=== PATIENT | female | born 1995 | race Caucasian/White ===

== ENCOUNTER 2016-05-17 20:20 | Emergency (ER) | payer OTHER ==
[2016-05-17 20:56] LABS: Collection Type CLEAN CATCH
[2016-05-17 20:57] LABS: COMPLETE URINE MICROSCOPIC? NO
[2016-05-17 21:09] LABS: BASOPHIL % 0.2 % (0.0-0.4); Eosinophil % 0.8 % (0.00-5.0); Granulocytes % 67.1 % (36.0-66.0); Lymphocytes % 24.5 % (24.0-44.0); Mean Corpuscular Hemoglobin 30.4 pg (26-32); Mean Platelet Volume 10.3 fl (6-9.5); Monocytes % 7.4 % (0.0-12.0); Platelet Count 237 K/mm3 (150-450); Red Blood Count 4.67 M/mm3 (4.1-5.4); Red Cell Distribution Width 12.7 % (11.5-14.0); White Blood Count 12.4 K/mm3 (4.0-10.5)
--- NOTE | 2016-05-17 21:17 | ERPHSYRPT ---
- History of Present Illness Time Seen by Provider: 05/17/16 20:47 Source: patient Exam Limitations: no limitations Patient Subjective Stated Complaint: pt states she is 10 weeks and has been having cramping today. Triage Nursing Assessment: pt alert and oriented, answers questions approp. respirations nonlabored with lungs cta. skin pink warm and dry. pt ambulatory with steady gait noted. urine yellow and clear. abd soft and nontender. bowel sounds wnl. Physician History: FOR THE PAST HOUR PT HAS HAD LOWER MID ABDOMINAL CRAMPING. PT STATES SHE IS 10- 12 WEEKS , DENIES VAGINAL BLEEDING, DENIES FEVER. PT HAS HAD ONE MISCARRIAGE 3 YEARS AGO AT ABOUT 4 WEEKS GESTATION. PT ALSO DENIES CHEST PAIN, SHORTNESS OF AIR, VOMITING. Allergies/Adverse Reactions: Penicillins Allergy (Verified 05/17/16 20:39) Home Medications: Vits W-Ca,Fe,FA(<1Mg) [] 1 each PO DAILY 05/17/16 [History] Hx Tetanus, Diphtheria Vaccination/Date Given: Yes Hx Influenza Vaccination/Date Given: Yes Hx Pneumococcal Vaccination/Date Given: No Immunizations Up to Date: Yes - Review of Systems Constitutional: No Fever Respiratory: No Dyspnea Cardiac: No Chest Pain Abdominal/Gastrointestinal: Abdominal Pain Genitourinary Symptoms: No Vaginal Bleeding Neurological: No Headache Endocrine: No Excessive Sweating All Other Systems: Reviewed and Negative - Past Medical History Pertinent Past Medical History: Yes Neurological History: Seizures Cardiac History: No Pertinent History Respiratory History: No Pertinent History Endocrine Medical History: No Pertinent History Musculoskeletal History: No Pertinent History Psycho-Social History: Attention Deficit Disorder Other Medical History: stopped taking meds - Past Surgical History Past Surgical History: Yes Female Surgical History: Dilation & Curettage Other Surgical History: tonsillectomy eardrum sugery. d&c after miscarriage "a few yrs ago" - Social History Smoking Status: Never smoker Exposure to second hand smoke: Yes Drug Use: none Patient Lives Alone: No - Female History Hx Last Menstrual Period: 02/2016 Hx Now: No Expected Date of Delivery: 12/01/16 Gestational Age: 10 weeks - Nursing Vital Signs Nursing Vital Signs: Initial Vital Signs Temperature 97.2 F Temperature Source Oral Pulse Rate 101 Respiratory Rate 16 Blood Pressure [Right Arm] 119/61 Pain Intensity 0 - Physical Exam General Appearance: alert Eye Exam: PERRL/EOMI, eyes nml inspection Ears, Nose, Throat Exam: TMs normal, pharynx normal, moist mucous membranes Neck Exam: normal inspection Respiratory Exam: lungs clear Cardiovascular Exam: normal heart sounds Gastrointestinal/Abdomen Exam: soft, normal bowel sounds, No tenderness Back Exam: normal range of motion Extremity Exam: normal inspection, No pedal edema Neurologic Exam: alert, cooperative Skin Exam: warm, dry SpO2 Interpretation: normal SpO2: 98 Oxygen Delivery: Room Air - Course Nursing assessment & vital signs reviewed: Yes - Radiology Ultrasound Exam OB Ultrasound: Other (TECH REPORT: 10 WK 2 DAYS NORMAL; [id number].) Ordered Tests: Active Orders 24 hr Category Date Time Status OB <14 WKS 1ST GESTATION [US] Stat Exams 05/17/16 22:11 Taken AMYLASE Stat Lab 05/17/16 21:06 Completed CBC W DIFF Stat Lab 05/17/16 21:06 Completed CMP Stat Lab 05/17/16 21:06 Completed HCG, Quantitative (Inhouse) Stat Lab 05/17/16 21:06 Completed LIPASE Stat Lab 05/17/16 21:06 Completed UA Stat Lab 05/17/16 20:35 Completed Lab/Rad Data: Laboratory Result Diagrams 05/17/16 21:06 05/17/16 21:06 Laboratory Results 05/17/16 05/17/16 05/17/16 Range/Units 21:06 21:06 20:35 WBC 12.4 H (4.0-10.5) K/mm3 RBC 4.67 (4.1-5.4) M/mm3 Hgb 14.2 (12.0-16.0) gm/dl Hct 42.5 (35-47) % MCV 91.0 (78-100) fl MCH 30.4 (26-32) pg MCHC 33.4 (32-36) g/dl RDW 12.7 (11.5-14.0) % Plt Count 237 (150-450) K/mm3 MPV 10.3 H (6-9.5) fl Gran % 67.1 H (36.0-66.0) % Lymphocytes % 24.5 (24.0-44.0) % Monocytes % 7.4 (0.0-12.0) % Eosinophils % 0.8 (0.00-5.0) % Basophils % 0.2 (0.0-0.4) % Basophils # 0.03 (0-0.4) Sodium 141 (136-145) mEq/L Potassium 3.6 (3.5-5.1) mEq/L Chloride 103 (98-107) mEq/L Carbon Dioxide 24.7 (21-32) mEq/L Anion Gap 16.4 H (5-15) MEQ/L BUN 6 L (9-20) mg/dL Creatinine 0.65 (0.55-1.30) mg/dl Estimated GFR > 60 ML/MIN Glucose 80 (70-110) MG/DL Calcium 9.3 (8.5-10.1) mg/dL Total Bilirubin 0.2 (0.2-1.0) mg/dL AST 21 (15-37) U/L ALT 27 (12-78) U/L Alkaline Phosphatase 93 (46-116) U/L Serum Total Protein 6.7 (6.4-8.2) gm/dL Albumin 3.4 (3.4-5.0) g/dL Amylase 52 (25-115) U/L Lipase 130 (73-393) U/L Beta HCG, Quant 47175 H (0-6) IU/L Ur Collection Type CLEAN CATCH Urine Color YELLOW (YELLOW) Urine Appearance SLIGHTLY CLOUDY (CLEAR) Urine pH 7.0 (5-6) Ur Specific [place] 1.015 (1.005-1.025) Urine Protein NEGATIVE (Negative) Urine Glucose (UA) NEGATIVE (NEGATIVE) mg/dL Urine Ketones NEGATIVE (NEGATIVE) Urine Nitrite NEGATIVE (NEGATIVE) Urine Bilirubin NEGATIVE (NEGATIVE) Urine Urobilinogen 0.2 (0-1) mg/dL Urine WBC (Auto) NEGATIVE (NEGATIVE) Urine RBC (Auto) NEGATIVE (0-5) Jacob/ul Specimen Received 05/17/162039 - Departure Time of Disposition: 00:05 Departure Disposition: Home Clinical Impression: THREATENED Condition: Fair Critical Care Time: No Instructions: Threatened Additional Instructions: FOLLOW UP WITH PRIVATE OB DOCTOR TOMORROW. STRICT BED REST.
[2016-05-17 21:55] LABS: ALBUMIN 3.4 g/dL (3.4-5.0); ALKALINE PHOSPHATASE 93 U/L (46-116); ANION GAP 16.4 MEQ/L (5-15); BILIRUBIN,TOTAL 0.2 mg/dL (0.2-1.0); BLOOD UREA NITROGEN 6 mg/dL (9-20); CHLORIDE 103 mEq/L (98-107); Carbon Dioxide 24.7 mEq/L (21-32); Glucose 80 MG/DL (70-110); HCG, Quantitative (Inhouse) 75387 IU/L (0-6); LIPASE 130 U/L (73-393); Potassium 3.6 mEq/L (3.5-5.1); SGOT/AST 21 U/L (15-37); SGPT/ALT 27 U/L (12-78); SODIUM 141 mEq/L (136-145); Total Protein 6.7 gm/dL (6.4-8.2)
[2016-05-18 00:05] VITALS: O2SAT 98
[2016-05-18 00:16] VITALS: BP 124/63; PULSE 112
--- NOTE | 2016-05-18 09:04 | XRAY ---
Indication: Cramping. Two-dimensional transabdominal early OB ultrasound performed. Comparison: None There is a single viable intrauterine with a single pole measuring 3.40 cm corresponding to 10 weeks 2 days. heart rate 169 bpm. No abnormal subchorionic fluid collection. Left and right ovaries are unremarkable. No suspicious adnexal mass or free fluid. Impression: Single viable intrauterine measuring 10 weeks 2 days. Expected date confinement is December 11, 2016. Comment: Preliminary report was given.
== END 2016-05-18 00:15 | disposition home or self-care (01) ==
LOC: ED 20:20
DX: O20.0 Threatened abortion (principal); Z3A.10 10 weeks gestation of pregnancy
CPT/HCPCS: 36415; 76801; 80053; 81002; 82150; 83690; 84702; 85025; 99283

== ENCOUNTER 2016-07-09 20:26 | Emergency (ER) | payer OTHER ==
[2016-07-09] MEDS ORDERED: Sodium Chloride 0.9% 1000 ML 1,000 ML IV STA (21:02)
--- NOTE | 2016-07-09 21:02 | ERPHSYRPT ---
- History of Present Illness Source: patient, family Exam Limitations: no limitations Patient Subjective Stated Complaint: pt arr co pink discharge on toilet paper after wiping after voiding at 2030 tonight -pt is 19weeks -she has intermittent left side abd pain mild in nature -she give history of intercourse yesterday without problems -lmp 02-25-2016 with an edc of [id number] ultrasound has been done with this due to bleeding Triage Nursing Assessment: pt is awake and alert and able to answer questions in no acute distress Physician History: The patient is a 21-year-old female with her mother complaining of very light pink vaginal spotting today. She has a little bit of left-sided abdominal pain as well. There is no cramping. She is approximately 19 weeks per patient report. She had intercourse yesterday afternoon. Timing/Duration: hour(s) (2) Activites at Onset: none Quality: aching (Left side) Onset Location: LLQ Pain Radiation: none Severity of Pain-Max: mild Severity of Pain-Current: mild Prior abdominal problems: STD (chlamydia) Sexual intercourse history: non-contributory Modifying Factors: Improves With: nothing Associated Symptoms: denies symptoms Allergies/Adverse Reactions: Penicillins Allergy (Verified 05/17/16 20:39) Home Medications: Vits W-Ca,Fe,FA(<1Mg) [] 1 each PO DAILY 05/17/16 [History] Hx Tetanus, Diphtheria Vaccination/Date Given: Yes Hx Influenza Vaccination/Date Given: Yes Hx Pneumococcal Vaccination/Date Given: No - Review of Systems Constitutional: No Fever, No Chills Eyes: No Symptoms Ears, Nose, & Throat: No Symptoms Respiratory: No Cough, No Dyspnea Cardiac: No Chest Pain, No Edema, No Syncope Abdominal/Gastrointestinal: Abdominal Pain Genitourinary Symptoms: Vaginal Bleeding, No Dysuria Musculoskeletal: No Back Pain, No Neck Pain Skin: No Rash Neurological: No Dizziness, No Focal Weakness, No Sensory Changes Psychological: No Symptoms Endocrine: No Symptoms Hematologic/Lymphatic: No Symptoms Immunological/Allergic: No Symptoms All Other Systems: Reviewed and Negative - Past Medical History Pertinent Past Medical History: Yes Neurological History: Seizures Cardiac History: No Pertinent History Respiratory History: No Pertinent History Endocrine Medical History: No Pertinent History Musculoskeletal History: No Pertinent History Psycho-Social History: Attention Deficit Disorder Other Medical History: stopped taking meds - Past Surgical History Past Surgical History: Yes Female Surgical History: Dilation & Curettage Other Surgical History: tonsillectomy eardrum sugery. d&c after miscarriage "a few yrs ago" - Social History Smoking Status: Never smoker Exposure to second hand smoke: Yes Drug Use: none Patient Lives Alone: No - Female History Hx Last Menstrual Period: 02/25/2016 Hx Now: No - Nursing Vital Signs Nursing Vital Signs: Initial Vital Signs Temperature 99.3 F Temperature Source Oral Pulse Rate 96 Respiratory Rate 16 Blood Pressure [Left Arm] 113/84 Pain Intensity 7 - Physical Exam General Appearance: no apparent distress, alert Eye Exam: PERRL/EOMI, eyes nml inspection Ears, Nose, Throat Exam: normal ENT inspection, TMs normal, pharynx normal, moist mucous membranes Neck Exam: normal inspection, non-tender, supple, full range of motion Respiratory Exam: normal breath sounds, lungs clear, No respiratory distress Cardiovascular Exam: regular rate/rhythm, normal heart sounds, normal peripheral pulses Gastrointestinal/Abdomen Exam: soft (FHT 160 bpm), No tenderness, No mass Pelvic Exam: not done Rectal Exam: not done Back Exam: normal inspection, normal range of motion, No CVA tenderness, No vertebral tenderness Extremity Exam: normal inspection, normal range of motion, pelvis stable Neurologic Exam: alert, oriented x 3, cooperative, apron cleaner II-XII nml as tested, normal mood/affect, sensation nml, No motor deficits Skin Exam: normal color, warm, dry Lymphatic Exam: No adenopathy SpO2 Interpretation: normal SpO2: 98 Oxygen Delivery: Room Air Ordered Tests: Active Orders 24 hr Category Date Time Status Clean Catch Urine Specimen STAT Care 07/09/16 21:07 Active Heart Tones-ED STAT Care 07/09/16 20:54 Active IV Insertion STAT Care 07/09/16 20:43 Active BMP Stat Lab 07/09/16 21:00 Completed CBC W DIFF Stat Lab 07/09/16 21:00 Completed UA Stat Lab 07/09/16 21:00 Completed Medication Summary Generic Name Dose Route Start Last Admin Trade Name Freq PRN Reason Stop Dose Admin Sodium Chloride 1,000 mls @ 999 mls/hr 07/09/16 21:02 07/09/16 21:06 Sodium Chloride 0.9% 1000 Ml IV 07/09/16 22:02 999 mls/hr .Q1H1M STA Administration Discontinued Medications Generic Name Dose Route Start Last Admin Trade Name Garrett PRN Reason Stop Dose Admin Sodium Chloride Confirm 07/09/16 21:04 Sodium Chloride 0.9% 1000 Ml Administered 07/09/16 21:05 Dose 1,000 mls @ ud .ROUTE .K-MED ONE Lab/Rad Data: Laboratory Result Diagrams 07/09/16 21:00 07/09/16 21:00 Laboratory Results 07/09/16 07/09/16 07/09/16 Range/Units 21:00 21:00 21:00 WBC 13.2 H (4.0-10.5) K/mm3 RBC 4.45 (4.1-5.4) M/mm3 Hgb 13.8 (12.0-16.0) gm/dl Hct 40.1 (35-47) % MCV 90.1 (78-100) fl MCH 31.0 (26-32) pg MCHC 34.4 (32-36) g/dl RDW 12.8 (11.5-14.0) % Plt Count 227 (150-450) K/mm3 MPV 10.4 H (6-9.5) fl Gran % 74.3 H (36.0-66.0) % Lymphocytes % 19.3 L (24.0-44.0) % Monocytes % 5.7 (0.0-12.0) % Eosinophils % 0.5 (0.00-5.0) % Basophils % 0.2 (0.0-0.4) % Basophils # 0.02 (0-0.4) Sodium 143 (136-145) mEq/L Potassium 3.6 (3.5-5.1) mEq/L Chloride 108 H (98-107) mEq/L Carbon Dioxide 21.5 (21-32) mEq/L Anion Gap 17.4 H (5-15) MEQ/L BUN 10 (9-20) mg/dL Creatinine 0.64 (0.55-1.30) mg/dl Estimated GFR > 60 ML/MIN Glucose 88 (70-110) MG/DL Calcium 8.5 (8.5-10.1) mg/dL Ur Collection Type CCMS Urine Color YELLOW (YELLOW) Urine Appearance CLEAR (CLEAR) Urine pH 6.5 (5-6) Ur Specific [place] 1.020 (1.005-1.025) Urine Protein NEGATIVE (Negative) Urine Glucose (UA) NEGATIVE (NEGATIVE) mg/dL Urine Ketones NEGATIVE (NEGATIVE) Urine Nitrite NEGATIVE (NEGATIVE) Urine Bilirubin NEGATIVE (NEGATIVE) Urine Urobilinogen 0.2 (0-1) mg/dL Urine WBC (Auto) NEGATIVE (NEGATIVE) Urine RBC (Auto) NEGATIVE (0-5) Jacob/ul Specimen Received 07-09-16 2116 - Progress Progress: improved Air Movement: good Blood Culture(s) Obtained: No Antibiotics given: No Counseled pt/family regarding: lab results, diagnosis, need for follow-up - Departure Time of Disposition: 21:51 Departure Disposition: Home Clinical Impression: Vaginal bleeding in Condition: Stable Critical Care Time: No Additional Instructions: You had one mild episode of vaginal bleeding following intercourse that at this time is not worrisome. Your white count is slightly elevated which is not unusual for . The urinalysis was normal. You were given 1 L of fluids by IV in the ER. Follow up tomorrow as scheduled for the ultrasound to determine the sex of the fetus.
[2016-07-09] MEDS ORDERED: Sodium Chloride 0.9% 1000 ML 1,000 ML ONE (21:04)
[2016-07-09 21:09] LABS: BASOPHIL % 0.2 % (0.0-0.4); Eosinophil % 0.5 % (0.00-5.0); Granulocytes % 74.3 % (36.0-66.0); Lymphocytes % 19.3 % (24.0-44.0); Mean Cell Volume 90.1 fl (78-100); Mean Platelet Volume 10.4 fl (6-9.5); Monocytes % 5.7 % (0.0-12.0); Platelet Count 227 K/mm3 (150-450); Red Blood Count 4.45 M/mm3 (4.1-5.4); Red Cell Distribution Width 12.8 % (11.5-14.0); White Blood Count 13.2 K/mm3 (4.0-10.5)
[2016-07-09 21:10] VITALS: BP 113/84; PULSE 96
[2016-07-09 21:14] LABS: COMPLETE URINE MICROSCOPIC? NO; Collection Type CCMS; Ph 6.5 (5-6)
[2016-07-09 21:25] LABS: ANION GAP 17.4 MEQ/L (5-15); BLOOD UREA NITROGEN 10 mg/dL (9-20); CHLORIDE 108 mEq/L (98-107); Carbon Dioxide 21.5 mEq/L (21-32); Glucose 88 MG/DL (70-110); Potassium 3.6 mEq/L (3.5-5.1); SODIUM 143 mEq/L (136-145)
[2016-07-09 21:55] VITALS: O2SAT 98
== END 2016-07-09 22:25 | disposition home or self-care (01) ==
LOC: ED 20:26
DX: O20.9 Hemorrhage in early pregnancy, unspecified (principal)
CPT/HCPCS: 36000; 36415; 80048; 81002; 85025; 96360; 99284

== ENCOUNTER 2016-07-15 22:38 | Observation (INO) | payer OTHER ==
[2016-07-15 23:03] VITALS: BP 128/71; PULSE 103
[2016-07-15 23:25] LABS: Bacteria MODERATE /HPF (NEGATIVE); COMPLETE URINE MICROSCOPIC? YES; Collection Type CLEAN CATCH; Epithelial Cells MODERATE /HPF (FEW); Mucus SLIGHT /HPF (NEGATIVE)
[2016-07-15] MEDS ORDERED: TYLENOL 325 MG ONE (23:39)
[2016-07-15] MEDS ORDERED: TYLENOL 325 MG PO PRN (23:42)
== END 2016-07-15 23:50 | disposition home or self-care (01) ==
LOC: OB 22:38
PROVIDERS: ADMIT Family Medicine; ATTEND Family Medicine
DX: Z34.80 Encounter for supervision of other normal pregnancy, unspecified trimester (principal)
CPT/HCPCS: 80307; 81000; G0378; A9270-GY

== ENCOUNTER 2016-10-31 21:52 | Observation (INO) | payer MEDICAID, OTHER ==
[2016-10-31 23:24] LABS: Bilirubin NEGATIVE (NEGATIVE); Blood NEGATIVE Ery/ul (0-5); COMPLETE URINE MICROSCOPIC? NO; Collection Type CLEAN CATCH; Glucose NEGATIVE (NEGATIVE); Leukocyte Esterase NEGATIVE (NEGATIVE)
[2016-10-31] MEDS ORDERED: Lactated Ringers 1,000 ML IV ONE (23:34)
[2016-10-31] MEDS ORDERED: BRETHINE 1 MG/ML ONE (23:34)
[2016-10-31] MEDS ORDERED: BRETHINE 1 MG/ML SQ ONE (23:36)
[2016-10-31] MEDS ORDERED: Lactated Ringers 1,000 ML IV SCH (23:45)
[2016-11-01] MEDS ORDERED: BRETHINE 1 MG/ML SQ ONE (02:21)
--- NOTE | 2016-11-01 10:52 | PCM.SSS ---
History of Present Illness - Chief Complaint Chief Complaint: OB CHECK History of Present Illness: is a 21 year old female at 34 2/7 wks EGA who came in last night c/o contractions. She reports possible intermittent leakage of fluid, had an incident of a wet spot on pad last night but nitrazine negative x 1 and equivocal x 1. She had IV fluids and terbutaline x 2 doses, feeling better this am. Denies pain currently. - Review of Systems Constitutional: No Fever, No Chills Respiratory: No Cough, No Short Of Breath Cardiac: No Chest Pain, No Edema, No Syncope Abdominal/Gastrointestinal: Other (contractions as per HPI, normal movement) Skin: No Rash All Other Systems: Reviewed and Negative Medications & Allergies Home Medications: Home Medication List Vits W-Ca,Fe,FA(<1Mg) [] 1 each PO DAILY 05/17/16 [History Confirmed 10/31/16] Allergies/Adverse Reactions: Allergies Allergy/AdvReac Type Severity Reaction Status Date / Time Penicillins Allergy Rash Verified 10/31/16 22:22 Sulfa (Sulfonamide Allergy Rash Verified 10/31/16 22:22 Antibiotics) - Past Medical History Past Medical History: Yes Neurological History: Seizures Cardiac History: No Pertinent History Respiratory History: No Pertinent History Endocrine Medical History: No Pertinent History Musculoskelatal History: No Pertinent History Pyscho-Social History: Attention Deficit Disorder Comment: stopped taking meds - Female History Expected Date of Delivery: 12/11/16 - Past Surgical History Past Surgical History: Yes Female Surgical History: Dilation & Curettage Other Surgical History: tonsillectomy eardrum sugery. d&c after miscarriage "a few yrs ago" - Social History Smoking Status: Never smoker Exposure to second hand smoke: Yes Alcohol: None Drug Use: none - Physical Exam Vital Signs: Vital Signs - 24 hr Temp Pulse BP BP 11/01/16 06:33 111 H 96/50 11/01/16 02:30 111 H 134/82 10/31/16 22:23 98.8 F 102 H 125/76 General Appearance: no apparent distress, alert Respiratory Exam: normal breath sounds, lungs clear, No respiratory distress Cardiovascular Exam: regular rate/rhythm, normal heart sounds, normal peripheral pulses Gastrointestinal/Abdomen Exam: soft, normal bowel sounds, No tenderness, No mass Pelvic Exam: other (cervix high, posterior and closed. no fluid leakage, pad dry and no fluid in vaginal vault) Skin Exam: normal color, warm, dry, No rash Results - Labs Lab/Micro Results: Lab Results-Last 24 Hours 10/31/16 10/31/16 Range/Units 22:50 22:50 Ur Collection Type CLEAN CATCH Urine Color YELLOW (YELLOW) Urine Appearance CLEAR (CLEAR) Urine pH 6.0 (5-6) Ur Specific [place] 1.010 (1.005-1.025) Urine Protein NEGATIVE (Negative) Urine Ketones NEGATIVE (NEGATIVE) Urine Blood NEGATIVE (0-5) Jacob/ul Urine Nitrite NEGATIVE (NEGATIVE) Urine Bilirubin NEGATIVE (NEGATIVE) Urine Urobilinogen NORMAL (0-1) mg/dL Ur Leukocyte Esterase NEGATIVE (NEGATIVE) Urine Glucose NEGATIVE (NEGATIVE) mg/dL Urine Opiates Level NEG. (NEGATIVE) Ur Methadone NEG. (NEGATIVE) Urine Barbiturates NEG. (NEGATIVE) Ur Phencyclidine (PCP) NEG. (NEGATIVE) Urine Amphetamine NEG. (NEGATIVE) U Benzodiazepine Level NEG. (NEGATIVE) Urine Cocaine NEG. (NEGATIVE) Urine Marijuana (THC) NEG. (NEGATIVE) Specimen Received 10/31/16 2300 Assessment/Plan (1) contractions Current Visit: Yes Status: Acute Assessment & Plan: resolved at this time and no cervical change, labor ruled out. will give celestone 12mg IM and repeat in 24 hours. would start procardia if contractions begin again Code(s): O47.9 - FALSE LABOR, UNSPECIFIED (2) No leakage of amniotic fluid into vagina Current Visit: Yes Status: Acute Code(s): Z03.71 - ENCNTR FOR SUSP PROB W AMNIO CAVITY AND MEMBRANE RULED OUT (3) Abnormal vaginal fluids Current Visit: Yes Status: Acute Assessment & Plan: check u/s with SCOTT, likely home if fluid level ok and no further problems. Code(s): R87.9 - UNSP ABNORMAL FINDING IN SPECMN FROM FEMALE GENITAL ORGANS [facility] Summary - Vitals & Intake/Output Vital Signs: Vital Signs Temperature 98.8 F 10/31/16 22:23 Pulse Rate 111 H 11/01/16 06:33 Respiratory Rate Blood Pressure 96/50 11/01/16 06:33 O2 Sat by Pulse Oximetry Intake & Output: Intake & Output 07/12/10/30/16 10/31/16 11/01/16 11:59 11:59 11:59 11:59 Weight 83.915 kg - Lab Lab Results-Last 24 Hrs: Lab Results-Last 24 Hours 10/31/16 10/31/16 Range/Units 22:50 22:50 Ur Collection Type CLEAN CATCH Urine Color YELLOW (YELLOW) Urine Appearance CLEAR (CLEAR) Urine pH 6.0 (5-6) Ur Specific [place] 1.010 (1.005-1.025) Urine Protein NEGATIVE (Negative) Urine Ketones NEGATIVE (NEGATIVE) Urine Blood NEGATIVE (0-5) Jacob/ul Urine Nitrite NEGATIVE (NEGATIVE) Urine Bilirubin NEGATIVE (NEGATIVE) Urine Urobilinogen NORMAL (0-1) mg/dL Ur Leukocyte Esterase NEGATIVE (NEGATIVE) Urine Glucose NEGATIVE (NEGATIVE) mg/dL Urine Opiates Level NEG. (NEGATIVE) Ur Methadone NEG. (NEGATIVE) Urine Barbiturates NEG. (NEGATIVE) Ur Phencyclidine (PCP) NEG. (NEGATIVE) Urine Amphetamine NEG. (NEGATIVE) U Benzodiazepine Level NEG. (NEGATIVE) Urine Cocaine NEG. (NEGATIVE) Urine Marijuana (THC) NEG. (NEGATIVE) Specimen Received 10/31/16 2300 - Discharge Disposition: Home, Self-Care Condition: Stable Prescriptions: No Action Vits W-Ca,Fe,FA(<1Mg) [] 1 each PO DAILY
[2016-11-01] MEDS ORDERED: Celestone Soluspan 6MG/ML IM ONE (11:00)
[2016-11-01 13:51] VITALS: BP 124/70; PULSE 116
--- NOTE | 2016-11-01 16:08 | XRAY ---
Indication: labor. Limited OB ultrasound performed and compared to July 10, 2016. Again there is a term in cephalic presentation. heart rate 147 bpm. Placenta is again posterior without abruption/previa. Four-quadrant SCOTT 14.7 cm. Impression: Again single viable uterine with normal heart rate and SCOTT. Nothing acute. Comment: Preliminary report was given.
== END 2016-11-01 13:45 | disposition home or self-care (01) ==
LOC: OB 21:52 → UNDOADMOB 21:52 → UNDODISOB 11-01 13:45
PROVIDERS: ADMIT Family Medicine; ATTEND Family Medicine
DX: Z34.83 Encounter for supervision of other normal pregnancy, third trimester (principal)
CPT/HCPCS: 76815; 80307; 81002; 90384; 96372; G0378; J0702

== ENCOUNTER 2016-11-14 18:36 | Observation (INO) | payer OTHER ==
[2016-11-14 20:44] VITALS: BP 115/70; PULSE 98; O2SAT 98
== END 2016-11-14 20:36 | disposition home or self-care (01) ==
LOC: UNDOADMOB 18:36 → OB 18:36 → UNDODISOB 20:36
PROVIDERS: ADMIT Family Medicine; ATTEND Family Medicine
DX: Z34.83 Encounter for supervision of other normal pregnancy, third trimester (principal)
CPT/HCPCS: G0378

== ENCOUNTER 2016-11-15 01:04 | Observation (INO) | payer OTHER ==
[2016-11-15 05:51] VITALS: BP 98/56; PULSE 88; O2SAT 98
[2016-11-15 12:18] LABS: Bilirubin NEGATIVE (NEGATIVE); Blood NEGATIVE Ery/ul (0-5); COMPLETE URINE MICROSCOPIC? NO; Collection Type CCMS; Glucose NEGATIVE (NEGATIVE); Leukocyte Esterase NEGATIVE (NEGATIVE)
== END 2016-11-15 12:45 | disposition home or self-care (01) ==
LOC: OB 01:04 → UNDOADMOB 01:04 → UNDODISOB 12:45
PROVIDERS: ADMIT Family Medicine; ATTEND Family Medicine
DX: Z34.83 Encounter for supervision of other normal pregnancy, third trimester (principal)
CPT/HCPCS: 80307; 81002; G0378

== ENCOUNTER 2016-11-25 22:26 | Observation (INO) | payer OTHER ==
[2016-11-25 23:33] VITALS: PULSE 95
[2016-11-26 02:14] VITALS: BP 127/83
== END 2016-11-26 00:55 | disposition home or self-care (01) ==
LOC: OB 22:26
PROVIDERS: ADMIT Family Medicine; ATTEND Family Medicine
DX: Z34.83 Encounter for supervision of other normal pregnancy, third trimester (principal)
CPT/HCPCS: G0378

== ENCOUNTER 2016-12-09 21:18 | Observation (INO) | payer OTHER ==
[2016-12-09 23:03] VITALS: BP 136/87; PULSE 103
== END 2016-12-09 23:25 | disposition home or self-care (01) ==
LOC: MED SURG 21:18 → UNDOADMOB 21:18 → UNDODISOB 23:25
PROVIDERS: ADMIT Family Medicine; ATTEND Family Medicine
DX: Z34.83 Encounter for supervision of other normal pregnancy, third trimester (principal)
CPT/HCPCS: 80307; G0378

== ENCOUNTER 2016-12-10 19:41 | Observation (INO) | payer OTHER ==
[2016-12-10 20:06] VITALS: BP 111/76; PULSE 89
== END 2016-12-10 21:55 | disposition home or self-care (01) ==
LOC: OB 19:41 → UNDOADMOB 19:41 → UNDODISOB 21:55
PROVIDERS: ADMIT Family Medicine; ATTEND Family Medicine
DX: Z34.03 Encounter for supervision of normal first pregnancy, third trimester (principal)
CPT/HCPCS: 80307; G0378

== ENCOUNTER 2016-12-15 19:28 | Observation (INO) | payer OTHER ==
[2016-12-15 19:54] VITALS: BP 119/83; PULSE 86
== END 2016-12-15 21:40 | disposition home or self-care (01) ==
LOC: OB 19:28 → UNDOADMOB 19:28 → UNDODISOB 21:40
PROVIDERS: ADMIT Family Medicine; ATTEND Family Medicine
DX: Z34.83 Encounter for supervision of other normal pregnancy, third trimester (principal)
CPT/HCPCS: 80307; G0378

== ENCOUNTER 2016-12-16 02:13 | Observation (INO) | payer OTHER ==
[2016-12-16 09:00] VITALS: BP 118/79; PULSE 75
== END 2016-12-16 08:55 | disposition home or self-care (01) ==
LOC: OB 02:13
PROVIDERS: ADMIT Family Medicine; ATTEND Family Medicine
DX: Z34.83 Encounter for supervision of other normal pregnancy, third trimester (principal)
CPT/HCPCS: G0378

== ENCOUNTER 2016-12-18 16:06 | Inpatient (IN) | payer OTHER ==
[~2016-12-18 16:06] MED LIST: DIPRIVAN 200 MG/20 ML IV ONE; Decadron 4 MG INJ IV ONE; Marcaine Mpf 0.5% Vial 30 Ml IJ ONE; Pitocin 10 UNITS/ML IV ONE; Quelicin Fliptop 200 MG/10 ML IJ ONE; SUBLIMAZE 250 MCG/5 ML IV ONE; TORAdol 30 mg Injection IJ ONE; Zofran 4 MG/2 ML VIAL IV ONE
[2016-12-18] MEDS ORDERED: XYLOCAINE 1% HCL 20 ML MDV IJ PRN (17:10)
[2016-12-18 17:27] LABS: BASOPHIL % 0.1 % (0.0-0.4); Eosinophil % 0.1 % (0.00-5.0); Granulocytes % 84.8 % (36.0-66.0); Lymphocytes % 11.4 % (24.0-44.0); Mean Cell Volume 91.8 fl (78-100); Mean Corpuscular Hemoglobin 31.6 pg (26-32); Mean Platelet Volume 10.9 fl (6-9.5); Monocytes % 3.6 % (0.0-12.0); Platelet Count 209 K/mm3 (150-450); Red Blood Count 4.87 M/mm3 (4.1-5.4); Red Cell Distribution Width 12.7 % (11.5-14.0); White Blood Count 14.9 K/mm3 (4.0-10.5)
[2016-12-18] MEDS ORDERED: PITOCIN 30 UNITS/ LR 500 ML 500 ML IV SCH (17:30)
[2016-12-18] MEDS ORDERED: Phenergan 25 MG INJ IV PRN (18:12)
[2016-12-18] MEDS ORDERED: TYLENOL EXTRA STRENGTH 500 MG PO PRN (18:12)
[2016-12-18] MEDS ORDERED: Nubain 10 MG/ML IV PRN (18:12)
[2016-12-18] MEDS ORDERED: STADOL 2 MG IV PRN ×2 (18:12→21:13)
[2016-12-18] MEDS ORDERED: Zofran 4 MG/2 ML VIAL IV PRN (18:12)
[2016-12-18] MEDS: Lactated Ringers 1,000 ML IV SCH ×3 (18:17→22:12)
[2016-12-18] MEDS ORDERED: STADOL 2 MG ONE (18:28)
[2016-12-18] MEDS ORDERED: Pepcid 20 MG VIAL IV SCH (21:45)
[2016-12-18] MEDS ORDERED: BICITRA 30 ML CUP PO SCH (21:45)
[2016-12-18] MEDS ORDERED: Reglan 10 MG/2 ML IV SCH (21:45)
[2016-12-18 21:52] LABS: INR 0.96 (0.8-3.0); PROTIME 10.8 SECONDS (9.95-12.35)
[2016-12-18 21:54] LABS: PTT 31.7 SECONDS (25.3-37.0)
[2016-12-18] MEDS ORDERED: Lactated Ringers 1,000 ML IV ONE (22:14)
[2016-12-18] MEDS ORDERED: Cleocin Phosphate IV 600 MG/4 ML ONE (22:14)
[2016-12-19] MEDS ORDERED: Phenergan 25 MG INJ IM PRN (00:52)
[2016-12-19] MEDS: DEMEROL 75 MG IM PRN ×4 (01:07→18:34)
[2016-12-19 04:12] VITALS: O2SAT 98
[2016-12-19 06:02] LABS: Mean Cell Volume 93.1 fl (78-100); Mean Corpuscular Hemoglobin 31.9 pg (26-32); Mean Platelet Volume 11.1 fl (6-9.5); Platelet Count 197 K/mm3 (150-450); Red Blood Count 4.07 M/mm3 (4.1-5.4); Red Cell Distribution Width 12.4 % (11.5-14.0)
[2016-12-19] MEDS: Dextrose 5%-Lr IV Solution 1000 ML 1,000 ML IV SCH ×2 (06:31→14:33)
--- NOTE | 2016-12-19 09:32 | OP ---
SURGERY DATE/TIME: 12/18/2016 2228 PREOPERATIVE DIAGNOSES: 1) Term intrauterine . 2) Nonreassuring heart rate tracing. POSTOPERATIVE DIAGNOSES: 1) Term intrauterine . 2) Nonreassuring heart rate tracing. 3) Delivered. PROCEDURE: Primary lower uterine segment transverse incision section. SURGEON: Dr. Alan. ANESTHESIA: General. HISTORY: The patient is a 21 year old white female presenting now at 41 weeks in labor. She had decelerations at least twice with first time down in the 90's and second time down in the 60's. The heart rate tracing showed diminished variability. Consideration with the patient at 2 cm and not tolerating labor either with the Stadol, the patient was felt to need to have delivery at this time. She was appraised of the risks of the procedure including the risk of wound infection, possible bleeding requiring transfusion, possible injury to any intra-abdominal organs. The patient verbalized her understanding and desired to have the procedure performed. DESCRIPTION OF PROCEDURE: The patient was prepped and draped in the supine position. After general anesthesia was introduced, a Pfannenstiel incision was made and carried down sharply through the fascia which was divided in a horizontal fashion. The rectus muscles were then bluntly and sharply dissected away from the overlying fascia and then bluntly retracted laterally. The peritoneal cavity was then entered. A bladder flap was developed and the bladder was retracted inferiorly. The uterus was scored in a horizontal fashion and entered in the midline. The wound was extended using bandage scissors. A white male infant was delivered through the abdominal wound. The cord was doubly clamped and divided between the clamps and the baby was handed off for further care. The placenta was then manually removed from the uterus. The uterus was then exteriorized and wrapped in moist gauze. The wound edges were then approximated using 1-0 chromic suture in a running, interlocking fashion. The bladder flap was repaired using 3-0 chromic suture in a running fashion. The cul-de-sac area was swabbed clear of blood and amniotic fluid and replaced in the abdominal cavity. Paracolic gutters were then also swabbed clear of blood and amniotic fluid. The peritoneum was then repaired using 3-0 chromic suture in a running fashion. The fascia was repaired using 0 Vicryl suture in a running fashion. The skin edges were reapproximated using 4-0 Vicryl suture in a subcuticular fashion and reinforced with Steri-Strips. The sponge, needle and instrument count was reported as correct at the end of the procedure. She did receive 900 mg of Cleocin intraoperatively after the cord was clamped. The patient was taken back to the recovery room in good condition.
[2016-12-19] MEDS ORDERED: Pepcid 20 MG VIAL IV ONE (10:13)
[2016-12-19] MEDS ORDERED: Reglan 10 MG/2 ML IV ONE (10:13)
[2016-12-19] MEDS ORDERED: BICITRA 30 ML CUP PO ONE (10:13)
[2016-12-19] MEDS ORDERED: TYLENOL EXTRA STRENGTH 500 MG PO PRN (10:26)
[2016-12-19] MEDS ORDERED: Adacel Vial IM ONE (10:47)
[2016-12-19] MEDS ORDERED: M-M-R II Vaccine With Diluent SQ ONE (11:00)
[2016-12-19] MEDS ORDERED: Dulcolax 10 MG SUPP PR PRN (21:16)
[2016-12-19] MEDS ORDERED: Mylicon 80MG PO PRN (21:16)
[2016-12-19] MEDS: MOTRIN 400 MG PO PRN (21:33)
[2016-12-19] MEDS: Colace 100 MG PO SCH (21:34)
[2016-12-19] MEDS ORDERED: Rhogam Plus 300 MCG IM ONE (22:00)
[2016-12-19] MEDS: NORCO 5/325 MG PO PRN (23:40)
[2016-12-20] MEDS: NORCO 5/325 MG PO PRN ×4 (06:12→22:36)
[2016-12-20 06:31] LABS: BASOPHIL % 0.1 % (0.0-0.4); Eosinophil % 0.3 % (0.00-5.0); Granulocytes % 69.4 % (36.0-66.0); Lymphocytes % 22.7 % (24.0-44.0); Mean Cell Volume 96.1 fl (78-100); Mean Platelet Volume 10.4 fl (6-9.5); Monocytes % 7.5 % (0.0-12.0); Platelet Count 172 K/mm3 (150-450); Red Blood Count 3.58 M/mm3 (4.1-5.4); Red Cell Distribution Width 12.9 % (11.5-14.0); White Blood Count 14.6 K/mm3 (4.0-10.5)
[2016-12-20 06:32] LABS: Mean Corpuscular Hemoglobin 31.5 pg (26-32)
[2016-12-20 06:53] LABS: ALBUMIN 2.1 g/dL (3.4-5.0); ALKALINE PHOSPHATASE 142 U/L (46-116); ANION GAP 13.2 MEQ/L (5-15); BLOOD UREA NITROGEN 5 mg/dL (9-20); CHLORIDE 107 mEq/L (98-107); Carbon Dioxide 24.9 mEq/L (21-32); Glucose 121 MG/DL (70-110); Potassium 3.4 mEq/L (3.5-5.1); SGOT/AST 33 U/L (15-37); SGPT/ALT 43 U/L (12-78); SODIUM 142 mEq/L (136-145); Total Protein 5.3 gm/dL (6.4-8.2)
[2016-12-20] MEDS: FERREX 150 PO SCH (10:53)
[2016-12-20] MEDS: Colace 100 MG PO SCH ×2 (10:53→22:38)
[2016-12-20] MEDS: MOTRIN 400 MG PO PRN (20:32)
[2016-12-21] MEDS: FERREX 150 PO SCH (09:54)
[2016-12-21] MEDS: Colace 100 MG PO SCH ×2 (09:54→21:57)
[2016-12-21] MEDS: NORCO 5/325 MG PO PRN ×3 (09:54→21:57)
[2016-12-21] MEDS: MOTRIN 400 MG PO PRN (19:28)
[2016-12-22] MEDS: MOTRIN 400 MG PO PRN (01:49)
[2016-12-22] MEDS: FERREX 150 PO SCH (09:56)
[2016-12-22] MEDS: Colace 100 MG PO SCH (09:56)
[2016-12-22] MEDS: NORCO 5/325 MG PO PRN (10:40)
--- NOTE | 2016-12-22 11:20 | PCM.DS ---
Discharge Summary Date of Admission: 12/18/16 21:38 Admitting Physician: ERICH ALAN Consults: Consults on Case 12/18/16 21:44 Notify Physician OF ADMISSION Primary Care Provider: ERICH ALAN Allergies Allergies Penicillins Allergy (Verified 11/26/16 00:22) Rash Sulfa (Sulfonamide Antibiotics) Allergy (Verified 11/26/16 00:22) Rash Hospital Summary - Hospital Course Hospital Course: patient had primary c -section by Dr Alan for nonreassuring heart tones. had pain control and mobility issues so stayed extra time in hospital as she was having problems ambulating and caring for son. doing well on date of discharge, mild lochia, bottle feeding. pain well controlled - Vitals & Intake/Output Vital Signs: Vital Signs Temperature 98.2 F 12/22/16 08:00 Pulse Rate 120 H 12/22/16 08:00 Respiratory Rate 18 12/22/16 08:00 Blood Pressure 126/85 12/22/16 08:00 O2 Sat by Pulse Oximetry 98 12/19/16 08:00 Oxygen-Last Documented O2 Percentage 100% Intake & Output: Intake & Output 12/19/16 12/20/16 12/21/16 12/22/16 11:59 11:59 11:59 11:59 Intake Total 2871 1819 Output Total 200 800 Balance 2671 1019 Weight 85.275 kg - Lab Result Diagrams: 12/20/16 06:25 12/20/16 06:25 Discharge Exam General Appearance: no apparent distress, alert Skin Exam: normal color, warm, dry Respiratory Exam: normal breath sounds, lungs clear, No respiratory distress Cardiovascular Exam: regular rate/rhythm, normal heart sounds Gastrointestinal/Abdomen Exam: soft, other (incision c/d/i), No tenderness, No mass Extremity Exam: normal inspection, normal range of motion Final Diagnosis/Problem List - Final Discharge Diagnosis/Problem (1) delivery delivered Current Visit: Yes Status: Acute (2) Postoperative pain Current Visit: Yes Status: Acute - Discharge Disposition: Home, Self-Care Condition: Stable Prescriptions: New Hydrocodone Bit/Acetaminophen [[place] 5/325Mg] 1 each PO Q4-6HPRN PRN #20 tablet PRN Reason: Pain Discontinued Vits W-Ca,Fe,FA(<1Mg) [] 1 tablet PO DAILY Follow up with: ERICH ALAN [Primary Care Provider] - 1 Week
[2016-12-22 13:13] VITALS: BP 125/80; PULSE 106
== END 2016-12-22 12:35 | disposition home or self-care (01) | DRG 766 ==
LOC: OB 16:06 → OBSVTOIN 21:38 → OB 21:38
PROVIDERS: ADMIT Family Medicine; ATTEND Family Medicine
PROC: 10D00Z1 Extraction of Products of Conception, Low, Open Approach (ICD-10-PCS; principal; 2016-12-18)
DX: O76 Abnormality in fetal heart rate and rhythm complicating labor and delivery (principal); Z3A.41 41 weeks gestation of pregnancy; Z37.0 Single live birth; O82 Encounter for cesarean delivery without indication
CPT/HCPCS: 01961; 36415; 64425; 76819; 76942; 80053; 80307; 85025; 85027; 85461; 85610; 85730; 86850; 86900; 86901; 88307; 90384; 90707; 90715; 94799; 96372; 99140; G0378; J0330; J0595; J1100; J1885; J2175; J2405; J2590; J2704; J2790; J3010; L0625; A9270-GY

== ENCOUNTER 2016-12-31 19:40 | Emergency (ER) | payer OTHER ==
[2016-12-31] MEDS ORDERED: Sodium Chloride 0.9% 1000 ML 1,000 ML IV STA (20:02)
[2016-12-31] MEDS ORDERED: Sodium Chloride 0.9% 1000 ML 1,000 ML ONE (20:05)
--- NOTE | 2016-12-31 20:08 | ERPHSYRPT ---
- History of Present Illness Time Seen by Provider: 12/31/16 20:03 Source: patient Exam Limitations: no limitations Patient Subjective Stated Complaint: started having bleeding with clots today. December 18. staes clots have been getting bigger. feels like insides pulling. lightheaded x 3 days. states incrteases bleeding when goes to bathroom. Triage Nursing Assessment: alert and oriented color pink. abdomen soft. c section suture line c/d. Physician History: This is a 21-year-old white female who states that she had a recent delivered by the end of November She states that after having her she began to have vaginal bleeding for about 4-5 days she states she told her doctor about this last week. She states that now she is having bleeding with the clots the size of a quarter. She states she feels dizzy when she walks for long periods. She has some mild suprapubic tenderness. No vaginal discharge Past medical history includes seizures, attention deficit disorder Past surgical history includes the november, D&C in the distant past Timing/Duration: day(s) (patient states she's been havingvaginal bleeding since 4 days after which has increased for the past 4 days) Severity: moderate Modifying Factors: Improves With: nothing Associated Symptoms: abdominal pain (suprapubic discomfort), No nausea, No vomiting, No shortness of breath, No heartburn, No diaphoresis, No cough, No chills, No chest pain, No fever, No headaches, No loss of appetite, No malaise, No rash, No syncope, No seizure, No weakness Allergies/Adverse Reactions: Penicillins Allergy (Verified 11/26/16 00:22) Rash Sulfa (Sulfonamide Antibiotics) Allergy (Verified 11/26/16 00:22) Rash Hx Tetanus, Diphtheria Vaccination/Date Given: Yes Hx Influenza Vaccination/Date Given: Yes Hx Pneumococcal Vaccination/Date Given: No Immunizations Up to Date: Yes - Review of Systems Constitutional: No Fever, No Chills Eyes: No Symptoms Ears, Nose, & Throat: No Symptoms Respiratory: No Cough, No Dyspnea Cardiac: No Symptoms, No Chest Pain, No Edema, No Syncope Abdominal/Gastrointestinal: Abdominal Pain (suprapubic discomfort), No Nausea, No Vomiting, No Diarrhea, No Constipation, No Hematemesis, No Hematochezia, No Melena, No Dysphagia, No Appetite Changes Genitourinary Symptoms: Vaginal Bleeding, Other (with a the end of November), No Dysuria, No Frequency, No Hematuria, No Hesitancy, No Incontinence, No Urgency Musculoskeletal: No Back Pain, No Neck Pain Skin: No Rash Neurological: Dizziness (dizziness if walks a long time), Other, No Focal Weakness, No Sensory Changes Psychological: No Symptoms Endocrine: No Symptoms All Other Systems: Reviewed and Negative - Past Medical History Pertinent Past Medical History: Yes Neurological History: Seizures Cardiac History: No Pertinent History Respiratory History: No Pertinent History Endocrine Medical History: No Pertinent History Musculoskeletal History: No Pertinent History Psycho-Social History: Attention Deficit Disorder Other Medical History: stopped taking meds - Past Surgical History Past Surgical History: Yes Female Surgical History: Dilation & Curettage, Section Other Surgical History: tonsillectomy eardrum sugery. d&c after miscarriage "a few yrs ago" - Social History Smoking Status: Never smoker Exposure to second hand smoke: Yes Drug Use: none Patient Lives Alone: No - Female History Hx Now: No - Nursing Vital Signs Nursing Vital Signs: Initial Vital Signs Temperature 97.7 F 12/31/16 19:44 Pulse Rate 96 H 12/31/16 19:44 Respiratory Rate 16 12/31/16 19:44 Blood Pressure 127/77 12/31/16 19:44 O2 Sat by Pulse Oximetry 99 12/31/16 19:44 Pain Scale Pain Intensity 6 - Physical Exam General Appearance: no apparent distress, alert Eye Exam: PERRL/EOMI, eyes nml inspection Ears, Nose, Throat Exam: normal ENT inspection, TMs normal, pharynx normal, moist mucous membranes Neck Exam: normal inspection, non-tender, supple, full range of motion Respiratory Exam: normal breath sounds, lungs clear, No respiratory distress Cardiovascular Exam: regular rate/rhythm, normal heart sounds, normal peripheral pulses Gastrointestinal/Abdomen Exam: soft, normal bowel sounds, tenderness ( suprapubic tenderness), other (no erythema noted to his surgical scar) Pelvic Exam: other (pelvic examination: Normal female external genitalia, small to moderate amount of a clear vaginal fluid with pink staining cervix closed mild uterine tenderness no adnexal tenderness) Back Exam: normal inspection, normal range of motion, No CVA tenderness, No vertebral tenderness Extremity Exam: normal inspection, normal range of motion, pelvis stable Neurologic Exam: alert, oriented x 3, cooperative, normal mood/affect, nml cerebellar function, nml station & gait, sensation nml, No motor deficits Skin Exam: normal color, warm, dry, No rash Lymphatic Exam: No adenopathy SpO2 Interpretation: normal (99%) SpO2: 99 Oxygen Delivery: Room Air Ordered Tests: Active Orders 24 hr Category Date Time Status Cath for Specimen-Straight STAT Care 12/31/16 20:03 Active IV Insertion STAT Care 12/31/16 20:02 Active Orthostatic Vital Signs STAT Care 12/31/16 20:03 Active Pelvic Exam Assist STAT Care 12/31/16 20:43 Active BMP Stat Lab 12/31/16 19:55 Completed CBC W DIFF Stat Lab 12/31/16 19:55 Completed HCG QUALITATIVE,SERUM Stat Lab 12/31/16 20:30 Completed Manual Differential NC Stat Lab 12/31/16 19:55 Completed UA W/ MICROSCOPIC Stat Lab 12/31/16 21:00 Completed Wet Prep Stat Lab 12/31/16 21:10 Completed Medication Summary Discontinued Medications Generic Name Dose Route Start Last Admin Trade Name Freq PRN Reason Stop Dose Admin Sodium Chloride 1,000 mls @ 999 mls/hr 12/31/16 20:02 12/31/16 20:20 Sodium Chloride 0.9% 1000 Ml IV 12/31/16 21:02 999 mls/hr .Q1H1M STA Administration Sodium Chloride Confirm 12/31/16 20:05 Sodium Chloride 0.9% 1000 Ml Administered 12/31/16 20:06 Dose 1,000 mls @ ud .ROUTE .[facility] Lab/Rad Data: Laboratory Result Diagrams 12/31/16 19:55 12/31/16 19:55 Laboratory Results 12/31/16 12/31/16 12/31/16 Range/Units 21:10 21:00 20:30 WBC (4.0-10.5) K/mm3 RBC (4.1-5.4) M/mm3 Hgb (12.0-16.0) gm/dl Hct (35-47) % MCV (78-100) fl MCH (26-32) pg MCHC (32-36) g/dl RDW (11.5-14.0) % Plt Count (150-450) K/mm3 MPV (6-9.5) fl Sodium (136-145) mEq/L Potassium (3.5-5.1) mEq/L Chloride (98-107) mEq/L Carbon Dioxide (21-32) mEq/L Anion Gap (5-15) MEQ/L BUN (9-20) mg/dL Creatinine (0.55-1.30) mg/dl Estimated GFR ML/MIN Glucose (70-110) MG/DL Calcium (8.5-10.1) mg/dL Serum , Qual NEGATIVE (Negative) Ur Collection Type CATH Urine Color YELLOW (YELLOW) Urine Appearance CLEAR (CLEAR) Urine pH 7.0 (5-6) Ur Specific [place] 1.020 (1.005-1.025) Urine Protein NEGATIVE (Negative) Urine Ketones NEGATIVE (NEGATIVE) Urine Blood NEGATIVE (0-5) Jacob/ul Urine Nitrite NEGATIVE (NEGATIVE) Urine Bilirubin NEGATIVE (NEGATIVE) Urine Urobilinogen NORMAL (0-1) mg/dL Ur Leukocyte Esterase TRACE (NEGATIVE) Urine Microscopic WBC 2-5 (0-5) /HPF Urine Bacteria RARE (NEGATIVE) /HPF Urine Glucose NEGATIVE (NEGATIVE) mg/dL WBC (Wet Prep) Few RBC (Wet Prep) Few Epi Cells (Wet Prep) Rare Bacteria (Wet Prep) Rare Clue Cells (Wet Prep) None Seen Trichomonas (Wet Prep) None Seen Budding Yeast (Wet Prp) None Seen Specimen Received [id number]/16 12/31/16 Range/Units 19:55 19:55 WBC 12.7 H (4.0-10.5) K/mm3 RBC 4.43 (4.1-5.4) M/mm3 Hgb 13.6 (12.0-16.0) gm/dl Hct 40.8 (35-47) % MCV 92.1 (78-100) fl MCH 30.7 (26-32) pg MCHC 33.3 (32-36) g/dl RDW 11.9 (11.5-14.0) % Plt Count 409 (150-450) K/mm3 MPV 9.7 H (6-9.5) fl Sodium 142 (136-145) mEq/L Potassium 3.9 (3.5-5.1) mEq/L Chloride 106 (98-107) mEq/L Carbon Dioxide 26.5 (21-32) mEq/L Anion Gap 13.4 (5-15) MEQ/L BUN 12 (9-20) mg/dL Creatinine 0.79 (0.55-1.30) mg/dl Estimated GFR > 60 ML/MIN Glucose 100 (70-110) MG/DL Calcium 9.5 (8.5-10.1) mg/dL Serum , Qual (Negative) Ur Collection Type Urine Color (YELLOW) Urine Appearance (CLEAR) Urine pH (5-6) Ur Specific [place] (1.005-1.025) Urine Protein (Negative) Urine Ketones (NEGATIVE) Urine Blood (0-5) Jacob/ul Urine Nitrite (NEGATIVE) Urine Bilirubin (NEGATIVE) Urine Urobilinogen (0-1) mg/dL Ur Leukocyte Esterase (NEGATIVE) Urine Microscopic WBC (0-5) /HPF Urine Bacteria (NEGATIVE) /HPF Urine Glucose (NEGATIVE) mg/dL WBC (Wet Prep) RBC (Wet Prep) Epi Cells (Wet Prep) Bacteria (Wet Prep) Clue Cells (Wet Prep) Trichomonas (Wet Prep) Budding Yeast (Wet Prp) Specimen Received - Progress Progress: improved Progress Note: 12/31/16 21:20 Sterile speculum examination performed Patient with moderate amount of pink stained fluid in the vaginal vault. Cervix is closed. Mild uterine tenderness no adnexal tenderness. - Departure Time of Disposition: 21:34 Departure Disposition: Home Clinical Impression: Vaginal bleeding, history of recent Condition: Fair Critical Care Time: No Referrals: REICH ROUSSEAU [Primary Care Provider] - Instructions: Vaginal Bleeding Additional Instructions: Return home. Rest. Nothing in your vagina. Follow-up with your family doctor call tomorrow for appointment. Plenty of fluids. Return for acute distress or for severe symptoms.
[2016-12-31 20:10] LABS: Mean Cell Volume 92.1 fl (78-100); Mean Corpuscular Hemoglobin 30.7 pg (26-32); Mean Platelet Volume 9.7 fl (6-9.5); Platelet Count 409 K/mm3 (150-450); Red Blood Count 4.43 M/mm3 (4.1-5.4); Red Cell Distribution Width 11.9 % (11.5-14.0); White Blood Count 12.7 K/mm3 (4.0-10.5)
[2016-12-31 20:45] LABS: ANION GAP 13.4 MEQ/L (5-15); BLOOD UREA NITROGEN 12 mg/dL (9-20); CHLORIDE 106 mEq/L (98-107); Carbon Dioxide 26.5 mEq/L (21-32); Glucose 100 MG/DL (70-110); Potassium 3.9 mEq/L (3.5-5.1); SODIUM 142 mEq/L (136-145)
[2016-12-31 21:10] VITALS: O2SAT 99
[2016-12-31 21:14] VITALS: BP 121/70; PULSE 71
[2016-12-31 21:15] LABS: Collection Type CATH
[2016-12-31 21:16] LABS: Bacteria RARE /HPF (NEGATIVE); Bilirubin NEGATIVE (NEGATIVE); Blood NEGATIVE Ery/ul (0-5); COMPLETE URINE MICROSCOPIC? YES; Glucose NEGATIVE (NEGATIVE); Leukocyte Esterase TRACE (NEGATIVE)
[2016-12-31 21:17] LABS: ADD URINE CULTURE? NO (NO)
[2016-12-31 21:29] LABS: Clue Cells None Seen; Trichomonas None Seen; Yeast None Seen
[2016-12-31 21:30] LABS: Bacteria Rare
[2016-12-31 21:49] LABS: BAND 1 % (0.0-2.0); Eosinophil 2 % (0.00-3.0); Total Cells Counted 100
[2016-12-31 21:50] LABS: Platelet Estimate NORMAL (NORMAL)
[2016-12-31 22:59] LABS: CHLAMYDIA DNA NEGATIVE
== END 2016-12-31 21:49 | disposition home or self-care (01) ==
LOC: ED 19:40
DX: N93.9 Abnormal uterine and vaginal bleeding, unspecified (principal); Z98.890 Other specified postprocedural states
CPT/HCPCS: 36000; 36415; 80048; 81000; 84703; 85025; 87210; 87490; 87590; 96360; 99284; P9612

== ENCOUNTER 2017-04-14 16:36 | Emergency (ER) | payer OTHER ==
[2017-04-14] MEDS ORDERED: Zofran 4 MG/2 ML VIAL IV ONE (16:59)
[2017-04-14] MEDS ORDERED: Hydromorphone 1 mg/ml Ampule IV ONE (16:59)
[2017-04-14] MEDS ORDERED: Sodium Chloride 0.9% 1000 ML 1,000 ML IV SCH (17:00)
--- NOTE | 2017-04-14 17:08 | ERPHSYRPT ---
- History of Present Illness Time Seen by Provider: 04/14/17 16:47 Historian: patient, family (mother) Exam Limitations: no limitations Patient Subjective Stated Complaint: pt here for right sided abd pain for a week , vomited x1 today, no fever, had us of gallbladder today Triage Nursing Assessment: pt walked in, alert, resp easy, skin w/d,pink, abd soft , tender to palpate Physician History: patinet with Right sided abd pain x 1 week; onset post eating fried chicken; pain getting worse; started RUQ and now RLQ; unable to keep food or drink down today; worse after GB US neg for stones or obstruction today; no fever; no travel ; no exposure Timing/Duration: today (worse pain RLQ and N&V and unable to keep anything down) , week(s) (onset of right sided pain post fried chicken), gradual onset, worse Activities at Onset: rest Quality: sharpness Abdominal Pain Onset Location: RUQ Pain Radiation: RLQ (pain Now) Severity of Pain-Max: severe Severity of Pain-Current: severe Modifying Factors: Improves With: eating, movement, palpation, vomiting Associated Symptoms: loss of appetite, nausea, vomiting Previous symptoms: no prior history, recently seen Allergies/Adverse Reactions: Penicillins Allergy (Verified 04/14/17 16:51) Rash Sulfa (Sulfonamide Antibiotics) Allergy (Verified 04/14/17 16:51) Rash Hx Tetanus, Diphtheria Vaccination/Date Given: Yes Hx Influenza Vaccination/Date Given: No Hx Pneumococcal Vaccination/Date Given: No Immunizations Up to Date: Yes - Review of Systems Constitutional: No Symptoms Eyes: No Symptoms Ears, Nose, & Throat: No Symptoms Respiratory: No Cough, No Dyspnea Cardiac: No Chest Pain, No Palpitations, No Syncope Abdominal/Gastrointestinal: Abdominal Pain, Nausea, Vomiting, No Diarrhea, No Constipation Genitourinary Symptoms: No Symptoms Musculoskeletal: No Symptoms Skin: No Symptoms Neurological: No Symptoms Psychological: No Symptoms Endocrine: No Symptoms Hematologic/Lymphatic: No Symptoms Immunological/Allergic: No Symptoms - Past Medical History Pertinent Past Medical History: Yes Neurological History: Seizures Cardiac History: No Pertinent History Respiratory History: No Pertinent History Endocrine Medical History: No Pertinent History Musculoskeletal History: No Pertinent History Psycho-Social History: Attention Deficit Disorder Other Medical History: stopped taking meds - Past Surgical History Past Surgical History: Yes Female Surgical History: Dilation & Curettage, Section Other Surgical History: tonsillectomy eardrum sugery. d&c after miscarriage "a few yrs ago" - Social History Smoking Status: Never smoker Exposure to second hand smoke: Yes Alcohol Use: Socially Drug Use: none Patient Lives Alone: No Significant Family History: no pertinent family hx - Female History Hx Last Menstrual Period: nov Hx Now: No (on depo shots since baldwin ) - Nursing Vital Signs Nursing Vital Signs: Initial Vital Signs Temperature 98.0 F 04/14/17 16:47 Pulse Rate 102 H 04/14/17 16:47 Respiratory Rate 16 04/14/17 16:47 Blood Pressure 114/79 04/14/17 16:47 O2 Sat by Pulse Oximetry 98 04/14/17 16:47 Pain Scale Pain Intensity 0 - Physical Exam General Appearance: moderate distress, alert, obese Eye Exam: PERRL/EOMI, eyes nml inspection, No photophobia Ears, Nose, Throat Exam: normal ENT inspection, TMs normal, pharynx normal, moist mucous membranes Neck Exam: normal inspection, non-tender, supple, full range of motion, No meningismus, No JVD Respiratory Exam: normal breath sounds, lungs clear, airway intact, No chest tenderness, No respiratory distress, No crackles/rales, No rhonchi, No wheezing Cardiovascular Exam: regular rate/rhythm, normal heart sounds, normal peripheral pulses, capillary refill <2 sec, No murmur Gastrointestinal/Abdomen Exam: soft, normal bowel sounds, tenderness (RLQ> RUQ) , guarding (RLQ mild), rebound (hint RLQ), No distention, No pulsatile mass, No organomegaly Pelvic Exam: deferred Rectal Exam: deferred Back Exam: normal inspection, normal range of motion, No CVA tenderness, No vertebral tenderness Extremity Exam: normal inspection, normal range of motion, No micki's sign, No pedal edema Neurologic Exam: alert, oriented x 3, cooperative, high school principal II-XII nml as tested, normal mood/affect, nml cerebellar function, nml station & gait Skin Exam: normal color, warm, dry, No rash Lymphatic Exam: No adenopathy SpO2 Interpretation: normal SpO2: 98 Oxygen Delivery: Room Air - Course Nursing assessment & vital signs reviewed: Yes - CT Exams Abdomen/Pelvis CT Interpretation: Negative, Tele-radiologist Report, Normal Appendix Ordered Tests: Active Orders 24 hr Category Date Time Status IV Insertion STAT Care 04/14/17 16:59 Active NPO (ED) STAT Care 04/14/17 16:59 Active Re-Check Vital Signs STAT Care 04/14/17 16:59 Active ABDOMEN AND PELVIS W/0 CONTRAS [CT] Stat Exams 04/14/17 17:02 Taken AMYLASE Stat Lab 04/14/17 17:33 Completed CBC W DIFF Stat Lab 04/14/17 17:33 Completed CMP Stat Lab 04/14/17 17:33 Completed HCG QUALITATIVE,SERUM Stat Lab 04/14/17 17:33 Completed LIPASE Stat Lab 04/14/17 17:33 Completed Medication Summary Generic Name Dose Route Start Last Admin Trade Name Freq PRN Reason Stop Dose Admin Sodium Chloride 1,000 mls @ 100 mls/hr 04/14/17 17:00 04/14/17 17:38 Sodium Chloride 0.9% 1000 Ml IV 05/14/17 16:59 100 mls/hr .Q10H IZAIAH Administration Discontinued Medications Generic Name Dose Route Start Last Admin Trade Name Freq PRN Reason Stop Dose Admin Hydromorphone HCl 0.5 mg 04/14/17 16:59 04/14/17 17:40 Hydromorphone 1 Mg/Ml Ampule IV 04/14/17 17:00 0.5 mg STAT ONE Administration Hydromorphone HCl Confirm 04/14/17 17:34 Hydromorphone 1 Mg/Ml Ampule Administered 04/14/17 17:35 Dose 1 mg .ROUTE .[facility] Ondansetron HCl 4 mg 04/14/17 16:59 04/14/17 17:39 Zofran 4 Mg/2 Ml Vial IV 04/14/17 17:00 4 mg STAT ONE Administration Ondansetron HCl Confirm 04/14/17 17:33 Zofran 4 Mg/2 Ml Vial Administered 04/14/17 17:34 Dose 4 mg .ROUTE .[facility] Lab/Rad Data: Laboratory Result Diagrams 04/14/17 17:33 04/14/17 17:33 Laboratory Results 04/14/17 04/14/17 04/14/17 Range/Units 17:33 17:33 17:33 WBC 9.0 (4.0-10.5) K/mm3 RBC 4.92 (4.1-5.4) M/mm3 Hgb 14.4 (12.0-16.0) gm/dl Hct 44.8 (35-47) % MCV 91.1 (78-100) fl MCH 29.3 (26-32) pg MCHC 32.1 (32-36) g/dl RDW 12.4 (11.5-14.0) % Plt Count 287 (150-450) K/mm3 MPV 10.3 H (6-9.5) fl Gran % 55.2 (36.0-66.0) % Lymphocytes % 34.8 (24.0-44.0) % Monocytes % 7.3 (0.0-12.0) % Eosinophils % 2.3 (0.00-5.0) % Basophils % 0.4 (0.0-0.4) % Basophils # 0.04 (0-0.4) Sodium 144 (136-145) mEq/L Potassium 4.3 (3.5-5.1) mEq/L Chloride 108 H (98-107) mEq/L Carbon Dioxide 28.2 (21-32) mEq/L Anion Gap 12.1 (5-15) MEQ/L BUN 9 (9-20) mg/dL Creatinine 1.01 (0.55-1.30) mg/dl Estimated GFR > 60 ML/MIN Glucose 102 (70-110) MG/DL Calcium 9.3 (8.5-10.1) mg/dL Total Bilirubin 0.20 (0.2-1.0) mg/dL AST 18 (15-37) U/L ALT 18 (12-78) U/L Alkaline Phosphatase 122 H (46-116) U/L Serum Total Protein 6.9 (6.4-8.2) gm/dL Albumin 3.6 (3.4-5.0) g/dL Amylase 54 (25-115) U/L Lipase 189 (73-393) U/L Serum , Qual NEGATIVE (Negative) reviewed - Progress Progress: improved (after meds), re-examined (after meds and CT and lab') Progress Note: 04/14/17 17:08 reviewed GB US; discussed treatmetn plan; will get labs and CT abdomen/pelvis for possible appy; will make NPO, give meds for pain and N&V and recheck; mother at bedside 04/14/17 18:13 labs ok; hcg neg; maddison and lip wnl; cbc ok; lytes ok; alk phos slight elevated at 122; recheck after CT- abd pain, N&V resolved; vs ok; CT resutls pending; mother at bedside; will monitor and recheck; IV fluids going ok 04/14/17 19:03 rechecked and patient continues to do well; no pain; no N&V; CT neg for Appy; instructions given; will get Hydascan Thurs and follow up with LMD Counseled pt/family regarding: lab results, diagnosis, need for follow-up, rad results - Departure Time of Disposition: 19:04 Departure Disposition: Home Clinical Impression: Abdominal pain, Nausea and vomiting Condition: Stable Critical Care Time: No Referrals: ERICH ROUSSEAU [Primary Care Provider] - Instructions: Abdominal Pain-Adult, Vomiting -- Adult Additional Instructions: clear fluids; get hydascan Thurs;Follow-up with family doctor as directed. Call for appointment. Return if any problems. If you smoke please stop. Call or follow up with your family doctor for assistance if you need it to stop. Please wear your seatbelt when driving. Have a nice day. Thank you for allowing us to participate in your care today. :o) Dr Hank Baldwin Prescriptions: Ondansetron [Zofran Odt] 4 mg PO Q4-6HPRN PRN #10 tab.rapdis PRN Reason: Vomiting
[2017-04-14] MEDS ORDERED: Zofran 4 MG/2 ML VIAL ONE (17:33)
[2017-04-14] MEDS ORDERED: Sodium Chloride 0.9% 1000 ML 1,000 ML ONE (17:34)
[2017-04-14] MEDS ORDERED: Hydromorphone 1 mg/ml Ampule ONE (17:34)
[2017-04-14 17:38] LABS: BASOPHIL % 0.4 % (0.0-0.4); Eosinophil % 2.3 % (0.00-5.0); Granulocytes % 55.2 % (36.0-66.0); Lymphocytes % 34.8 % (24.0-44.0); Mean Cell Volume 91.1 fl (78-100); Mean Corpuscular Hemoglobin 29.3 pg (26-32); Mean Platelet Volume 10.3 fl (6-9.5); Monocytes % 7.3 % (0.0-12.0); Platelet Count 287 K/mm3 (150-450); Red Blood Count 4.92 M/mm3 (4.1-5.4); Red Cell Distribution Width 12.4 % (11.5-14.0)
[2017-04-14 18:04] LABS: ALBUMIN 3.6 g/dL (3.4-5.0); ALKALINE PHOSPHATASE 122 U/L (46-116); ANION GAP 12.1 MEQ/L (5-15); BLOOD UREA NITROGEN 9 mg/dL (9-20); CHLORIDE 108 mEq/L (98-107); Carbon Dioxide 28.2 mEq/L (21-32); Glucose 102 MG/DL (70-110); LIPASE 189 U/L (73-393); Potassium 4.3 mEq/L (3.5-5.1); SGOT/AST 18 U/L (15-37); SGPT/ALT 18 U/L (12-78); SODIUM 144 mEq/L (136-145); Total Protein 6.9 gm/dL (6.4-8.2)
[2017-04-14 19:27] VITALS: BP 117/63; PULSE 91; O2SAT 97
--- NOTE | 2017-04-15 08:58 | XRAY ---
Indication: Vomiting bile. Right lower quadrant pain. Negative same day gallbladder sonogram. Multiple contiguous axial images obtained through the abdomen and pelvis without contrast as ordered. Comparison: February 21, 2016. Lung bases clear. Heart is not enlarged. Stable small hiatal hernia. Stomach is moderately distended with food. Noncontrasted stomach and bowel loops appear nonobstructed. Normal appendix. Again tiny cul-de-sac fluid presumed from ruptured/leaking cyst. No free air. Gallbladder contracted without gallstones. Remaining liver, gallbladder, pancreas, spleen, adrenal glands, kidneys, ureters, bladder, uterus, and aorta appear unremarkable for noncontrast exam. There are now small centimeter/centimeter periaortic nodes. Osseous structures intact with stable bilateral L5 spondylolysis and grade 1 spondylolisthesis. Impression: 1. Small periaortic lymph nodes none pathologically enlarged. 2. Again tiny cul-de-sac fluid presumed from ruptured/leaking cyst. 3. No acute intra-abdominal/pelvic abnormalities on this noncontrast exam. 4. Stable bilateral L5 spondylolysis with grade [address] DI 19.65
== END 2017-04-14 19:27 | disposition home or self-care (01) ==
LOC: ED 16:36
DX: R10.31 Right lower quadrant pain (principal); R10.11 Right upper quadrant pain; R11.2 Nausea with vomiting, unspecified
CPT/HCPCS: 36000; 36415; 74176; 80053; 82150; 83690; 84703; 85025; 96374; 96375; 99283; J1170; J2405

== ENCOUNTER 2017-09-03 18:31 | Emergency (ER) | payer OTHER ==
[2017-09-03 19:24] LABS: Appearance CLEAR (CLEAR); Collection Type VOID
[2017-09-03 19:25] LABS: ADD URINE CULTURE? NO (NO); Bilirubin NEGATIVE (NEGATIVE); Blood NEGATIVE Ery/ul (0-5); COMPLETE URINE MICROSCOPIC? NO; Glucose NEGATIVE (NEGATIVE); Ketones NEGATIVE (NEGATIVE); Leukocyte Esterase NEGATIVE (NEGATIVE); Nitrite NEGATIVE (NEGATIVE); Protein,Urine Dip NEGATIVE (Negative); Specific Gravity 1.025 (1.005-1.025); Urobilinogen NORMAL mg/dL (0-1)
[2017-09-03 19:36] LABS: Amphetamine,Urine NEGATIVE (NEGATIVE); Barbiturate,Urine NEGATIVE (NEGATIVE); Benzodiazepine,Urine NEGATIVE (NEGATIVE); Cocaine,Urine NEGATIVE (NEGATIVE); Methadone,Urine NEGATIVE (NEGATIVE); Opiate,Urine NEGATIVE (NEGATIVE); PCP,Urine NEGATIVE (NEGATIVE); THC,Urine NEGATIVE (NEGATIVE)
[2017-09-03 20:28] LABS: HCG,QUALITATIVE URINE NEGATIVE (Negative)
[2017-09-03] MEDS ORDERED: TORAdol 30 mg Injection (21:03)
[2017-09-03] MEDS ORDERED: Norflex 60 MG/2 ML (21:03)
[2017-09-03] MEDS: TORAdol 30 mg Injection IM (21:06)
[2017-09-03] MEDS: Norflex 60 MG/2 ML IM (21:06)
== END 2017-09-03 21:47 | disposition home or self-care (01) ==
LOC: ED 18:31
CPT/HCPCS: 71111; 72072; 72100; 80307; 81002; 84703; 96372; J1885; J2360

== ENCOUNTER 2018-07-12 18:57 | Emergency (ER) | payer OTHER ==
[2018-07-12] MEDS ORDERED: Sodium Chloride 0.9% 1000 ML 1,000 ML IV STA (19:18)
[2018-07-12 19:21] VITALS: O2SAT 99
[2018-07-12] MEDS ORDERED: Sodium Chloride 0.9% 1000 ML 1,000 ML ONE (19:21)
[2018-07-12 19:24] LABS: BASOPHIL % 0.4 % (0.0-0.4); Basophil (Absolute #) 0.05 (0-0.4); Eosinophil % 0.8 % (0.00-5.0); Eosinophil (Absolute #) 0.09 (0-0.5); Granulocyte Absolute (ANC) 7.52 (1.4-6.9); Granulocytes % 67.3 % (36.0-66.0); Hematocrit 43.8 % (35-47); Hemoglobin 14.7 gm/dl (12.0-16.0); Lymphocyte (Absolute #) 2.78 (1.0-4.6); Lymphocytes % 24.8 % (24.0-44.0); Mean Cell Volume 92.8 fl (78-100); Mean Corpuscular Hemoglobin 31.1 pg (26-32); Mean Corpuscular Hgb Concent. 33.6 g/dl (32-36); Mean Platelet Volume 10.3 fl (6-9.5); Monocyte (Absolute #) 0.75 (0.0-1.3); Monocytes % 6.7 % (0.0-12.0); Platelet Count 302 K/mm3 (150-450); Red Blood Count 4.72 M/mm3 (4.1-5.4); Red Cell Distribution Width 12.2 % (11.5-14.0); White Blood Count 11.2 K/mm3 (4.0-10.5)
--- NOTE | 2018-07-12 19:59 | ERPHSYRPT ---
- History of Present Illness Time Seen by Provider: 07/12/18 19:08 Source: patient Exam Limitations: clinical condition Patient Subjective Stated Complaint: patient took test two weeks ago and there were only faint lines and now she is cramping and bleeding thinks it could be misscarriage. Triage Nursing Assessment: patient alert nad oreitnedx3, able to ambulate by self gait is steady, lung sounds clear bilateral, airway patent, bowel sounds present x4, abdomen tender to palpation, patient is actively bleeding. Physician History: PATIENT COMPLAINS OF VAGINAL BLEEDING AND CRAMPING X 2 DAYS. HER LAST MENSTRUAL PERIOD 06/15/2018 AND PREVIOUS MENSTRUAL PERIOD 05/16/2018. DENIES FEVER, URINARY SYMPTOMS. Timing/Duration: yesterday Activites at Onset: none Quality: cramping Onset Location: pelvic pain Pain Radiation: none Severity of Pain-Max: mild Severity of Pain-Current: mild Prior abdominal problems: none Sexual intercourse history: less than 2 months ago Modifying Factors: Improves With: nothing Associated Symptoms: denies symptoms Allergies/Adverse Reactions: Penicillins Allergy (Verified 09/03/17 18:41) Rash Sulfa (Sulfonamide Antibiotics) Allergy (Verified 09/03/17 18:41) Rash Home Medications: Norgestimate-Ethinyl Estradiol [Tri-Estarylla Tablet] 1 tab PO DAILY 09/03/17 [ History] Hx Tetanus, Diphtheria Vaccination/Date Given: Yes Hx Influenza Vaccination/Date Given: No Hx Pneumococcal Vaccination/Date Given: No - Review of Systems Constitutional: No Fever, No Chills Eyes: No Symptoms Ears, Nose, & Throat: No Symptoms Respiratory: No Cough, No Dyspnea Cardiac: No Chest Pain, No Edema, No Syncope Abdominal/Gastrointestinal: No Abdominal Pain, No Nausea, No Vomiting, No Diarrhea Genitourinary Symptoms: No Symptoms, Vaginal Bleeding, No Dysuria Musculoskeletal: No Symptoms, No Back Pain, No Neck Pain Skin: No Rash Neurological: No Symptoms, No Dizziness, No Focal Weakness, No Sensory Changes Psychological: No Symptoms Endocrine: No Symptoms All Other Systems: Reviewed and Negative - Past Medical History Pertinent Past Medical History: Yes Neurological History: Migraines Cardiac History: No Pertinent History Respiratory History: No Pertinent History Endocrine Medical History: No Pertinent History Musculoskeletal History: No Pertinent History Psycho-Social History: Attention Deficit Disorder Other Medical History: stopped taking meds - Past Surgical History Past Surgical History: Yes Female Surgical History: Dilation & Curettage, Section Other Surgical History: tonsillectomy eardrum sugery. d&c after miscarriage "a few yrs ago" - Social History Smoking Status: Never smoker Exposure to second hand smoke: Yes Alcohol Use: Socially Drug Use: none Patient Lives Alone: No Significant Family History: no pertinent family hx - Female History Hx Now: (unknown) - Nursing Vital Signs Nursing Vital Signs: Initial Vital Signs Temperature 97.6 F 07/12/18 18:58 Pulse Rate 111 H 07/12/18 18:58 Respiratory Rate 20 07/12/18 18:58 Blood Pressure 120/76 07/12/18 18:58 O2 Sat by Pulse Oximetry 99 07/12/18 18:58 Pain Scale Pain Intensity 0 - Physical Exam General Appearance: no apparent distress, alert Eye Exam: PERRL/EOMI, eyes nml inspection Ears, Nose, Throat Exam: normal ENT inspection, TMs normal, pharynx normal, moist mucous membranes Neck Exam: normal inspection, non-tender, supple, full range of motion Respiratory Exam: normal breath sounds, lungs clear, No respiratory distress Cardiovascular Exam: regular rate/rhythm, normal heart sounds, normal peripheral pulses Gastrointestinal/Abdomen Exam: soft, normal bowel sounds (NONTENDER), No tenderness, No mass Back Exam: normal inspection, normal range of motion, No CVA tenderness, No vertebral tenderness Extremity Exam: normal inspection, normal range of motion, pelvis stable Neurologic Exam: alert, oriented x 3, cooperative, mechanical oxidizer II-XII nml as tested, normal mood/affect, sensation nml, No motor deficits Skin Exam: normal color, warm, dry Lymphatic Exam: No adenopathy SpO2 Interpretation: normal SpO2: 99 Ordered Tests: Active Orders 24 hr Category Date Time Status IV Insertion STAT Care 07/12/18 19:20 Active CBC W DIFF Stat Lab 07/12/18 19:15 Completed HCG,QUALITATIVE URINE Stat Lab 07/12/18 19:00 Completed Wet Prep Stat Lab 07/12/18 20:20 Completed Medication Summary Generic Name Dose Route Start Last Admin Trade Name Freq PRN Reason Stop Dose Admin Sodium Chloride 1,000 mls @ 500 mls/hr 07/12/18 19:18 07/12/18 19:25 Sodium Chloride 0.9% 1000 Ml IV 07/12/18 21:17 500 mls/hr .Q2H STA Administration Discontinued Medications Generic Name Dose Route Start Last Admin Trade Name Garrett PRN Reason Stop Dose Admin Sodium Chloride Confirm 07/12/18 19:21 Sodium Chloride 0.9% 1000 Ml Administered 07/12/18 19:22 Dose 1,000 mls @ ud .ROUTE .[facility] Lab/Rad Data: Laboratory Result Diagrams 07/12/18 19:15 Laboratory Results 07/12/18 07/12/18 07/12/18 Range/Units 20:20 19:15 19:00 WBC 11.2 H (4.0-10.5) K/mm3 RBC 4.72 (4.1-5.4) M/mm3 Hgb 14.7 (12.0-16.0) gm/dl Hct 43.8 (35-47) % MCV 92.8 (78-100) fl MCH 31.1 (26-32) pg MCHC 33.6 (32-36) g/dl RDW 12.2 (11.5-14.0) % Plt Count 302 (150-450) K/mm3 MPV 10.3 H (6-9.5) fl Gran % 67.3 H (36.0-66.0) % Eos # (Auto) 0.09 (0-0.5) Absolute Lymphs (auto) 2.78 (1.0-4.6) Absolute Monos (auto) 0.75 (0.0-1.3) Lymphocytes % 24.8 (24.0-44.0) % Monocytes % 6.7 (0.0-12.0) % Eosinophils % 0.8 (0.00-5.0) % Basophils % 0.4 (0.0-0.4) % Absolute Granulocytes 7.52 H (1.4-6.9) Basophils # 0.05 (0-0.4) Urine HCG, Qual NEGATIVE (Negative) WBC (Wet Prep) None Seen RBC (Wet Prep) None Seen Epi Cells (Wet Prep) None Seen Bacteria (Wet Prep) Rare Clue Cells (Wet Prep) None Seen Trichomonas (Wet Prep) None Seen Budding Yeast (Wet Prp) None Seen Chlamydia DNA (PCR) N.gonorrhoeae DNA Probe 07/12/18 Range/Units 19:00 WBC (4.0-10.5) K/mm3 RBC (4.1-5.4) M/mm3 Hgb (12.0-16.0) gm/dl Hct (35-47) % MCV (78-100) fl MCH (26-32) pg MCHC (32-36) g/dl RDW (11.5-14.0) % Plt Count (150-450) K/mm3 MPV (6-9.5) fl Gran % (36.0-66.0) % Eos # (Auto) (0-0.5) Absolute Lymphs (auto) (1.0-4.6) Absolute Monos (auto) (0.0-1.3) Lymphocytes % (24.0-44.0) % Monocytes % (0.0-12.0) % Eosinophils % (0.00-5.0) % Basophils % (0.0-0.4) % Absolute Granulocytes (1.4-6.9) Basophils # (0-0.4) Urine HCG, Qual (Negative) WBC (Wet Prep) RBC (Wet Prep) Epi Cells (Wet Prep) Bacteria (Wet Prep) Clue Cells (Wet Prep) Trichomonas (Wet Prep) Budding Yeast (Wet Prp) Chlamydia DNA (PCR) NEGATIVE N.gonorrhoeae DNA Probe NEGATIVE - Progress Progress Note: 07/12/18 19:58 ADMINISTERED IV NORMAL SALINE 500ML/HR 07/12/18 21:11, ALL LAB TEST REVIEWED AND ARE NORMAL Counseled pt/family regarding: lab results, diagnosis, need for follow-up - Departure Time of Disposition: 21:13 Departure Disposition: Home Clinical Impression: MENSTRUAL CRAMPS Condition: Stable Critical Care Time: No Referrals: ERICH ROUSSEAU [Primary Care Provider] - Additional Instructions: TAKE OVER THE COUNTER MOTRIN EVERY 6 HOURS NEEDED FOR PAIN. CONSULT YOUR PRIMARY CARE PROVIDER FOR FOLLOWUP IN 1 WEEK. RETURN TO EMERGENCY ROOM FOR INCREASING PAIN OR VAGINAL BLEEDING.
[2018-07-12 20:40] LABS: Clue Cells None Seen
[2018-07-12 20:41] LABS: Bacteria Rare; Red Blood Cells None Seen; Trichomonas None Seen; White Blood Cells None Seen; Yeast None Seen
[2018-07-12 21:01] LABS: CHLAMYDIA DNA NEGATIVE; N GONORRHOEAE DNA NEGATIVE
[2018-07-12 21:09] VITALS: BP 128/71; PULSE 100
== END 2018-07-12 21:20 ==
LOC: ED 18:57
DX: N94.6 Dysmenorrhea, unspecified (principal)
CPT/HCPCS: 36000; 36415; 84703; 85025; 87210; 87490; 87590; 96360; 96361; 99284

== ENCOUNTER 2018-09-18 17:50 | Emergency (ER) | payer OTHER ==
[2018-09-18 18:15] VITALS: BP 138/77; PULSE 110; O2SAT 100
--- NOTE | 2018-09-18 18:23 | ERPHSYRPT ---
- History of Present Illness Time Seen by Provider: 09/18/18 18:21 Source: patient Exam Limitations: no limitations Patient Subjective Stated Complaint: is being treated for UTI since . Symptoms last . seen at [facility] and placed on Macrobid. Noticed blood in her urint todaya dn having low back pain. Triage Nursing Assessment: being treated for a UTI. seen at [facility] and placed on macrobid. noticed blood in her urine today and low back pain. feels like she is not getting better. denies fever Physician History: is being treated for UTI since . Symptoms last weekend. seen at [facility] and placed on Macrobid. Noticed blood in her urint todaya dn having low back pain. Severity of Pain-Max: mild Severity of Pain-Current: mild Associated Symptoms: dysuria, urinary frequency, lower back pain, other (blood in urine), No fever, No chills, No nausea Allergies/Adverse Reactions: Penicillins Allergy (Verified 09/03/17 18:41) Rash Sulfa (Sulfonamide Antibiotics) Allergy (Verified 09/03/17 18:41) Rash Home Medications: Norgestimate-Ethinyl Estradiol [Tri-Estarylla Tablet] 1 tab PO DAILY 09/03/17 [ History] Hx Tetanus, Diphtheria Vaccination/Date Given: Yes Hx Influenza Vaccination/Date Given: No Hx Pneumococcal Vaccination/Date Given: No - Review of Systems Constitutional: No Fever, No Chills Eyes: No Symptoms Ears, Nose, & Throat: No Symptoms Respiratory: No Cough, No Dyspnea Cardiac: No Chest Pain, No Edema, No Syncope Abdominal/Gastrointestinal: No Abdominal Pain, No Nausea, No Vomiting, No Diarrhea Genitourinary Symptoms: Dysuria, Frequency, Hematuria, Urgency Musculoskeletal: No Back Pain, No Neck Pain Skin: No Rash Neurological: No Dizziness, No Focal Weakness, No Sensory Changes Psychological: No Symptoms Endocrine: No Symptoms All Other Systems: Reviewed and Negative - Past Medical History Pertinent Past Medical History: Yes Neurological History: Migraines Cardiac History: No Pertinent History Respiratory History: No Pertinent History Endocrine Medical History: No Pertinent History Musculoskeletal History: No Pertinent History Psycho-Social History: Attention Deficit Disorder Other Medical History: stopped taking meds - Past Surgical History Past Surgical History: Yes Female Surgical History: Dilation & Curettage, Section Other Surgical History: tonsillectomy eardrum sugery. d&c after miscarriage "a few yrs ago" - Social History Smoking Status: Never smoker Exposure to second hand smoke: No Alcohol Use: Socially Drug Use: none Patient Lives Alone: No Significant Family History: no pertinent family hx - Female History Hx Last Menstrual Period: 3 weeks Hx Now: No - Nursing Vital Signs Nursing Vital Signs: Initial Vital Signs Temperature 97.7 F 09/18/18 18:09 Pulse Rate 110 H 09/18/18 18:09 Respiratory Rate 18 09/18/18 18:09 Blood Pressure 138/77 09/18/18 18:09 O2 Sat by Pulse Oximetry 100 09/18/18 18:09 Pain Scale Pain Intensity 3 - Physical Exam General Appearance: no apparent distress, alert Eye Exam: PERRL/EOMI, eyes nml inspection Ears, Nose, Throat Exam: normal ENT inspection, TMs normal, pharynx normal, moist mucous membranes Neck Exam: normal inspection, non-tender, supple, full range of motion Respiratory Exam: normal breath sounds, lungs clear, No respiratory distress Cardiovascular Exam: regular rate/rhythm, normal heart sounds, normal peripheral pulses Gastrointestinal/Abdomen Exam: soft, No tenderness, No mass Back Exam: normal inspection, normal range of motion, No CVA tenderness, No vertebral tenderness Extremity Exam: normal inspection, normal range of motion, pelvis stable Neurologic Exam: alert, oriented x 3, cooperative, instructional services specialist II-XII nml as tested, normal mood/affect, sensation nml, No motor deficits Skin Exam: normal color, warm, dry Lymphatic Exam: No adenopathy SpO2: 100 Ordered Tests: Active Orders 24 hr Category Date Time Status HCG,QUALITATIVE URINE Stat Lab 09/18/18 18:45 Completed UA W/RFX UR CULTURE Stat Lab 09/18/18 18:45 Completed Lab/Rad Data: Laboratory Results 09/18/18 09/18/18 Range/Units 18:45 18:45 Urine Color DARK YELLOW (YELLOW) Urine Appearance TURBID (CLEAR) Urine pH 5.0 (5-6) Ur Specific [place] 1.030 (1.005-1.025) Urine Protein 30 (Negative) Urine Ketones TRACE (NEGATIVE) Urine Blood LARGE (0-5) Jacob/ul Urine Nitrite NEGATIVE (NEGATIVE) Urine Bilirubin NEGATIVE (NEGATIVE) Urine Urobilinogen 2 (0-1) mg/dL Ur Leukocyte Esterase SMALL (NEGATIVE) Urine WBC (Auto) 6-10 (0-5) /HPF Urine RBC (Auto) 16-25 (0-2) /HPF U Epithel Cells (Auto) FEW (FEW) /HPF Urine Bacteria (Auto) MODERATE (NEGATIVE) /HPF Calcium Oxalate Crystal 3-5 (NEGATIVE) /HPF Unidentified Crystals 2-5 (NEGATIVE) /HPF Amorphous Crystals MODERATE (NEGATIVE) /HPF Urine Mucus (Auto) MANY (NEGATIVE) /HPF Urine Culture Reflexed YES (NO) Urine Glucose NEGATIVE (NEGATIVE) mg/dL Urine HCG, Qual NEGATIVE (Negative) - Departure Departure Disposition: Home Clinical Impression: UTI (urinary tract infection) Qualifiers: Urinary tract infection type: acute pyelonephritis Qualified Code(s): N10 - Acute pyelonephritis Condition: Stable Critical Care Time: No Referrals: ERICH ROUSSEAU [Primary Care Provider] - Instructions: Urinary Tract Infection, Adult (DC) Additional Instructions: URINARY TRACT INFECTION 1. You will need to drink plenty of fluids in order to keep your urinary system flushed. These fluids should mainly consist of water and juices. 2. Take medications as directed. You need to completely finish any antiobiotic prescription given. 3. Try to avoid coffee, tea, alcohol, and seasoned foods as they may cause bladder irritation. 4. If signs and symptoms persist after 3-4 days, you will need to follow up with your family physician. 5. Female Patients: A. Avoid intercourse for 3-4 days. B. Empty bladder before and after intercourse to reduce risk of re- infection. C. After emptying bladder, wipe from front to back to reduce the risk of re- infection.stop macrobid, start new antibiotics Discharge/Care Plan SOOEDGAR MORA was seen on 09/18/18 in the Emergency Room. The patient was counseled regarding Diagnosis,Lab results, Imaging studies, need for follow up and when to return to the Emergency Room. Prescriptions given: Discharge Note I have spoken with the patient and/or caregivers. I have explained the patient' s condition, diagnosis and treatment plan based on the information available to me at this time. I have answered the patient's and/or caregiver's questions and addressed any concerns. The patient and/or caregivers have as good understanding of the patient's diagnosis, condition and treatment plan as can be expected at this point. The vital signs have been stable. The patient's condition is stable and appropriate for discharge from the emergency department. The patient will pursue further outpatient evaluation with the primary care physician or other designated or consulting physician as outlined in the discharge instructions. The patient and/or caregivers are agreeable to this plan of care and follow-up instructions have been explained in detail. The patient and/or caregivers have received these instruction. The patient/and or caregivers are aware that any significant change in condition or worsening of symptoms should prompt an immediate return to this or the closest emergency department or call 911. . Prescriptions: Ciprofloxacin [Cipro 500 MG] 500 mg PO BIDAC #15 tablet
[2018-09-18 19:02] LABS: Amourphous Crystal MODERATE /HPF (NEGATIVE); Appearance TURBID (CLEAR); Bacteria MODERATE /HPF (NEGATIVE); Bilirubin NEGATIVE (NEGATIVE); Blood LARGE Ery/ul (0-5); Epithelial Cells FEW /HPF (FEW); Glucose NEGATIVE (NEGATIVE); Ketones TRACE (NEGATIVE); Leukocyte Esterase SMALL (NEGATIVE); Mucus MANY /HPF (NEGATIVE); Nitrite NEGATIVE (NEGATIVE); Protein,Urine Dip 30 (Negative); Urobilinogen 2 mg/dL (0-1)
== END 2018-09-18 19:24 | disposition home or self-care (01) ==
LOC: ED 17:50
DX: N39.0 Urinary tract infection, site not specified (principal)
CPT/HCPCS: 81001; 84703; 87086; 99283

== ENCOUNTER 2019-02-02 18:10 | Emergency (ER) | payer OTHER ==
[2019-02-02] MEDS ORDERED: TYLENOL 325 MG PO ONE (19:33)
[2019-02-02] MEDS ORDERED: Sodium Chloride 0.9% 1000 ML 1,000 ML IV STA (19:33)
--- NOTE | 2019-02-02 19:47 | ERPHSYRPT ---
- History of Present Illness Time Seen by Provider: 02/02/19 19:02 Historian: patient Exam Limitations: no limitations Patient Subjective Stated Complaint: states having low abd cramping that started today. denies any n/v or vaginal bleeding or discharge. Triage Nursing Assessment: ambulated to room per self. skin w/d, color normal. denies any vaginal bleeding, discharge or urinary symptoms. Physician History: 23 yo at 8 weeks gestation per US done with single IUP done last week is here with lower abdominal cramps since morning of mild to moderate intensity without any significant agg/rel factors. no associated with any urinary symptoms. denies any nausea/vomiting/vag bleed or discharge. denies any recent sexual activity. no fever or chills. has been taking . Timing/Duration: today Activities at Onset: none Quality: cramping Abdominal Pain Onset Location: suprapubic Pain Radiation: no radiation Severity of Pain-Max: moderate Severity of Pain-Current: mild Modifying Factors: Improves With: nothing Associated Symptoms: denies symptoms Previous symptoms: no prior history Allergies/Adverse Reactions: Penicillins Allergy (Verified 02/02/19 18:48) Rash Sulfa (Sulfonamide Antibiotics) Allergy (Verified 02/02/19 18:48) Rash Home Medications: Pnv No.95/Ferrous Fum/Folic AC [ Vitamins Tablet] 1 ea PO DAILY [History] Hx Tetanus, Diphtheria Vaccination/Date Given: No Hx Influenza Vaccination/Date Given: No Hx Pneumococcal Vaccination/Date Given: No - Review of Systems Constitutional: No Symptoms Eyes: No Symptoms Ears, Nose, & Throat: No Symptoms Respiratory: No Symptoms Cardiac: No Symptoms Genitourinary Symptoms: No Symptoms Musculoskeletal: No Symptoms Skin: No Symptoms Neurological: No Symptoms Psychological: No Symptoms Endocrine: No Symptoms Hematologic/Lymphatic: No Symptoms - Past Medical History Pertinent Past Medical History: Yes Neurological History: Seizures Cardiac History: No Pertinent History Respiratory History: No Pertinent History Endocrine Medical History: No Pertinent History Musculoskeletal History: No Pertinent History Psycho-Social History: Attention Deficit Disorder Other Medical History: stopped taking meds - Past Surgical History Past Surgical History: Yes Female Surgical History: Dilation & Curettage, Section Other Surgical History: tonsillectomy eardrum sugery. d&c after miscarriage "a few yrs ago" - Social History Smoking Status: Never smoker Exposure to second hand smoke: Yes Alcohol Use: Socially Drug Use: none Patient Lives Alone: No Significant Family History: no pertinent family hx - Female History Hx Last Menstrual Period: 12/02/18 Hx Now: Yes - Nursing Vital Signs Nursing Vital Signs: Initial Vital Signs Temperature 97.9 F 02/02/19 18:40 Pulse Rate 94 H 02/02/19 18:40 Respiratory Rate 16 02/02/19 18:40 Blood Pressure 142/75 02/02/19 18:40 O2 Sat by Pulse Oximetry 99 02/02/19 18:40 Pain Scale Pain Intensity 6 - Physical Exam General Appearance: no apparent distress Eye Exam: PERRL/EOMI, eyes nml inspection Ears, Nose, Throat Exam: normal ENT inspection Neck Exam: normal inspection Respiratory Exam: normal breath sounds, lungs clear Cardiovascular Exam: regular rate/rhythm, normal heart sounds Gastrointestinal/Abdomen Exam: soft, normal bowel sounds, No tenderness, No distention Pelvic Exam: not done Back Exam: normal inspection Extremity Exam: normal inspection, normal range of motion Neurologic Exam: alert, oriented x 3, cooperative Skin Exam: normal color, warm SpO2 Interpretation: normal SpO2: 99 O2 Delivery: Room Air Ordered Tests: Active Orders 24 hr Category Date Time Status IV Insertion STAT Care 02/02/19 19:33 Active CBC W DIFF Stat Lab 02/02/19 19:33 Completed CMP Stat Lab 02/02/19 20:00 Completed LIPASE Stat Lab 02/02/19 20:00 Completed UA W/RFX UR CULTURE Stat Lab 02/02/19 20:10 Completed Medication Summary Discontinued Medications Generic Name Dose Route Start Last Admin Trade Name Garrett PRN Reason Stop Dose Admin Acetaminophen 975 mg 02/02/19 19:33 02/02/19 20:47 Tylenol 325 Mg PO 02/02/19 19:34 975 mg STAT ONE Administration Acetaminophen Confirm 02/02/19 20:44 Tylenol 325 Mg Administered 02/02/19 20:45 Dose 975 mg .ROUTE .[facility] ONE Sodium Chloride 1,000 mls @ 999 mls/hr 02/02/19 19:33 02/02/19 20:47 Sodium Chloride 0.9% 1000 Ml IV 02/02/19 20:33 999 mls/hr .Q1H1M STA Administration Sodium Chloride Confirm 02/02/19 20:43 Sodium Chloride 0.9% 1000 Ml Administered 02/02/19 20:44 Dose 1,000 mls @ .[facility] Lab/Rad Data: Laboratory Result Diagrams 02/02/19 19:33 02/02/19 20:00 Laboratory Results 02/02/19 02/02/19 02/02/19 Range/Units 20:10 20:00 19:33 WBC 12.6 H (4.0-10.5) K/mm3 RBC 4.38 (4.1-5.4) M/mm3 Hgb 13.9 (12.0-16.0) gm/dl Hct 41.1 (35-47) % MCV 93.8 (78-100) fl MCH 31.7 (26-32) pg MCHC 33.8 (32-36) g/dl RDW 13.0 (11.5-14.0) % Plt Count 264 (150-450) K/mm3 MPV 10.1 H (6-9.5) fl Gran % 72.0 H (36.0-66.0) % Eos # (Auto) 0.06 (0-0.5) Absolute Lymphs (auto) 2.56 (1.0-4.6) Absolute Monos (auto) 0.88 (0.0-1.3) Lymphocytes % 20.3 L (24.0-44.0) % Monocytes % 7.0 (0.0-12.0) % Eosinophils % 0.5 (0.00-5.0) % Basophils % 0.2 (0.0-0.4) % Absolute Granulocytes 9.08 H (1.4-6.9) Basophils # 0.03 (0-0.4) Sodium 140 (137-145) mmol/L Potassium 4.2 (3.5-5.1) mmol/L Chloride 103 (98-107) mmol/L Carbon Dioxide 28 (22-30) mmol/L Anion Gap 13.5 (5-15) MEQ/L BUN 7 (7-17) mg/dL Creatinine 0.58 (0.52-1.04) mg/dL Estimated GFR > 60.0 ML/MIN Glucose 94 (74-106) mg/dL Calcium 9.7 (8.4-10.2) mg/dL Total Bilirubin 0.30 (0.2-1.3) mg/dL AST 27 (14-36) U/L ALT 23 (0-35) U/L Alkaline Phosphatase 79 (38-126) U/L Serum Total Protein 7.1 (6.3-8.2) g/dL Albumin 4.0 (3.5-5.0) g/dL Lipase 92 (23-300) U/L Urine Color COLORLESS (YELLOW) Urine Appearance CLEAR (CLEAR) Urine pH 7.0 (5-6) Ur Specific [place] 1.001 (1.005-1.025) Urine Protein NEGATIVE (Negative) Urine Ketones NEGATIVE (NEGATIVE) Urine Blood NEGATIVE (0-5) Jacob/ul Urine Nitrite NEGATIVE (NEGATIVE) Urine Bilirubin NEGATIVE (NEGATIVE) Urine Urobilinogen NEGATIVE (0-1) mg/dL Ur Leukocyte Esterase NEGATIVE (NEGATIVE) Urine WBC (Auto) NONE (0-5) /HPF Urine RBC (Auto) NONE (0-2) /HPF U Epithel Cells (Auto) NONE (FEW) /HPF Urine Bacteria (Auto) NONE (NEGATIVE) /HPF Urine Culture Reflexed NO (NO) Urine Glucose NEGATIVE (NEGATIVE) mg/dL - Progress Progress: improved, re-examined Progress Note: 23 years old is evaluated for lower abdominal/pelvic cramping. She is given Tylenol and IV fluids. On reevaluation the patient is feeling much improved and pain /cramping is almost gone. She has stable workup including urinalysis. She has an ultrasound done recently but single IUP. She does not have any right lower quadrant tenderness at all. I have recommended patient to increase fluid intake and Tylenol as needed. I do not think she needs any further work up and is stable for discharge with outpatient followup at her primary OB Dr. Grayson. Ms. Gallegos if symptoms are worsening return to ER which he seems understanding. Stable for discharge. 02/02/19 21:46 - Departure Departure Disposition: Home Clinical Impression: Bilateral lower abdominal cramping Condition: Stable Critical Care Time: No Referrals: RIGOBERTO GRAYSON MD [Primary Care Provider] - Follow Up with PCP (in one to 2 days for reevaluation.) Additional Instructions: drink plenty of fluids. Take Tylenol as needed. Followup with your OB Dr. Grayson for reevaluation in one to 2 days. Return to ER for worsening pain/ vaginal bleeding/discharge.
[2019-02-02 20:06] LABS: Absolute Neutrophil Ct (ANC) 9.08 (1.4-6.9); BASOPHIL % 0.2 % (0.0-0.4); Basophil (Absolute #) 0.03 (0-0.4); Eosinophil % 0.5 % (0.00-5.0); Eosinophil (Absolute #) 0.06 (0-0.5); Hematocrit 41.1 % (35-47); Hemoglobin 13.9 gm/dl (12.0-16.0); Lymphocyte (Absolute #) 2.56 (1.0-4.6); Lymphocytes % 20.3 % (24.0-44.0); Mean Cell Volume 93.8 fl (78-100); Mean Corpuscular Hemoglobin 31.7 pg (26-32); Mean Corpuscular Hgb Concent. 33.8 g/dl (32-36); Mean Platelet Volume 10.1 fl (6-9.5); Monocyte (Absolute #) 0.88 (0.0-1.3); Platelet Count 264 K/mm3 (150-450); Red Blood Count 4.38 M/mm3 (4.1-5.4); White Blood Count 12.6 K/mm3 (4.0-10.5)
[2019-02-02 20:18] LABS: ALKALINE PHOSPHATASE 79 U/L (38-126); ANION GAP 13.5 MEQ/L (5-15); BLOOD UREA NITROGEN 7 mg/dL (7-17); CHLORIDE 103 mmol/L (98-107); Calcium 9.7 mg/dL (8.4-10.2); Carbon Dioxide 28 mmol/L (22-30); Creatinine 1 0.58 mg/dL (0.52-1.04); Glucose 94 mg/dL (74-106); LIPASE 92 U/L (23-300); Potassium 4.2 mmol/L (3.5-5.1); SGOT/AST 27 U/L (14-36); SGPT/ALT 23 U/L (0-35); SODIUM 140 mmol/L (137-145); Total Protein 7.1 g/dL (6.3-8.2)
[2019-02-02 20:18] LABS: Appearance CLEAR (CLEAR); Bilirubin NEGATIVE (NEGATIVE); Blood NEGATIVE Ery/ul (0-5); Glucose NEGATIVE (NEGATIVE); Ketones NEGATIVE (NEGATIVE); Leukocyte Esterase NEGATIVE (NEGATIVE); Nitrite NEGATIVE (NEGATIVE); Protein,Urine Dip NEGATIVE (Negative); Specific Gravity 1.001 (1.005-1.025); Urobilinogen NEGATIVE mg/dL (0-1)
[2019-02-02] MEDS ORDERED: Sodium Chloride 0.9% 1000 ML 1,000 ML ONE (20:43)
[2019-02-02] MEDS ORDERED: TYLENOL 325 MG ONE (20:44)
[2019-02-02 22:08] VITALS: BP 108/72; PULSE 90; O2SAT 98
== END 2019-02-02 22:10 | disposition home or self-care (01) ==
LOC: ED 18:10
DX: R10.32 Left lower quadrant pain (principal); R10.31 Right lower quadrant pain; Z3A.08 8 weeks gestation of pregnancy
CPT/HCPCS: 36000; 36415; 80053; 81001; 83690; 85025; 96360; 96374; 99284; A9270-GY

== ENCOUNTER 2019-02-06 18:20 | Emergency (ER) | payer OTHER ==
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
[2019-02-06 19:28] LABS: Absolute Neutrophil Ct (ANC) 10.07 (1.4-6.9); BASOPHIL % 0.2 % (0.0-0.4); Basophil (Absolute #) 0.03 (0-0.4); Eosinophil % 0.3 % (0.00-5.0); Eosinophil (Absolute #) 0.04 (0-0.5); Hematocrit 40.6 % (35-47); Hemoglobin 13.6 gm/dl (12.0-16.0); Lymphocyte (Absolute #) 2.27 (1.0-4.6); Lymphocytes % 17.3 % (24.0-44.0); Mean Cell Volume 93.3 fl (78-100); Mean Corpuscular Hemoglobin 31.3 pg (26-32); Mean Corpuscular Hgb Concent. 33.5 g/dl (32-36); Monocyte (Absolute #) 0.73 (0.0-1.3); Monocytes % 5.6 % (0.0-12.0); Neutrophil % 76.6 % (36.0-66.0); Platelet Count 267 K/mm3 (150-450); Red Blood Count 4.35 M/mm3 (4.1-5.4); Red Cell Distribution Width 12.9 % (11.5-14.0); White Blood Count 13.1 K/mm3 (4.0-10.5)
[2019-02-06 19:53] LABS: ALKALINE PHOSPHATASE 66 U/L (38-126); ANION GAP 12.9 MEQ/L (5-15); BLOOD UREA NITROGEN 8 mg/dL (7-17); CHLORIDE 104 mmol/L (98-107); Calcium 9.5 mg/dL (8.4-10.2); Carbon Dioxide 26 mmol/L (22-30); Creatinine 1 0.46 mg/dL (0.52-1.04); Glucose 101 mg/dL (74-106); Potassium 3.4 mmol/L (3.5-5.1); SGOT/AST 26 U/L (14-36); SGPT/ALT 21 U/L (0-35); SODIUM 139 mmol/L (137-145)
[2019-02-06 20:19] LABS: HCG, Quantitative (Inhouse) 121820 mIU/ml
[2019-02-06 21:33] LABS: Appearance SLIGHTLY CLOUDY (CLEAR); Bilirubin NEGATIVE (NEGATIVE); Blood NEGATIVE Ery/ul (0-5); Epithelial Cells FEW /HPF (FEW); Glucose NEGATIVE (NEGATIVE); Ketones SMALL (NEGATIVE); Leukocyte Esterase NEGATIVE (NEGATIVE); Mucus SLIGHT /HPF (NEGATIVE); Nitrite NEGATIVE (NEGATIVE); Protein,Urine Dip NEGATIVE (Negative); Specific Gravity 1.016 (1.005-1.025); Urobilinogen NEGATIVE mg/dL (0-1)
[2019-02-06 21:35] LABS: Bacteria NONE SEEN /HPF (NEGATIVE)
[2019-02-06 22:02] VITALS: BP 137/80; PULSE 108
[2019-02-07 02:54] VITALS: O2SAT 96
== END 2019-02-06 22:10 | disposition home or self-care (01) ==
LOC: ED 18:20
DX: O26.851 Spotting complicating pregnancy, first trimester (principal); Z3A.09 9 weeks gestation of pregnancy; W22.8XXA Striking against or struck by other objects, initial encounter
CPT/HCPCS: 36415; 80053; 81001; 84702; 85025; 99283

== ENCOUNTER 2019-03-13 14:34 | Emergency (ER) | payer OTHER ==
[2019-03-13] MEDS ORDERED: Sodium Chloride 0.9% 1000 ML 1,000 ML IV STA (15:35)
--- NOTE | 2019-03-13 16:21 | ERPHSYRPT ---
- History of Present Illness Time Seen by Provider: 03/13/19 15:05 Source: patient Exam Limitations: no limitations Patient Subjective Stated Complaint: Headache Triage Nursing Assessment: Patient ambulated into ED and transferred self to bed. Patient A+o X3. Patient's skin pink, warm and dry. Patient complains of headache for 2 weeks. Patient states is is 14 weeks and can only take Tylenol for pain, which is not helping. Patient complains of headache 8/10 constant throbbing pain with light sensitivity. Physician History: 24 y/o white female presents with 2 week h/o intermittent headache. pt is 14 weeks . the last dose of tylenol was 325mg and was taken at 0900 today. pt denies fever, denies abd pain, denies urinary sx, denies n/v/d. pt can take keflex. she has had in past without any issues Timing/Duration: week(s) (2) Quality: aching Head Pain Location: global Severity of Pain-Max: moderate Severity of Pain-Current: mild Recent Head Trauma: no recent headache/trauma Modifying Factors: Improves With: noise. Worsens With: exposure to light Associated Symptoms: sensitive to light, No fever/chills, No nausea/vomiting Previous symptoms: no prior history Allergies/Adverse Reactions: Penicillins Allergy (Verified 03/13/19 14:46) Rash Sulfa (Sulfonamide Antibiotics) Allergy (Verified 03/13/19 14:46) Rash Home Medications: Pnv No.95/Ferrous Fum/Folic AC [ Vitamins Tablet] 1 ea PO DAILY [History] Hx Tetanus, Diphtheria Vaccination/Date Given: No Hx Influenza Vaccination/Date Given: No Hx Pneumococcal Vaccination/Date Given: No Immunizations Up to Date: Yes - Review of Systems Constitutional: No Symptoms Eyes: Other (mild light sensitivity) Ears, Nose, & Throat: No Symptoms Respiratory: No Symptoms Cardiac: No Symptoms Abdominal/Gastrointestinal: No Symptoms Genitourinary Symptoms: No Symptoms Musculoskeletal: No Symptoms Skin: No Symptoms Neurological: No Symptoms Psychological: No Symptoms Endocrine: No Symptoms Hematologic/Lymphatic: No Symptoms Immunological/Allergic: No Symptoms All Other Systems: Reviewed and Negative - Past Medical History Pertinent Past Medical History: Yes Neurological History: Seizures Cardiac History: No Pertinent History Respiratory History: No Pertinent History Endocrine Medical History: No Pertinent History Musculoskeletal History: No Pertinent History Psycho-Social History: Attention Deficit Disorder Other Medical History: stopped taking meds - Past Surgical History Past Surgical History: Yes Female Surgical History: Dilation & Curettage, Section Other Surgical History: tonsillectomy eardrum sugery. d&c after miscarriage "a few yrs ago" - Social History Smoking Status: Never smoker Exposure to second hand smoke: Yes Alcohol Use: Socially Drug Use: none Patient Lives Alone: No Significant Family History: no pertinent family hx - Female History Hx Last Menstrual Period: November Hx Now: Yes - Nursing Vital Signs Nursing Vital Signs: Initial Vital Signs Temperature 97.9 F 03/13/19 14:47 Pulse Rate 110 H 03/13/19 14:47 Respiratory Rate 18 03/13/19 14:47 Blood Pressure 121/79 03/13/19 14:47 O2 Sat by Pulse Oximetry 97 03/13/19 14:47 Pain Scale Pain Intensity 8 - Physical Exam General Appearance: no apparent distress, alert, anxiety Eye Exam: PERRL/EOMI, eyes nml inspection Ears, Nose, Throat Exam: normal ENT inspection, moist mucous membranes Neck Exam: normal inspection, non-tender, supple, full range of motion Respiratory Exam: normal breath sounds, lungs clear, airway intact, No chest tenderness, No respiratory distress Cardiovascular Exam: regular rate/rhythm, normal heart sounds, normal peripheral pulses Gastrointestinal/Abdominal Exam: soft, normal bowel sounds, No tenderness Back Exam: normal inspection, normal range of motion, No CVA tenderness Extremity Exam: normal inspection, normal range of motion, pelvis stable Mental Status Exam: alert, oriented x 3, 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 Exam: normal hearing, normal speech, PERRL, tongue midline Coordination/Gait Exam: normal gait Motor/Sensory Exam: no motor deficit, no sensory deficit Skin Exam: normal color, warm, dry Lymphatic Exam: No adenopathy SpO2 Interpretation: normal SpO2: 97 - Course Nursing assessment & vital signs reviewed: Yes Ordered Tests: Active Orders 24 hr Category Date Time Status IV Insertion STAT Care 03/13/19 15:35 Active CBC W DIFF Stat Lab 03/13/19 16:30 Completed CMP Stat Lab 03/13/19 16:30 Completed UA W/RFX UR CULTURE Stat Lab 03/13/19 15:35 Completed Medication Summary Generic Name Dose Route Start Last Admin Trade Name Freq PRN Reason Stop Dose Admin Cephalexin HCl 500 mg 03/13/19 17:45 Keflex 500 Mg PO 03/13/19 17:46 STAT ONE Discontinued Medications Generic Name Dose Route Start Last Admin Trade Name Garrett PRN Reason Stop Dose Admin Sodium Chloride 1,000 mls @ 999 mls/hr 03/13/19 15:35 03/13/19 16:49 Sodium Chloride 0.9% 1000 Ml IV 03/13/19 16:35 999 mls/hr .Q1H1M STA Administration Sodium Chloride Confirm 03/13/19 16:48 Sodium Chloride 0.9% 1000 Ml Administered 03/13/19 16:49 Dose 1,000 mls @ ud .ROUTE .STK-MED ONE Lab/Rad Data: Laboratory Result Diagrams 03/13/19 16:30 03/13/19 16:30 Laboratory Results 03/13/19 03/13/19 03/13/19 Range/Units 16:30 16:30 16:30 WBC 11.8 H (4.0-10.5) K/mm3 RBC 4.63 (4.1-5.4) M/mm3 Hgb 14.3 (12.0-16.0) gm/dl Hct 42.7 (35-47) % MCV 92.2 (78-100) fl MCH 30.9 (26-32) pg MCHC 33.5 (32-36) g/dl RDW 12.6 (11.5-14.0) % Plt Count 229 (150-450) K/mm3 MPV 10.2 H (6-9.5) fl Gran % 75.7 H (36.0-66.0) % Eos # (Auto) 0.03 (0-0.5) Absolute Lymphs (auto) 2.28 (1.0-4.6) Absolute Monos (auto) 0.52 (0.0-1.3) Lymphocytes % 19.4 L (24.0-44.0) % Monocytes % 4.4 (0.0-12.0) % Eosinophils % 0.3 (0.00-5.0) % Basophils % 0.2 (0.0-0.4) % Absolute Granulocytes 8.92 H (1.4-6.9) Basophils # 0.02 (0-0.4) Sodium 139 (137-145) mmol/L Potassium 3.9 (3.5-5.1) mmol/L Chloride 106 (98-107) mmol/L Carbon Dioxide 23 (22-30) mmol/L Anion Gap 14.1 (5-15) MEQ/L BUN 6 L (7-17) mg/dL Creatinine 0.46 L (0.52-1.04) mg/dL Estimated GFR > 60.0 ML/MIN Glucose 74 (74-106) mg/dL Calcium 9.3 (8.4-10.2) mg/dL Total Bilirubin 0.50 (0.2-1.3) mg/dL AST 36 (14-36) U/L ALT 28 (0-35) U/L Alkaline Phosphatase 79 (38-126) U/L Serum Total Protein 7.1 (6.3-8.2) g/dL Albumin 3.8 (3.5-5.0) g/dL Urine Color (YELLOW) Urine Appearance (CLEAR) Urine pH (5-6) Ur Specific [place] (1.005-1.025) Urine Protein (Negative) Urine Ketones (NEGATIVE) Urine Blood (0-5) Jacob/ul Urine Nitrite (NEGATIVE) Urine Bilirubin (NEGATIVE) Urine Urobilinogen (0-1) mg/dL Ur Leukocyte Esterase (NEGATIVE) Urine WBC (Auto) (0-5) /HPF Urine RBC (Auto) (0-2) /HPF U Epithel Cells (Auto) (FEW) /HPF Urine Bacteria (Auto) (NEGATIVE) /HPF Urine Mucus (Auto) (NEGATIVE) /HPF Urine Culture Reflexed (NO) Urine Glucose (NEGATIVE) mg/dL Influenza Type A Ag NEGATIVE (NEGATIVE) Influenza Type B Ag NEGATIVE (NEGATIVE) RSV (PCR) NEGATIVE (Negative) 03/13/19 Range/Units 15:35 WBC (4.0-10.5) K/mm3 RBC (4.1-5.4) M/mm3 Hgb (12.0-16.0) gm/dl Hct (35-47) % MCV (78-100) fl MCH (26-32) pg MCHC (32-36) g/dl RDW (11.5-14.0) % Plt Count (150-450) K/mm3 MPV (6-9.5) fl Gran % (36.0-66.0) % Eos # (Auto) (0-0.5) Absolute Lymphs (auto) (1.0-4.6) Absolute Monos (auto) (0.0-1.3) Lymphocytes % (24.0-44.0) % Monocytes % (0.0-12.0) % Eosinophils % (0.00-5.0) % Basophils % (0.0-0.4) % Absolute Granulocytes (1.4-6.9) Basophils # (0-0.4) Sodium (137-145) mmol/L Potassium (3.5-5.1) mmol/L Chloride (98-107) mmol/L Carbon Dioxide (22-30) mmol/L Anion Gap (5-15) MEQ/L BUN (7-17) mg/dL Creatinine (0.52-1.04) mg/dL Estimated GFR ML/MIN Glucose (74-106) mg/dL Calcium (8.4-10.2) mg/dL Total Bilirubin (0.2-1.3) mg/dL AST (14-36) U/L ALT (0-35) U/L Alkaline Phosphatase (38-126) U/L Serum Total Protein (6.3-8.2) g/dL Albumin (3.5-5.0) g/dL Urine Color YELLOW (YELLOW) Urine Appearance SLIGHTLY CLOUDY (CLEAR) Urine pH 6.0 (5-6) Ur Specific [place] 1.023 (1.005-1.025) Urine Protein NEGATIVE (Negative) Urine Ketones SMALL (NEGATIVE) Urine Blood NEGATIVE (0-5) Jacob/ul Urine Nitrite NEGATIVE (NEGATIVE) Urine Bilirubin NEGATIVE (NEGATIVE) Urine Urobilinogen NEGATIVE (0-1) mg/dL Ur Leukocyte Esterase TRACE (NEGATIVE) Urine WBC (Auto) 6-10 (0-5) /HPF Urine RBC (Auto) 0-2 (0-2) /HPF U Epithel Cells (Auto) FEW (FEW) /HPF Urine Bacteria (Auto) NONE (NEGATIVE) /HPF Urine Mucus (Auto) MANY (NEGATIVE) /HPF Urine Culture Reflexed NO (NO) Urine Glucose NEGATIVE (NEGATIVE) mg/dL Influenza Type A Ag (NEGATIVE) Influenza Type B Ag (NEGATIVE) RSV (PCR) (Negative) - Progress Progress: improved Air Movement: good Progress Note: 03/13/19 17:46 pt is feeling better. headache improved. Blood Culture(s) Obtained: No Antibiotics given: Yes Counseled pt/family regarding: lab results, diagnosis, need for follow-up - Departure Departure Disposition: Home Clinical Impression: Headache, UTI (urinary tract infection), Mild dehydration Condition: Stable Critical Care Time: No Referrals: RIGOBERTO GRAYSON MD [Primary Care Provider] - Additional Instructions: drink plenty of fluids. follow up with primary doctor for persistent symptoms Prescriptions: Cephalexin Mh 500 mg [Keflex 500 mg] 500 mg PO TID #21 capsule
[2019-03-13 16:35] LABS: Absolute Neutrophil Ct (ANC) 8.92 (1.4-6.9); BASOPHIL % 0.2 % (0.0-0.4); Basophil (Absolute #) 0.02 (0-0.4); Eosinophil % 0.3 % (0.00-5.0); Eosinophil (Absolute #) 0.03 (0-0.5); Hematocrit 42.7 % (35-47); Hemoglobin 14.3 gm/dl (12.0-16.0); Lymphocyte (Absolute #) 2.28 (1.0-4.6); Lymphocytes % 19.4 % (24.0-44.0); Mean Cell Volume 92.2 fl (78-100); Mean Corpuscular Hemoglobin 30.9 pg (26-32); Mean Corpuscular Hgb Concent. 33.5 g/dl (32-36); Mean Platelet Volume 10.2 fl (6-9.5); Monocyte (Absolute #) 0.52 (0.0-1.3); Monocytes % 4.4 % (0.0-12.0); Neutrophil % 75.7 % (36.0-66.0); Platelet Count 229 K/mm3 (150-450); Red Blood Count 4.63 M/mm3 (4.1-5.4); Red Cell Distribution Width 12.6 % (11.5-14.0); White Blood Count 11.8 K/mm3 (4.0-10.5)
[2019-03-13 16:45] LABS: ALBUMIN 3.8 g/dL (3.5-5.0); ALKALINE PHOSPHATASE 79 U/L (38-126); ANION GAP 14.1 MEQ/L (5-15); BLOOD UREA NITROGEN 6 mg/dL (7-17); CHLORIDE 106 mmol/L (98-107); Calcium 9.3 mg/dL (8.4-10.2); Carbon Dioxide 23 mmol/L (22-30); Creatinine 1 0.46 mg/dL (0.52-1.04); Glucose 74 mg/dL (74-106); Potassium 3.9 mmol/L (3.5-5.1); SGOT/AST 36 U/L (14-36); SGPT/ALT 28 U/L (0-35); SODIUM 139 mmol/L (137-145); Total Protein 7.1 g/dL (6.3-8.2)
[2019-03-13] MEDS ORDERED: Sodium Chloride 0.9% 1000 ML 1,000 ML ONE (16:48)
[2019-03-13 17:10] LABS: Appearance SLIGHTLY CLOUDY (CLEAR); Bilirubin NEGATIVE (NEGATIVE); Blood NEGATIVE Ery/ul (0-5); Epithelial Cells FEW /HPF (FEW); Glucose NEGATIVE (NEGATIVE); Ketones SMALL (NEGATIVE); Leukocyte Esterase TRACE (NEGATIVE); Mucus MANY /HPF (NEGATIVE); Nitrite NEGATIVE (NEGATIVE); Protein,Urine Dip NEGATIVE (Negative); RBC 0-2 /HPF (0-2); Specific Gravity 1.023 (1.005-1.025); Urobilinogen NEGATIVE mg/dL (0-1)
[2019-03-13 17:21] LABS: INFLUENZA A NEGATIVE (NEGATIVE); INFLUENZA B NEGATIVE (NEGATIVE); RESPIRATORY SYNCTIAL VIRUS NEGATIVE (Negative)
[2019-03-13] MEDS ORDERED: KEFLEX 500 MG PO ONE (17:45)
[2019-03-13] MEDS ORDERED: KEFLEX 500 MG ONE (18:06)
[2019-03-13 18:11] VITALS: BP 120/78; PULSE 100; O2SAT 99
== END 2019-03-13 18:10 | disposition home or self-care (01) ==
LOC: ED 14:34
DX: R51 Headache (principal); N39.0 Urinary tract infection, site not specified; E86.0 Dehydration
CPT/HCPCS: 36000; 36415; 80053; 81001; 85025; 87631; 96360; 99284; A9270-GY

== ENCOUNTER 2019-05-28 09:59 | Emergency (ER) | payer OTHER ==
[2019-05-28 10:26] LABS: Appearance SLIGHTLY CLOUDY (CLEAR); Bacteria FEW /HPF (NEGATIVE); Bilirubin NEGATIVE (NEGATIVE); Blood MODERATE Ery/ul (0-5); Epithelial Cells MODERATE /HPF (FEW); Glucose NEGATIVE (NEGATIVE); Ketones NEGATIVE (NEGATIVE); Leukocyte Esterase SMALL (NEGATIVE); Mucus SLIGHT /HPF (NEGATIVE); Nitrite NEGATIVE (NEGATIVE); Non-Squamous Epithelial Cells FEW /HPF (FEW); Protein,Urine Dip NEGATIVE (Negative); RBC 51-100 /HPF (0-2); Specific Gravity 1.017 (1.005-1.025); Urobilinogen NEGATIVE mg/dL (0-1); WBC >100 /HPF (0-5)
[2019-05-28] MEDS ORDERED: XYLOCAINE 1% HCL 20 ML MDV ONE (10:36)
[2019-05-28] MEDS ORDERED: Rocephin 1000 MG INJ ONE (10:36)
[2019-05-28] MEDS ORDERED: Rocephin 1000 MG INJ IM ONE (10:37)
--- NOTE | 2019-05-28 10:41 | ERPHSYRPT ---
- History of Present Illness Time Seen by Provider: 05/28/19 10:38 Source: patient Exam Limitations: no limitations Patient Subjective Stated Complaint: Pt states "[facility] and they sent me here when they found out i was . " Triage Nursing Assessment: Pt presented alert and oriented X 3, skin pwd. Pt ambulates with an upright steady gait, able to speak in clear full sentences FHT 145. Physician History: Pt states "[facility] I have painful urination and they sent me here when they found out i was ." no fever, chills, abdominal pain, nausea, vomiting Timing/Duration: today Activites at Onset: none Pain Radiation: none Severity of Pain-Max: none Severity of Pain-Current: none Prior abdominal problems: none Sexual intercourse history: non-contributory Modifying Factors: Improves With: nothing Associated Symptoms: denies symptoms Allergies/Adverse Reactions: Penicillins Allergy (Verified 03/13/19 14:46) Rash Sulfa (Sulfonamide Antibiotics) Allergy (Verified 03/13/19 14:46) Rash Home Medications: Pnv No.95/Ferrous Fum/Folic AC [ Vitamins Tablet] 1 ea PO DAILY [History] Hx Tetanus, Diphtheria Vaccination/Date Given: Yes Hx Influenza Vaccination/Date Given: No Hx Pneumococcal Vaccination/Date Given: No - Review of Systems Constitutional: No Fever, No Chills Eyes: No Symptoms Ears, Nose, & Throat: No Symptoms Respiratory: No Cough, No Dyspnea Cardiac: No Chest Pain, No Edema, No Syncope Abdominal/Gastrointestinal: No Abdominal Pain, No Nausea, No Vomiting, No Diarrhea Genitourinary Symptoms: Dysuria Musculoskeletal: No Back Pain, No Neck Pain Skin: No Rash Neurological: No Dizziness, No Focal Weakness, No Sensory Changes Psychological: No Symptoms Endocrine: No Symptoms All Other Systems: Reviewed and Negative - Past Medical History Pertinent Past Medical History: Yes Neurological History: Seizures Cardiac History: No Pertinent History Respiratory History: No Pertinent History Endocrine Medical History: No Pertinent History Musculoskeletal History: No Pertinent History Psycho-Social History: Attention Deficit Disorder Other Medical History: stopped taking meds - Past Surgical History Past Surgical History: Yes Female Surgical History: Dilation & Curettage, Section Other Surgical History: tonsillectomy eardrum sugery. d&c after miscarriage "a few yrs ago" - Social History Smoking Status: Never smoker Exposure to second hand smoke: Yes Alcohol Use: Socially Drug Use: none Patient Lives Alone: No Significant Family History: no pertinent family hx - Female History Hx Last Menstrual Period: 12/02/2018 Hx Now: Yes Expected Date of Delivery: 09/08/19 - Nursing Vital Signs Nursing Vital Signs: Initial Vital Signs Temperature 98.0 F 05/28/19 10:07 Pulse Rate 66 05/28/19 10:07 Respiratory Rate 18 05/28/19 10:07 Blood Pressure 119/73 05/28/19 10:07 O2 Sat by Pulse Oximetry 99 05/28/19 10:07 Pain Scale Pain Intensity 0 - Physical Exam General Appearance: no apparent distress, alert Eye Exam: PERRL/EOMI, eyes nml inspection Ears, Nose, Throat Exam: normal ENT inspection, TMs normal, pharynx normal, moist mucous membranes Neck Exam: normal inspection, non-tender, supple, full range of motion Respiratory Exam: normal breath sounds, lungs clear, No respiratory distress Cardiovascular Exam: regular rate/rhythm, normal heart sounds, normal peripheral pulses Gastrointestinal/Abdomen Exam: soft, normal bowel sounds, other (24 weeks uterus), No tenderness, No mass Back Exam: normal inspection, normal range of motion, No CVA tenderness, No vertebral tenderness Extremity Exam: normal inspection, normal range of motion, pelvis stable Neurologic Exam: alert, oriented x 3, cooperative, 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, normal mood/affect, sensation nml, No motor deficits Skin Exam: normal color, warm, dry Lymphatic Exam: No adenopathy SpO2: 99 - Course Nursing assessment & vital signs reviewed: Yes Ordered Tests: Active Orders 24 hr Category Date Time Status CULTURE,URINE Stat Lab 05/28/19 10:15 Received UA W/RFX UR CULTURE Stat Lab 05/28/19 10:15 Completed Medication Summary Generic Name Dose Route Start Last Admin Trade Name Freq PRN Reason Stop Dose Admin Ceftriaxone Sodium 1,000 mg 05/28/19 10:37 Rocephin 1000 Mg Inj IM 05/28/19 10:38 STAT ONE Lab/Rad Data: Laboratory Results 05/28/19 Range/Units 10:15 Urine Color YELLOW (YELLOW) Urine Appearance SLIGHTLY CLOUDY (CLEAR) Urine pH 8.0 (5-6) Ur Specific [place] 1.017 (1.005-1.025) Urine Protein NEGATIVE (Negative) Urine Ketones NEGATIVE (NEGATIVE) Urine Blood MODERATE (0-5) Jacob/ul Urine Nitrite NEGATIVE (NEGATIVE) Urine Bilirubin NEGATIVE (NEGATIVE) Urine Urobilinogen NEGATIVE (0-1) mg/dL Ur Leukocyte Esterase SMALL (NEGATIVE) Urine WBC (Auto) >100 (0-5) /HPF Urine RBC (Auto) 51-100 (0-2) /HPF U Epithel Cells (Auto) MODERATE (FEW) /HPF Urine Bacteria (Auto) FEW (NEGATIVE) /HPF U Non-Squamous Epi Cells FEW (FEW) /HPF Urine Mucus (Auto) SLIGHT (NEGATIVE) /HPF Urine Culture Reflexed YES (NO) Urine Glucose NEGATIVE (NEGATIVE) mg/dL - Progress Progress: unchanged Discussed with : Aaron Counseled pt/family regarding: lab results, diagnosis, need for follow-up - Departure Departure Disposition: Home Clinical Impression: Urinary tract infection affecting care of mother in second trimester, antepartum UTI (urinary tract infection) Qualifiers: Urinary tract infection type: acute pyelonephritis Qualified Code(s): N10 - Acute pyelonephritis Condition: Stable Critical Care Time: No Referrals: ERICH ROUSSEAU [Primary Care Provider] - Instructions: Urinary Tract Infection, Adult (DC) Prescriptions: Nitrofurantoin Macro 100 mg [Macrobid 100MG Capsule] 100 mg PO BID #15 cap
[2019-05-28 10:55] VITALS: BP 124/70; PULSE 74; O2SAT 98
== END 2019-05-28 11:01 | disposition home or self-care (01) ==
LOC: ED 09:59
DX: O23.42 Unspecified infection of urinary tract in pregnancy, second trimester (principal); Z3A.00 Weeks of gestation of pregnancy not specified
CPT/HCPCS: 81001; 87077; 87086; 87186; 96372; 99284; J0696

== ENCOUNTER 2019-06-06 21:19 | Observation (INO) | payer OTHER ==
[2019-06-06 21:43] VITALS: BP 124/88; PULSE 99; O2SAT 99
[2019-06-06 21:53] LABS: Appearance CLOUDY (CLEAR); Bilirubin NEGATIVE (NEGATIVE); Blood NEGATIVE Ery/ul (0-5); Epithelial Cells FEW /HPF (FEW); Glucose NEGATIVE (NEGATIVE); Ketones NEGATIVE (NEGATIVE); Leukocyte Esterase TRACE (NEGATIVE); Mucus SLIGHT /HPF (NEGATIVE); Nitrite NEGATIVE (NEGATIVE); Protein,Urine Dip NEGATIVE (Negative); RBC 0-2 /HPF (0-2); Specific Gravity 1.012 (1.005-1.025); Urobilinogen NEGATIVE mg/dL (0-1)
[2019-06-06 22:11] LABS: Amphetamine,Urine NEGATIVE (NEGATIVE); Barbiturate,Urine NEGATIVE (NEGATIVE); Benzodiazepine,Urine NEGATIVE (NEGATIVE); Cocaine,Urine NEGATIVE (NEGATIVE); Methadone,Urine NEGATIVE (NEGATIVE); Opiate,Urine NEGATIVE (NEGATIVE); PCP,Urine NEGATIVE (NEGATIVE); THC,Urine NEGATIVE (NEGATIVE)
== END 2019-06-06 23:50 | disposition home or self-care (01) ==
LOC: OB 21:19
PROVIDERS: ADMIT Family Medicine; ATTEND Family Medicine
DX: Z34.82 Encounter for supervision of other normal pregnancy, second trimester (principal)
CPT/HCPCS: 80307; 81001; 87086; G0378

== ENCOUNTER 2019-06-17 20:22 | Observation (INO) | payer OTHER ==
[2019-06-17 21:21] LABS: Appearance CLOUDY (CLEAR); Bilirubin NEGATIVE (NEGATIVE); Blood NEGATIVE Ery/ul (0-5); Epithelial Cells PACKED /HPF (FEW); Glucose NEGATIVE (NEGATIVE); Ketones MODERATE (NEGATIVE); Leukocyte Esterase NEGATIVE (NEGATIVE); Mucus MODERATE /HPF (NEGATIVE); Nitrite NEGATIVE (NEGATIVE); Protein,Urine Dip 100 (Negative); RBC 0-2 /HPF (0-2); Specific Gravity 1.036 (1.005-1.025); Urobilinogen NEGATIVE mg/dL (0-1)
[2019-06-17] MEDS ORDERED: Sodium Chloride 0.9% 1000 ML 1,000 ML IV STA (21:41)
[2019-06-17] MEDS ORDERED: Zofran 4 MG/2 ML VIAL IV PRN (21:44)
[2019-06-17] MEDS: TYLENOL 325 MG PO PRN (21:55)
[2019-06-17 22:29] LABS: Hematocrit 41.8 % (35-47); Mean Cell Volume 94.1 fl (78-100); Mean Corpuscular Hemoglobin 31.5 pg (26-32); Mean Corpuscular Hgb Concent. 33.5 g/dl (32-36); Mean Platelet Volume 9.9 fl (7.5-11.0); Platelet Count 226 K/mm3 (150-450); Red Blood Count 4.44 M/mm3 (4.1-5.4); Red Cell Distribution Width 13.5 % (11.5-14.0)
[2019-06-17 22:48] LABS: ALBUMIN 3.6 g/dL (3.5-5.0); ALKALINE PHOSPHATASE 100 U/L (38-126); AMYLASE 77 U/L (30-110); ANION GAP 11.8 MEQ/L (5-15); BLOOD UREA NITROGEN 14 mg/dL (7-17); CHLORIDE 105 mmol/L (98-107); Calcium 8.6 mg/dL (8.4-10.2); Carbon Dioxide 21 mmol/L (22-30); Creatinine 1 0.44 mg/dL (0.52-1.04); Glucose 122 mg/dL (74-106); LIPASE 81 U/L (23-300); MAGNESIUM 1.8 mg/dL (1.6-2.3); Potassium 3.3 mmol/L (3.5-5.1); SGOT/AST 32 U/L (14-36); SGPT/ALT 18 U/L (0-35); SODIUM 135 mmol/L (137-145); Total Protein 6.6 g/dL (6.3-8.2)
[2019-06-17] MEDS: Lactated Ringers 1,000 ML IV SCH (23:13)
[2019-06-17] MEDS ORDERED: PYRIDIUM 200 MG PO PRN (23:39)
[2019-06-18] MEDS: NORCO 5/325 MG PO PRN ×3 (00:29→22:54)
[2019-06-18 01:02] LABS: INFLUENZA A NEGATIVE (NEGATIVE); INFLUENZA B NEGATIVE (NEGATIVE); RESPIRATORY SYNCTIAL VIRUS NEGATIVE (Negative)
[2019-06-18 01:11] LABS: Lymphocytes 4 % (24-44); Monocyte 3 % (0.0-12.0); Neutrophils 93 % (36.0-66.0); Platelet Estimate NORMAL (NORMAL); Total Cells Counted 100
[2019-06-18] MEDS ORDERED: PYRIDIUM 200 MG PO PRN (07:30)
[2019-06-18] MEDS: Lactated Ringers 1,000 ML IV SCH ×2 (08:09→15:53)
[2019-06-18] MEDS ORDERED: ROCEPHIN 1 Gm-D5w 50 ml Bag** 1 G/50 ML IVPB IV SCH ×3 (10:00→22:00)
--- NOTE | 2019-06-18 19:44 | XRAY ---
Indication: Abdomen pain. Two-dimensional OB ultrasound performed. Comparison: June 09, 2019. Again there is a single viable intrauterine now in breech presentation. heart rate 147 BPM. anatomy previously documented. Visualized stomach and bladder are unremarkable. Again posterior placenta without abruption/previa. BPD measures 6.87 cm corresponding to 27 weeks 4 days. HC measures 26.63 cm corresponding to 29 weeks 0 days. AC measures 23.88 cm corresponding to 28 weeks 1 days. FL measures 4.92 cm corresponding to 26 weeks 4 day. SCOTT is 13.6 cm. Impression: Again single viable intrauterine with mean gestational age 27 weeks 6 days. Normal progression of . No new/acute findings.
--- NOTE | 2019-06-18 19:46 | XRAY ---
Indication: Evaluate cervical length. Two-dimensional limited transvaginal pelvic sonogram performed to evaluate cervical length. Cervix is closed and measures 4.8 cm.
--- NOTE | 2019-06-18 19:48 | XRAY ---
Indication: Abdomen pain. 2-dimensional right upper quadrant abdominal sonogram performed. Comparison: April 15, 2017. Gallbladder normally distended again without gallstones, wall thickening, or pericholecystic fluid. Common bile duct measures 2.9 mm. Visualized portions of the liver, pancreas, and right kidney sonographically unremarkable. Right kidney measures 11 cm in length. No ascites. Targeted ultrasound of the right lower quadrant did not identify the appendix. No solid/cystic mass or abnormal fluid collection. Impression: Continued negative gallbladder sonogram.
[2019-06-19] MEDS: Lactated Ringers 1,000 ML IV SCH ×2 (00:38→08:18)
[2019-06-19 02:03] VITALS: O2SAT 98
[2019-06-19] MEDS ORDERED: Protonix 40MG Tablet PO SCH (10:00)
[2019-06-19] MEDS ORDERED: Pepcid 20 MG PO SCH (10:00)
[2019-06-19] MEDS: TYLENOL 325 MG PO PRN (12:04)
[2019-06-19 12:17] VITALS: BP 93/53; PULSE 91
== END 2019-06-19 14:45 | disposition home or self-care (01) ==
LOC: OB 20:22
PROVIDERS: ADMIT Family Medicine; ATTEND Family Medicine
DX: O26.893 Other specified pregnancy related conditions, third trimester (principal); Z3A.28 28 weeks gestation of pregnancy; R10.9 Unspecified abdominal pain; R00.0 Tachycardia, unspecified; M54.9 Dorsalgia, unspecified
CPT/HCPCS: 36415; 76705; 76801; 76817; 80053; 81001; 82150; 82731; 83690; 83735; 85025; 87086; 87631; G0378; J0696; A9270-GY

== ENCOUNTER 2019-07-12 17:56 | Observation (INO) | payer OTHER ==
[2019-07-12 18:45] VITALS: O2SAT 96
[2019-07-12 19:07] LABS: Appearance CLOUDY (CLEAR); Bilirubin NEGATIVE (NEGATIVE); Blood NEGATIVE Ery/ul (0-5); Epithelial Cells MODERATE /HPF (FEW); Glucose NEGATIVE (NEGATIVE); Ketones SMALL (NEGATIVE); Leukocyte Esterase SMALL (NEGATIVE); Mucus MODERATE /HPF (NEGATIVE); Nitrite NEGATIVE (NEGATIVE); Protein,Urine Dip 30 (Negative); Specific Gravity 1.027 (1.005-1.025); Urobilinogen NEGATIVE mg/dL (0-1)
[2019-07-12 19:29] LABS: Amphetamine,Urine NEGATIVE (NEGATIVE); Barbiturate,Urine NEGATIVE (NEGATIVE); Benzodiazepine,Urine NEGATIVE (NEGATIVE); Cocaine,Urine NEGATIVE (NEGATIVE); Methadone,Urine NEGATIVE (NEGATIVE); Opiate,Urine NEGATIVE (NEGATIVE); PCP,Urine NEGATIVE (NEGATIVE); THC,Urine NEGATIVE (NEGATIVE)
[2019-07-12] MEDS ORDERED: Lactated Ringers 500 ML IV ONE ×2 (19:57→19:58)
[2019-07-12 22:21] VITALS: BP 116/61; PULSE 92
== END 2019-07-12 21:55 | disposition home or self-care (01) ==
LOC: OB 17:56
PROVIDERS: ADMIT Family Medicine; ATTEND Family Medicine
DX: Z34.83 Encounter for supervision of other normal pregnancy, third trimester (principal)
CPT/HCPCS: 80307; 81001; 87086; G0378

== ENCOUNTER 2019-08-02 14:54 | Observation (INO) | payer OTHER ==
[2019-08-02 15:43] LABS: Amphetamine,Urine NEGATIVE (NEGATIVE); Barbiturate,Urine NEGATIVE (NEGATIVE); Benzodiazepine,Urine NEGATIVE (NEGATIVE); Cocaine,Urine NEGATIVE (NEGATIVE); Methadone,Urine NEGATIVE (NEGATIVE); Opiate,Urine NEGATIVE (NEGATIVE); PCP,Urine NEGATIVE (NEGATIVE); THC,Urine NEGATIVE (NEGATIVE)
[2019-08-02 15:46] LABS: Appearance CLEAR (CLEAR); Bilirubin NEGATIVE (NEGATIVE); Blood NEGATIVE Ery/ul (0-5); Epithelial Cells RARE /HPF (FEW); Glucose NEGATIVE (NEGATIVE); Ketones NEGATIVE (NEGATIVE); Leukocyte Esterase NEGATIVE (NEGATIVE); Nitrite NEGATIVE (NEGATIVE); Protein,Urine Dip NEGATIVE (Negative); Specific Gravity 1.006 (1.005-1.025); Urobilinogen NEGATIVE mg/dL (0-1); WBC 0-2 /HPF (0-5)
--- NOTE | 2019-08-02 16:35 | XRAY ---
Indication: Evaluate SCOTT. Limited OB ultrasound performed to evaluate SCOTT. There is a single intrauterine with heart rate 158 BPM. Four-quadrant SCOTT is 22.7 cm favoring polyhydramnios. This was previously 13.6 cm June 18, 2019.
[2019-08-02 17:37] VITALS: BP 126/66; PULSE 106
== END 2019-08-02 16:30 | disposition home or self-care (01) ==
LOC: OB 14:54
PROVIDERS: ADMIT Obstetrics & Gynecology; ATTEND Obstetrics & Gynecology
DX: Z34.83 Encounter for supervision of other normal pregnancy, third trimester (principal)
CPT/HCPCS: 76815; 80307; 81001; 84112; G0378

== ENCOUNTER 2019-08-11 19:15 | Observation (INO) | payer OTHER ==
[2019-08-11 20:04] VITALS: O2SAT 97
[2019-08-11 20:42] LABS: Appearance SLIGHTLY CLOUDY (CLEAR); Bilirubin NEGATIVE (NEGATIVE); Blood NEGATIVE Ery/ul (0-5); Epithelial Cells FEW /HPF (FEW); Glucose NEGATIVE (NEGATIVE); Ketones NEGATIVE (NEGATIVE); Leukocyte Esterase NEGATIVE (NEGATIVE); Mucus SLIGHT /HPF (NEGATIVE); Nitrite NEGATIVE (NEGATIVE); Protein,Urine Dip NEGATIVE (Negative); Specific Gravity 1.004 (1.005-1.025); Urobilinogen NEGATIVE mg/dL (0-1)
[2019-08-11 20:53] LABS: Amphetamine,Urine NEGATIVE (NEGATIVE); Barbiturate,Urine NEGATIVE (NEGATIVE); Benzodiazepine,Urine NEGATIVE (NEGATIVE); Cocaine,Urine NEGATIVE (NEGATIVE); Methadone,Urine NEGATIVE (NEGATIVE); Opiate,Urine NEGATIVE (NEGATIVE); PCP,Urine NEGATIVE (NEGATIVE); THC,Urine NEGATIVE (NEGATIVE)
[2019-08-11] MEDS ORDERED: Zofran 4 MG/2 ML VIAL IV STA (21:39)
[2019-08-11] MEDS ORDERED: Lactated Ringers 1,000 ML IV ONE (21:39)
[2019-08-11 22:06] LABS: Absolute Neutrophil Ct (ANC) 6.58 (1.4-6.9); BASOPHIL % 0.3 % (0.0-0.4); Basophil (Absolute #) 0.03 (0-0.4); Eosinophil % 0.6 % (0.00-5.0); Eosinophil (Absolute #) 0.06 (0-0.5); Hematocrit 38.8 % (35-47); Hemoglobin 12.9 gm/dl (12.0-16.0); Lymphocyte (Absolute #) 2.85 (1.0-4.6); Lymphocytes % 28.2 % (24.0-44.0); Mean Cell Volume 93.7 fl (78-100); Mean Corpuscular Hemoglobin 31.2 pg (26-32); Mean Corpuscular Hgb Concent. 33.2 g/dl (32-36); Mean Platelet Volume 10.3 fl (7.5-11.0); Monocyte (Absolute #) 0.57 (0.0-1.3); Monocytes % 5.6 % (0.0-12.0); Neutrophil % 65.3 % (36.0-66.0); Platelet Count 218 K/mm3 (150-450); Red Blood Count 4.14 M/mm3 (4.1-5.4); Red Cell Distribution Width 13.4 % (11.5-14.0); White Blood Count 10.1 K/mm3 (4.0-10.5)
[2019-08-11 22:17] LABS: ALBUMIN 3.3 g/dL (3.5-5.0); ALKALINE PHOSPHATASE 134 U/L (38-126); ANION GAP 10.5 MEQ/L (5-15); BLOOD UREA NITROGEN 9 mg/dL (7-17); CHLORIDE 109 mmol/L (98-107); Carbon Dioxide 22 mmol/L (22-30); Creatinine 1 0.47 mg/dL (0.52-1.04); Glucose 98 mg/dL (74-106); Potassium 3.8 mmol/L (3.5-5.1); SGOT/AST 50 U/L (14-36); SGPT/ALT 48 U/L (0-35); SODIUM 137 mmol/L (137-145); Total Protein 6.2 g/dL (6.3-8.2)
[2019-08-11] MEDS ORDERED: Ambien 10 MG PO PRN (22:48)
[2019-08-11] MEDS: Lactated Ringers 1,000 ML IV SCH (23:07)
[2019-08-12] MEDS: Lactated Ringers 1,000 ML IV SCH (05:49)
[2019-08-12] MEDS ORDERED: CLINDAMYCIN-D5W 900 MG/50 ML*** 900 MG/50 ML BAG IV SCH (06:00)
--- NOTE | 2019-08-12 08:27 | XRAY ---
Indication: Right upper quadrant pain. 36 weeks . Two-dimensional gallbladder sonogram performed. Comparison: June 18, 2019. Pancreas not well seen due to overlying bowel gas. Gallbladder again normally distended without gallstones, wall thickening, or pericholecystic fluid. Common bile duct measures 2.4 mm. No intrahepatic biliary distention. Remaining visualized portions of the liver and right kidney appear sonographically normal. Right kidney measures 10.8 cm in length. No ascites. Impression: Nonvisualization pancreas. Continued negative gallbladder sonogram.
[2019-08-12 12:56] VITALS: BP 126/79; PULSE 94
== END 2019-08-12 12:45 | disposition home or self-care (01) ==
LOC: OB 19:15 → UNDOADMOB 19:15
PROVIDERS: ADMIT Family Medicine; ATTEND Family Medicine
DX: O26.893 Other specified pregnancy related conditions, third trimester (principal); Z3A.36 36 weeks gestation of pregnancy; R10.11 Right upper quadrant pain; K80.50 Calculus of bile duct without cholangitis or cholecystitis without obstruction
CPT/HCPCS: 36415; 76705; 80053; 80307; 81001; 85025; G0378; 99219; J2405; A9270-GY

== ENCOUNTER 2019-08-23 19:18 | Observation (INO) | payer OTHER ==
[2019-08-23 21:11] LABS: Appearance CLEAR (CLEAR); Bacteria RARE /HPF (NEGATIVE); Bilirubin NEGATIVE (NEGATIVE); Blood NEGATIVE Ery/ul (0-5); Epithelial Cells RARE /HPF (FEW); Glucose NEGATIVE (NEGATIVE); Ketones NEGATIVE (NEGATIVE); Leukocyte Esterase NEGATIVE (NEGATIVE); Mucus SLIGHT /HPF (NEGATIVE); Nitrite NEGATIVE (NEGATIVE); Protein,Urine Dip NEGATIVE (Negative); RBC NONE SEEN /HPF (0-2); Specific Gravity 1.003 (1.005-1.025); Urobilinogen NEGATIVE mg/dL (0-1); WBC 0-2 /HPF (0-5)
[2019-08-23 21:54] VITALS: BP 121/80; PULSE 77; O2SAT 99
[2019-08-23 22:29] LABS: Amphetamine,Urine NEGATIVE (NEGATIVE); Barbiturate,Urine NEGATIVE (NEGATIVE); Benzodiazepine,Urine NEGATIVE (NEGATIVE); Cocaine,Urine NEGATIVE (NEGATIVE); Methadone,Urine NEGATIVE (NEGATIVE); Opiate,Urine NEGATIVE (NEGATIVE); PCP,Urine NEGATIVE (NEGATIVE); THC,Urine NEGATIVE (NEGATIVE)
== END 2019-08-23 23:12 | disposition home or self-care (01) ==
LOC: OB 19:18
PROVIDERS: ADMIT Family Medicine; ATTEND Family Medicine
DX: Z34.83 Encounter for supervision of other normal pregnancy, third trimester (principal)
CPT/HCPCS: 80307; 81001; G0378

== ENCOUNTER 2019-09-01 04:57 | Inpatient (IN) | payer OTHER ==
[2019-09-01 05:55] LABS: Amphetamine,Urine NEGATIVE (NEGATIVE); Barbiturate,Urine NEGATIVE (NEGATIVE); Benzodiazepine,Urine NEGATIVE (NEGATIVE); Cocaine,Urine NEGATIVE (NEGATIVE); Methadone,Urine NEGATIVE (NEGATIVE); Opiate,Urine NEGATIVE (NEGATIVE); PCP,Urine NEGATIVE (NEGATIVE); THC,Urine NEGATIVE (NEGATIVE)
[2019-09-01 05:55] LABS: Hemoglobin 13.6 gm/dl (12.0-16.0); Mean Corpuscular Hemoglobin 31.6 pg (26-32); Mean Platelet Volume 10.5 fl (7.5-11.0); Platelet Count 234 K/mm3 (150-450); Red Cell Distribution Width 13.4 % (11.5-14.0); White Blood Count 9.9 K/mm3 (4.0-10.5)
[2019-09-01 05:56] LABS: INR 0.93 (0.8-3.0); PROTIME 10.5 SECONDS (9.95-12.35)
[2019-09-01 05:58] LABS: Appearance SLIGHTLY CLOUDY (CLEAR); Bacteria RARE /HPF (NEGATIVE); Bilirubin NEGATIVE (NEGATIVE); Blood NEGATIVE Ery/ul (0-5); Epithelial Cells FEW /HPF (FEW); Glucose NEGATIVE (NEGATIVE); Hyaline Casts 0-2 /LPF (0-2); Ketones NEGATIVE (NEGATIVE); Leukocyte Esterase LARGE (NEGATIVE); Mucus SLIGHT /HPF (NEGATIVE); Nitrite NEGATIVE (NEGATIVE); Protein,Urine Dip NEGATIVE (Negative); Specific Gravity 1.015 (1.005-1.025); Urobilinogen NEGATIVE mg/dL (0-1)
[2019-09-01 05:58] LABS: PTT 28.5 SECONDS (25.3-37.0)
[2019-09-01 06:38] LABS: ABO TYPING O; Antibody Screen NEGATIVE (NEGATIVE); RH TYPING NEGATIVE
[2019-09-01] MEDS ORDERED: BICITRA 30 ML CUP PO SCH (07:00)
[2019-09-01] MEDS ORDERED: Lactated Ringers 1,000 ML IV ONE ×3 (07:00→09:32)
[2019-09-01] MEDS ORDERED: Pepcid 20 MG VIAL IV SCH (07:00)
[2019-09-01] MEDS ORDERED: Reglan 10 MG/2 ML IV SCH (07:00)
[2019-09-01] MEDS ORDERED: CLINDAMYCIN-D5W 900 MG/50 ML*** 900 MG/50 ML BAG IV SCH (07:00)
--- NOTE | 2019-09-01 09:26 | OP ---
SURGERY DATE/TIME: 09/01/2019 0800 PREOPERATIVE DIAGNOSES: 1) History of prior section. 2) Term intrauterine . POSTOPERATIVE DIAGNOSES: 1) History of prior section. 2) Term intrauterine . PROCEDURE: Repeat low transverse section. SURGEON: Zac Will M.D. ESTIMATED BLOOD LOSS: 300 cc. IV FLUIDS: 1500 cc of crystalloid. URINE OUTPUT: 150 cc of clear straw-colored urine. ANESTHESIA: Spinal. SPECIMENS: None. DESCRIPTION OF PROCEDURE: After informed written consent was obtained, the patient was taken to the operating room. She underwent spinal anesthesia and was prepped and draped in the usual sterile fashion. After adequate level of anesthesia was assessed, low transverse skin incision was made by knife carried through area of prior scar through the subcutaneous fat to the level of the fascia. The fascia was nicked on both sides of the midline extended horizontally using curved Horta scissors. The superior free edge of the fascia was grasped with Ting clamps and the underlying rectus muscles were dissected free. The same was repeated inferiorly. The peritoneal cavity was extended in horizontal bluntly and bladder blade was inserted. Bladder flap was created and reflected over the lower uterine segment. A horizontal uterine incision was made by knife and carried down to the level of the amniotic membranes which were carefully artificially ruptured revealing significant amount of clear fluid. A viable female infant delivered from the vertex presentation. Oropharynx and nares were bulb suctioned on the operative field. There was a strong cry immediately present. The cord was clamped and cut. She was handed off to the awaiting nursery team. The placenta was manually extracted from the uterine cavity and the uterus was exteriorized. The uterine cavity was sponge curetted clean with a lap sponge. The uterine incision was closed with #1 chromic in a running locked fashion. Good closure and good hemostasis were achieved. The posterior cul-de-sac was wiped free of blood and clot with a moist lap sponge and the uterus was returned to the peritoneal cavity. Lateral gutters were wiped free of blood and clot with a moist lap sponge. The uterine incision was inspected and noted to be hemostatic again with good closure. Next, the fascia was closed with 0 Vicryl in a running fashion. Good closure and good hemostasis were achieved. The subcutaneous fat was irrigated with warm, sterile saline and the areas in the subcutaneous fat were cauterized with electrocautery. Finally the skin layer was closed with 4-0 undyed Vicryl in a running fashion. Steri-Strips and occlusive dressing were placed over the incision. The patient was transferred to the recovery in good condition.
[2019-09-01] MEDS ORDERED: TYLENOL EXTRA STRENGTH 500 MG PO PRN (10:00)
[2019-09-01] MEDS ORDERED: Sodium Chloride 0.9% 10 ML FLUSH Syringe IJ PRN (10:00)
[2019-09-01] MEDS ORDERED: CLARITIN 10 MG PO PRN (10:00)
[2019-09-01] MEDS ORDERED: Mylicon 80MG PO PRN (10:00)
[2019-09-01] MEDS ORDERED: Dextrose 5%-Lr IV Solution 1000 ML 1,000 ML IV SCH (10:00)
[2019-09-01] MEDS ORDERED: Nubain 10 MG/ML IV PRN (10:00)
[2019-09-01] MEDS ORDERED: CORTISONE 1% CREAM TP PRN (10:00)
[2019-09-01] MEDS ORDERED: HOLD NARCOTIC ANALGESICS AND SEDATIVES X24 HR MC PRN (10:00)
[2019-09-01] MEDS ORDERED: Zofran 4 MG/2 ML VIAL IV PRN (10:00)
[2019-09-01] MEDS ORDERED: PERCOCET TABLET 5/325MG PO PRN (10:00)
[2019-09-01] MEDS ORDERED: LANSINOH 40 GM TOP PRN (10:00)
[2019-09-01] MEDS ORDERED: BENADRYL 50 MG/ML IV PRN (10:00)
[2019-09-01 10:47] LABS: Appearance CLEAR (CLEAR); Bilirubin NEGATIVE (NEGATIVE); Blood NEGATIVE Ery/ul (0-5); Glucose NEGATIVE (NEGATIVE); Ketones NEGATIVE (NEGATIVE); Leukocyte Esterase NEGATIVE (NEGATIVE); Mucus SLIGHT /HPF (NEGATIVE); Nitrite NEGATIVE (NEGATIVE); Protein,Urine Dip NEGATIVE (Negative); Specific Gravity 1.021 (1.005-1.025); Urobilinogen NEGATIVE mg/dL (0-1); WBC 0-2 /HPF (0-5)
[2019-09-01] MEDS ORDERED: BENADRYL 25 MG CAPSULE PO PRN (22:52)
[2019-09-01] MEDS: FERREX 150 PO SCH (23:05)
[2019-09-01] MEDS: Colace 100 MG PO SCH (23:05)
[2019-09-02 05:02] LABS: Hematocrit 34.3 % (35-47); Hemoglobin 11.5 gm/dl (12.0-16.0); Mean Corpuscular Hemoglobin 31.5 pg (26-32); Mean Corpuscular Hgb Concent. 33.5 g/dl (32-36); Mean Platelet Volume 11.1 fl (7.5-11.0); Platelet Count 212 K/mm3 (150-450); Red Blood Count 3.65 M/mm3 (4.1-5.4); Red Cell Distribution Width 13.2 % (11.5-14.0); White Blood Count 20.5 K/mm3 (4.0-10.5)
[2019-09-02] MEDS: MOTRIN 400 MG PO PRN ×3 (07:00→22:01)
[2019-09-02 07:12] LABS: BAND 13 % (0.0-2.0); Lymphocytes 22 % (24-44); Monocyte 5 % (0.0-12.0); Neutrophils 60 % (36.0-66.0); Total Cells Counted 100
[2019-09-02 07:14] LABS: Platelet Estimate NORMAL (NORMAL)
[2019-09-02 07:15] LABS: Absolute Neutrophil Ct (ANC) 14.96 (1.4-6.9)
[2019-09-02] MEDS: Colace 100 MG PO SCH ×2 (08:41→20:58)
[2019-09-02] MEDS: FERREX 150 PO SCH (08:41)
[2019-09-02] MEDS: NORCO 5/325 MG PO PRN ×2 (14:37→20:58)
[2019-09-03 03:04] VITALS: O2SAT 96
[2019-09-03] MEDS: NORCO 5/325 MG PO PRN (07:45)
[2019-09-03] MEDS: Colace 100 MG PO SCH (10:06)
[2019-09-03] MEDS: FERREX 150 PO SCH (10:07)
--- NOTE | 2019-09-03 10:32 | PCM.NOTE ---
Date and Time: 09/03/19 1029 Subjective Assessment: PT RESTING IN BED AND DOING WELL TOLERATING DIET AMBULATING. POSITVE FLATUS VSS AFEBRILE ABD; SOFT INCISION C/D/INTACT UTERUS; FIRM LOCHIA; MILD HGB; 11 A/P SP CSECTION POD 2 PT STABLE FOR DC SHOULD FU WITH PROVIDER IN 1 WK [place] RX GIVEN #20 IBUPROFEN 600MG #42 SENT TO PHARMACY OBJECTIVE DATA Vital Signs: Vital Signs - 24 hr Temp Pulse Resp BP Pulse Ox 09/03/19 08:00 97.6 F 76 18 114/71 09/03/19 02:00 97.9 F 100 H 18 102/61 96 09/02/19 20:00 97.7 F 101 H 20 125/74 94 L 09/02/19 15:00 98.0 F 95 H 18 119/66 Pain Assessment - Last Documented Pain Intensity [Anterior] 10 Pain Intensity 5 Pain Scale Used 0-10 Pain Scale Intake and Output: Intake & Output 08/31/19 09/01/19 09/02/19 09/03/19 11:59 11:59 11:59 11:59 Intake Total 0 1750 Output Total 3200 Balance -1140 1750 Weight 85.275 kg
--- NOTE | 2019-09-03 10:34 | PCM.DCORD ---
- Discharge Discharge Date: 09/03/19 Disposition: Home, Self-Care Condition: Stable Prescriptions: New Hydrocodone/APAP 5-325 Tab^^^ [[place] 5-325 Tablet^^^] 1 each PO Q4HPRN PRN # 20 tablet MDD 6 PRN Reason: Pain Ibuprofen 600 mg PO Q6H PRN PRN #42 tablet PRN Reason: Pain No Action Pnv No.95/Ferrous Fum/Folic AC [ Vitamins Tablet] 1 ea PO DAILY Follow up with: RIGOBERTO GRAYSON MD [Primary Care Provider] - 1 Week
--- NOTE | 2019-09-03 10:34 | PCM.DS ---
Discharge Summary Date of Admission: 09/01/19 04:57 Date of Discharge: SEPTEMBER 03, 2019 Admitting Physician: RIGOBERTO GRAYSON Consults: Consults on Case 08/31/19 20:43 Notify Anesthesia Provider 09/01/19 06:00 Notify Anesthesia Provider ROUTINE Notify Physician OF ADMISSION Primary Care Provider: RIGOBERTO GRAYSON Allergies Allergies Penicillins Allergy (Mild, Verified 09/01/19 06:11) Rash THROAT SWELLS Sulfa (Sulfonamide Antibiotics) Allergy (Mild, Verified 09/01/19 06:11) Rash Hospital Summary - Vitals & Intake/Output Vital Signs: Vital Signs Temperature 97.6 F 09/03/19 08:00 Pulse Rate 76 09/03/19 08:00 Respiratory Rate 18 09/03/19 08:00 Blood Pressure 114/71 09/03/19 08:00 O2 Sat by Pulse Oximetry 96 09/03/19 02:00 Intake & Output: Intake & Output 08/31/19 09/01/19 09/02/19 09/03/19 11:59 11:59 11:59 11:59 Intake Total 2060 1750 Output Total 3200 Balance -1140 1750 Weight 85.275 kg - Lab Result Diagrams: 09/02/19 04:05 Micro Results-Entire Visit: Microbiology 09/01/19 08:15 Urine Culture - Final Catherized NO GROWTH 09/01/19 05:30 Urine Culture - Final Clean Catch Midstream <10K NORMAL SKIN ROSALES PROBABLE SKIN CONTAMINANT - Procedures and Test Procedures and Tests throughout Hospitalization: Therapy Orders & Screens 09/01/19 09:18 Standby Routine Comment: - Discharge Prescriptions: New Hydrocodone/APAP 5-325 Tab^^^ [[place] 5-325 Tablet^^^] 1 each PO Q4HPRN PRN # 20 tablet MDD 6 PRN Reason: Pain Ibuprofen 600 mg PO Q6H PRN PRN #42 tablet PRN Reason: Pain No Action Pnv No.95/Ferrous Fum/Folic AC [ Vitamins Tablet] 1 ea PO DAILY Follow up with: RIGOBERTO GRAYSON MD [Primary Care Provider] - 1 Week
[2019-09-03 15:48] VITALS: BP 126/66; PULSE 112
== END 2019-09-03 12:10 | disposition home or self-care (01) | DRG 788 ==
LOC: OBSVTOIN 04:57 → OB 04:57
PROVIDERS: ADMIT Family Medicine; ATTEND Family Medicine
PROC: 10D00Z1 Extraction of Products of Conception, Low, Open Approach (ICD-10-PCS; principal; 2019-09-01)
DX: O34.211 Maternal care for low transverse scar from previous cesarean delivery (principal); Z3A.39 39 weeks gestation of pregnancy; Z37.0 Single live birth
CPT/HCPCS: 36415; 64488; 76937; 76942; 80307; 81001; 81003; 85025; 85027; 85610; 85730; 86850; 86900; 86901; 87086; 94799; J1100; J1200; J1885; J2274; J2405; J2704; A9270-GY

== ENCOUNTER 2020-01-24 15:18 | Emergency (ER) | payer OTHER ==
[2020-01-24 15:49] LABS: Appearance SLIGHTLY CLOUDY (CLEAR); Bacteria FEW /HPF (NEGATIVE); Bilirubin NEGATIVE (NEGATIVE); Blood LARGE Ery/ul (0-5); Epithelial Cells RARE /HPF (FEW); Glucose NEGATIVE (NEGATIVE); Ketones NEGATIVE (NEGATIVE); Leukocyte Esterase TRACE (NEGATIVE); Mucus SLIGHT /HPF (NEGATIVE); Nitrite NEGATIVE (NEGATIVE); Protein,Urine Dip 30 (Negative); RBC >101 /HPF (0-2); Specific Gravity 1.019 (1.005-1.025); Urobilinogen NEGATIVE mg/dL (0-1)
--- NOTE | 2020-01-24 16:10 | ERPHSYRPT ---
- History of Present Illness Time Seen by Provider: 01/24/20 15:35 Exam Limitations: no limitations Patient Subjective Stated Complaint: here blood in urine and burning with urination. was seen and placed on bactrim yesterday Triage Nursing Assessment: pt alert, walked in, resp easy, skin w/d/p. face robert placed on, urine pink tinged Physician History: Patient is a 24-year-old female presents to our ED with complaints of hematuria. Patient was diagnosed with a urinary tract infection and is currently on Bactrim. Today is day 2. Patient states that she had hematuria just prior to her diagnosis. Patient states that hematuria is somewhat worse today. Patient is otherwise asymptomatic. Patient admits to a vague upper back discomfort. However this is minimal. No trauma. No fever. No nausea. No vomiting. No diarrhea. No abdominal pain. Patient is otherwise healthy. She voices no other complaints or concerns at this time. Timing/Duration: today Severity: mild Modifying Factors: Improves With: nothing Associated Symptoms: No nausea, No vomiting, No abdominal pain, No shortness of breath, No diaphoresis, No cough, No chills, No chest pain, No headaches, No rash, No syncope Allergies/Adverse Reactions: Penicillins Allergy (Mild, Verified 01/24/20 15:32) Rash THROAT SWELLS Sulfa (Sulfonamide Antibiotics) Allergy (Mild, Verified 01/24/20 15:32) Rash Hx Tetanus, Diphtheria Vaccination/Date Given: No Hx Influenza Vaccination/Date Given: No Hx Pneumococcal Vaccination/Date Given: No Immunizations Up to Date: Yes Travel Risk - International Travel Have you traveled outside of the country in past 3 weeks: No - Coronavirus Screening Are you exhibiting any of the following symptoms?: No Close contact with a COVID-19 positive Pt in past 14-21 Days: No - Review of Systems Constitutional: No Symptoms, No Fever, No Chills Eyes: No Symptoms Ears, Nose, & Throat: No Symptoms Respiratory: No Symptoms, No Cough, No Dyspnea Cardiac: No Symptoms, No Chest Pain, No Edema, No Syncope Abdominal/Gastrointestinal: No Symptoms, No Abdominal Pain, No Nausea, No Vomiting, No Diarrhea Genitourinary Symptoms: No Symptoms, No Dysuria Musculoskeletal: No Symptoms, No Back Pain, No Neck Pain Skin: No Symptoms, No Rash Neurological: No Symptoms, No Dizziness, No Focal Weakness, No Sensory Changes Psychological: No Symptoms Endocrine: No Symptoms Hematologic/Lymphatic: No Symptoms Immunological/Allergic: No Symptoms All Other Systems: Reviewed and Negative - Past Medical History Pertinent Past Medical History: Yes Neurological History: Seizures Cardiac History: No Pertinent History Respiratory History: No Pertinent History Endocrine Medical History: No Pertinent History Musculoskeletal History: No Pertinent History GI Medical History: No Pertinent History History: No Pertinent History Psycho-Social History: No Pertinent History Female Reproductive Disorders: No Pertinent History Other Medical History: stopped taking meds - Past Surgical History Past Surgical History: Yes Neuro Surgical History: No Pertinent History Respiratory: No Pertinent History Female Surgical History: Dilation & Curettage, Section Other Surgical History: tonsillectomy eardrum sugery. - Social History Smoking Status: Never smoker Exposure to second hand smoke: Yes Alcohol Use: Socially Drug Use: none Patient Lives Alone: No Significant Family History: no pertinent family hx - Female History Hx Last Menstrual Period: 01/13/2020 Hx Now: No - Nursing Vital Signs Nursing Vital Signs: Initial Vital Signs Temperature 97.4 F 01/24/20 15:28 Pulse Rate 99 H 01/24/20 15:28 Respiratory Rate 16 01/24/20 15:28 Blood Pressure 117/70 01/24/20 15:28 O2 Sat by Pulse Oximetry 98 01/24/20 15:28 Pain Scale Pain Intensity 8 - Physical Exam General Appearance: no apparent distress, alert Eye Exam: PERRL/EOMI, eyes nml inspection Ears, Nose, Throat Exam: normal ENT inspection, TMs normal, pharynx normal, moist mucous membranes Neck Exam: normal inspection, non-tender, supple, full range of motion Respiratory Exam: normal breath sounds, lungs clear, No respiratory distress Cardiovascular Exam: regular rate/rhythm, normal heart sounds, normal peripheral pulses Gastrointestinal/Abdomen Exam: soft, normal bowel sounds, No tenderness, No mass Back Exam: normal inspection, normal range of motion, No CVA tenderness, No vertebral tenderness Extremity Exam: normal inspection, normal range of motion, pelvis stable Neurologic Exam: alert, oriented x 3, cooperative, normal mood/affect, nml cerebellar function, nml station & gait, sensation nml, No motor deficits Skin Exam: normal color, warm, dry, No rash Lymphatic Exam: No adenopathy SpO2 Interpretation: normal SpO2: 98 O2 Delivery: Room Air - Course Nursing assessment & vital signs reviewed: Yes - CT Exams Abdomen/Pelvis CT Interpretation: Tele-radiologist Report (T reveals spondylolysis mild spondylolisthesis, constipation no, ureterolithiasis) Ordered Tests: Active Orders 24 hr Category Date Time Status ABDOMEN AND PELVIS W/0 CONTRAS [CT] Stat Exams 01/24/20 15:59 Completed CULTURE,URINE Stat Lab 01/24/20 15:28 Received HCG,QUALITATIVE URINE Stat Lab 01/24/20 16:09 Completed UA W/RFX UR CULTURE Stat Lab 01/24/20 15:28 Completed Lab/Rad Data: Laboratory Results 01/24/20 01/24/20 Range/Units 16:09 15:28 Urine Color YELLOW (YELLOW) Urine Appearance SLIGHTLY CLOUDY (CLEAR) Urine pH 6.0 (5-6) Ur Specific [place] 1.019 (1.005-1.025) Urine Protein 30 (Negative) Urine Ketones NEGATIVE (NEGATIVE) Urine Blood LARGE (0-5) Jacob/ul Urine Nitrite NEGATIVE (NEGATIVE) Urine Bilirubin NEGATIVE (NEGATIVE) Urine Urobilinogen NEGATIVE (0-1) mg/dL Ur Leukocyte Esterase TRACE (NEGATIVE) Urine WBC (Auto) 11-15 (0-5) /HPF Urine RBC (Auto) >101 (0-2) /HPF U Epithel Cells (Auto) RARE (FEW) /HPF Urine Bacteria (Auto) FEW (NEGATIVE) /HPF Urine Mucus (Auto) SLIGHT (NEGATIVE) /HPF Urine Culture Reflexed YES (NO) Urine Glucose NEGATIVE (NEGATIVE) mg/dL Urine HCG, Qual NEGATIVE (Negative) - Progress Progress: improved Progress Note: 01/24/20 17:00 Patient reassessed. She is well. Patient has no pain. CT scan negative for ureterolithiasis. Constipation observed on the skin. Spondylolysis observed as well. Patient denies the possibility of STI. She declined a pelvic exam. Patient to continue her oral antibiotics as prescribed per her primary care physician. Patient agrees to follow-up with her primary care doctor within 48 hours for reevaluation. Patient voiced no other complaints at this time. Patient requesting discharge. Counseled pt/family regarding: lab results, diagnosis, need for follow-up, rad results - Departure Departure Disposition: Observation Clinical Impression: Hematuria, UTI (urinary tract infection) Condition: Stable Critical Care Time: No Referrals: RIGOBERTO GRAYSON MD [Primary Care Provider] - Additional Instructions: Discharge/Care Plan SOOEDGAR was seen on 01/24/20 in the Emergency Room. The patient was counseled regarding Diagnosis,Lab results, Imaging studies, need for follow up and when to return to the Emergency Room. Prescriptions given: Discharge Note I have spoken with the patient and/or caregivers. I have explained the patient's condition, diagnosis and treatment plan based on the information available to me at this time. I have answered the patient's and/or caregiver's questions and addressed any concerns. The patient and/or caregivers have as good understanding of the patient's diagnosis, condition and treatment plan as can be expected at this point. The vital signs have been stable. The patient's condition is stable and appropriate for discharge from the emergency department. The patient will pursue further outpatient evaluation with the primary care physician or other designated or consulting physician as outlined in the discharge instructions. The patient and/or caregivers are agreeable to this plan of care and follow-up instructions have been explained in detail. The patient and/or caregivers have received these instruction. The patient/and or caregivers are aware that any significant change in condition or worsening of symptoms should prompt an immediate return to this or the closest emergency department or call 911.
--- NOTE | 2020-01-24 16:51 | XRAY ---
Indication: Right flank pain. Hematuria. Multiple contiguous axial images obtained through the abdomen and pelvis without contrast using renal stone protocol. Comparison: April 14, 2017. Lung bases remain clear. Heart is not enlarged. Again no renal calculus or evidence for obstructive uropathy in either system. Noncontrasted stomach and bowel loops appear nonobstructed. Normal appendix. There is now mild diffuse scattered colonic fecal debris throughout. No free fluid/air. Remaining liver, gallbladder, pancreas, spleen, adrenal glands, kidneys, ureters, bladder, uterus, and aorta appear unremarkable for noncontrast exam. Osseous structures intact with stable bilateral L5 spondylolysis with minimal grade 1 spondylolisthesis. Impression: 1. Negative renal calculus or evidence for obstructive uropathy. 2. New mild diffuse fecal stasis. 3. Stable L5 spondylolysis with minimal grade 1 spondylolisthesis.
[2020-01-24 17:05] VITALS: O2SAT 98
[2020-01-24 17:06] VITALS: BP 121/70; PULSE 80
== END 2020-01-24 17:05 | disposition home or self-care (01) ==
LOC: ED 15:18
DX: N39.0 Urinary tract infection, site not specified (principal); R31.9 Hematuria, unspecified; G40.909 Epilepsy, unspecified, not intractable, without status epilepticus
CPT/HCPCS: 74176; 81001; 84703; 87086; 99284

== ENCOUNTER 2020-03-10 18:11 | Emergency (ER) | payer OTHER ==
[2020-03-10] MEDS ORDERED: GI COCKTAIL 45 ML (Maalox/Lidocaine) PO ONE (18:46)
--- NOTE | 2020-03-10 18:52 | ERPHSYRPT ---
- History of Present Illness Time Seen by Provider: 03/10/20 18:46 Historian: patient Exam Limitations: no limitations Patient Subjective Stated Complaint: Pt states that when she takes a breath that it hurts in her chest below her breast in the middle Triage Nursing Assessment: Pt brought to the ER by a friend, tachycardic, rates overall pain as 6/10 in her chest, pain only occurs when she takes a breath or laughs, skin n/w/d, pt doesn't appear to be in any distress Physician History: Pt states that when she takes a breath that it hurts in her chest below her breast in the middle. Quality: aching Abdominal Pain Onset Location: RUQ, epigastric Pain Radiation: no radiation Severity of Pain-Max: mild Severity of Pain-Current: mild Modifying Factors: Improves With: nothing Associated Symptoms: denies symptoms Previous symptoms: no prior history Allergies/Adverse Reactions: Penicillins Allergy (Mild, Verified 03/10/20 18:32) Rash THROAT SWELLS Sulfa (Sulfonamide Antibiotics) Allergy (Mild, Verified 03/10/20 18:32) Rash Home Medications: Phentermine HCl 37.5 mg PO DAILY 03/10/20 [History] Hx Tetanus, Diphtheria Vaccination/Date Given: No Hx Influenza Vaccination/Date Given: No Hx Pneumococcal Vaccination/Date Given: No Travel Risk - International Travel Have you traveled outside of the country in past 3 weeks: No - Coronavirus Screening Are you exhibiting any of the following symptoms?: No Close contact with a COVID-19 positive Pt in past 14-21 Days: Yes - Review of Systems Constitutional: No Fever, No Chills Eyes: No Symptoms Ears, Nose, & Throat: No Symptoms Respiratory: No Cough, No Dyspnea Cardiac: No Chest Pain, No Edema, No Syncope Abdominal/Gastrointestinal: Abdominal Pain, No Nausea, No Vomiting, No Diarrhea Genitourinary Symptoms: No Dysuria Musculoskeletal: No Back Pain, No Neck Pain Skin: No Rash Neurological: No Dizziness, No Focal Weakness, No Sensory Changes Psychological: No Symptoms Endocrine: No Symptoms All Other Systems: Reviewed and Negative - Past Medical History Pertinent Past Medical History: Yes Neurological History: Seizures Cardiac History: No Pertinent History Respiratory History: No Pertinent History Endocrine Medical History: No Pertinent History Musculoskeletal History: No Pertinent History GI Medical History: No Pertinent History History: No Pertinent History Psycho-Social History: No Pertinent History Female Reproductive Disorders: No Pertinent History Other Medical History: stopped taking meds - Past Surgical History Past Surgical History: Yes Neuro Surgical History: No Pertinent History Respiratory: No Pertinent History Female Surgical History: Dilation & Curettage, Section Other Surgical History: tonsillectomy eardrum sugery. - Social History Smoking Status: Never smoker Exposure to second hand smoke: Yes Alcohol Use: Socially Drug Use: none Patient Lives Alone: No Significant Family History: no pertinent family hx - Female History Hx Last Menstrual Period: 02/25/2020 Hx Now: No - Nursing Vital Signs Nursing Vital Signs: Initial Vital Signs Temperature 97.6 F 03/10/20 18:24 Pulse Rate 105 H 03/10/20 18:24 Blood Pressure 130/85 03/10/20 18:24 O2 Sat by Pulse Oximetry 99 03/10/20 18:24 Pain Scale Pain Intensity 6 - Physical Exam General Appearance: no apparent distress, alert Eye Exam: PERRL/EOMI, eyes nml inspection Ears, Nose, Throat Exam: normal ENT inspection, pharynx normal, moist mucous membranes Neck Exam: normal inspection, non-tender, supple, full range of motion Respiratory Exam: normal breath sounds, lungs clear, No respiratory distress Cardiovascular Exam: regular rate/rhythm, normal heart sounds Gastrointestinal/Abdomen Exam: soft, normal bowel sounds, tenderness (minimal epigastric area ), No distention, No mass, No guarding, No ecchymosis, No pulsatile mass, No rebound, No hepatomegaly, No organomegaly, No splenomegaly, No bruit Back Exam: normal inspection, normal range of motion, No CVA tenderness, No vertebral tenderness Extremity Exam: normal inspection, normal range of motion, pelvis stable Neurologic Exam: alert, oriented x 3, cooperative, normal mood/affect, nml cerebellar function, sensation nml, No motor deficits Skin Exam: normal color, warm, dry SpO2: 99 - Course Nursing assessment & vital signs reviewed: Yes - Progress Progress: improved, pain not gone completely Counseled pt/family regarding: diagnosis, need for follow-up - Departure Departure Disposition: Home Clinical Impression: Epigastric abdominal pain, Abdominal pain, acute, right upper quadrant Condition: Stable Critical Care Time: No Referrals: RIGOBERTO GRAYSON MD [Primary Care Provider] - Follow Up with PCP/3 days Instructions: Acute Abdomen (Belly Pain), Adult (DC) Additional Instructions: Discharge/Care Plan SOOEDGAR was seen on 03/10/20 in the Emergency Room. The patient was counseled regarding Diagnosis,Lab results, Imaging studies, need for follow up and when to return to the Emergency Room. Prescriptions given: Discharge Note I have spoken with the patient and/or caregivers. I have explained the patient's condition, diagnosis and treatment plan based on the information available to me at this time. I have answered the patient's and/or caregiver's questions and addressed any concerns. The patient and/or caregivers have as good understanding of the patient's diagnosis, condition and treatment plan as can be expected at this point. The vital signs have been stable. The patient's condition is stable and appropriate for discharge from the emergency department. The patient will pursue further outpatient evaluation with the primary care physician or other designated or consulting physician as outlined in the discharge instructions. The patient and/or caregivers are agreeable to this plan of care and follow-up instructions have been explained in detail. The patient and/or caregivers have received these instruction. The patient/and or caregivers are aware that any significant change in condition or worsening of symptoms should prompt an immediate return to this or the closest emergency department or call 911. You go and see your primary care physician discussed with your primary care physician about getting gallbladder ultrasound. Take your medicine as prescribed twice a day follow-up with your primary care physician in 3 days if symptoms recur come back to the emergency room. Prescriptions: Famotidine 20 mg [Pepcid 20 MG] 20 mg PO BID #30 tablet
[2020-03-10] MEDS ORDERED: XYLOCAINE HCl Viscous ONE (19:02)
[2020-03-10] MEDS ORDERED: MAALOX ES 30 ML UNIT DOSE ONE (19:03)
[2020-03-10 19:27] LABS: Appearance CLOUDY (CLEAR); Bacteria MODERATE /HPF (NEGATIVE); Bilirubin NEGATIVE (NEGATIVE); Blood LARGE Ery/ul (0-5); Epithelial Cells MODERATE /HPF (FEW); Glucose NEGATIVE (NEGATIVE); Ketones NEGATIVE (NEGATIVE); Leukocyte Esterase NEGATIVE (NEGATIVE); Mucus MANY /HPF (NEGATIVE); Nitrite NEGATIVE (NEGATIVE); Protein,Urine Dip 30 (Negative); RBC 0-2 /HPF (0-2); Specific Gravity 1.025 (1.005-1.025); Urobilinogen 2 mg/dL (0-1)
[2020-03-10 19:44] VITALS: BP 130/89; PULSE 98; O2SAT 94
== END 2020-03-10 19:53 | disposition home or self-care (01) ==
LOC: ED 18:11
DX: R10.13 Epigastric pain (principal); R10.11 Right upper quadrant pain
CPT/HCPCS: 81001; 84703; 87086; 99283; A9270-GY

== ENCOUNTER 2020-09-03 11:30 | Day surgery (SDC) | payer OTHER ==
--- NOTE | 2020-09-03 08:56 | HP ---
AMENDED REPORT: DATE OF SURGERY: 09/03/2020 HISTORY OF PRESENT ILLNESS: The patient is a 25 year-old with right upper quadrant pain. She denied any nausea or vomiting. Worse with greasy foods. No change in bowel movements. Ultrasound no stones. HIDA decreased ejection fraction at 33%. It is felt she had acute exacerbation of symptomatic chronic cholecystitis, symptomatic biliary dyskinesia. I feel she would benefit from cholecystectomy. PAST MEDICAL HISTORY: Seizure disorder. PAST SURGICAL HISTORY: section. Ear tubes. MEDICATIONS: Meloxicam, phentermine, control. ALLERGIES: PENICILLIN. SULFA. FAMILY HISTORY: Negative in regards to this problem. SOCIAL HISTORY: No smoking or alcohol abuse. REVIEW OF SYSTEMS: Fourteen systems reviewed. No chest pain or palpitations. Other systems negative or noncontributory as above and per preadmission questionnaire. PHYSICAL EXAMINATION: GENERAL: No acute distress. HEENT: Sclerae nonicteric. NECK: No JVD. CHEST: Equal excursion, nonlabored breathing. CVS: Regular rate and rhythm. ABDOMEN: Soft, some mild tenderness right upper quadrant. No peritoneal signs. EXTREMITIES: No significant edema. NEURO: Alert, moving extremities symmetrically. No gross motor deficits noted. PSYCH: Appropriate mood and affect. IMPRESSION: Acute exacerbation of chronic cholecystitis, symptomatic dyskinesia. I feel she will benefit from cholecystectomy. She was shown the gallbladder pamphlet and risk sheet, explained the procedure in detail including but not limited to bleeding or infection, risk of trocar injury or hernia, risk of bowel, bladder or blood vessel injury, risk of bile leak, bile duct injury, retained stone or sludge possibly requiring further procedure either open or ERCP, general risk of anesthesia, deep venous thrombosis, pulmonary embolism, pneumonia, perioperative risk of aches, pains, bloating, constipation and/or loose stools possibly even chronic in nature. She understands and agrees to the planned procedure, will proceed with laparoscopic cholecystectomy possible open as an outpatient.
[~2020-09-03 11:30] MED LIST changes: +CLINDAMYCIN-D5W 900 MG/50 ML*** 900 MG/50 ML BAG IV ONE; +CLINDAMYCIN-D5W 900 MG/50 ML*** 900 MG/50 ML BAG IV SCH; -DIPRIVAN 200 MG/20 ML IV ONE; -Decadron 4 MG INJ IV ONE; +Lactated Ringers 1,000 ML IV ONE; +Lactated Ringers 1,000 ML IV SCH; +Levofloxacin 500MG/100ML D5W 500 MG/100 ML BAG IV ONE; +Levofloxacin 500MG/100ML D5W 500 MG/100 ML BAG IV SCH; -Marcaine Mpf 0.5% Vial 30 Ml IJ ONE; -Pitocin 10 UNITS/ML IV ONE; -Quelicin Fliptop 200 MG/10 ML IJ ONE; -SUBLIMAZE 250 MCG/5 ML IV ONE; +Sensorcaine 0.25% 10 ML ONE; -TORAdol 30 mg Injection IJ ONE; -Zofran 4 MG/2 ML VIAL IV ONE
[2020-09-03] MEDS ORDERED: Versed 2 MG/2 ML Injection ONE (13:12)
[2020-09-03] MEDS ORDERED: SUBLIMAZE 250 MCG/5 ML ONE (13:12)
[2020-09-03] MEDS ORDERED: DIPRIVAN 200 MG/20 ML IV ONE (13:12)
[2020-09-03] MEDS ORDERED: Zemuron 100 MG/10 ML ONE (13:12)
[2020-09-03] MEDS ORDERED: Xylocaine-Mpf 2% 5 Ml Vial ONE (14:12)
[2020-09-03] MEDS ORDERED: PHENYLEPHRINE HCL ONE (14:36)
[2020-09-03] MEDS ORDERED: BRIDION 200MG/2ML IV ONE (14:48)
[2020-09-03] MEDS ORDERED: TORAdol 30 mg Injection ONE (15:09)
[2020-09-03] MEDS ORDERED: SUBLIMAZE 100 MCG/2 ML ONE (15:10)
[2020-09-03 15:53] VITALS: O2SAT 98
[2020-09-03 16:15] VITALS: BP 106/62; PULSE 74
--- NOTE | 2020-09-04 08:48 | OP ---
SURGERY DATE/TIME: 09/03/2020 1400 PREOPERATIVE DIAGNOSIS: Acute exacerbation chronic cholecystitis, symptomatic biliary dyskinesia. POSTOPERATIVE DIAGNOSIS: Acute exacerbation chronic cholecystitis, symptomatic biliary dyskinesia. PROCEDURE: Laparoscopic cholecystectomy. SURGEON: Dr. Tru Miller. ANESTHESIA: General. ESTIMATED BLOOD LOSS: Minimal. INDICATIONS: As noted above. Risks and benefits explained in detail but not limited to and consent obtained. DESCRIPTION OF PROCEDURE AND FINDINGS: The patient was taken to the operating room. General anesthesia induced. Abdomen prepped and draped in the usual sterile fashion. After official time out and no disagreement with planned procedure, a transverse incision made at the supraumbilical area. Fascia grasped and pulled upward. Veress needle inserted and tested with saline. Initially some of the CO2 was insufflating the falciform. The needle was able to be repositioned. Good insufflation opening pressure of 1-15. A 5 mm bladeless port and camera inserted without difficulty followed by another 5 mm right upper quadrant ports and 5 mm epigastric port and an 11 mm supraumbilical port. There is no evidence of any intra-abdominal injury secondary to trocar insertion. A small amount of CO2 insufflated in the falciform. Gallbladder is grasped and retracted over the edge of the liver and laterally away from Calot's triangle dissecting posterior, lateral to anterior fashion. There was a little bit of intrahepatic gallbladder. It took some extra time slowly and carefully dissected posterior, lateral to anterior fashion. The cystic duct and cystic artery were isolated until the critical view obtained anteriorly and posteriorly. Once this was accomplished, cystic duct and cystic artery clipped x3 and divided in the usual fashion. The gallbladder slowly and carefully dissected free from its dense attachment to the liver bed clipping additional oozing side branches off the cystic artery and cystic vein directly on the gallbladder wall as necessary. Gallbladder slowly and carefully dissected free. Just prior to releasing from final attachments to the anterior edge of the liver, the liver bed re-inspected. Clips noted in place cystic duct and cystic artery stumps. No signs of any active bleeding or bile leakage. It was felt there was no benefit from drain placement. Gallbladder released from final attachments to the liver, pulled up and out the supraumbilical port site and passed off. Again, good hemostasis noted. No signs of any active bleeding or bile leakage. It was felt there was no benefit from drain placement. The fascia defect 01/28 closed with puncture closure device with #1 Vicryl. Pneumoperitoneum decompressed. The wound irrigated out. Skin incision closed with 4-0 Vicryl. Steri-Strips and sterile dressing applied. 0.25% Marcaine local injected along the skin incision fascial defect. The patient tolerated the procedure well. There were no immediate complications. Findings discussed with the family out in the waiting area.
== END 2020-09-03 16:25 | disposition home or self-care (01) ==
LOC: SDC 11:30
PROVIDERS: ATTEND Surgery
DX: K81.0 Acute cholecystitis (principal); K82.8 Other specified diseases of gallbladder; Z79.899 Other long term (current) drug therapy
CPT/HCPCS: 84703; J1885; J1956; J2250; J2370; J2704; J3010

== ENCOUNTER 2020-09-05 19:53 | Emergency (ER) | payer OTHER ==
[2020-09-05] MEDS ORDERED: Zofran 4 MG/2 ML VIAL IV ONE (20:42)
[2020-09-05] MEDS ORDERED: Sodium Chloride 0.9% 1000 ML 1,000 ML IV STA (20:42)
--- NOTE | 2020-09-05 20:50 | ERPHSYRPT ---
- History of Present Illness Historian: patient Patient Subjective Stated Complaint: Pt hasnt been vomiting starting this a fternoon and had a temp of 100.2. Pt called Dr Rivera and he stated to come to ER to rule out infection. Patient states she had gallbladder removed Thursday. Triage Nursing Assessment: Patient presents to ED c/o vomiting and low grade fever of 100.2 instructed to come to ED per surgeon request. Patients v/s WNL and is afebrile at this time. Physician History: 25 yo wf s/p lap alison [address] Rivera. Pt has N/V/Low grade fever today. Pain appears to be post-op.She denies hematemesis/diarrhea/melena/hematochezia/dysuria/hematuria. Timing/Duration: today Activities at Onset: rest Quality: aching Abdominal Pain Onset Location: RUQ Pain Radiation: no radiation Severity of Pain-Max: moderate Severity of Pain-Current: moderate Modifying Factors: Improves With: nothing Associated Symptoms: loss of appetite, nausea, vomiting, No back, No chest pain, No diaphoresis, No diarrhea, No fever/chills, No fatigue, No headache, No heartburn, No neck pain, No rash, No shortness of breath, No syncope, No weakness Previous symptoms: no prior history Allergies/Adverse Reactions: Penicillins Allergy (Mild, Verified 09/05/20 20:20) Rash THROAT SWELLS Sulfa (Sulfonamide Antibiotics) Allergy (Mild, Verified 09/05/20 20:20) Rash Home Medications: Phentermine HCl 37.5 mg PO DAILY 03/10/20 [History] Multivitamin with Minerals [Hair, Skin & Nails] 1 each PO DAILY 08/22/20 [History] Norgestimate-Ethinyl Estradiol [Tri Femynor 28 Tablet] 1 tab PO DAILY 08/22/20 [History] Hx Tetanus, Diphtheria Vaccination/Date Given: No Hx Influenza Vaccination/Date Given: No Hx Pneumococcal Vaccination/Date Given: No Travel Risk - International Travel Have you traveled outside of the country in past 3 weeks: No - Coronavirus Screening Are you exhibiting any of the following symptoms?: No Close contact with a COVID-19 positive Pt in past 14-21 Days: No - Vaccine Status Have you recieved a Covid-19 vaccination: No - Review of Systems Constitutional: No Symptoms, Fever, Chills Eyes: No Symptoms Ears, Nose, & Throat: No Symptoms Respiratory: No Symptoms Cardiac: No Symptoms Abdominal/Gastrointestinal: No Symptoms, Abdominal Pain, Nausea, Vomiting Genitourinary Symptoms: No Symptoms Musculoskeletal: No Symptoms Skin: No Symptoms Neurological: No Symptoms Psychological: No Symptoms Endocrine: No Symptoms Hematologic/Lymphatic: No Symptoms Immunological/Allergic: No Symptoms - Past Medical History Pertinent Past Medical History: Yes Neurological History: Epilepsy ENT History: No Pertinent History Cardiac History: No Pertinent History Respiratory History: No Pertinent History Endocrine Medical History: No Pertinent History Musculoskeletal History: Other GI Medical History: No Pertinent History History: No Pertinent History Psycho-Social History: No Pertinent History Female Reproductive Disorders: No Pertinent History Other Medical History: PATIENT REPORTS HX OF SCOLIOSIS. HX OF 2 C-SECTIONS, T&A. gall bladder removed 09/03/20 - Past Surgical History Past Surgical History: Yes Neuro Surgical History: No Pertinent History Cardiac: No Pertinent History Respiratory: No Pertinent History Gastrointestinal: No Pertinent History Female Surgical History: Dilation & Curettage, Section Other Surgical History: tonsillectomy eardrum sugery. 3 sets of ear tubes. right ear tube hole did not close had surgery to close the hole. gall bladder removed thursday09/03/20 - Social History Smoking Status: Never smoker Exposure to second hand smoke: Yes Alcohol Use: Socially Drug Use: none Patient Lives Alone: No Significant Family History: no pertinent family hx - Female History Hx Last Menstrual Period: 08/12/20 Hx Now: No - Nursing Vital Signs Nursing Vital Signs: Initial Vital Signs Temperature 98.1 F 09/05/20 20:01 Pulse Rate 92 H 09/05/20 20:01 Blood Pressure 119/81 09/05/20 20:01 O2 Sat by Pulse Oximetry 96 09/05/20 20:01 Pain Scale Pain Intensity 6 - Physical Exam General Appearance: no apparent distress Eye Exam: PERRL/EOMI, eyes nml inspection Ears, Nose, Throat Exam: normal ENT inspection Neck Exam: normal inspection, non-tender, supple, full range of motion Respiratory Exam: normal breath sounds, lungs clear, airway intact Cardiovascular Exam: regular rate/rhythm, normal heart sounds, normal peripheral pulses, No murmur Gastrointestinal/Abdomen Exam: soft, normal bowel sounds, tenderness (Mild RUQ ttp wo guarding/rebound/Lap alison incisions clean,dry, intact) Pelvic Exam: not done Rectal Exam: deferred Extremity Exam: normal inspection, normal range of motion Neurologic Exam: alert, oriented x 3, cooperative, icu clerk II-XII nml as tested, normal mood/affect, nml cerebellar function, nml station & gait, agitation, No motor deficits, No sensory deficit Skin Exam: normal color, warm, dry, No rash Lymphatic Exam: No adenopathy SpO2 Interpretation: normal SpO2: 96 O2 Delivery: Room Air Ordered Tests: Active Orders 24 hr Category Date Time Status IV Insertion STAT Care 09/05/20 21:57 Completed AMYLASE Stat Lab 09/05/20 21:00 Completed CBC W DIFF Stat Lab 09/05/20 21:00 Completed CMP Stat Lab 09/05/20 21:00 Completed LIPASE Stat Lab 09/05/20 21:00 Completed Lactic Acid Stat Lab 09/05/20 20:41 Completed UA W/RFX UR CULTURE Stat Lab 09/05/20 20:30 Completed Medication Summary Discontinued Medications Generic Name Dose Route Start Last Admin Trade Name Frankq PRN Reason Stop Dose Admin Sodium Chloride 1,000 mls @ 999 mls/hr 09/05/20 20:42 09/05/20 21:01 Sodium Chloride 0.9% 1000 Ml IV 09/05/20 21:42 999 mls/hr .Q1H1M STA Administration Sodium Chloride Confirm 09/05/20 21:00 Sodium Chloride 0.9% 1000 Ml Administered 09/05/20 21:01 Dose 1,000 mls @ ud .ROUTE .STK-MED ONE Ondansetron HCl 4 mg 09/05/20 20:42 09/05/20 21:01 Zofran 4 Mg/2 Ml Vial IV 09/05/20 20:43 4 mg STAT ONE Administration Ondansetron HCl Confirm 09/05/20 21:00 Zofran 4 Mg/2 Ml Vial Administered 09/05/20 21:01 Dose 4 mg .ROUTE .STK-MED ONE Lab/Rad Data: Laboratory Result Diagrams 09/05/20 21:00 09/05/20 21:00 Laboratory Results 09/05/20 09/05/20 09/05/20 Range/Units 21:00 21:00 20:41 WBC 6.8 (4.0-10.5) K/mm3 RBC 4.49 (4.1-5.4) M/mm3 Hgb 13.7 (12.0-16.0) gm/dl Hct 42.5 (35-47) % MCV 94.7 (78-100) fl MCH 30.5 (26-32) pg MCHC 32.2 (32-36) g/dl RDW 12.2 (11.5-14.0) % Plt Count 244 (150-450) K/mm3 MPV 10.4 (7.5-11.0) fl Gran % 44.3 (36.0-66.0) % Eos # (Auto) 0.12 (0-0.5) Absolute Lymphs (auto) 3.02 (1.0-4.6) Absolute Monos (auto) 0.60 (0.0-1.3) Lymphocytes % 44.7 H (24.0-44.0) % Monocytes % 8.9 (0.0-12.0) % Eosinophils % 1.8 (0.00-5.0) % Basophils % 0.3 (0.0-0.4) % Absolute Granulocytes 2.99 (1.4-6.9) Basophils # 0.02 (0-0.4) Sodium 141 (137-145) mmol/L Potassium 4.0 (3.5-5.1) mmol/L Chloride 104 (98-107) mmol/L Carbon Dioxide 29 (22-30) mmol/L Anion Gap 12.5 (5-15) MEQ/L BUN 10 (7-17) mg/dL Creatinine 0.85 (0.52-1.04) mg/dL Estimated GFR > 60.0 ML/MIN Glucose 85 (74-106) mg/dL Lactic Acid 0.9 (0.4-2.0) Calcium 9.3 (8.4-10.2) mg/dL Total Bilirubin 0.40 (0.2-1.3) mg/dL AST 401 H (14-36) U/L ALT 297 H (0-35) U/L Alkaline Phosphatase 101 (38-126) U/L Serum Total Protein 6.3 (6.3-8.2) g/dL Albumin 3.8 (3.5-5.0) g/dL Amylase 58 (30-110) U/L Lipase 116 (23-300) U/L Urine Color (YELLOW) Urine Appearance (CLEAR) Urine pH (5-6) Ur Specific [place] (1.005-1.025) Urine Protein (Negative) Urine Ketones (NEGATIVE) Urine Blood (0-5) Jacob/ul Urine Nitrite (NEGATIVE) Urine Bilirubin (NEGATIVE) Urine Urobilinogen (0-1) mg/dL Ur Leukocyte Esterase (NEGATIVE) Urine WBC (Auto) (0-5) /HPF Urine RBC (Auto) (0-2) /HPF U Hyaline Cast (Auto) (0-2) /LPF U Epithel Cells (Auto) (FEW) /HPF Urine Bacteria (Auto) (NEGATIVE) /HPF Urine Mucus (Auto) (NEGATIVE) /HPF Urine Culture Reflexed (NO) Urine Glucose (NEGATIVE) mg/dL 09/05/20 Range/Units 20:30 WBC (4.0-10.5) K/mm3 RBC (4.1-5.4) M/mm3 Hgb (12.0-16.0) gm/dl Hct (35-47) % MCV (78-100) fl MCH (26-32) pg MCHC (32-36) g/dl RDW (11.5-14.0) % Plt Count (150-450) K/mm3 MPV (7.5-11.0) fl Gran % (36.0-66.0) % Eos # (Auto) (0-0.5) Absolute Lymphs (auto) (1.0-4.6) Absolute Monos (auto) (0.0-1.3) Lymphocytes % (24.0-44.0) % Monocytes % (0.0-12.0) % Eosinophils % (0.00-5.0) % Basophils % (0.0-0.4) % Absolute Granulocytes (1.4-6.9) Basophils # (0-0.4) Sodium (137-145) mmol/L Potassium (3.5-5.1) mmol/L Chloride (98-107) mmol/L Carbon Dioxide (22-30) mmol/L Anion Gap (5-15) MEQ/L BUN (7-17) mg/dL Creatinine (0.52-1.04) mg/dL Estimated GFR ML/MIN Glucose (74-106) mg/dL Lactic Acid (0.4-2.0) Calcium (8.4-10.2) mg/dL Total Bilirubin (0.2-1.3) mg/dL AST (14-36) U/L ALT (0-35) U/L Alkaline Phosphatase (38-126) U/L Serum Total Protein (6.3-8.2) g/dL Albumin (3.5-5.0) g/dL Amylase (30-110) U/L Lipase (23-300) U/L Urine Color YELLOW (YELLOW) Urine Appearance SLIGHTLY CLOUDY (CLEAR) Urine pH 5.0 (5-6) Ur Specific [place] 1.020 (1.005-1.025) Urine Protein NEGATIVE (Negative) Urine Ketones NEGATIVE (NEGATIVE) Urine Blood NEGATIVE (0-5) Jacob/ul Urine Nitrite NEGATIVE (NEGATIVE) Urine Bilirubin NEGATIVE (NEGATIVE) Urine Urobilinogen 2 (0-1) mg/dL Ur Leukocyte Esterase NEGATIVE (NEGATIVE) Urine WBC (Auto) NONE (0-5) /HPF Urine RBC (Auto) NONE (0-2) /HPF U Hyaline Cast (Auto) 0-2 (0-2) /LPF U Epithel Cells (Auto) RARE (FEW) /HPF Urine Bacteria (Auto) RARE (NEGATIVE) /HPF Urine Mucus (Auto) SLIGHT (NEGATIVE) /HPF Urine Culture Reflexed NO (NO) Urine Glucose NEGATIVE (NEGATIVE) mg/dL - Progress Progress Note: 09/05/20 21:37 Pt wo any vomiting in ER 1L NS bolus/4mg IV Zofran w improvement Counseled pt/family regarding: lab results, diagnosis, need for follow-up - Departure Departure Disposition: Home Clinical Impression: Postoperative nausea and vomiting, Post-op pain Condition: Stable Critical Care Time: No Referrals: RIGOBERTO GRAYSON MD [Primary Care Provider] - Instructions: Postoperative Pain (DC), Nausea and Vomiting After Surgery Additional Instructions: Follow up with Dr. Rivera in AM Return to ER for increasing pain/Inability to hold down fluids/Temperature greater than 100.5 Zofran for nausea/vomiting Prescriptions: Ondansetron ODT 4 MG [Zofran Odt 4 mg] 4 mg PO Q6H PRN PRN #10 tab.rapdis PRN Reason: Nausea/Vomiting
[2020-09-05] MEDS ORDERED: Zofran 4 MG/2 ML VIAL ONE (21:00)
[2020-09-05] MEDS ORDERED: Sodium Chloride 0.9% 1000 ML 1,000 ML ONE (21:00)
[2020-09-05 21:06] LABS: Absolute Neutrophil Ct (ANC) 2.99 (1.4-6.9); BASOPHIL % 0.3 % (0.0-0.4); Basophil (Absolute #) 0.02 (0-0.4); Eosinophil % 1.8 % (0.00-5.0); Eosinophil (Absolute #) 0.12 (0-0.5); Hematocrit 42.5 % (35-47); Hemoglobin 13.7 gm/dl (12.0-16.0); Lymphocyte (Absolute #) 3.02 (1.0-4.6); Lymphocytes % 44.7 % (24.0-44.0); Mean Cell Volume 94.7 fl (78-100); Mean Corpuscular Hemoglobin 30.5 pg (26-32); Mean Corpuscular Hgb Concent. 32.2 g/dl (32-36); Mean Platelet Volume 10.4 fl (7.5-11.0); Monocytes % 8.9 % (0.0-12.0); Neutrophil % 44.3 % (36.0-66.0); Platelet Count 244 K/mm3 (150-450); Red Blood Count 4.49 M/mm3 (4.1-5.4); Red Cell Distribution Width 12.2 % (11.5-14.0); White Blood Count 6.8 K/mm3 (4.0-10.5)
[2020-09-05 21:15] LABS: Appearance SLIGHTLY CLOUDY (CLEAR); Bacteria RARE /HPF (NEGATIVE); Bilirubin NEGATIVE (NEGATIVE); Blood NEGATIVE Ery/ul (0-5); Epithelial Cells RARE /HPF (FEW); Glucose NEGATIVE (NEGATIVE); Hyaline Casts 0-2 /LPF (0-2); Ketones NEGATIVE (NEGATIVE); Leukocyte Esterase NEGATIVE (NEGATIVE); Mucus SLIGHT /HPF (NEGATIVE); Nitrite NEGATIVE (NEGATIVE); Protein,Urine Dip NEGATIVE (Negative); Urobilinogen 2 mg/dL (0-1)
[2020-09-05 21:17] LABS: ALBUMIN 3.8 g/dL (3.5-5.0); ALKALINE PHOSPHATASE 101 U/L (38-126); AMYLASE 58 U/L (30-110); ANION GAP 12.5 MEQ/L (5-15); BLOOD UREA NITROGEN 10 mg/dL (7-17); CHLORIDE 104 mmol/L (98-107); Calcium 9.3 mg/dL (8.4-10.2); Carbon Dioxide 29 mmol/L (22-30); Creatinine 1 0.85 mg/dL (0.52-1.04); EST GLOMERULAR FILTRATION RATE > 60.0 ML/MIN; Glucose 85 mg/dL (74-106); LIPASE 116 U/L (23-300); SGOT/AST 401 U/L (14-36); SGPT/ALT 297 U/L (0-35); SODIUM 141 mmol/L (137-145); Total Protein 6.3 g/dL (6.3-8.2)
[2020-09-05 21:57] VITALS: BP 120/71; PULSE 76
[2020-09-05 23:41] VITALS: O2SAT 96
== END 2020-09-05 22:04 | disposition home or self-care (01) ==
LOC: ED 19:53
DX: Z98.890 Other specified postprocedural states (principal); R11.2 Nausea with vomiting, unspecified; R10.9 Unspecified abdominal pain
CPT/HCPCS: 36000; 36415; 80053; 81001; 82150; 83605; 83690; 85025; 96360; 96374; 99284; J2405

== ENCOUNTER 2020-10-08 08:26 | Day surgery (SDC) | payer OTHER ==
[2020-10-08 08:55] VITALS: O2SAT 99
[2020-10-08] MEDS ORDERED: Lactated Ringers 1,000 ML IV ONE (09:00)
[2020-10-08] MEDS ORDERED: Lactated Ringers 1,000 ML IV SCH (09:00)
--- NOTE | 2020-10-08 09:58 | HP ---
PROCEDURE DATE: 10/08/2020 HISTORY OF PRESENT ILLNESS: The patient is a 25 y/o with some persistent nausea. Has had a cholecystectomy in the past. Discussed options of maybe more time vs pushing up the endoscopy to evaluate for or other etiology. At this time, plans to go ahead and proceed with work-up. PAST MEDICAL HISTORY: CURRENT MEDICATIONS: and control pills. ALLERGIES: PENICILLIN. PAST SURGICAL HISTORY: She has had 2 C-Sections. Had ear tubes. Had laparoscopic cholecystectomy in the past. FAMILY HISTORY: . SOCIAL HISTORY: No smoking or alcohol abuse. REVIEW OF SYSTEMS: 14 systems reviewed. No chest pain or palpitations. PHYSICAL EXAMINATION: GENERAL: No acute distress. HEENT: Sclerae nonicteric. NECK: No JVD. CHEST: Equal excursion. Nonlabored breathing. CVS: Regular rate and rhythm. ABDOMEN: Soft. Cholecystectomy in the past. EXTREMITIES: No significant edema. NEURO: Alert, moving extremities symmetrically. IMPRESSION: SOME PERSISTENT NAUSEA. She has had cholecystectomy in the past with some chronic cholecystitis and dyskinesia. EGD, possible biopsy. Risks and benefits explained in detail, but not limited to, bleeding; infection; risk of bowel injury or perforation possibly requiring open procedure; risk of missed or nondiagnosis or incomplete exam possible requiring other studies or procedures. Will proceed with EGD with possible biopsy as an outpatient.
[2020-10-08 12:40] VITALS: BP 111/71; PULSE 80
--- NOTE | 2020-10-09 10:43 | OP ---
SURGERY DATE: 10/08/2020 SURGERY TIME: 1147 PREOPERATIVE DIAGNOSIS: 1. HISTORY OF SOME PERSISTENT NAUSEA. 2. HISTORY OF CHOLECYSTECTOMY IN THE PAST. 3. NEED FOR UPPER ENDOSCOPY. POSTOPERATIVE DIAGNOSIS: 1. MINIMAL TO MILD GASTRIC ERYTHEMA. OTHERWISE, UNREMARKABLE EXAM. 2. CLASS I. PROCEDURE: 1. Esophagogastroduodenoscopy with cold biopsy of small bowel for celiac sprue. 2. Cold biopsy antrum to evaluate for CARIE test for H-pylori. SURGEON: Dr. Tru Miller. ANESTHESIA: MAC. ESTIMATED BLOOD LOSS: Minimal. INDICATIONS: As noted above. Risks and benefits explained in detail, but not limited to. Consent obtained. DESCRIPTION OF PROCEDURE AND FINDINGS: The patient was taken to the endoscopy room. MAC anesthesia induced after official time-out for planned procedure. Bite block positioned. Video gastroscope easily passed down the esophagus through the patent pylorus to the junction of the 2nd and 3rd portion of the duodenum. The 3rd, 2nd, and 1st portion of the duodenum grossly unremarkable, but given her complaints of this persistent nausea, cold biopsy was taken to evaluation for celiac sprue. Good hemostasis noted. Scope pulled back into the stomach where there was some minimal gastric erythema. Given her complaints, went ahead and did a cold biopsy for CARIE test to evaluate for H-pylori. Otherwise, gastroesophageal junction snug on retroflex of the scope. No signs of any hiatal hernia. Scope pulled back to the gastroesophageal junction. Z line was crisp at about 38 cm at the gastroesophageal junction. The remainder of the esophagus was grossly unremarkable. No signs of any obvious mucosal lesions on withdrawal of the scope. The patient tolerated the procedure well. Findings discussed with the family out in the waiting area. Will see her back in the office next week to go over the results.
== END 2020-10-08 12:50 | disposition home or self-care (01) ==
LOC: SDC 08:26
PROVIDERS: ATTEND Surgery
DX: K31.89 Other diseases of stomach and duodenum (principal); R11.0 Nausea
CPT/HCPCS: 84703; 87081

== ENCOUNTER 2020-12-20 09:39 | Emergency (ER) | payer OTHER ==
[2020-12-20] MEDS ORDERED: Sodium Chloride 0.9% 1000 ML 1,000 ML IV STA (10:02)
[2020-12-20 10:12] LABS: Absolute Neutrophil Ct (ANC) 1.72 (1.4-6.9); BASOPHIL % 0.3 % (0.0-0.4); Basophil (Absolute #) 0.01 (0-0.4); Eosinophil % 0.3 % (0.00-5.0); Eosinophil (Absolute #) 0.01 (0-0.5); Hematocrit 43.3 % (35-47); Hemoglobin 14.5 gm/dl (12.0-16.0); Lymphocytes % 41.2 % (24.0-44.0); Mean Cell Volume 91.4 fl (78-100); Mean Corpuscular Hemoglobin 30.6 pg (26-32); Mean Corpuscular Hgb Concent. 33.5 g/dl (32-36); Mean Platelet Volume 10.3 fl (7.5-11.0); Neutrophil % 47.2 % (36.0-66.0); Platelet Count 159 K/mm3 (150-450); Red Blood Count 4.74 M/mm3 (4.1-5.4); Red Cell Distribution Width 12.8 % (11.5-14.0); White Blood Count 3.6 K/mm3 (4.0-10.5)
[2020-12-20] MEDS ORDERED: Sodium Chloride 0.9% 1000 ML 1,000 ML ONE (10:15)
[2020-12-20] MEDS ORDERED: TYLENOL EXTRA STRENGTH 500 MG PO PRN (10:21)
[2020-12-20] MEDS ORDERED: TYLENOL EXTRA STRENGTH 500 MG ONE (10:23)
[2020-12-20 10:25] LABS: ALBUMIN 4.2 g/dL (3.5-5.0); ALKALINE PHOSPHATASE 74 U/L (38-126); ANION GAP 12.5 MEQ/L (5-15); BLOOD UREA NITROGEN 9 mg/dL (7-17); CHLORIDE 103 mmol/L (98-107); Carbon Dioxide 26 mmol/L (22-30); Creatinine 1 0.69 mg/dL (0.52-1.04); EST GLOMERULAR FILTRATION RATE > 60.0 ML/MIN; Glucose 126 mg/dL (74-106); MAGNESIUM 2.1 mg/dL (1.6-2.3); Potassium 3.2 mmol/L (3.5-5.1); SGOT/AST 32 U/L (14-36); SGPT/ALT 17 U/L (0-35); SODIUM 139 mmol/L (137-145); Total Protein 6.8 g/dL (6.3-8.2)
[2020-12-20 10:29] LABS: Appearance SLIGHTLY CLOUDY (CLEAR); Bacteria RARE /HPF (NEGATIVE); Bilirubin NEGATIVE (NEGATIVE); Blood NEGATIVE Ery/ul (0-5); Epithelial Cells FEW /HPF (FEW); Glucose NEGATIVE (NEGATIVE); Ketones NEGATIVE (NEGATIVE); Leukocyte Esterase NEGATIVE (NEGATIVE); Mucus MODERATE /HPF (NEGATIVE); Nitrite NEGATIVE (NEGATIVE); Protein,Urine Dip NEGATIVE (Negative); RBC 0-2 /HPF (0-2); Specific Gravity 1.015 (1.005-1.025); Urobilinogen NEGATIVE mg/dL (0-1)
[2020-12-20 10:38] LABS: INR 1.06 (0.8-3.0); PROTIME 12.5 SECONDS (9.4-12.5)
--- NOTE | 2020-12-20 10:49 | XRAY ---
Indication: Short of breath. Suspect Covid 19. Comparison: None Portable chest demonstrates inferior right upper lobe patchy and lesser degree right lower lobe groundglass airspace disease. Remaining heart and lungs unremarkable. Bony thorax intact with mild dextroscoliosis.
[2020-12-20 11:06] VITALS: BP 105/61; O2SAT 99
[2020-12-20 11:12] LABS: INFLUENZA A NEGATIVE (NEGATIVE); INFLUENZA B NEGATIVE (NEGATIVE)
[2020-12-20] MEDS ORDERED: REGEN-COV 600-600 MG/10ML(EUA) 10 ML in Sodium Chloride 0.9% 100 ML BAG 100 ML IV ONE (11:25)
--- NOTE | 2020-12-20 11:31 | ERPHSYRPT ---
- History of Present Illness Time Seen by Provider: 12/20/20 09:50 Source: patient Exam Limitations: no limitations Patient Subjective Stated Complaint: PT states "I am having chest pain on and off since last night, I was tested for covid yesterday and awaiting results. My throat hurts and there is a chance I am ." Triage Nursing Assessment: Pt presented alert and oriented X 3, skin pwd. tp ambulates with an uprigth steady gait, able to speak in clear full sentences pt in no apparent respiratory distress. pt resting comfotably on the bed. Physician History: Patient is a 25-year-old white female who presents with a complaint of sore throat for 48 hours. [facility] and and given a Covid test which will not be returned for another 48 hours she presents today with a complaint of increasing shortness of breath and dyspnea increasing sore throat she also complains of pressure on her chest and pain with a deep inspiration. She reports no rapid strep was done at [facility] yesterday and she may be . Timing/Duration: day(s) (2) Cough Quality/Degree: dry cough Possible Cause: no prior episodes Modifying Factors: Improves With: coughing Associated Symptoms: shortness of breath, sore throat Allergies/Adverse Reactions: Penicillins Allergy (Mild, Verified 10/08/20 08:44) Rash THROAT SWELLS Sulfa (Sulfonamide Antibiotics) Allergy (Mild, Verified 10/08/20 08:44) Rash Home Medications: Phentermine HCl 37.5 mg PO DAILY 03/10/20 [History] Norgestimate-Ethinyl Estradiol [Tri Femynor 28 Tablet] 1 tab PO DAILY 08/22/20 [History] Hx Tetanus, Diphtheria Vaccination/Date Given: No Hx Influenza Vaccination/Date Given: Yes Hx Pneumococcal Vaccination/Date Given: No Immunizations Up to Date: Yes Travel Risk - International Travel Have you traveled outside of the country in past 3 weeks: No - Coronavirus Screening Are you exhibiting any of the following symptoms?: No Close contact with a COVID-19 positive Pt in past 14-21 Days: Yes - Vaccine Status Have you recieved a Covid-19 vaccination: No - Review of Systems Constitutional: No Fever, No Chills Eyes: No Symptoms Ears, Nose, & Throat: No Symptoms Respiratory: No Cough, No Dyspnea Cardiac: No Chest Pain, No Edema, No Syncope Abdominal/Gastrointestinal: No Abdominal Pain, No Nausea, No Vomiting, No Diarrhea Genitourinary Symptoms: No Dysuria Musculoskeletal: No Back Pain, No Neck Pain Skin: No Rash Neurological: No Dizziness, No Focal Weakness, No Sensory Changes Psychological: No Symptoms Endocrine: No Symptoms All Other Systems: Reviewed and Negative - Past Medical History Pertinent Past Medical History: Yes Neurological History: Epilepsy ENT History: No Pertinent History Cardiac History: No Pertinent History Respiratory History: No Pertinent History Endocrine Medical History: No Pertinent History Musculoskeletal History: No Pertinent History GI Medical History: No Pertinent History History: No Pertinent History Psycho-Social History: No Pertinent History Female Reproductive Disorders: No Pertinent History Other Medical History: PATIENT REPORTS HX OF SCOLIOSIS. HX OF 2 C-SECTIONS, T&A. gall bladder removed 09/03/20 - Past Surgical History Past Surgical History: Yes Neuro Surgical History: No Pertinent History Cardiac: No Pertinent History Respiratory: No Pertinent History Gastrointestinal: Cholecystectomy Genitourinary: No Pertinent History Female Surgical History: Dilation & Curettage, Section Other Surgical History: tonsillectomy eardrum sugery. 3 sets of ear tubes. right ear tube hole did not close had surgery to close the hole. gall bladder re moved 09/03/20 - Social History Smoking Status: Never smoker Exposure to second hand smoke: No Alcohol Use: Socially Drug Use: none Patient Lives Alone: No Significant Family History: no pertinent family hx - Female History Hx Last Menstrual Period: 11/18/2020 Hx Now: (unknown) - Nursing Vital Signs Nursing Vital Signs: Initial Vital Signs Temperature 98.1 F 12/20/20 09:42 Pulse Rate 99 H 12/20/20 09:42 Respiratory Rate 20 12/20/20 09:42 Blood Pressure 124/93 12/20/20 09:42 O2 Sat by Pulse Oximetry 99 12/20/20 09:42 Pain Scale Pain Intensity 0 - Physical Exam General Appearance: mild distress, alert Eye Exam: PERRL/EOMI, eyes nml inspection Ears, Nose, Throat Exam: normal ENT inspection, TMs normal, pharynx normal, moist mucous membranes Neck Exam: normal inspection, non-tender, supple, full range of motion Respiratory Exam: normal breath sounds, lungs clear, No respiratory distress Cardiovascular Exam: regular rate/rhythm, normal heart sounds Gastrointestinal/Abdomen Exam: soft, No tenderness Back Exam: normal inspection, No CVA tenderness, No vertebral tenderness Extremity Exam: normal inspection, normal range of motion Neurologic Exam: alert, oriented x 3, cooperative, normal mood/affect, sensation nml, No motor deficits Skin Exam: normal color, warm, dry, No rash Lymphatic Exam: No adenopathy SpO2: 99 - Course Nursing assessment & vital signs reviewed: Yes EKG Interpreted by Me: RATE (95), NORMAL AXIS, NORMAL INTERVALS, NORMAL QRS, NORMAL ST-T - Radiology Exams Chest X-ray Interpretation: Reviewed by me, Other (Right upper and right lower lobe infiltrates) Ordered Tests: Active Orders 24 hr Category Date Time Status EKG-ER Only STAT Care 12/20/20 10:02 Active IV Insertion STAT Care 12/20/20 10:02 Active CHEST 1 VIEW (PORTABLE) Stat Exams 12/20/20 10:03 Completed BLOOD CULTURE Stat Lab 12/20/20 10:23 Received CBC W DIFF Stat Lab 12/20/20 10:00 Completed CMP Stat Lab 12/20/20 10:00 Completed D-DIMER QUANTITATIVE Stat Lab 12/20/20 10:23 Received HCG QUALITATIVE,SERUM Stat Lab 12/20/20 10:00 Completed INFLUENZA A+B LEONARDO Stat Lab 12/20/20 10:02 Completed Lactic Acid Stat Lab 12/20/20 10:30 Completed MAGNESIUM Stat Lab 12/20/20 10:00 Completed NT PRO BNP Stat Lab 12/20/20 10:00 Completed PROTIME WITH INR Stat Lab 12/20/20 10:23 Received TROPONIN Q3H Lab 12/20/20 10:00 Completed TROPONIN Q3H Lab 12/20/20 13:15 Ordered TROPONIN Q3H Lab 12/20/20 16:15 Ordered TROPONIN Q3H Lab 12/20/20 19:15 Ordered TROPONIN Q3H Lab 12/20/20 22:15 Ordered UA W/RFX UR CULTURE Stat Lab 12/20/20 10:21 Completed Medication Summary Generic Name Dose Route Start Last Admin Trade Name Freq PRN Reason Stop Dose Admin Acetaminophen 1,000 mg 12/20/20 10:21 12/20/20 10:24 Tylenol Extra Strength 500 Mg PO 01/19/21 10:20 1,000 mg Q4H PRN PRN Administration HEADACHE Casirivimab/Imdevimab 10 ml/ 110 mls @ 310 mls/hr 12/20/20 11:25 Sodium Chloride IV 12/20/20 11:46 ONCE ONE Discontinued Medications Generic Name Dose Route Start Last Admin Trade Name Garrett PRN Reason Stop Dose Admin Sodium Chloride 1,000 mls @ 999 mls/hr 12/20/20 10:02 12/20/20 10:17 Sodium Chloride 0.9% 1000 Ml IV 12/20/20 11:02 999 mls/hr .Q1H1M STA Administration Sodium Chloride Confirm 12/20/20 10:15 Sodium Chloride 0.9% 1000 Ml Administered 12/20/20 10:16 Dose 1,000 mls @ ud .ROUTE .STK-MED ONE Lab/Rad Data: Laboratory Result Diagrams 12/20/20 10:00 12/20/20 10:00 Laboratory Results 12/20/20 12/20/20 12/20/20 Range/Units Unknown 10:30 10:21 WBC (4.0-10.5) K/mm3 RBC (4.1-5.4) M/mm3 Hgb (12.0-16.0) gm/dl Hct (35-47) % MCV (78-100) fl MCH (26-32) pg MCHC (32-36) g/dl RDW (11.5-14.0) % Plt Count (150-450) K/mm3 MPV (7.5-11.0) fl Gran % (36.0-66.0) % Eos # (Auto) (0-0.5) Absolute Lymphs (auto) (1.0-4.6) Absolute Monos (auto) (0.0-1.3) Lymphocytes % (24.0-44.0) % Monocytes % (0.0-12.0) % Eosinophils % (0.00-5.0) % Basophils % (0.0-0.4) % Absolute Granulocytes (1.4-6.9) Basophils # (0-0.4) Sodium (137-145) mmol/L Potassium (3.5-5.1) mmol/L Chloride (98-107) mmol/L Carbon Dioxide (22-30) mmol/L Anion Gap (5-15) MEQ/L BUN (7-17) mg/dL Creatinine (0.52-1.04) mg/dL Estimated GFR ML/MIN Glucose (74-106) mg/dL Lactic Acid 1.2 (0.4-2.0) Calcium (8.4-10.2) mg/dL Magnesium (1.6-2.3) mg/dL Total Bilirubin (0.2-1.3) mg/dL AST (14-36) U/L ALT (0-35) U/L Alkaline Phosphatase (38-126) U/L Troponin I (0.000-0.034) ng/mL NT-Pro-B Natriuret Pep (0-450) pg/mL Serum Total Protein (6.3-8.2) g/dL Albumin (3.5-5.0) g/dL Serum , Qual (Negative) Urine Color YELLOW (YELLOW) Urine Appearance SLIGHTLY CLOUDY (CLEAR) Urine pH 6.0 (5-6) Ur Specific [place] 1.015 (1.005-1.025) Urine Protein NEGATIVE (Negative) Urine Ketones NEGATIVE (NEGATIVE) Urine Blood NEGATIVE (0-5) Jacob/ul Urine Nitrite NEGATIVE (NEGATIVE) Urine Bilirubin NEGATIVE (NEGATIVE) Urine Urobilinogen NEGATIVE (0-1) mg/dL Ur Leukocyte Esterase NEGATIVE (NEGATIVE) Urine WBC (Auto) 3-5 (0-5) /HPF Urine RBC (Auto) 0-2 (0-2) /HPF U Epithel Cells (Auto) FEW (FEW) /HPF Urine Bacteria (Auto) RARE (NEGATIVE) /HPF Urine Mucus (Auto) MODERATE (NEGATIVE) /HPF Urine Culture Reflexed NO (NO) Urine Glucose NEGATIVE (NEGATIVE) mg/dL Influenza Type A Ag (NEGATIVE) Influenza Type B Ag (NEGATIVE) Group A Strep Antibody NEGATIVE (NEGATIVE) 12/20/20 12/20/20 12/20/20 Range/Units 10:02 10:00 10:00 WBC (4.0-10.5) K/mm3 RBC (4.1-5.4) M/mm3 Hgb (12.0-16.0) gm/dl Hct (35-47) % MCV (78-100) fl MCH (26-32) pg MCHC (32-36) g/dl RDW (11.5-14.0) % Plt Count (150-450) K/mm3 MPV (7.5-11.0) fl Gran % (36.0-66.0) % Eos # (Auto) (0-0.5) Absolute Lymphs (auto) (1.0-4.6) Absolute Monos (auto) (0.0-1.3) Lymphocytes % (24.0-44.0) % Monocytes % (0.0-12.0) % Eosinophils % (0.00-5.0) % Basophils % (0.0-0.4) % Absolute Granulocytes (1.4-6.9) Basophils # (0-0.4) Sodium (137-145) mmol/L Potassium (3.5-5.1) mmol/L Chloride (98-107) mmol/L Carbon Dioxide (22-30) mmol/L Anion Gap (5-15) MEQ/L BUN (7-17) mg/dL Creatinine (0.52-1.04) mg/dL Estimated GFR ML/MIN Glucose (74-106) mg/dL Lactic Acid (0.4-2.0) Calcium (8.4-10.2) mg/dL Magnesium (1.6-2.3) mg/dL Total Bilirubin (0.2-1.3) mg/dL AST (14-36) U/L ALT (0-35) U/L Alkaline Phosphatase (38-126) U/L Troponin I < 0.012 (0.000-0.034) ng/mL NT-Pro-B Natriuret Pep (0-450) pg/mL Serum Total Protein (6.3-8.2) g/dL Albumin (3.5-5.0) g/dL Serum , Qual NEGATIVE (Negative) Urine Color (YELLOW) Urine Appearance (CLEAR) Urine pH (5-6) Ur Specific [place] (1.005-1.025) Urine Protein (Negative) Urine Ketones (NEGATIVE) Urine Blood (0-5) Jacob/ul Urine Nitrite (NEGATIVE) Urine Bilirubin (NEGATIVE) Urine Urobilinogen (0-1) mg/dL Ur Leukocyte Esterase (NEGATIVE) Urine WBC (Auto) (0-5) /HPF Urine RBC (Auto) (0-2) /HPF U Epithel Cells (Auto) (FEW) /HPF Urine Bacteria (Auto) (NEGATIVE) /HPF Urine Mucus (Auto) (NEGATIVE) /HPF Urine Culture Reflexed (NO) Urine Glucose (NEGATIVE) mg/dL Influenza Type A Ag NEGATIVE (NEGATIVE) Influenza Type B Ag NEGATIVE (NEGATIVE) Group A Strep Antibody (NEGATIVE) 12/20/20 12/20/20 Range/Units 10:00 10:00 WBC 3.6 L (4.0-10.5) K/mm3 RBC 4.74 (4.1-5.4) M/mm3 Hgb 14.5 (12.0-16.0) gm/dl Hct 43.3 (35-47) % MCV 91.4 (78-100) fl MCH 30.6 (26-32) pg MCHC 33.5 (32-36) g/dl RDW 12.8 (11.5-14.0) % Plt Count 159 (150-450) K/mm3 MPV 10.3 (7.5-11.0) fl Gran % 47.2 (36.0-66.0) % Eos # (Auto) 0.01 (0-0.5) Absolute Lymphs (auto) 1.50 (1.0-4.6) Absolute Monos (auto) 0.40 (0.0-1.3) Lymphocytes % 41.2 (24.0-44.0) % Monocytes % 11.0 (0.0-12.0) % Eosinophils % 0.3 (0.00-5.0) % Basophils % 0.3 (0.0-0.4) % Absolute Granulocytes 1.72 (1.4-6.9) Basophils # 0.01 (0-0.4) Sodium 139 (137-145) mmol/L Potassium 3.2 L (3.5-5.1) mmol/L Chloride 103 (98-107) mmol/L Carbon Dioxide 26 (22-30) mmol/L Anion Gap 12.5 (5-15) MEQ/L BUN 9 (7-17) mg/dL Creatinine 0.69 (0.52-1.04) mg/dL Estimated GFR > 60.0 ML/MIN Glucose 126 H (74-106) mg/dL Lactic Acid (0.4-2.0) Calcium 9.0 (8.4-10.2) mg/dL Magnesium 2.1 (1.6-2.3) mg/dL Total Bilirubin 0.30 (0.2-1.3) mg/dL AST 32 (14-36) U/L ALT 17 (0-35) U/L Alkaline Phosphatase 74 (38-126) U/L Troponin I (0.000-0.034) ng/mL NT-Pro-B Natriuret Pep 24.0 (0-450) pg/mL Serum Total Protein 6.8 (6.3-8.2) g/dL Albumin 4.2 (3.5-5.0) g/dL Serum , Qual (Negative) Urine Color (YELLOW) Urine Appearance (CLEAR) Urine pH (5-6) Ur Specific [place] (1.005-1.025) Urine Protein (Negative) Urine Ketones (NEGATIVE) Urine Blood (0-5) Jacob/ul Urine Nitrite (NEGATIVE) Urine Bilirubin (NEGATIVE) Urine Urobilinogen (0-1) mg/dL Ur Leukocyte Esterase (NEGATIVE) Urine WBC (Auto) (0-5) /HPF Urine RBC (Auto) (0-2) /HPF U Epithel Cells (Auto) (FEW) /HPF Urine Bacteria (Auto) (NEGATIVE) /HPF Urine Mucus (Auto) (NEGATIVE) /HPF Urine Culture Reflexed (NO) Urine Glucose (NEGATIVE) mg/dL Influenza Type A Ag (NEGATIVE) Influenza Type B Ag (NEGATIVE) Group A Strep Antibody (NEGATIVE) - Progress Progress: unchanged Air Movement: good Blood Culture(s) Obtained: Yes Antibiotics given: Yes Discussed with DrAime: Other (Situation was discussed with Dr. Pratt because of the overwhelming evidence and clinical picture of COVID-19 early in the course it was decided to go ahead and give her [place]) - Departure Departure Disposition: Home Clinical Impression: COVID-19 Condition: Stable Critical Care Time: No Referrals: RIGOBERTO GRAYSON MD [Primary Care Provider] - Instructions: Coronavirus Disease 2019 (COVID-19) (DC) Prescriptions: Dexamethasone 4 mg [Decadron 4 MG] 8 mg PO BID 7 Days #14 tablet Azithromycin 250 mg [Zithromax 250 MG TABLET] 250 mg PO ZPACK #6 tablet
[2020-12-20 12:04] VITALS: PULSE 75
== END 2020-12-20 12:36 | disposition home or self-care (01) ==
LOC: ED 09:39
DX: U07.1 COVID-19 (principal); B34.2 Coronavirus infection, unspecified
CPT/HCPCS: 36000; 36415; 71045; 80053; 81001; 81025; 83605; 83735; 83880; 84484; 85025; 85379; 85610; 86140; 87040; 87400; 87651; 93005; 96360; 96374; 99284; Q0243; A9270-GY

== ENCOUNTER 2021-02-15 21:24 | Emergency (ER) | payer OTHER ==
[2021-02-15] MEDS ORDERED: Sodium Chloride 0.9% 1000 ML 1,000 ML IV STA (21:45)
--- NOTE | 2021-02-15 21:45 | ERPHSYRPT ---
- History of Present Illness Time Seen by Provider: 02/15/21 21:45 Source: patient Exam Limitations: no limitations Patient Subjective Stated Complaint: fainted in bedroom, thinks she miscarrying Triage Nursing Assessment: pt was in the bedroom, passed out, does not think she hit her head on anything. Pt c/o headache at this time and RLQ pain. Pt was seen at [facility] ([facility]) today by Dr. Kennedy and he feels she may be miscarrying and is 4-5 weeks . Pt is just lightly spotting now, but saw him today due to passing a few clots but was unaware she was until appointment today. Physician History: This is a 25-year-old white female who had been passing blood clots vaginally and was seen at the [facility] by Dr. Montemayor and told that she may be miscarrying. She had a low hCG (quantitative). Patient came into the emergency department this evening because she "passed out" and does not recall whether or not specifically she hit her head but she now presents with headache, right lower quad abdominal pain and vaginal bleeding that has slowed down to spotting. She denies nausea vomiting diarrhea. She has no chest pain or shortness of breath. Timing/Duration: today Severity: moderate Associated Symptoms: abdominal pain (Right lower quadrant), headaches, other (Vaginal spotting) Allergies/Adverse Reactions: Penicillins Allergy (Mild, Verified 02/15/21 21:36) Rash THROAT SWELLS Sulfa (Sulfonamide Antibiotics) Allergy (Mild, Verified 02/15/21 21:36) Rash Home Medications: No Reportable Medications [No Reported Medications] 02/15/21 [History] Hx Tetanus, Diphtheria Vaccination/Date Given: Yes Hx Influenza Vaccination/Date Given: No Hx Pneumococcal Vaccination/Date Given: No Immunizations Up to Date: Yes Travel Risk - International Travel Have you traveled outside of the country in past 3 weeks: No - Coronavirus Screening Are you exhibiting any of the following symptoms?: No Close contact with a COVID-19 positive Pt in past 14-21 Days: No - Vaccine Status Have you recieved a Covid-19 vaccination: No - Review of Systems Constitutional: No Symptoms Eyes: No Symptoms Ears, Nose, & Throat: No Symptoms Respiratory: No Symptoms Cardiac: No Symptoms Abdominal/Gastrointestinal: Abdominal Pain (rlq), No Nausea, No Vomiting, No Diarrhea Genitourinary Symptoms: Vaginal Bleeding Musculoskeletal: No Symptoms Skin: No Symptoms Neurological: No Symptoms Psychological: No Symptoms Endocrine: No Symptoms Hematologic/Lymphatic: No Symptoms Immunological/Allergic: No Symptoms All Other Systems: Reviewed and Negative - Past Medical History Pertinent Past Medical History: Yes Neurological History: Epilepsy ENT History: No Pertinent History Cardiac History: No Pertinent History Respiratory History: No Pertinent History Endocrine Medical History: No Pertinent History Musculoskeletal History: No Pertinent History GI Medical History: No Pertinent History History: No Pertinent History Psycho-Social History: No Pertinent History Female Reproductive Disorders: No Pertinent History Other Medical History: PATIENT REPORTS HX OF SCOLIOSIS. HX OF 2 C-SECTIONS, T&A. gall bladder removed 09/03/20 - Past Surgical History Past Surgical History: Yes Neuro Surgical History: No Pertinent History Cardiac: No Pertinent History Respiratory: No Pertinent History Gastrointestinal: Cholecystectomy Genitourinary: No Pertinent History Female Surgical History: Dilation & Curettage, Section Other Surgical History: tonsillectomy eardrum sugery. 3 sets of ear tubes. right ear tube hole did not close had surgery to close the hole. gall bladder removed 09/03/20 - Social History Smoking Status: Never smoker Exposure to second hand smoke: No Alcohol Use: Socially Drug Use: none Patient Lives Alone: No (2 kids) Significant Family History: no pertinent family hx - Female History Hx Last Menstrual Period: 12/19/20 Hx Now: Yes - Nursing Vital Signs Nursing Vital Signs: Initial Vital Signs Temperature 98.1 F 02/15/21 21:25 Pulse Rate 94 H 02/15/21 21:25 Respiratory Rate 16 02/15/21 21:25 Blood Pressure 129/80 02/15/21 21:25 O2 Sat by Pulse Oximetry 99 02/15/21 21:25 Pain Scale Pain Intensity 4 - Physical Exam General Appearance: no apparent distress, alert, anxiety Eye Exam: PERRL/EOMI, eyes nml inspection Ears, Nose, Throat Exam: normal ENT inspection, moist mucous membranes Neck Exam: normal inspection, non-tender, supple, full range of motion Respiratory Exam: normal breath sounds, lungs clear, airway intact, No chest tenderness, No respiratory distress Cardiovascular Exam: regular rate/rhythm, normal heart sounds, normal peripheral pulses Gastrointestinal/Abdomen Exam: soft, normal bowel sounds, tenderness (Right lower quadrant), guarding, No rebound Pelvic Exam: not done Rectal Exam: not done Back Exam: normal inspection, normal range of motion, No CVA tenderness, No vertebral tenderness Extremity Exam: normal inspection, normal range of motion, pelvis stable Neurologic Exam: alert, oriented x 3, cooperative, customer development representative II-XII nml as tested, normal mood/affect, nml cerebellar function, nml station & gait, sensation nml Skin Exam: normal color, warm, dry Lymphatic Exam: No adenopathy SpO2 Interpretation: normal SpO2: 99 O2 Delivery: Room Air - Course Nursing assessment & vital signs reviewed: Yes EKG Interpreted by Me: RATE (94), Sinus Rhythm, NORMAL AXIS, NORMAL INTERVALS, NORMAL QRS, NORMAL ST-T, Other (No acute ischemic changes. No changes on normal comparison EKG dated 12/20/2020.) Ordered Tests: Active Orders 24 hr Category Date Time Status EKG-ER Only STAT Care 02/15/21 21:47 Active IV Insertion STAT Care 02/15/21 21:45 Active ABDOMEN AND PELVIS W/0 CONTRAS [CT] Stat Exams 02/15/21 23:04 Taken HEAD WITHOUT CONTRAST [CT] Stat Exams 02/15/21 21:48 Taken OB TRANSVAGINAL [US] Stat Exams 02/15/21 23:15 Taken CBC W DIFF Stat Lab 02/15/21 22:03 Completed CMP Stat Lab 02/15/21 22:03 Completed CULTURE,URINE Stat Lab 02/15/21 21:56 Received HCG, Quantitative (Inhouse) Stat Lab 02/15/21 22:03 Completed Lactic Acid Stat Lab 02/15/21 22:00 Completed UA W/RFX UR CULTURE Stat Lab 02/15/21 21:56 Completed Medication Summary Discontinued Medications Generic Name Dose Route Start Last Admin Trade Name Frankq PRN Reason Stop Dose Admin Acetaminophen 650 mg 02/15/21 23:40 02/16/21 00:07 Acetaminophen 325 Mg Tablet PO 02/15/21 23:41 650 mg STAT STA Administration Acetaminophen Confirm 02/16/21 00:06 Acetaminophen 325 Mg Tablet Administered 02/16/21 00:07 Dose 650 mg .ROUTE .STK-MED ONE Sodium Chloride 1,000 mls @ 999 mls/hr 02/15/21 21:45 02/15/21 21:58 Sodium Chloride 0.9% 1000 Ml IV 02/15/21 22:45 999 mls/hr .Q1H1M STA Administration Sodium Chloride Confirm 02/15/21 21:58 Sodium Chloride 0.9% 1000 Ml Administered 02/15/21 21:59 Dose 1,000 mls @ ud .ROUTE .[facility]-MED ONE Lab/Rad Data: Laboratory Result Diagrams 02/15/21 22:03 02/15/21 22:03 Laboratory Results 02/15/21 02/15/21 02/15/21 Range/Units 22:03 22:03 22:03 WBC 8.5 (4.0-10.5) K/mm3 RBC 4.37 (4.1-5.4) M/mm3 Hgb 13.6 (12.0-16.0) gm/dl Hct 41.1 (35-47) % MCV 94.1 (78-100) fl MCH 31.1 (26-32) pg MCHC 33.1 (32-36) g/dl RDW 12.6 (11.5-14.0) % Plt Count 277 (150-450) K/mm3 MPV 9.8 (7.5-11.0) fl Gran % 61.1 (36.0-66.0) % Eos # (Auto) 0.03 (0-0.5) Absolute Lymphs (auto) 2.53 (1.0-4.6) Absolute Monos (auto) 0.69 (0.0-1.3) Lymphocytes % 29.8 (24.0-44.0) % Monocytes % 8.1 (0.0-12.0) % Eosinophils % 0.4 (0.00-5.0) % Basophils % 0.6 (0.0-0.4) % Absolute Granulocytes 5.18 (1.4-6.9) Basophils # 0.05 (0-0.4) Sodium 140 (137-145) mmol/L Potassium 3.5 (3.5-5.1) mmol/L Chloride 105 (98-107) mmol/L Carbon Dioxide 26 (22-30) mmol/L Anion Gap 13.2 (5-15) MEQ/L BUN 8 (7-17) mg/dL Creatinine 0.61 (0.52-1.04) mg/dL Estimated GFR > 60.0 ML/MIN Glucose 97 (74-106) mg/dL Lactic Acid (0.4-2.0) Calcium 9.6 (8.4-10.2) mg/dL Total Bilirubin 0.80 (0.2-1.3) mg/dL AST 24 (14-36) U/L ALT 13 (0-35) U/L Alkaline Phosphatase 84 (38-126) U/L Serum Total Protein 6.9 (6.3-8.2) g/dL Albumin 4.3 (3.5-5.0) g/dL Beta HCG, Quant 3.64 mIU/ml Urine Color (YELLOW) Urine Appearance (CLEAR) Urine pH (5-6) Ur Specific [place] (1.005-1.025) Urine Protein (Negative) Urine Ketones (NEGATIVE) Urine Blood (0-5) Jacob/ul Urine Nitrite (NEGATIVE) Urine Bilirubin (NEGATIVE) Urine Urobilinogen (0-1) mg/dL Ur Leukocyte Esterase (NEGATIVE) Urine WBC (Auto) (0-5) /HPF Urine RBC (Auto) (0-2) /HPF U Epithel Cells (Auto) (FEW) /HPF Urine Bacteria (Auto) (NEGATIVE) /HPF Urine Mucus (Auto) (NEGATIVE) /HPF Urine Culture Reflexed (NO) Urine Glucose (NEGATIVE) mg/dL 02/15/21 02/15/21 Range/Units 22:00 21:56 WBC (4.0-10.5) K/mm3 RBC (4.1-5.4) M/mm3 Hgb (12.0-16.0) gm/dl Hct (35-47) % MCV (78-100) fl MCH (26-32) pg MCHC (32-36) g/dl RDW (11.5-14.0) % Plt Count (150-450) K/mm3 MPV (7.5-11.0) fl Gran % (36.0-66.0) % Eos # (Auto) (0-0.5) Absolute Lymphs (auto) (1.0-4.6) Absolute Monos (auto) (0.0-1.3) Lymphocytes % (24.0-44.0) % Monocytes % (0.0-12.0) % Eosinophils % (0.00-5.0) % Basophils % (0.0-0.4) % Absolute Granulocytes (1.4-6.9) Basophils # (0-0.4) Sodium (137-145) mmol/L Potassium (3.5-5.1) mmol/L Chloride (98-107) mmol/L Carbon Dioxide (22-30) mmol/L Anion Gap (5-15) MEQ/L BUN (7-17) mg/dL Creatinine (0.52-1.04) mg/dL Estimated GFR ML/MIN Glucose (74-106) mg/dL Lactic Acid 0.7 (0.4-2.0) Calcium (8.4-10.2) mg/dL Total Bilirubin (0.2-1.3) mg/dL AST (14-36) U/L ALT (0-35) U/L Alkaline Phosphatase (38-126) U/L Serum Total Protein (6.3-8.2) g/dL Albumin (3.5-5.0) g/dL Beta HCG, Quant mIU/ml Urine Color YELLOW (YELLOW) Urine Appearance SLIGHTLY CLOUDY (CLEAR) Urine pH 5.0 (5-6) Ur Specific [place] 1.019 (1.005-1.025) Urine Protein 30 (Negative) Urine Ketones NEGATIVE (NEGATIVE) Urine Blood LARGE (0-5) Jacob/ul Urine Nitrite NEGATIVE (NEGATIVE) Urine Bilirubin NEGATIVE (NEGATIVE) Urine Urobilinogen NEGATIVE (0-1) mg/dL Ur Leukocyte Esterase NEGATIVE (NEGATIVE) Urine WBC (Auto) 11-15 (0-5) /HPF Urine RBC (Auto) 26-50 (0-2) /HPF U Epithel Cells (Auto) RARE (FEW) /HPF Urine Bacteria (Auto) RARE (NEGATIVE) /HPF Urine Mucus (Auto) SLIGHT (NEGATIVE) /HPF Urine Culture Reflexed YES (NO) Urine Glucose NEGATIVE (NEGATIVE) mg/dL - Progress Progress: improved, pain not gone completely, re-examined Progress Note: 02/15/21 23:05 Transvaginal ultrasound reveals no uterine implantation/fetus. There is no evidence of ectopic in the fallopian tubes or area of ovaries. 02/16/21 00:24 CAT scan of the abdomen and pelvis without contrast shows no evidence of any acute intra-abdominal or pelvic pathology. The appendix is visualized and there is no evidence for appendicitis. CAT scan of the head without contrast shows no acute intracranial abnormality Counseled pt/family regarding: lab results, diagnosis, need for follow-up, rad results - Departure Departure Disposition: Home Clinical Impression: Headache, Spontaneous miscarriage, Vaginal bleeding, Right lower quadrant abdominal pain Condition: Stable Critical Care Time: No Referrals: RIGOBERTO GRAYSON MD [Primary Care Provider] - Additional Instructions: Drink plenty of fluids. Call your primary care physician on 02/18/2021, to make arrangements for further management. Return to emergency department if your symptoms worsen.
[2021-02-15] MEDS ORDERED: Sodium Chloride 0.9% 1000 ML 1,000 ML ONE (21:58)
[2021-02-15 22:04] LABS: Absolute Neutrophil Ct (ANC) 5.18 (1.4-6.9); BASOPHIL % 0.6 % (0.0-0.4); Basophil (Absolute #) 0.05 (0-0.4); Eosinophil % 0.4 % (0.00-5.0); Eosinophil (Absolute #) 0.03 (0-0.5); Hematocrit 41.1 % (35-47); Hemoglobin 13.6 gm/dl (12.0-16.0); Lymphocyte (Absolute #) 2.53 (1.0-4.6); Lymphocytes % 29.8 % (24.0-44.0); Mean Cell Volume 94.1 fl (78-100); Mean Corpuscular Hemoglobin 31.1 pg (26-32); Mean Corpuscular Hgb Concent. 33.1 g/dl (32-36); Mean Platelet Volume 9.8 fl (7.5-11.0); Monocyte (Absolute #) 0.69 (0.0-1.3); Monocytes % 8.1 % (0.0-12.0); Neutrophil % 61.1 % (36.0-66.0); Platelet Count 277 K/mm3 (150-450); Red Blood Count 4.37 M/mm3 (4.1-5.4); Red Cell Distribution Width 12.6 % (11.5-14.0); White Blood Count 8.5 K/mm3 (4.0-10.5)
[2021-02-15 22:07] LABS: Appearance SLIGHTLY CLOUDY (CLEAR); Bacteria RARE /HPF (NEGATIVE); Bilirubin NEGATIVE (NEGATIVE); Blood LARGE Ery/ul (0-5); Epithelial Cells RARE /HPF (FEW); Glucose NEGATIVE (NEGATIVE); Ketones NEGATIVE (NEGATIVE); Leukocyte Esterase NEGATIVE (NEGATIVE); Mucus SLIGHT /HPF (NEGATIVE); Nitrite NEGATIVE (NEGATIVE); Protein,Urine Dip 30 (Negative); RBC 26-50 /HPF (0-2); Specific Gravity 1.019 (1.005-1.025); Urobilinogen NEGATIVE mg/dL (0-1)
[2021-02-15 22:21] LABS: ALBUMIN 4.3 g/dL (3.5-5.0); ALKALINE PHOSPHATASE 84 U/L (38-126); ANION GAP 13.2 MEQ/L (5-15); BLOOD UREA NITROGEN 8 mg/dL (7-17); CHLORIDE 105 mmol/L (98-107); Calcium 9.6 mg/dL (8.4-10.2); Carbon Dioxide 26 mmol/L (22-30); Creatinine 1 0.61 mg/dL (0.52-1.04); EST GLOMERULAR FILTRATION RATE > 60.0 ML/MIN; Glucose 97 mg/dL (74-106); Potassium 3.5 mmol/L (3.5-5.1); SGOT/AST 24 U/L (14-36); SGPT/ALT 13 U/L (0-35); SODIUM 140 mmol/L (137-145); Total Protein 6.9 g/dL (6.3-8.2)
[2021-02-15 22:28] VITALS: O2SAT 99
[2021-02-15] MEDS ORDERED: TYLENOL 325 MG PO STA (23:40)
[2021-02-16] MEDS ORDERED: TYLENOL 325 MG ONE (00:06)
[2021-02-16 00:42] VITALS: BP 122/78; PULSE 92
--- NOTE | 2021-02-16 07:36 | XRAY ---
Indication: Right lower quadrant abdomen pain vaginal bleeding. Ectopic . Two-dimensional transvaginal pelvic sonogram performed. Comparison: None Uterus anteverted measuring 8.9 x 4.0 x 4.9 cm. Lower uterine segment demonstrates 4 mm nabothian cyst. Remaining myometrium unremarkable. Endometrial stripe measures 1.7 mm. No endometrial cavity mass, fluid collection, or or evidence for intrauterine . Right ovary measures 3.0 x 1.8 x 3.1 cm and the left measures 3.0 x 1.3 x 2.3 cm. Normal follicular cysts and perfusion bilaterally. Tiny cul-de-sac fluid presumed physiologic from rupture/leaking cysts. No suspicious adnexal mass. Impression: Tiny nabothian cyst and tiny physiologic cul-de-sac fluid. Negative for intrauterine/ectopic . Comment: Preliminary report was given.
--- NOTE | 2021-02-16 08:42 | XRAY ---
Indication: Frontal headache. Syncope. Multiple contiguous axial images obtained through the head without contrast. Comparison: None Normal appearing brain parenchyma, ventricles, and bony calvarium. Visualized paranasal sinuses and mastoid air cells are clear. Impression: Normal CT head without contrast exam. Comment: Preliminary interpretation made by [facility]. No critical discrepancy.
--- NOTE | 2021-02-16 08:44 | XRAY ---
Indication: Right abdomen pain and nausea. Appendicitis. Multiple contiguous axial images obtained through the abdomen and pelvis without contrast. Comparison: January 24, 2020. Lung bases are clear. Heart not enlarged. Noncontrasted stomach and bowel loops are nonobstructed with normal appendix. Interval cholecystectomy. No free fluid/air. Remaining liver, pancreas, spleen, adrenal glands, kidneys, ureters, bladder, uterus, and aorta are unremarkable for noncontrast exam. Osseous structures intact again with incidental bilateral L5 spondylolysis and minimal grade 1 spondylolisthesis. Impression: Stable L5 spondylolysis with grade [address] abdomen/pelvis without contrast exam is negative. Comment: Preliminary interpretation made by C. No critical discrepancy.
== END 2021-02-16 00:43 | disposition home or self-care (01) ==
LOC: ED 21:24
DX: R51.9 Headache, unspecified (principal); O03.9 Complete or unspecified spontaneous abortion without complication; N93.9 Abnormal uterine and vaginal bleeding, unspecified
CPT/HCPCS: 36000; 36415; 70450; 74176; 76817; 80053; 81001; 83605; 84702; 85025; 87086; 93005; 99284; A9270-GY

== ENCOUNTER 2021-04-10 14:09 | Emergency (ER) | payer OTHER ==
[2021-04-10 14:21] VITALS: BP 127/75; PULSE 107; O2SAT 98
[2021-04-10 15:03] LABS: Appearance CLOUDY (CLEAR); Bacteria RARE /HPF (NEGATIVE); Bilirubin NEGATIVE (NEGATIVE); Blood NEGATIVE Ery/ul (0-5); Epithelial Cells MANY /HPF (FEW); Glucose NEGATIVE (NEGATIVE); Ketones NEGATIVE (NEGATIVE); Leukocyte Esterase NEGATIVE (NEGATIVE); Mucus SLIGHT /HPF (NEGATIVE); Nitrite NEGATIVE (NEGATIVE); Protein,Urine Dip NEGATIVE (Negative); Specific Gravity 1.024 (1.005-1.025); Urobilinogen NEGATIVE mg/dL (0-1); WBC 0-2 /HPF (0-5)
--- NOTE | 2021-04-10 15:22 | ERPHSYRPT ---
- History of Present Illness Time Seen by Provider: 04/10/21 14:20 Source: patient Exam Limitations: no limitations Patient Subjective Stated Complaint: " I think I have an UTI. It hughes when I pee. It started doing that yesterday, I also think I'm . I had two at h ome positive tests. Triage Nursing Assessment: Pt presents to ER with complaints of burning when urinating. Pt also complains of an odor to her urine. Pt urine is cloudy and yellow in appearance. Pt staes symptoms began yesterday. Pt also believes she maybe . Pt denies discharge or bleeding. Does not have any concerns about STIs. Pt states pain when urinating is minimal, rates pain 3/10 scale. Pt is alert and oriented x3. Skin is pink, warm, and dry. Respirations are unlabored. Denies any further complaints. Physician History: Patient is a 26-year-old female presents to our ED with complaints of dysuria and urinary frequency. Additionally patient states she may be . Patient has no pelvic pain. Patient asked variances urinary urgency. No fever. No back pain. No nausea or vomiting. No vaginal discharge. Patient is pain- free otherwise. Patient's only pain occurs during urination. Symptoms are mild to moderate in intensity. No specific worsening improving factors. Patient is otherwise healthy. She voices no other complaints or concerns at this time. Timing/Duration: yesterday Severity: mild (Patient declined pain medication.) Modifying Factors: Improves With: nothing Associated Symptoms: denies symptoms Allergies/Adverse Reactions: Penicillins Allergy (Mild, Verified 04/10/21 14:21) Rash THROAT SWELLS Sulfa (Sulfonamide Antibiotics) Allergy (Mild, Verified 04/10/21 14:21) Rash Hx Tetanus, Diphtheria Vaccination/Date Given: Yes Hx Influenza Vaccination/Date Given: Yes Hx Pneumococcal Vaccination/Date Given: No Immunizations Up to Date: Yes Travel Risk - International Travel Have you traveled outside of the country in past 3 weeks: No - Coronavirus Screening Are you exhibiting any of the following symptoms?: No Close contact with a COVID-19 positive Pt in past 14-21 Days: No - Vaccine Status Have you recieved a Covid-19 vaccination: No - Review of Systems Constitutional: No Symptoms, No Fever, No Chills Eyes: No Symptoms Ears, Nose, & Throat: No Symptoms Respiratory: No Symptoms, No Cough, No Dyspnea Cardiac: No Symptoms, No Chest Pain, No Edema, No Syncope Abdominal/Gastrointestinal: No Symptoms, No Abdominal Pain, No Nausea, No Vomiting, No Diarrhea Genitourinary Symptoms: No Symptoms, No Dysuria Musculoskeletal: No Symptoms, No Back Pain, No Neck Pain Skin: No Symptoms, No Rash Neurological: No Symptoms, No Dizziness, No Focal Weakness, No Sensory Changes Psychological: No Symptoms Endocrine: No Symptoms Hematologic/Lymphatic: No Symptoms Immunological/Allergic: No Symptoms All Other Systems: Reviewed and Negative - Past Medical History Pertinent Past Medical History: Yes Neurological History: Epilepsy ENT History: No Pertinent History Cardiac History: No Pertinent History Respiratory History: No Pertinent History Endocrine Medical History: No Pertinent History Musculoskeletal History: No Pertinent History GI Medical History: No Pertinent History History: No Pertinent History Psycho-Social History: No Pertinent History Female Reproductive Disorders: No Pertinent History Other Medical History: PATIENT REPORTS HX OF SCOLIOSIS. HX OF 2 C-SECTIONS, T&A. gall bladder removed 09/03/20 - Past Surgical History Past Surgical History: Yes Neuro Surgical History: No Pertinent History Cardiac: No Pertinent History Respiratory: No Pertinent History Gastrointestinal: Cholecystectomy Genitourinary: No Pertinent History Female Surgical History: Dilation & Curettage, Section Other Surgical History: tonsillectomy eardrum sugery. 3 sets of ear tubes. right ear tube hole did not close had surgery to close the hole. gall bladder removed 09/03/20 - Social History Smoking Status: Never smoker Exposure to second hand smoke: No Alcohol Use: Socially Drug Use: none Patient Lives Alone: No Significant Family History: no pertinent family hx - Female History Hx Last Menstrual Period: 02/18/2021 Hx Now: Yes (2 at home test+) - Nursing Vital Signs Nursing Vital Signs: Initial Vital Signs Temperature 98.6 F 04/10/21 14:17 Pulse Rate 107 H 04/10/21 14:17 Respiratory Rate 18 04/10/21 14:17 Blood Pressure 127/75 04/10/21 14:17 O2 Sat by Pulse Oximetry 98 04/10/21 14:17 Pain Scale Pain Intensity 3 - Physical Exam General Appearance: no apparent distress, alert Eye Exam: PERRL/EOMI, eyes nml inspection Ears, Nose, Throat Exam: normal ENT inspection, TMs normal, pharynx normal, moist mucous membranes Neck Exam: normal inspection, non-tender, supple, full range of motion Respiratory Exam: normal breath sounds, lungs clear, airway intact, No respiratory distress Cardiovascular Exam: regular rate/rhythm, normal heart sounds, normal peripheral pulses Gastrointestinal/Abdomen Exam: soft, normal bowel sounds, No tenderness, No mass Back Exam: normal inspection, normal range of motion, No CVA tenderness, No vertebral tenderness Extremity Exam: normal inspection, normal range of motion, pelvis stable Neurologic Exam: alert, oriented x 3, cooperative, normal mood/affect, sensation nml, No motor deficits Skin Exam: normal color, warm, dry, No rash Lymphatic Exam: No adenopathy SpO2 Interpretation: normal SpO2: 98 O2 Delivery: Room Air - Course Nursing assessment & vital signs reviewed: Yes Ordered Tests: Active Orders 24 hr Category Date Time Status HCG,QUALITATIVE URINE Stat Lab 04/10/21 14:52 Completed UA W/RFX UR CULTURE Stat Lab 04/10/21 14:52 Completed Lab/Rad Data: Laboratory Results 04/10/21 04/10/21 Range/Units 14:52 14:52 Urine Color YELLOW (YELLOW) Urine Appearance CLOUDY (CLEAR) Urine pH 5.0 (5-6) Ur Specific [place] 1.024 (1.005-1.025) Urine Protein NEGATIVE (Negative) Urine Ketones NEGATIVE (NEGATIVE) Urine Blood NEGATIVE (0-5) Jacob/ul Urine Nitrite NEGATIVE (NEGATIVE) Urine Bilirubin NEGATIVE (NEGATIVE) Urine Urobilinogen NEGATIVE (0-1) mg/dL Ur Leukocyte Esterase NEGATIVE (NEGATIVE) Urine WBC (Auto) 0-2 (0-5) /HPF Urine RBC (Auto) NONE (0-2) /HPF U Epithel Cells (Auto) MANY (FEW) /HPF Urine Bacteria (Auto) RARE (NEGATIVE) /HPF Urine Mucus (Auto) SLIGHT (NEGATIVE) /HPF Urine Culture Reflexed NO (NO) Urine Glucose NEGATIVE (NEGATIVE) mg/dL Urine HCG, Qual POSITIVE (Negative) - Progress Progress: improved Progress Note: Patient is a 26-year-old female M1 presents to our ED with urinary complaints. Patient will be treated for urinary tract infection. A prescription for Macrobid was provided to patient. Patient has no pelvic pain no vaginal discharge no indication for further work-up at this early . LMP was February 26 per patient. Patient voices no other complaints or concerns at this time. She will follow up with her primary care doctor within 48 hours for evaluation. Portions of this note were created with voice recognition technology. There may be grammatical, spelling, punctuation or sound alike errors 04/10/21 15:26 Counseled pt/family regarding: diagnosis, need for follow-up - Departure Departure Disposition: Home Clinical Impression: UTI (urinary tract infection), Condition: Stable Critical Care Time: No Referrals: RIGOBERTO GRAYSON MD [Primary Care Provider] - Follow up/PCP as directed Prescriptions: Nitrofurantoin Monohyd/M-Cryst [Macrobid 100 mg Capsule] 100 mg PO BID 7 Days #14
== END 2021-04-10 15:35 | disposition home or self-care (01) ==
LOC: ED 14:09
DX: O23.41 Unspecified infection of urinary tract in pregnancy, first trimester (principal); N39.0 Urinary tract infection, site not specified; Z3A.01 Less than 8 weeks gestation of pregnancy; R30.0 Dysuria; R35.0 Frequency of micturition
CPT/HCPCS: 81001; 84703; 99283

== ENCOUNTER 2021-04-20 19:39 | Emergency (ER) | payer OTHER ==
[2021-04-20] MEDS ORDERED: TYLENOL 325 MG PO ONE (20:13)
[2021-04-20] MEDS ORDERED: Sodium Chloride 0.9% 1000 ML 1,000 ML IV STA (20:13)
[2021-04-20] MEDS ORDERED: TYLENOL 325 MG ONE (20:37)
[2021-04-20] MEDS ORDERED: Sodium Chloride 0.9% 1000 ML 1,000 ML ONE (20:37)
[2021-04-20 20:49] LABS: Absolute Neutrophil Ct (ANC) 5.35 (1.4-6.9); Basophil (Absolute #) 0.02 (0-0.4); Eosinophil % 0.5 % (0.00-5.0); Eosinophil (Absolute #) 0.04 (0-0.5); Hematocrit 39.6 % (35-47); Hemoglobin 12.8 gm/dl (12.0-16.0); Lymphocyte (Absolute #) 2.34 (1.0-4.6); Lymphocytes % 27.8 % (24.0-44.0); Mean Cell Volume 93.8 fl (78-100); Mean Corpuscular Hemoglobin 30.3 pg (26-32); Mean Corpuscular Hgb Concent. 32.3 g/dl (32-36); Mean Platelet Volume 9.5 fl (7.5-11.0); Monocyte (Absolute #) 0.68 (0.0-1.3); Monocytes % 8.1 % (0.0-12.0); Neutrophil % 63.4 % (36.0-66.0); Platelet Count 260 K/mm3 (150-450); Red Blood Count 4.22 M/mm3 (4.1-5.4); Red Cell Distribution Width 11.8 % (11.5-14.0); White Blood Count 8.4 K/mm3 (4.0-10.5)
[2021-04-20 21:01] LABS: ALBUMIN 3.7 g/dL (3.5-5.0); ALKALINE PHOSPHATASE 81 U/L (38-126); ANION GAP 9.8 MEQ/L (5-15); BLOOD UREA NITROGEN 9 mg/dL (7-17); CHLORIDE 102 mmol/L (98-107); Calcium 9.2 mg/dL (8.4-10.2); Carbon Dioxide 28 mmol/L (22-30); Creatinine 1 0.59 mg/dL (0.52-1.04); EST GLOMERULAR FILTRATION RATE > 60.0 ML/MIN; Glucose 90 mg/dL (74-106); Potassium 3.7 mmol/L (3.5-5.1); SGOT/AST 21 U/L (14-36); SGPT/ALT 15 U/L (0-35); SODIUM 136 mmol/L (137-145)
[2021-04-20 21:05] VITALS: PULSE 76
[2021-04-20 21:43] LABS: Appearance CLEAR (CLEAR); Bilirubin NEGATIVE (NEGATIVE); Blood NEGATIVE Ery/ul (0-5); Glucose NEGATIVE (NEGATIVE); Ketones NEGATIVE (NEGATIVE); Leukocyte Esterase NEGATIVE (NEGATIVE); Nitrite NEGATIVE (NEGATIVE); Protein,Urine Dip NEGATIVE (Negative); Specific Gravity 1.002 (1.005-1.025); Urobilinogen NEGATIVE mg/dL (0-1)
[2021-04-20 21:46] LABS: Bacteria NONE SEEN /HPF (NEGATIVE); RBC NONE SEEN /HPF (0-2)
[2021-04-20 22:04] LABS: ABO TYPING O; Antibody Screen NEGATIVE (NEGATIVE); RH TYPING NEGATIVE
--- NOTE | 2021-04-20 22:24 | ERPHSYRPT ---
- History of Present Illness Time Seen by Provider: 04/20/21 19:40 Source: patient Exam Limitations: no limitations Patient Subjective Stated Complaint: "I started spotting today and I'm having some cramping." Triage Nursing Assessment: A1 estimated 8wk 2days gestation. Sees Dr. Grayson and has US scheduled for thursday04/23/20. She reported that she was moving a lot of "things" at home today when she noticed sharp cramping in the bilateral pel vis with spotting. No symptoms reported on 04/19/21. Denied any nausea, vomiting, diarrhea, constipation. Denied any recent injuries, illness, intercourse, or trauma. Symmetrical chest expansion. heart tones S1/S2 RRR. Lungs vesicular with adequate airflow. Peripheral pulses +3 bilateral. bowel olivia nds present in all quadrants. no palpable masses. Physician History: 26 years old 4 para 2 at almost 8 weeks gestation by LMP presented in the ER with chief complaint of vaginal spotting and pelvic cramping which started almost an hour prior to arrival. Patient reports she has been moving heavy objects at home. Mild to moderate cramping and spotting is already improved. Denies any nausea vomiting or diarrhea. Does have history of miscarriage at 8 weeks. Timing/Duration: today, resolved prior to arrival, sudden, improved Activites at Onset: physical activity Quality: cramping Onset Location: suprapubic, pelvic pain Pain Radiation: none Severity of Pain-Max: mild Severity of Pain-Current: mild Sexual intercourse history: non-contributory Modifying Factors: Improves With: nothing Associated Symptoms: , No vomiting, No dysuria, No urinary frequency, No vaginal discharge Allergies/Adverse Reactions: Penicillins Allergy (Mild, Verified 04/20/21 19:48) Rash THROAT SWELLS Sulfa (Sulfonamide Antibiotics) Allergy (Mild, Verified 04/20/21 19:48) Rash Home Medications: Pnv No.95/Ferrous Fum/Folic AC [ Vitamins Tablet] 1 tab PO DAILY 04/20/21 [History] Hx Tetanus, Diphtheria Vaccination/Date Given: Yes Hx Influenza Vaccination/Date Given: Yes Hx Pneumococcal Vaccination/Date Given: No Travel Risk - International Travel Have you traveled outside of the country in past 3 weeks: No - Coronavirus Screening Are you exhibiting any of the following symptoms?: No Close contact with a COVID-19 positive Pt in past 14-21 Days: No - Vaccine Status Have you recieved a Covid-19 vaccination: No - Review of Systems Constitutional: No Symptoms Eyes: No Symptoms Ears, Nose, & Throat: No Symptoms Respiratory: No Symptoms Cardiac: No Symptoms Abdominal/Gastrointestinal: No Symptoms Genitourinary Symptoms: Vaginal Bleeding Musculoskeletal: No Symptoms Skin: No Symptoms Neurological: No Symptoms Psychological: No Symptoms - Past Medical History Pertinent Past Medical History: Yes Neurological History: Epilepsy ENT History: No Pertinent History Cardiac History: No Pertinent History Respiratory History: No Pertinent History Endocrine Medical History: No Pertinent History Musculoskeletal History: No Pertinent History GI Medical History: No Pertinent History History: No Pertinent History Psycho-Social History: No Pertinent History Female Reproductive Disorders: No Pertinent History Other Medical History: PATIENT REPORTS HX OF SCOLIOSIS. HX OF 2 C-SECTIONS, T&A. gall bladder removed 09/03/20 - Past Surgical History Past Surgical History: Yes Neuro Surgical History: No Pertinent History Cardiac: No Pertinent History Respiratory: No Pertinent History Gastrointestinal: Cholecystectomy Genitourinary: No Pertinent History Female Surgical History: Dilation & Curettage, Section Other Surgical History: tonsillectomy eardrum sugery. 3 sets of ear tubes. ri ght ear tube hole did not close had surgery to close the hole. gall bladder removed 09/03/20 - Social History Smoking Status: Never smoker Exposure to second hand smoke: No Alcohol Use: Socially Drug Use: none Patient Lives Alone: No Significant Family History: no pertinent family hx - Female History Hx Last Menstrual Period: 02/19/21 Hx Now: Yes Gestational Age: 8 weeks - Nursing Vital Signs Nursing Vital Signs: Initial Vital Signs Pulse Rate 108 H 04/20/21 19:39 Respiratory Rate 16 04/20/21 19:39 Blood Pressure 134/84 04/20/21 19:39 O2 Sat by Pulse Oximetry 99 04/20/21 19:39 Pain Scale Pain Intensity 4 - Physical Exam General Appearance: no apparent distress, alert Eye Exam: PERRL/EOMI Ears, Nose, Throat Exam: normal ENT inspection, pharynx normal Neck Exam: normal inspection, supple, full range of motion Respiratory Exam: normal breath sounds, lungs clear Cardiovascular Exam: regular rate/rhythm, normal heart sounds Gastrointestinal/Abdomen Exam: soft, normal bowel sounds, No tenderness, No guarding Back Exam: normal inspection, No CVA tenderness Extremity Exam: normal inspection, normal range of motion, pelvis stable Neurologic Exam: alert, oriented x 3, cooperative Skin Exam: normal color SpO2 Interpretation: normal SpO2: 99 O2 Delivery: Room Air Ordered Tests: Active Orders 24 hr Category Date Time Status OB <14 WKS 1ST GESTATION [US] Stat Exams 04/20/21 20:14 Taken CBC W DIFF Stat Lab 04/20/21 20:47 Completed CMP Stat Lab 04/20/21 20:47 Completed HCG, Quantitative (Inhouse) Stat Lab 04/20/21 20:47 Completed UA W/RFX UR CULTURE Stat Lab 04/20/21 20:14 Completed Medication Summary Discontinued Medications Generic Name Dose Route Start Last Admin Trade Name Freq PRN Reason Stop Dose Admin Acetaminophen 650 mg 04/20/21 20:13 04/20/21 20:41 Acetaminophen 325 Mg Tablet PO 04/20/21 20:14 650 mg STAT ONE Administration Acetaminophen Confirm 04/20/21 20:37 Acetaminophen 325 Mg Tablet Administered 04/20/21 20:38 Dose 650 mg .ROUTE .STK-MED ONE Sodium Chloride 1,000 mls @ 999 mls/hr 04/20/21 20:13 04/20/21 20:39 Sodium Chloride 0.9% 1000 Ml IV 04/20/21 21:13 999 mls/hr .Q1H1M STA Administration Sodium Chloride Confirm 04/20/21 20:37 Sodium Chloride 0.9% 1000 Ml Administered 04/20/21 20:38 Dose 1,000 mls @ ud .ROUTE .STK-MED ONE Lab/Rad Data: Laboratory Result Diagrams 04/20/21 20:47 04/20/21 20:47 Laboratory Results 04/20/21 04/20/21 04/20/21 Range/Units 20:47 20:47 20:47 WBC (4.0-10.5) K/mm3 RBC (4.1-5.4) M/mm3 Hgb (12.0-16.0) gm/dl Hct (35-47) % MCV (78-100) fl MCH (26-32) pg MCHC (32-36) g/dl RDW (11.5-14.0) % Plt Count (150-450) K/mm3 MPV (7.5-11.0) fl Gran % (36.0-66.0) % Eos # (Auto) (0-0.5) Absolute Lymphs (auto) (1.0-4.6) Absolute Monos (auto) (0.0-1.3) Lymphocytes % (24.0-44.0) % Monocytes % (0.0-12.0) % Eosinophils % (0.00-5.0) % Basophils % (0.0-0.4) % Absolute Granulocytes (1.4-6.9) Basophils # (0-0.4) Sodium 136 L (137-145) mmol/L Potassium 3.7 (3.5-5.1) mmol/L Chloride 102 (98-107) mmol/L Carbon Dioxide 28 (22-30) mmol/L Anion Gap 9.8 (5-15) MEQ/L BUN 9 (7-17) mg/dL Creatinine 0.59 (0.52-1.04) mg/dL Estimated GFR > 60.0 ML/MIN Glucose 90 (74-106) mg/dL Calcium 9.2 (8.4-10.2) mg/dL Total Bilirubin 0.50 (0.2-1.3) mg/dL AST 21 (14-36) U/L ALT 15 (0-35) U/L Alkaline Phosphatase 81 (38-126) U/L Serum Total Protein 6.0 L (6.3-8.2) g/dL Albumin 3.7 (3.5-5.0) g/dL Beta HCG, Quant 31216 mIU/ml Urine Color (YELLOW) Urine Appearance (CLEAR) Urine pH (5-6) Ur Specific [place] (1.005-1.025) Urine Protein (Negative) Urine Ketones (NEGATIVE) Urine Blood (0-5) Jacob/ul Urine Nitrite (NEGATIVE) Urine Bilirubin (NEGATIVE) Urine Urobilinogen (0-1) mg/dL Ur Leukocyte Esterase (NEGATIVE) Urine WBC (Auto) (0-5) /HPF Urine RBC (Auto) (0-2) /HPF U Epithel Cells (Auto) (FEW) /HPF Urine Bacteria (Auto) (NEGATIVE) /HPF Urine Culture Reflexed (NO) Urine Glucose (NEGATIVE) mg/dL ABO Group O Rh Factor NEGATIVE Antibody Screen NEGATIVE (NEGATIVE) 04/20/21 04/20/21 Range/Units 20:47 20:14 WBC 8.4 (4.0-10.5) K/mm3 RBC 4.22 (4.1-5.4) M/mm3 Hgb 12.8 (12.0-16.0) gm/dl Hct 39.6 (35-47) % MCV 93.8 (78-100) fl MCH 30.3 (26-32) pg MCHC 32.3 (32-36) g/dl RDW 11.8 (11.5-14.0) % Plt Count 260 (150-450) K/mm3 MPV 9.5 (7.5-11.0) fl Gran % 63.4 (36.0-66.0) % Eos # (Auto) 0.04 (0-0.5) Absolute Lymphs (auto) 2.34 (1.0-4.6) Absolute Monos (auto) 0.68 (0.0-1.3) Lymphocytes % 27.8 (24.0-44.0) % Monocytes % 8.1 (0.0-12.0) % Eosinophils % 0.5 (0.00-5.0) % Basophils % 0.2 (0.0-0.4) % Absolute Granulocytes 5.35 (1.4-6.9) Basophils # 0.02 (0-0.4) Sodium (137-145) mmol/L Potassium (3.5-5.1) mmol/L Chloride (98-107) mmol/L Carbon Dioxide (22-30) mmol/L Anion Gap (5-15) MEQ/L BUN (7-17) mg/dL Creatinine (0.52-1.04) mg/dL Estimated GFR ML/MIN Glucose (74-106) mg/dL Calcium (8.4-10.2) mg/dL Total Bilirubin (0.2-1.3) mg/dL AST (14-36) U/L ALT (0-35) U/L Alkaline Phosphatase (38-126) U/L Serum Total Protein (6.3-8.2) g/dL Albumin (3.5-5.0) g/dL Beta HCG, Quant mIU/ml Urine Color COLORLESS (YELLOW) Urine Appearance CLEAR (CLEAR) Urine pH 6.0 (5-6) Ur Specific [place] 1.002 (1.005-1.025) Urine Protein NEGATIVE (Negative) Urine Ketones NEGATIVE (NEGATIVE) Urine Blood NEGATIVE (0-5) Jacob/ul Urine Nitrite NEGATIVE (NEGATIVE) Urine Bilirubin NEGATIVE (NEGATIVE) Urine Urobilinogen NEGATIVE (0-1) mg/dL Ur Leukocyte Esterase NEGATIVE (NEGATIVE) Urine WBC (Auto) NONE (0-5) /HPF Urine RBC (Auto) NONE SEEN (0-2) /HPF U Epithel Cells (Auto) NONE (FEW) /HPF Urine Bacteria (Auto) NONE SEEN (NEGATIVE) /HPF Urine Culture Reflexed NO (NO) Urine Glucose NEGATIVE (NEGATIVE) mg/dL ABO Group Rh Factor Antibody Screen (NEGATIVE) - Progress Progress Note: 04/20/21 22:21 26 years old is evaluated for spotting in early with some cramping. Patient did not have ultrasound done in the past. She is given fluid bolus and Tylenol, on reevaluation feeling much better and no cramping. She has no UTI. Ultrasound shows single IUP with a heart tone of 112 per preliminary report and beta-hCG in 17,000's. Patient has a blood group O-, recommended RhoGam which she refused, patient says "I will talk to my primary OB as I never received it in the past". Patient is consult but she still refusing. According to up-to-date the risk is low with small spotting but not totally 0. She is advised to talk to her OB Thursday morning. Recommended pelvic rest, increase hydration and outpatient follow-up. 04/20/21 22:23 Counseled pt/family regarding: lab results, diagnosis, need for follow-up, rad results - Departure Departure Disposition: Home Clinical Impression: Vaginal bleeding in Condition: Stable Critical Care Time: No Referrals: RIGOBERTO GRAYSON MD [Primary Care Provider] - Follow up/PCP as directed (In 2 days for reevaluation) Instructions: Threatened Miscarriage (DC), Bleeding With (DC) Additional Instructions: Drink plenty of fluids to keep yourself well-hydrated. Pelvic rest. Avoid exertional activities. Take Tylenol as needed. Follow-up with your OB for reevaluation on Thursday to discuss about spotting and also about receiving RhoGam shot because of you being O- blood group. Return to ER for worsening abdominal cramping, vaginal bleeding etc.
[2021-04-20 22:42] VITALS: BP 108/59; O2SAT 97
--- NOTE | 2021-04-21 08:38 | XRAY ---
Indication: Cramping. Two-dimensional early OB ultrasound performed. Comparison: None for this . There is a single intrauterine gestational sac with presence of a single pole. Mean crown-rump length is 0.34 cm corresponding to 6 weeks 0 days. heart rate 112 bpm. No subchorionic hemorrhage. Left and right ovaries are sonographically unremarkable. No suspicious adnexal mass or free fluid. Impression: Single viable intrauterine measuring 6 weeks 0 days. Expected date of confinement is December 14, 2021. No acute findings. Comment: Preliminary report was given.
== END 2021-04-20 22:43 | disposition home or self-care (01) ==
LOC: ED 19:39
DX: O26.851 Spotting complicating pregnancy, first trimester (principal); Z3A.01 Less than 8 weeks gestation of pregnancy; R25.2 Cramp and spasm
CPT/HCPCS: 36000; 36415; 76801; 80053; 81001; 84702; 85025; 86850; 86900; 86901; 99284; A9270-GY

== ENCOUNTER 2021-05-12 12:26 | Emergency (ER) | payer OTHER ==
[2021-05-12 12:33] VITALS: BP 109/86; PULSE 100; O2SAT 98
[2021-05-12 13:18] LABS: Appearance SLIGHTLY CLOUDY (CLEAR); Bilirubin NEGATIVE (NEGATIVE); Blood NEGATIVE Ery/ul (0-5); Epithelial Cells FEW /HPF (FEW); Glucose NEGATIVE (NEGATIVE); Ketones NEGATIVE (NEGATIVE); Leukocyte Esterase NEGATIVE (NEGATIVE); Mucus SLIGHT /HPF (NEGATIVE); Nitrite NEGATIVE (NEGATIVE); Protein,Urine Dip NEGATIVE (Negative); Urobilinogen NEGATIVE mg/dL (0-1)
[2021-05-12 13:39] LABS: INFLUENZA A NEGATIVE (NEGATIVE); INFLUENZA B NEGATIVE (NEGATIVE)
[2021-05-12 13:40] LABS: COVID AG -BINAX NOW RAPID TEST NEGATIVE (NEGATIVE)
--- NOTE | 2021-05-12 13:46 | ERPHSYRPT ---
- History of Present Illness Time Seen by Provider: 05/12/21 12:35 Source: patient Exam Limitations: no limitations Patient Subjective Stated Complaint: pt here for cough and sob that started yesterday Triage Nursing Assessment: pt alert, resp easy, skin w/d/p, face mask in place, no cough Physician History: Patient is a 26-year-old 4 para 2 AB 1 white female at 9 weeks gestation presents with a sudden onset last night of cough and shortness of breath. She has a daughter 1-1/2 years old who has been diagnosed with pneumonia. And she also complains of burning with urination. Timing/Duration: yesterday Cough Quality/Degree: dry cough Possible Cause: occasional episodes Modifying Factors: Improves With: coughing Associated Symptoms: shortness of breath Allergies/Adverse Reactions: Penicillins Allergy (Mild, Verified 04/20/21 19:48) Rash THROAT SWELLS Sulfa (Sulfonamide Antibiotics) Allergy (Mild, Verified 04/20/21 19:48) Rash Home Medications: Pnv No.95/Ferrous Fum/Folic AC [ Vitamins Tablet] 1 tab PO DAILY 04/20/21 [History] Hx Tetanus, Diphtheria Vaccination/Date Given: Yes Hx Influenza Vaccination/Date Given: No Hx Pneumococcal Vaccination/Date Given: No Immunizations Up to Date: Yes Travel Risk - International Travel Have you traveled outside of the country in past 3 weeks: No (N) If Yes, where;: N - Coronavirus Screening Close contact with a COVID-19 positive Pt in past 14-21 Days: No - Vaccine Status Have you recieved a Covid-19 vaccination: No - Review of Systems Constitutional: No Fever, No Chills Eyes: No Symptoms Ears, Nose, & Throat: Nose Congestion, Nose Discharge Respiratory: Cough, Dyspnea Cardiac: No Chest Pain, No Edema, No Syncope Abdominal/Gastrointestinal: No Abdominal Pain, No Nausea, No Vomiting, No Diarrhea Genitourinary Symptoms: Dysuria, Frequency, Urgency Musculoskeletal: No Back Pain, No Neck Pain Skin: No Rash Neurological: No Dizziness, No Focal Weakness, No Sensory Changes Psychological: No Symptoms Endocrine: No Symptoms All Other Systems: Reviewed and Negative - Past Medical History Pertinent Past Medical History: Yes Neurological History: Epilepsy ENT History: No Pertinent History Cardiac History: No Pertinent History Respiratory History: No Pertinent History Endocrine Medical History: No Pertinent History Musculoskeletal History: No Pertinent History GI Medical History: No Pertinent History History: No Pertinent History Psycho-Social History: No Pertinent History Female Reproductive Disorders: No Pertinent History Other Medical History: PATIENT REPORTS HX OF SCOLIOSIS. HX OF 2 C-SECTIONS, T&A. gall bladder removed 09/03/20 - Past Surgical History Past Surgical History: Yes Neuro Surgical History: No Pertinent History Cardiac: No Pertinent History Respiratory: No Pertinent History Gastrointestinal: Cholecystectomy Genitourinary: No Pertinent History Female Surgical History: Dilation & Curettage, Section Other Surgical History: tonsillectomy eardrum sugery. 3 sets of ear tubes. right ear tube hole did not close had surgery to close the hole. gall bladder removed 09/03/20 - Social History Smoking Status: Never smoker Exposure to second hand smoke: No Alcohol Use: Socially Drug Use: none Patient Lives Alone: No Significant Family History: no pertinent family hx - Female History Hx Last Menstrual Period: 02/18/2021 Hx Now: Yes Expected Date of Delivery: 12/14/21 - Nursing Vital Signs Nursing Vital Signs: Initial Vital Signs Temperature 98.4 F 05/12/21 12:27 Pulse Rate 100 H 05/12/21 12:27 Respiratory Rate 18 05/12/21 12:27 Blood Pressure 109/86 05/12/21 12:27 O2 Sat by Pulse Oximetry 98 05/12/21 12:27 Pain Scale Pain Intensity 7 - Physical Exam General Appearance: mild distress, alert Eye Exam: PERRL/EOMI, eyes nml inspection Ears, Nose, Throat Exam: normal ENT inspection, TMs normal, pharynx normal, moist mucous membranes Neck Exam: normal inspection, non-tender, supple, full range of motion Respiratory Exam: normal breath sounds, lungs clear, No respiratory distress Cardiovascular Exam: regular rate/rhythm, normal heart sounds Gastrointestinal/Abdomen Exam: soft, No tenderness Back Exam: normal inspection, No CVA tenderness, No vertebral tenderness Extremity Exam: normal inspection, normal range of motion Neurologic Exam: alert, oriented x 3, cooperative, normal mood/affect, sensation nml, No motor deficits Skin Exam: normal color, warm, dry, No rash Lymphatic Exam: No adenopathy SpO2 Interpretation: normal SpO2: 98 O2 Delivery: Room Air - Course Nursing assessment & vital signs reviewed: Yes Ordered Tests: Active Orders 24 hr Category Date Time Status COVID AG-BINAX NOW RAPID TEST Stat Lab 05/12/21 13:15 Completed INFLUENZA A+B LEONARDO Stat Lab 05/12/21 13:15 Completed UA W/RFX UR CULTURE Stat Lab 05/12/21 12:58 Completed Lab/Rad Data: Laboratory Results 05/12/21 05/12/21 05/12/21 Range/Units 13:15 13:15 12:58 Urine Color YELLOW (YELLOW) Urine Appearance SLIGHTLY CLOUDY (CLEAR) Urine pH 6.0 (5-6) Ur Specific [place] 1.010 (1.005-1.025) Urine Protein NEGATIVE (Negative) Urine Ketones NEGATIVE (NEGATIVE) Urine Blood NEGATIVE (0-5) Jacob/ul Urine Nitrite NEGATIVE (NEGATIVE) Urine Bilirubin NEGATIVE (NEGATIVE) Urine Urobilinogen NEGATIVE (0-1) mg/dL Ur Leukocyte Esterase NEGATIVE (NEGATIVE) Urine WBC (Auto) NONE (0-5) /HPF Urine RBC (Auto) NONE (0-2) /HPF U Epithel Cells (Auto) FEW (FEW) /HPF Urine Bacteria (Auto) NONE (NEGATIVE) /HPF Urine Mucus (Auto) SLIGHT (NEGATIVE) /HPF Urine Culture Reflexed NO (NO) Urine Glucose NEGATIVE (NEGATIVE) mg/dL Influenza Type A Ag NEGATIVE (NEGATIVE) Influenza Type B Ag NEGATIVE (NEGATIVE) SARS-CoV-2 Ag (Rapid) NEGATIVE (NEGATIVE) - Progress Progress: unchanged Air Movement: good Blood Culture(s) Obtained: No Antibiotics given: Yes - Departure Departure Disposition: Home Clinical Impression: Bronchitis, , Dysuria Condition: Stable Critical Care Time: No Referrals: RIGOBERTO GRAYSON MD [Primary Care Provider] - Follow up/PCP as directed Instructions: Acute Bronchitis, Adult (DC) Prescriptions: Cephalexin Mh 500 mg [Keflex 500 mg] 500 mg PO TID #21 cap
== END 2021-05-12 13:54 | disposition home or self-care (01) ==
LOC: ED 12:26
DX: O99.511 Diseases of the respiratory system complicating pregnancy, first trimester (principal); J20.9 Acute bronchitis, unspecified; Z3A.09 9 weeks gestation of pregnancy; R30.0 Dysuria; R06.02 Shortness of breath
CPT/HCPCS: 81001; 87400; 99000; 99283

== ENCOUNTER 2021-06-06 17:13 | Emergency (ER) | payer OTHER ==
[2021-06-06 17:40] VITALS: O2SAT 99
[2021-06-06] MEDS ORDERED: Sodium Chloride 0.9% 1000 ML 1,000 ML IV STA (18:10)
[2021-06-06] MEDS ORDERED: TYLENOL 325 MG PO ONE (18:10)
[2021-06-06] MEDS ORDERED: TYLENOL 325 MG ONE (18:36)
[2021-06-06 18:39] LABS: Basophil (Absolute #) 0.03 (0-0.4); Eosinophil % 0.2 % (0.00-5.0); Eosinophil (Absolute #) 0.03 (0-0.5); Hematocrit 41.1 % (35-47); Hemoglobin 13.9 gm/dl (12.0-16.0); Lymphocyte (Absolute #) 2.29 (1.0-4.6); Lymphocytes % 17.5 % (24.0-44.0); Mean Corpuscular Hemoglobin 31.4 pg (26-32); Mean Corpuscular Hgb Concent. 33.8 g/dl (32-36); Mean Platelet Volume 9.9 fl (7.5-11.0); Monocyte (Absolute #) 0.54 (0.0-1.3); Monocytes % 4.1 % (0.0-12.0); Platelet Count 237 K/mm3 (150-450); Red Blood Count 4.42 M/mm3 (4.1-5.4); Red Cell Distribution Width 12.7 % (11.5-14.0); White Blood Count 13.1 K/mm3 (4.0-10.5)
[2021-06-06 19:09] LABS: ALBUMIN 3.8 g/dL (3.5-5.0); ALKALINE PHOSPHATASE 74 U/L (38-126); ANION GAP 12.5 MEQ/L (5-15); BLOOD UREA NITROGEN 4 mg/dL (7-17); CHLORIDE 105 mmol/L (98-107); Calcium 9.2 mg/dL (8.4-10.2); Carbon Dioxide 24 mmol/L (22-30); Creatinine 1 0.53 mg/dL (0.52-1.04); EST GLOMERULAR FILTRATION RATE > 60.0 ML/MIN; Glucose 94 mg/dL (74-106); Potassium 4.2 mmol/L (3.5-5.1); SGOT/AST 19 U/L (14-36); SGPT/ALT 10 U/L (0-35); SODIUM 136 mmol/L (137-145); Total Protein 6.5 g/dL (6.3-8.2)
--- NOTE | 2021-06-06 19:17 | ERPHSYRPT ---
- History of Present Illness Time Seen by Provider: 06/06/21 17:34 Source: patient Exam Limitations: no limitations Patient Subjective Stated Complaint: Pt slipped on one of her kids toys and landed on her belly and she's 12 weeks and she has been having pain since Triage Nursing Assessment: Pt was brought to the ER by her boyfriends mom, asha cason, rates pain as 8/10, laying comfortably in bed and does not appear to be in any distress, pulses normal, while trying to listen to FHT pt did not complain about pushing on her abdomen and did not appear to be in any pain, pt denies any bleeding Physician History: 26 years old 4 para 2 at almost 12 weeks gestation presented in the ER after she tripped on her son's toy and fell on her belly earlier today and is complaining of dull aching pain mild to moderate in the lower abdomen without any significant aggravating or relieving factors. Denies any vaginal bleeding or discharge. No urinary complaints. No injury anywhere else. Timing/Duration: today, sudden Severity: moderate Associated Symptoms: abdominal pain Allergies/Adverse Reactions: Penicillins Allergy (Mild, Verified 06/06/21 17:41) Rash THROAT SWELLS Sulfa (Sulfonamide Antibiotics) Allergy (Mild, Verified 06/06/21 17:41) Rash Home Medications: Pnv No.95/Ferrous Fum/Folic AC [ Vitamins Tablet] 1 tab PO DAILY 04/20/21 [History] Hx Tetanus, Diphtheria Vaccination/Date Given: Yes Hx Influenza Vaccination/Date Given: No Hx Pneumococcal Vaccination/Date Given: No Travel Risk - International Travel Have you traveled outside of the country in past 3 weeks: No - Coronavirus Screening Are you exhibiting any of the following symptoms?: No Close contact with a COVID-19 positive Pt in past 14-21 Days: No - Vaccine Status Have you recieved a Covid-19 vaccination: No - Review of Systems Constitutional: No Symptoms Eyes: No Symptoms Ears, Nose, & Throat: No Symptoms Respiratory: No Symptoms Cardiac: No Symptoms Abdominal/Gastrointestinal: Abdominal Pain Genitourinary Symptoms: No Symptoms Musculoskeletal: No Symptoms Skin: No Symptoms Neurological: No Symptoms Endocrine: No Symptoms Hematologic/Lymphatic: No Symptoms Immunological/Allergic: No Symptoms - Past Medical History Pertinent Past Medical History: Yes Neurological History: Epilepsy ENT History: No Pertinent History Cardiac History: No Pertinent History Respiratory History: No Pertinent History Endocrine Medical History: No Pertinent History Musculoskeletal History: No Pertinent History GI Medical History: No Pertinent History History: No Pertinent History Psycho-Social History: No Pertinent History Female Reproductive Disorders: No Pertinent History Other Medical History: PATIENT REPORTS HX OF SCOLIOSIS. HX OF 2 C-SECTIONS, T&A. gall bladder removed 09/03/20 - Past Surgical History Past Surgical History: Yes Neuro Surgical History: No Pertinent History Cardiac: No Pertinent History Respiratory: No Pertinent History Gastrointestinal: Cholecystectomy Genitourinary: No Pertinent History Female Surgical History: Dilation & Curettage, Section Other Surgical History: tonsillectomy eardrum sugery. 3 sets of ear tubes. right ear tube hole did not close had surgery to close the hole. gall bladder removed 09/03/20 - Social History Smoking Status: Never smoker Exposure to second hand smoke: No Alcohol Use: Socially Drug Use: none Patient Lives Alone: No Significant Family History: no pertinent family hx - Female History Hx Now: Yes Expected Date of Delivery: 12/14/21 - Nursing Vital Signs Nursing Vital Signs: Initial Vital Signs Temperature 98.8 F 06/06/21 17:21 Pulse Rate 99 H 06/06/21 17:21 Blood Pressure 106/75 06/06/21 17:21 O2 Sat by Pulse Oximetry 99 06/06/21 17:21 Pain Scale Pain Intensity 4 - Physical Exam General Appearance: no apparent distress, alert Eye Exam: PERRL/EOMI Ears, Nose, Throat Exam: normal ENT inspection, pharynx normal Neck Exam: normal inspection, supple, full range of motion Respiratory Exam: normal breath sounds, lungs clear Cardiovascular Exam: regular rate/rhythm, normal heart sounds Gastrointestinal/Abdomen Exam: soft, normal bowel sounds, No tenderness Back Exam: normal inspection, normal range of motion Extremity Exam: normal inspection, normal range of motion Neurologic Exam: alert, oriented x 3, cooperative Skin Exam: normal color SpO2 Interpretation: normal SpO2: 99 O2 Delivery: Room Air Ordered Tests: Active Orders 24 hr Category Date Time Status IV Insertion STAT Care 06/06/21 18:10 Active OB FOLLOW UP PER FETUS [US] Stat Exams 06/06/21 18:10 Taken CBC W DIFF Stat Lab 06/06/21 18:35 Completed CMP Stat Lab 06/06/21 18:30 Completed UA W/RFX UR CULTURE Stat Lab 06/06/21 20:14 Completed Medication Summary Discontinued Medications Generic Name Dose Route Start Last Admin Trade Name Garrett PRN Reason Stop Dose Admin Acetaminophen 975 mg 06/06/21 18:10 06/06/21 18:39 Acetaminophen 325 Mg Tablet PO 06/06/21 18:11 975 mg STAT ONE Administration Acetaminophen Confirm 06/06/21 18:36 Acetaminophen 325 Mg Tablet Administered 06/06/21 18:37 Dose 975 mg .ROUTE .STK-MED ONE Sodium Chloride 1,000 mls @ 999 mls/hr 06/06/21 18:10 06/06/21 18:44 Sodium Chloride 0.9% 1000 Ml IV 06/06/21 19:10 Not Given .Q1H1M STA Lab/Rad Data: Laboratory Result Diagrams 06/06/21 18:35 06/06/21 18:30 Laboratory Results 06/06/21 06/06/21 06/06/21 Range/Units 20:14 18:35 18:30 WBC 13.1 H (4.0-10.5) K/mm3 RBC 4.42 (4.1-5.4) M/mm3 Hgb 13.9 (12.0-16.0) gm/dl Hct 41.1 (35-47) % MCV 93.0 (78-100) fl MCH 31.4 (26-32) pg MCHC 33.8 (32-36) g/dl RDW 12.7 (11.5-14.0) % Plt Count 237 (150-450) K/mm3 MPV 9.9 (7.5-11.0) fl Gran % 78.0 H (36.0-66.0) % Eos # (Auto) 0.03 (0-0.5) Absolute Lymphs (auto) 2.29 (1.0-4.6) Absolute Monos (auto) 0.54 (0.0-1.3) Lymphocytes % 17.5 L (24.0-44.0) % Monocytes % 4.1 (0.0-12.0) % Eosinophils % 0.2 (0.00-5.0) % Basophils % 0.2 (0.0-0.4) % Absolute Granulocytes 10.20 H (1.4-6.9) Basophils # 0.03 (0-0.4) Sodium 136 L (137-145) mmol/L Potassium 4.2 (3.5-5.1) mmol/L Chloride 105 (98-107) mmol/L Carbon Dioxide 24 (22-30) mmol/L Anion Gap 12.5 (5-15) MEQ/L BUN 4 L (7-17) mg/dL Creatinine 0.53 (0.52-1.04) mg/dL Estimated GFR > 60.0 ML/MIN Glucose 94 (74-106) mg/dL Calcium 9.2 (8.4-10.2) mg/dL Total Bilirubin 0.40 (0.2-1.3) mg/dL AST 19 (14-36) U/L ALT 10 (0-35) U/L Alkaline Phosphatase 74 (38-126) U/L Serum Total Protein 6.5 (6.3-8.2) g/dL Albumin 3.8 (3.5-5.0) g/dL Urine Color YELLOW (YELLOW) Urine Appearance SLIGHTLY CLOUDY (CLEAR) Urine pH 6.0 (5-6) Ur Specific [place] 1.016 (1.005-1.025) Urine Protein NEGATIVE (Negative) Urine Ketones SMALL (NEGATIVE) Urine Blood NEGATIVE (0-5) Jacob/ul Urine Nitrite NEGATIVE (NEGATIVE) Urine Bilirubin NEGATIVE (NEGATIVE) Urine Urobilinogen NEGATIVE (0-1) mg/dL Ur Leukocyte Esterase NEGATIVE (NEGATIVE) Urine WBC (Auto) 3-5 (0-5) /HPF Urine RBC (Auto) NONE (0-2) /HPF U Epithel Cells (Auto) RARE (FEW) /HPF Urine Bacteria (Auto) RARE (NEGATIVE) /HPF Urine Mucus (Auto) SLIGHT (NEGATIVE) /HPF Urine Culture Reflexed NO (NO) Urine Glucose NEGATIVE (NEGATIVE) mg/dL - Progress Progress: improved Progress Note: Given Tylenol for symptomatic relief and feeling much better on reevaluation. Ultrasound showed heart tone in 150s and no acute findings per preliminary report, official report is pending. Recommended outpatient follow-up, increase hydration and Tylenol as needed. Discussed signs symptoms of worsening needing return to ER which he seems understanding. Stable for discharge. 06/06/21 20:58 Counseled pt/family regarding: lab results, diagnosis, need for follow-up, rad results - Departure Departure Disposition: Home Clinical Impression: Abdominal pain affecting , Fall Condition: Stable Critical Care Time: No Referrals: RIGOEBRTO GRAYSON MD [Primary Care Provider] - Follow up/PCP as directed (Call tomorrow for reevaluation) Instructions: Stomach Pain in Early Additional Instructions: Drink plenty of fluids. Take Tylenol as needed for aches and pains. Follow-up with primary OB for reevaluation in 1 to 2 days. Return to ER for worsening abdominal pain or if having vaginal bleeding or discharge.
[2021-06-06 20:15] VITALS: BP 98/66; PULSE 91
[2021-06-06 20:52] LABS: Appearance SLIGHTLY CLOUDY (CLEAR); Bacteria RARE /HPF (NEGATIVE); Bilirubin NEGATIVE (NEGATIVE); Blood NEGATIVE Ery/ul (0-5); Epithelial Cells RARE /HPF (FEW); Glucose NEGATIVE (NEGATIVE); Ketones SMALL (NEGATIVE); Leukocyte Esterase NEGATIVE (NEGATIVE); Mucus SLIGHT /HPF (NEGATIVE); Nitrite NEGATIVE (NEGATIVE); Protein,Urine Dip NEGATIVE (Negative); Specific Gravity 1.016 (1.005-1.025); Urobilinogen NEGATIVE mg/dL (0-1)
--- NOTE | 2021-06-07 08:47 | XRAY ---
Indication: Pain following tripping injury. Limited early OB ultrasound performed. Comparison: April 23, 2021. Again single viable intrauterine with heart rate 154 BPM. No abnormal retroplacental fluid/hemorrhage. Comment: Preliminary report was given.
== END 2021-06-06 21:07 | disposition home or self-care (01) ==
LOC: ED 17:13
DX: O26.891 Other specified pregnancy related conditions, first trimester (principal); Z3A.11 11 weeks gestation of pregnancy; R10.30 Lower abdominal pain, unspecified; W18.31XA Fall on same level due to stepping on an object, initial encounter
CPT/HCPCS: 36415; 76816; 80053; 81001; 85025; 99284; A9270-GY

== ENCOUNTER 2021-06-08 14:29 | Emergency (ER) | payer OTHER ==
[2021-06-08] MEDS ORDERED: Reglan 10 MG/2 ML IV ONE (14:43)
[2021-06-08] MEDS ORDERED: BENADRYL 50 MG/ML IV ONE (14:43)
[2021-06-08] MEDS ORDERED: Sodium Chloride 0.9% 1000 ML 1,000 ML IV STA (14:43)
[2021-06-08] MEDS ORDERED: TYLENOL 325 MG PO ONE (14:43)
[2021-06-08] MEDS ORDERED: Reglan 10 MG/2 ML ONE (14:48)
[2021-06-08] MEDS ORDERED: TYLENOL 325 MG ONE (14:48)
[2021-06-08] MEDS ORDERED: Sodium Chloride 0.9% 1000 ML 1,000 ML ONE (14:48)
[2021-06-08] MEDS ORDERED: BENADRYL 50 MG/ML ONE (14:48)
--- NOTE | 2021-06-08 14:49 | ERPHSYRPT ---
- History of Present Illness Time Seen by Provider: 06/08/21 14:45 Source: patient Exam Limitations: no limitations Patient Subjective Stated Complaint: headache since Thursday Triage Nursing Assessment: . Physician History: Patient is a 26-year-old 4 para 2 AB 1 at 13 weeks gestation. She was seen 2 days ago in the ER after a fall and was found to have a normal intrauterine by ultrasound with heart tones of 154. She presents today with a complaint of headache the onset of which is a little u ncertain whether it was [employer] Thursday or whether it was 2 days ago. She has a history of seizures but has never had a seizure or any treatment of seizures as an adult. Timing/Duration: day(s) (2) Quality: aching Head Pain Location: global Severity of Pain-Max: moderate Severity of Pain-Current: moderate Recent Head Trauma: chronic headaches Modifying Factors: Improves With: exposure to light, noise Associated Symptoms: nausea/vomiting, sensitive to light, vision changes Previous symptoms: same symptoms as today Allergies/Adverse Reactions: Penicillins Allergy (Mild, Verified 06/08/21 14:43) Rash THROAT SWELLS Sulfa (Sulfonamide Antibiotics) Allergy (Mild, Verified 06/08/21 14:43) Rash Home Medications: Pnv No.95/Ferrous Fum/Folic AC [ Vitamins Tablet] 1 tab PO DAILY 04/20/21 [History] Hx Tetanus, Diphtheria Vaccination/Date Given: Yes Hx Influenza Vaccination/Date Given: No Hx Pneumococcal Vaccination/Date Given: No Travel Risk - International Travel Have you traveled outside of the country in past 3 weeks: No - Coronavirus Screening Are you exhibiting any of the following symptoms?: No - Vaccine Status Have you recieved a Covid-19 vaccination: No - Review of Systems Constitutional: No Fever, No Chills Eyes: No Symptoms Ears, Nose, & Throat: No Symptoms Respiratory: No Cough, No Dyspnea Cardiac: No Chest Pain, No Edema, No Syncope Abdominal/Gastrointestinal: No Abdominal Pain, No Nausea, No Vomiting, No Diarrhea Genitourinary Symptoms: No Dysuria Musculoskeletal: No Back Pain, No Neck Pain Skin: No Rash Neurological: Headache, No Dizziness, No Focal Weakness, No Sensory Changes Psychological: No Symptoms Endocrine: No Symptoms All Other Systems: Reviewed and Negative - Past Medical History Pertinent Past Medical History: Yes Neurological History: Epilepsy ENT History: No Pertinent History Cardiac History: No Pertinent History Respiratory History: No Pertinent History Endocrine Medical History: No Pertinent History Musculoskeletal History: No Pertinent History GI Medical History: No Pertinent History History: No Pertinent History Psycho-Social History: No Pertinent History Female Reproductive Disorders: No Pertinent History Other Medical History: PATIENT REPORTS HX OF SCOLIOSIS. HX OF 2 C-SECTIONS, T&A. gall bladder removed 09/03/20 - Past Surgical History Past Surgical History: Yes Neuro Surgical History: No Pertinent History Cardiac: No Pertinent History Respiratory: No Pertinent History Gastrointestinal: Cholecystectomy Genitourinary: No Pertinent History Female Surgical History: Dilation & Curettage, Section Other Surgical History: tonsillectomy eardrum sugery. 3 sets of ear tubes. right ear tube hole did not close had surgery to close the hole. gall bladder removed 09/03/20 - Social History Smoking Status: Never smoker Exposure to second hand smoke: No Alcohol Use: Socially Drug Use: none Patient Lives Alone: No Significant Family History: no pertinent family hx - Female History Hx Now: Yes (13 weeks) Expected Date of Delivery: 12/14/21 - Nursing Vital Signs Nursing Vital Signs: Initial Vital Signs Temperature 98.7 F 06/08/21 14:35 Pulse Rate 105 H 06/08/21 14:35 Respiratory Rate 18 06/08/21 14:35 Blood Pressure 110/82 06/08/21 14:35 O2 Sat by Pulse Oximetry 97 06/08/21 14:35 Pain Scale Pain Intensity 6 - Physical Exam General Appearance: no apparent distress Eye Exam: PERRL/EOMI Ears, Nose, Throat Exam: normal ENT inspection, moist mucous membranes Neck Exam: normal inspection, supple, full range of motion, No meningismus Respiratory Exam: normal breath sounds, lungs clear Cardiovascular Exam: regular rate/rhythm, normal heart sounds Gastrointestinal/Abdominal Exam: soft, other (fht 154), No tenderness, No distention Back Exam: normal inspection, normal range of motion Extremity Exam: normal inspection, normal range of motion Mental Status Exam: alert, oriented x 3, cooperative lime trimmer Exam: normal speech, PERRL, No facial droop Coordination/Gait Exam: normal cerebellar function Motor/Sensory Exam: no motor deficit, no sensory deficit Skin Exam: normal color, warm, dry, No rash SpO2 Interpretation: normal SpO2: 97 O2 Delivery: Room Air - Course Nursing assessment & vital signs reviewed: Yes Ordered Tests: Active Orders 24 hr Category Date Time Status Heart Tones-ED STAT Care 06/08/21 14:45 Active IV Insertion STAT Care 06/08/21 14:45 Active CBC W DIFF Stat Lab 06/08/21 14:40 Received CMP Stat Lab 06/08/21 14:40 Received COVID AG-BINAX NOW RAPID TEST Stat Lab 06/08/21 14:57 Received Lactic Acid Urgent Lab 06/08/21 14:43 Completed UA W/RFX UR CULTURE Stat Lab 06/08/21 14:43 Ordered Medication Summary Discontinued Medications Generic Name Dose Route Start Last Admin Trade Name Garrett PRN Reason Stop Dose Admin Acetaminophen 650 mg 06/08/21 14:43 06/08/21 14:52 Acetaminophen 325 Mg Tablet PO 06/08/21 14:44 650 mg STAT ONE Administration Acetaminophen Confirm 06/08/21 14:48 Acetaminophen 325 Mg Tablet Administered 06/08/21 14:49 Dose 650 mg .ROUTE .STK-MED ONE Diphenhydramine HCl 25 mg 06/08/21 14:43 06/08/21 14:52 Diphenhydramine Hcl 50 Mg/Ml Vial IV 06/08/21 14:44 25 mg STAT ONE Administration Diphenhydramine HCl Confirm 06/08/21 14:48 Diphenhydramine Hcl 50 Mg/Ml Vial Administered 06/08/21 14:49 Dose 50 mg .ROUTE .STK-MED ONE Sodium Chloride 1,000 mls @ 999 mls/hr 06/08/21 14:43 06/08/21 14:51 Sodium Chloride 0.9% 1000 Ml IV 06/08/21 15:43 999 mls/hr .Q1H1M STA Administration Sodium Chloride Confirm 06/08/21 14:48 Sodium Chloride 0.9% 1000 Ml Administered 06/08/21 14:49 Dose 1,000 mls @ ud .ROUTE .STK-MED ONE Metoclopramide HCl 10 mg 06/08/21 14:43 06/08/21 14:52 Metoclopramide Hcl 10 Mg/2 Ml Vial IV 06/08/21 14:44 10 mg STAT ONE Administration Metoclopramide HCl Confirm 06/08/21 14:48 Metoclopramide Hcl 10 Mg/2 Ml Vial Administered 06/08/21 14:49 Dose 10 mg .ROUTE .STK-MED ONE Lab/Rad Data: Laboratory Result Diagrams 06/08/21 14:40 06/08/21 14:40 Laboratory Results 06/08/21 06/08/21 06/08/21 Range/Units 15:30 14:57 14:43 WBC (4.0-10.5) K/mm3 RBC (4.1-5.4) M/mm3 Hgb (12.0-16.0) gm/dl Hct (35-47) % MCV (78-100) fl MCH (26-32) pg MCHC (32-36) g/dl RDW (11.5-14.0) % Plt Count (150-450) K/mm3 MPV (7.5-11.0) fl Gran % (36.0-66.0) % Eos # (Auto) (0-0.5) Absolute Lymphs (auto) (1.0-4.6) Absolute Monos (auto) (0.0-1.3) Lymphocytes % (24.0-44.0) % Monocytes % (0.0-12.0) % Eosinophils % (0.00-5.0) % Basophils % (0.0-0.4) % Absolute Granulocytes (1.4-6.9) Basophils # (0-0.4) Sodium (137-145) mmol/L Potassium (3.5-5.1) mmol/L Chloride (98-107) mmol/L Carbon Dioxide (22-30) mmol/L Anion Gap (5-15) MEQ/L BUN (7-17) mg/dL Creatinine (0.52-1.04) mg/dL Estimated GFR ML/MIN Glucose (74-106) mg/dL Lactic Acid 0.7 (0.4-2.0) Calcium (8.4-10.2) mg/dL Total Bilirubin (0.2-1.3) mg/dL AST (14-36) U/L ALT (0-35) U/L Alkaline Phosphatase (38-126) U/L Serum Total Protein (6.3-8.2) g/dL Albumin (3.5-5.0) g/dL Urine Color YELLOW (YELLOW) Urine Appearance CLOUDY (CLEAR) Urine pH 6.0 (5-6) Ur Specific [place] 1.017 (1.005-1.025) Urine Protein NEGATIVE (Negative) Urine Ketones NEGATIVE (NEGATIVE) Urine Blood NEGATIVE (0-5) Jacob/ul Urine Nitrite NEGATIVE (NEGATIVE) Urine Bilirubin NEGATIVE (NEGATIVE) Urine Urobilinogen NEGATIVE (0-1) mg/dL Ur Leukocyte Esterase NEGATIVE (NEGATIVE) Urine WBC (Auto) 3-5 (0-5) /HPF Urine RBC (Auto) 0-2 (0-2) /HPF U Epithel Cells (Auto) RARE (FEW) /HPF Urine Bacteria (Auto) RARE (NEGATIVE) /HPF Urine Mucus (Auto) SLIGHT (NEGATIVE) /HPF Urine Culture Reflexed NO (NO) Urine Glucose NEGATIVE (NEGATIVE) mg/dL SARS-CoV-2 Ag (Rapid) NEGATIVE (NEGATIVE) 06/08/21 06/08/21 Range/Units 14:40 14:40 WBC 10.8 H (4.0-10.5) K/mm3 RBC 4.33 (4.1-5.4) M/mm3 Hgb 13.6 (12.0-16.0) gm/dl Hct 40.1 (35-47) % MCV 92.6 (78-100) fl MCH 31.4 (26-32) pg MCHC 33.9 (32-36) g/dl RDW 12.9 (11.5-14.0) % Plt Count 257 (150-450) K/mm3 MPV 10.0 (7.5-11.0) fl Gran % 72.1 H (36.0-66.0) % Eos # (Auto) 0.04 (0-0.5) Absolute Lymphs (auto) 2.33 (1.0-4.6) Absolute Monos (auto) 0.60 (0.0-1.3) Lymphocytes % 21.7 L (24.0-44.0) % Monocytes % 5.6 (0.0-12.0) % Eosinophils % 0.4 (0.00-5.0) % Basophils % 0.2 (0.0-0.4) % Absolute Granulocytes 7.77 H (1.4-6.9) Basophils # 0.02 (0-0.4) Sodium 137 (137-145) mmol/L Potassium 3.9 (3.5-5.1) mmol/L Chloride 104 (98-107) mmol/L Carbon Dioxide 23 (22-30) mmol/L Anion Gap 13.9 (5-15) MEQ/L BUN 9 (7-17) mg/dL Creatinine 0.59 (0.52-1.04) mg/dL Estimated GFR > 60.0 ML/MIN Glucose 104 (74-106) mg/dL Lactic Acid (0.4-2.0) Calcium 9.5 (8.4-10.2) mg/dL Total Bilirubin 0.40 (0.2-1.3) mg/dL AST 20 (14-36) U/L ALT 11 (0-35) U/L Alkaline Phosphatase 66 (38-126) U/L Serum Total Protein 6.5 (6.3-8.2) g/dL Albumin 3.9 (3.5-5.0) g/dL Urine Color (YELLOW) Urine Appearance (CLEAR) Urine pH (5-6) Ur Specific [place] (1.005-1.025) Urine Protein (Negative) Urine Ketones (NEGATIVE) Urine Blood (0-5) Jacob/ul Urine Nitrite (NEGATIVE) Urine Bilirubin (NEGATIVE) Urine Urobilinogen (0-1) mg/dL Ur Leukocyte Esterase (NEGATIVE) Urine WBC (Auto) (0-5) /HPF Urine RBC (Auto) (0-2) /HPF U Epithel Cells (Auto) (FEW) /HPF Urine Bacteria (Auto) (NEGATIVE) /HPF Urine Mucus (Auto) (NEGATIVE) /HPF Urine Culture Reflexed (NO) Urine Glucose (NEGATIVE) mg/dL SARS-CoV-2 Ag (Rapid) (NEGATIVE) - Progress Progress: improved Air Movement: good Blood Culture(s) Obtained: No Antibiotics given: No - Departure Departure Disposition: Home Clinical Impression: Headache Qualifiers: Headache chronicity pattern: chronic headache Qualifiers: Weeks of gestation: 13 weeks Qualified Code(s): Z3A.13 - 13 weeks gestation of Condition: Stable Critical Care Time: No Referrals: RIGOBERTO GRAYSON MD [Primary Care Provider] - Follow up/PCP as directed Instructions: Headache, Adult (DC) Prescriptions: Metoclopramide HCl 10 mg [Reglan 10 MG] 10 mg PO Q6H 3 Days #10 tablet
[2021-06-08 15:07] LABS: Absolute Neutrophil Ct (ANC) 7.77 (1.4-6.9); Basophil (Absolute #) 0.02 (0-0.4); Eosinophil % 0.4 % (0.00-5.0); Eosinophil (Absolute #) 0.04 (0-0.5); Hematocrit 40.1 % (35-47); Hemoglobin 13.6 gm/dl (12.0-16.0); Lymphocyte (Absolute #) 2.33 (1.0-4.6); Lymphocytes % 21.7 % (24.0-44.0); Mean Cell Volume 92.6 fl (78-100); Mean Corpuscular Hemoglobin 31.4 pg (26-32); Mean Corpuscular Hgb Concent. 33.9 g/dl (32-36); Monocytes % 5.6 % (0.0-12.0); Neutrophil % 72.1 % (36.0-66.0); Platelet Count 257 K/mm3 (150-450); Red Blood Count 4.33 M/mm3 (4.1-5.4); Red Cell Distribution Width 12.9 % (11.5-14.0); White Blood Count 10.8 K/mm3 (4.0-10.5)
[2021-06-08 15:12] LABS: ALBUMIN 3.9 g/dL (3.5-5.0); ALKALINE PHOSPHATASE 66 U/L (38-126); ANION GAP 13.9 MEQ/L (5-15); BLOOD UREA NITROGEN 9 mg/dL (7-17); CHLORIDE 104 mmol/L (98-107); Calcium 9.5 mg/dL (8.4-10.2); Carbon Dioxide 23 mmol/L (22-30); Creatinine 1 0.59 mg/dL (0.52-1.04); EST GLOMERULAR FILTRATION RATE > 60.0 ML/MIN; Glucose 104 mg/dL (74-106); Potassium 3.9 mmol/L (3.5-5.1); SGOT/AST 20 U/L (14-36); SGPT/ALT 11 U/L (0-35); SODIUM 137 mmol/L (137-145); Total Protein 6.5 g/dL (6.3-8.2)
[2021-06-08 15:22] LABS: COVID AG -BINAX NOW RAPID TEST NEGATIVE (NEGATIVE)
[2021-06-08 15:41] LABS: Appearance CLOUDY (CLEAR); Bacteria RARE /HPF (NEGATIVE); Bilirubin NEGATIVE (NEGATIVE); Blood NEGATIVE Ery/ul (0-5); Epithelial Cells RARE /HPF (FEW); Glucose NEGATIVE (NEGATIVE); Ketones NEGATIVE (NEGATIVE); Leukocyte Esterase NEGATIVE (NEGATIVE); Mucus SLIGHT /HPF (NEGATIVE); Nitrite NEGATIVE (NEGATIVE); Protein,Urine Dip NEGATIVE (Negative); RBC 0-2 /HPF (0-2); Specific Gravity 1.017 (1.005-1.025); Urobilinogen NEGATIVE mg/dL (0-1)
[2021-06-08 15:51] VITALS: BP 94/53; PULSE 88
[2021-06-08 15:52] VITALS: O2SAT 97
== END 2021-06-08 15:56 | disposition home or self-care (01) ==
LOC: ED 14:29
DX: R51.9 Headache, unspecified (principal); Z33.1 Pregnant state, incidental
CPT/HCPCS: 36000; 36415; 80053; 81001; 83605; 85025; 96374; 96375; 99000; 99284; J1200; A9270-GY

== ENCOUNTER 2021-07-29 19:05 | Emergency (ER) | payer OTHER | END 2021-07-29 19:27 | disposition home or self-care (01) | LOC: ED 19:05 | DX: Z53.9 Procedure and treatment not carried out, unspecified reason (principal) ==

== ENCOUNTER 2021-07-29 19:13 | Observation (INO) | payer OTHER ==
[2021-07-29 19:59] LABS: Appearance CLEAR (CLEAR); Bacteria RARE /HPF (NEGATIVE); Epithelial Cells RARE /HPF (FEW); Glucose NEGATIVE (NEGATIVE); Mucus SLIGHT /HPF (NEGATIVE); WBC 0-2 /HPF (0-5)
[2021-07-29 20:00] LABS: Bilirubin NEGATIVE (NEGATIVE); Ketones NEGATIVE (NEGATIVE); Nitrite NEGATIVE (NEGATIVE); Protein,Urine Dip NEGATIVE (Negative); RBC NEGATIVE Ery/ul (0-5); Urine Cultured Indicated? NO; Urobilinogen 0.2 mg/dL (0-1)
[2021-07-29 20:04] VITALS: BP 103/59; PULSE 98; O2SAT 97
[2021-07-29 20:05] LABS: Dipstick done @ ? MAIN LAB
[2021-07-29 20:06] LABS: Amphetamine,Urine NEGATIVE (NEGATIVE); Barbiturate,Urine NEGATIVE (NEGATIVE); Benzodiazepine,Urine NEGATIVE (NEGATIVE); Cocaine,Urine NEGATIVE (NEGATIVE); Methadone,Urine NEGATIVE (NEGATIVE); Opiate,Urine NEGATIVE (NEGATIVE); PCP,Urine NEGATIVE (NEGATIVE); THC,Urine NEGATIVE (NEGATIVE)
== END 2021-07-29 20:27 | disposition home or self-care (01) ==
LOC: OB 19:13
PROVIDERS: ADMIT Family Medicine; ATTEND Family Medicine
DX: Z34.82 Encounter for supervision of other normal pregnancy, second trimester (principal); Z3A.22 22 weeks gestation of pregnancy
CPT/HCPCS: 80307; 81015; G0378

== ENCOUNTER 2021-08-08 19:11 | Observation (INO) | payer OTHER ==
[2021-08-08 19:47] VITALS: BP 108/68; PULSE 94; O2SAT 98
== END 2021-08-08 20:45 | disposition home or self-care (01) ==
LOC: OB 19:11
PROVIDERS: ADMIT Family Medicine; ATTEND Family Medicine
DX: Z34.82 Encounter for supervision of other normal pregnancy, second trimester (principal); Z3A.21 21 weeks gestation of pregnancy
CPT/HCPCS: 84112; G0378

== ENCOUNTER 2021-08-11 12:12 | Observation (INO) | payer OTHER ==
[2021-08-11 14:46] VITALS: BP 118/66; PULSE 85; O2SAT 97
== END 2021-08-11 14:30 | disposition home or self-care (01) ==
LOC: OB 12:12
PROVIDERS: ADMIT Family Medicine; ATTEND Family Medicine
DX: Z34.82 Encounter for supervision of other normal pregnancy, second trimester (principal); Z3A.21 21 weeks gestation of pregnancy
CPT/HCPCS: G0378

== ENCOUNTER 2021-09-12 11:01 | Observation (INO) | payer OTHER ==
[2021-09-12] MEDS ORDERED: TYLENOL EXTRA STRENGTH 500 MG PO PRN (11:36)
--- NOTE | 2021-09-12 16:26 | XRAY ---
Indication: Status post fall. Evaluate SCOTT and cervical length. Limited 2-dimensional OB ultrasound performed. Comparison: July 15, 2021. Again single viable intrauterine now in cephalic presentation. heart rate 144 BPM. Posterior placenta without abnormal retroplacental fluid. Cervical length is 4.7 cm. Four-quadrant SCOTT is 12.1 cm, previously 10.2 cm.
[2021-09-12 17:44] VITALS: BP 101/58; PULSE 90
== END 2021-09-12 17:10 | disposition home or self-care (01) ==
LOC: OB 11:01
PROVIDERS: ADMIT Family Medicine; ATTEND Family Medicine
DX: Z34.82 Encounter for supervision of other normal pregnancy, second trimester (principal); Z3A.26 26 weeks gestation of pregnancy
CPT/HCPCS: 76816; G0378; A9270-GY

== ENCOUNTER 2021-10-10 11:33 | Observation (INO) | payer OTHER ==
[2021-10-10 11:51] VITALS: BP 123/76; PULSE 98
== END 2021-10-10 13:55 | disposition home or self-care (01) ==
LOC: OB 11:33
PROVIDERS: ADMIT Family Medicine; ATTEND Family Medicine
DX: Z34.83 Encounter for supervision of other normal pregnancy, third trimester (principal); Z3A.30 30 weeks gestation of pregnancy
CPT/HCPCS: G0378

== ENCOUNTER 2021-10-16 19:12 | Emergency (ER) | payer OTHER | END 2021-10-16 19:13 | disposition left against medical advice (07) | LOC: ED 19:12 | DX: Z53.9 Procedure and treatment not carried out, unspecified reason (principal) ==

== ENCOUNTER 2021-10-16 19:21 | Observation (INO) | payer OTHER ==
[2021-10-16 20:02] VITALS: O2SAT 97
[2021-10-16 20:14] LABS: Epithelial Cells RARE /HPF (FEW)
[2021-10-16 20:15] LABS: Appearance CLEAR (CLEAR); Bilirubin NEGATIVE (NEGATIVE); Glucose NEGATIVE (NEGATIVE); Ketones NEGATIVE (NEGATIVE); Nitrite NEGATIVE (NEGATIVE); Protein,Urine Dip NEGATIVE (Negative); RBC NEGATIVE Ery/ul (0-5); Urobilinogen 0.2 mg/dL (0-1)
[2021-10-16 20:16] LABS: Dipstick done @ ? MAIN LAB; RBC NONE SEEN /HPF (0-2); WBC 0-2 /HPF (0-5)
[2021-10-16 20:17] LABS: Urine Cultured Indicated? NO
[2021-10-16 21:19] VITALS: BP 110/70; PULSE 96
== END 2021-10-16 20:15 | disposition home or self-care (01) ==
LOC: OB 19:21
PROVIDERS: ADMIT Family Medicine; ATTEND Family Medicine
DX: Z34.83 Encounter for supervision of other normal pregnancy, third trimester (principal); Z3A.31 31 weeks gestation of pregnancy
CPT/HCPCS: 81015; G0378

== ENCOUNTER 2021-11-03 15:57 | Observation (INO) | payer OTHER ==
[2021-11-03 16:16] LABS: Appearance SLIGHTLY CLOUDY (CLEAR); Bilirubin NEGATIVE (NEGATIVE); Glucose NEGATIVE (NEGATIVE); Ketones NEGATIVE (NEGATIVE); Nitrite NEGATIVE (NEGATIVE); Protein,Urine Dip NEGATIVE (Negative); RBC NEGATIVE Ery/ul (0-5); Urobilinogen 0.2 mg/dL (0-1)
[2021-11-03 16:17] LABS: Dipstick done @ ? MAIN LAB
[2021-11-03 16:24] LABS: Epithelial Cells RARE /HPF (FEW); Mucus SLIGHT /HPF (NEGATIVE); RBC 0-2 /HPF (0-2)
[2021-11-03 16:25] LABS: Urine Cultured Indicated? NO
[2021-11-03 16:54] VITALS: BP 127/70; PULSE 98; O2SAT 96
== END 2021-11-03 17:13 | disposition home or self-care (01) ==
LOC: OB 15:57
PROVIDERS: ADMIT Family Medicine; ATTEND Family Medicine
DX: Z34.83 Encounter for supervision of other normal pregnancy, third trimester (principal); Z3A.35 35 weeks gestation of pregnancy
CPT/HCPCS: 81015; G0378

== ENCOUNTER 2021-11-13 20:29 | Observation (INO) | payer OTHER ==
[2021-11-13 21:00] VITALS: PULSE 111
[2021-11-13 21:03] LABS: Appearance CLEAR (CLEAR); Bilirubin NEGATIVE (NEGATIVE); Dipstick done @ ? MAIN LAB; Glucose NEGATIVE (NEGATIVE); Ketones NEGATIVE (NEGATIVE); Nitrite NEGATIVE (NEGATIVE); Ph 6.5 (5-6); Protein,Urine Dip NEGATIVE (Negative); RBC NEGATIVE Ery/ul (0-5); Urobilinogen 0.2 mg/dL (0-1)
[2021-11-13 21:06] LABS: Mucus SLIGHT /HPF (NEGATIVE)
[2021-11-13 21:07] LABS: Urine Cultured Indicated? NO
[2021-11-13 21:33] VITALS: BP 115/70
== END 2021-11-13 21:55 | disposition home or self-care (01) ==
LOC: OB 20:29
PROVIDERS: ADMIT Obstetrics & Gynecology; ATTEND Obstetrics & Gynecology
DX: Z34.83 Encounter for supervision of other normal pregnancy, third trimester (principal); Z3A.35 35 weeks gestation of pregnancy
CPT/HCPCS: 81015; 99213; G0378

== ENCOUNTER 2021-11-20 17:41 | Observation (INO) | payer OTHER ==
[2021-11-20 17:54] VITALS: BP 119/77; PULSE 91
== END 2021-11-20 18:37 | disposition home or self-care (01) ==
LOC: OB 17:41
PROVIDERS: ADMIT Family Medicine; ATTEND Family Medicine
DX: Z34.83 Encounter for supervision of other normal pregnancy, third trimester (principal); Z3A.36 36 weeks gestation of pregnancy
CPT/HCPCS: G0378

== ENCOUNTER 2021-11-26 13:00 | Observation (INO) | payer OTHER ==
[2021-11-26 13:23] VITALS: BP 109/69; PULSE 116; O2SAT 97
== END 2021-11-26 15:07 | disposition home or self-care (01) ==
LOC: OB 13:00
PROVIDERS: ADMIT Family Medicine; ATTEND Family Medicine
DX: Z34.83 Encounter for supervision of other normal pregnancy, third trimester (principal); Z3A.37 37 weeks gestation of pregnancy

== ENCOUNTER 2021-11-26 20:29 | Observation (INO) | payer OTHER ==
[2021-11-26 22:20] LABS: Bacteria FEW /HPF (NEGATIVE); Epithelial Cells RARE /HPF (FEW); Mucus SLIGHT /HPF (NEGATIVE); WBC 26-50 /HPF (0-5)
[2021-11-26 22:21] LABS: Appearance SLIGHTLY CLOUDY (CLEAR); Bilirubin NEGATIVE (NEGATIVE); Glucose NEGATIVE (NEGATIVE); Ketones NEGATIVE (NEGATIVE); RBC TRACE-INTACT Ery/ul (0-5); Specific Gravity 1.025 (1.005-1.025)
[2021-11-26 22:22] LABS: Dipstick done @ ? MAIN LAB; Nitrite NEGATIVE (NEGATIVE); Protein,Urine Dip NEGATIVE (Negative); Urine Cultured Indicated? YES; Urobilinogen 0.2 mg/dL (0-1)
[2021-11-27 00:27] VITALS: BP 117/54; PULSE 102
== END 2021-11-27 00:35 | disposition home or self-care (01) ==
LOC: MED SURG 20:29
PROVIDERS: ADMIT Family Medicine; ATTEND Family Medicine
DX: Z34.83 Encounter for supervision of other normal pregnancy, third trimester (principal); Z3A.37 37 weeks gestation of pregnancy
CPT/HCPCS: 81015; 87086; G0378

== ENCOUNTER 2021-11-30 19:34 | Observation (INO) | payer OTHER ==
[2021-11-30 19:54] VITALS: BP 117/74; PULSE 74; O2SAT 97
[2021-11-30 20:31] LABS: Amphetamine,Urine NEGATIVE (NEGATIVE); Barbiturate,Urine NEGATIVE (NEGATIVE); Benzodiazepine,Urine NEGATIVE (NEGATIVE); Methadone,Urine NEGATIVE (NEGATIVE); Opiate,Urine NEGATIVE (NEGATIVE); PCP,Urine NEGATIVE (NEGATIVE); THC,Urine NEGATIVE (NEGATIVE)
[2021-11-30 21:09] LABS: Appearance CLEAR (CLEAR); Bacteria RARE /HPF (NEGATIVE); Bilirubin SMALL (NEGATIVE); Calcium Oxalate Crystals 26-50 /HPF (NEGATIVE); Epithelial Cells FEW /HPF (FEW); Glucose NEGATIVE (NEGATIVE); Ketones NEGATIVE (NEGATIVE); Mucus MODERATE /HPF (NEGATIVE); Nitrite NEGATIVE (NEGATIVE); Protein,Urine Dip NEGATIVE (Negative); RBC 0-2 /HPF (0-2); RBC NEGATIVE Ery/ul (0-5); Specific Gravity >=1.030 (1.005-1.025); Urobilinogen 1 mg/dL (0-1)
[2021-11-30 21:10] LABS: Dipstick done @ ? MAIN LAB
[2021-11-30 21:11] LABS: Urine Cultured Indicated? NO
== END 2021-11-30 21:20 | disposition home or self-care (01) ==
LOC: OB 19:34
PROVIDERS: ADMIT Family Medicine; ATTEND Family Medicine
DX: Z34.83 Encounter for supervision of other normal pregnancy, third trimester (principal); Z3A.38 38 weeks gestation of pregnancy
CPT/HCPCS: 80307; 81015; G0378

== ENCOUNTER 2021-12-06 09:55 | Observation (INO) | payer OTHER ==
[2021-12-06 10:11] VITALS: BP 128/79; PULSE 86
== END 2021-12-06 11:05 | disposition home or self-care (01) ==
LOC: OB 09:55
PROVIDERS: ADMIT Family Medicine; ATTEND Family Medicine
DX: Z34.83 Encounter for supervision of other normal pregnancy, third trimester (principal); Z3A.38 38 weeks gestation of pregnancy
CPT/HCPCS: 99213; G0378

== ENCOUNTER 2021-12-06 20:11 | Observation (INO) | payer OTHER ==
[2021-12-06 20:37] VITALS: BP 113/77; PULSE 109; O2SAT 97
[2021-12-06] MEDS ORDERED: TYLENOL 325 MG ONE (21:16)
[2021-12-06] MEDS ORDERED: TYLENOL 325 MG PO PRN (21:16)
== END 2021-12-06 21:57 | disposition home or self-care (01) ==
LOC: MED SURG 20:11
PROVIDERS: ADMIT Family Medicine; ATTEND Family Medicine
DX: Z34.83 Encounter for supervision of other normal pregnancy, third trimester (principal); Z3A.38 38 weeks gestation of pregnancy
CPT/HCPCS: 99213; G0378; A9270-GY

== ENCOUNTER 2021-12-11 05:16 | Inpatient (IN) | payer OTHER ==
[~2021-12-11 05:16] MED LIST changes: -Lactated Ringers 1,000 ML IV SCH; -Levofloxacin 500MG/100ML D5W 500 MG/100 ML BAG IV ONE; -Levofloxacin 500MG/100ML D5W 500 MG/100 ML BAG IV SCH; +Pepcid 20 MG VIAL IV ONE; +Pepcid 20 MG VIAL IV SCH; +Reglan 10 MG/2 ML IV SCH; +Reglan 10 MG/2 ML ONE; +SOD CITRATE-CITRIC ACID SOLN ONE; +SOD CITRATE-CITRIC ACID SOLN PO SCH; -Sensorcaine 0.25% 10 ML ONE
[2021-12-11] MEDS: Lactated Ringers 1,000 ML IV SCH ×2 (05:52→07:04)
[2021-12-11 05:55] LABS: Hematocrit 41.3 % (35-47); Hemoglobin 14.2 g/dL (12.0-16.0); Mean Cell Volume 93.4 fL (78-100); Mean Corpuscular Hemoglobin 32.1 pg (26-32); Mean Corpuscular Hgb Concent. 34.4 g/dL (32-36); Mean Platelet Volume 10.3 fL (7.5-11.0); Platelet Count 192 x10^3/uL (150-450); Red Blood Count 4.42 x10^6/uL (4.1-5.4); Red Cell Distribution Width 12.6 % (11.5-14.0)
[2021-12-11 06:00] LABS: Appearance CLOUDY (CLEAR); Bilirubin NEGATIVE (NEGATIVE); Dipstick done @ ? MAIN LAB; Glucose NEGATIVE (NEGATIVE); Ketones NEGATIVE (NEGATIVE); Nitrite NEGATIVE (NEGATIVE); Protein,Urine Dip NEGATIVE (Negative); RBC NEGATIVE Ery/ul (0-5); Urobilinogen 0.2 mg/dL (0-1)
[2021-12-11 06:02] LABS: Amourphous Crystal MODERATE /HPF (NEGATIVE); Epithelial Cells RARE /HPF (FEW); Mucus SLIGHT /HPF (NEGATIVE); Urine Cultured Indicated? NO
[2021-12-11 06:54] LABS: ABO TYPING O; Antibody Screen NEGATIVE (NEGATIVE); RH TYPING NEGATIVE
[2021-12-11 06:56] LABS: Amphetamine,Urine NEGATIVE (NEGATIVE); Barbiturate,Urine NEGATIVE (NEGATIVE); Benzodiazepine,Urine NEGATIVE (NEGATIVE); Cocaine,Urine NEGATIVE (NEGATIVE); Methadone,Urine NEGATIVE (NEGATIVE); Opiate,Urine NEGATIVE (NEGATIVE); PCP,Urine NEGATIVE (NEGATIVE); THC,Urine NEGATIVE (NEGATIVE)
[2021-12-11 07:00] LABS: INR 0.93 (0.8-3.0); PROTIME 9.9 SECONDS (9.4-12.5)
[2021-12-11] MEDS ORDERED: Lactated Ringers 1,000 ML IV ONE (07:03)
[2021-12-11] MEDS ORDERED: Astramorph-Pf 5 MG/10 ML ONE (08:11)
[2021-12-11] MEDS ORDERED: Ephedrine Sulfate 50 MG/ML ONE (08:28)
[2021-12-11] MEDS ORDERED: Pitocin 10 UNITS/ML ONE ×2 (08:41→08:57)
[2021-12-11] MEDS ORDERED: Marcaine 0.5%/Epinephrine 10 ML ONE (08:59)
[2021-12-11] MEDS ORDERED: TORAdol 30 mg Injection ONE (09:23)
[2021-12-11] MEDS ORDERED: MOTRIN 400 MG PO PRN (10:00)
[2021-12-11] MEDS ORDERED: Mylicon 80MG PO PRN (10:00)
[2021-12-11] MEDS ORDERED: HOLD NARCOTIC ANALGESICS AND SEDATIVES X24 HR MC PRN (10:00)
[2021-12-11] MEDS ORDERED: Zofran 4 MG/2 ML VIAL IV PRN (10:00)
[2021-12-11] MEDS ORDERED: Dextrose 5%-Lr IV Solution 1000 ML 1,000 ML IV SCH (10:00)
[2021-12-11] MEDS ORDERED: Nubain 10 MG/ML IV PRN (10:00)
[2021-12-11] MEDS ORDERED: Narcan 0.4 MG/ML IV PRN (10:00)
[2021-12-11] MEDS ORDERED: LANSINOH 40 GM TOP PRN (10:00)
[2021-12-11] MEDS ORDERED: Dulcolax 10 MG SUPP PR PRN (10:00)
[2021-12-11] MEDS ORDERED: CLARITIN 10 MG PO PRN (10:00)
[2021-12-11] MEDS ORDERED: Rhogam Plus 300 MCG IM ONE (10:00)
[2021-12-11] MEDS ORDERED: NORCO 5/325 MG PO PRN (10:00)
--- NOTE | 2021-12-11 10:07 | OP ---
SURGERY DATE/TIME: 12/11/2021 0808 PREOPERATIVE DIAGNOSES: 1) Term intrauterine . 2) History of prior section. POSTOPERATIVE DIAGNOSES: 1) Term intrauterine . 2) History of prior section. PROCEDURE: Repeat low transverse section. SURGEON: Zac Will M.D. ESTIMATED BLOOD LOSS: 500 ml. URINE OUTPUT: 50 ml of clear straw-colored urine. ANESTHESIA: Spinal by Salo Darling CRNA. SPECIMENS: None. DESCRIPTION OF PROCEDURE: After informed written consent was obtained, the patient was taken to the operating room. She underwent spinal anesthesia and was prepped and draped in the usual sterile fashion. After adequate level of anesthesia was assessed, a low transverse skin incision was made by knife carried down to the lev level of the subcutaneous fat to the level of the fascia. The fascia was nicked on both sides of the midline extended horizontal using curved Horta scissors. The superior free edge of the fascia was grasped with Ting clamps and the underlying rectus muscles were dissected free. The same was repeated inferiorly. The peritoneal cavity was opened and extended horizontal and a bladder flap was created and reflected over the lower uterine segment. There was a thin lower uterine segment which was carefully opened with scalpel carried down to the level of the amniotic membranes which were carefully artificially ruptured and extended bluntly horizontal. Viable female infant was delivered from the vertex presentation with loose nuchal x1 which was reduced prior to delivery. The oropharynx and nares were bulb suctioned free. The cord was clamped and cut and she was handed off to the awaiting nursery team. There was a strong cry immediately present upon delivery, vigorous . The placenta was manually extracted and the uterus was exteriorized. The uterine cavity was sponge curetted clean with lap sponge. Next, the uterine incision was closed with #1 chromic in a running locked fashion with good closure and good hemostasis were achieved at this level. The posterior cul-de-sac was wiped free of blood and clot with a moist lap sponge and the uterus was returned to the peritoneal cavity. Lateral gutters were wiped free of blood and clot. Again, the uterine incision was inspected and noted to be hemostatic. Anesthesia confirmed clear urine in the [place] at that point. Next, the fascia was closed with 0 Vicryl in a running fashion, good closure and good hemostasis were achieved at that level. The subcutaneous fat was irrigated with warm, sterile saline and any areas of bleeding were cauterized with electrocautery. Finally, the skin layer was closed with 4-0 undyed Vicryl in a running subcuticular fashion. Steri-Strips and occlusive dressing were placed over the incision. The patient was transferred to the recovery in excellent condition.
[2021-12-11 10:39] LABS: Appearance CLEAR (CLEAR); Bilirubin NEGATIVE (NEGATIVE); Dipstick done @ ? MAIN LAB; Glucose NEGATIVE (NEGATIVE); Ketones NEGATIVE (NEGATIVE); Nitrite NEGATIVE (NEGATIVE); Protein,Urine Dip NEGATIVE (Negative); RBC MODERATE Ery/ul (0-5); Specific Gravity >=1.030 (1.005-1.025); Urobilinogen 0.2 mg/dL (0-1)
[2021-12-11 10:48] LABS: Mucus SLIGHT /HPF (NEGATIVE); RBC 26-50 /HPF (0-2)
[2021-12-11] MEDS: BENADRYL 50 MG/ML IV PRN ×2 (11:54→19:14)
[2021-12-11] MEDS ORDERED: DIFLUCAN PO ONE (12:30)
[2021-12-11] MEDS: Docusate Sodium 100 MG PO SCH ×2 (12:39→23:04)
[2021-12-11] MEDS: FERREX 150 PO SCH (12:39)
[2021-12-11] MEDS: PERCOCET TABLET 5/325MG PO PRN (20:19)
[2021-12-11] MEDS: TYLENOL EXTRA STRENGTH 500 MG PO PRN (23:03)
[2021-12-12] MEDS: PERCOCET TABLET 5/325MG PO PRN (03:55)
[2021-12-12 05:29] LABS: Absolute Neutrophil Ct (ANC) 7.83 x10^3/uL (1.4-6.9); Basophil (Absolute #) 0.04 x10^3/uL (0-0.4); Eosinophil % 0.5 % (0.00-5.0); Eosinophil (Absolute #) 0.06 x10^3/uL (0-0.5); Hematocrit 34.4 % (35-47); Hemoglobin 11.7 g/dL (12.0-16.0); Lymphocyte (Absolute #) 2.52 x10^3/uL (1.0-4.6); Mean Cell Volume 94.5 fL (78-100); Mean Corpuscular Hemoglobin 32.1 pg (26-32); Mean Platelet Volume 10.2 fL (7.5-11.0); Monocyte (Absolute #) 0.88 x10^3/uL (0.0-1.3); Monocytes % 7.7 % (0.0-12.0); Neutrophil % 68.5 % (36.0-66.0); Platelet Count 150 x10^3/uL (150-450); Red Blood Count 3.64 x10^6/uL (4.1-5.4); Red Cell Distribution Width 12.9 % (11.5-14.0); White Blood Count 11.4 x10^3/uL (4.0-10.5)
[2021-12-12] MEDS: TYLENOL EXTRA STRENGTH 500 MG PO PRN ×2 (06:05→14:03)
[2021-12-12] MEDS: FERREX 150 PO SCH (10:03)
[2021-12-12] MEDS: Docusate Sodium 100 MG PO SCH ×2 (10:03→22:13)
[2021-12-12 10:32] LABS: HBsAg Screen Negative (Negative)
[2021-12-12] MEDS ORDERED: Adacel Vial IM ONE (15:00)
[2021-12-12] MEDS: NORCO 7.5/325 MG TAB PO PRN ×2 (18:03→22:10)
[2021-12-13] MEDS: NORCO 7.5/325 MG TAB PO PRN ×2 (03:54→08:45)
[2021-12-13 04:19] VITALS: O2SAT 96
--- NOTE | 2021-12-13 08:09 | PCM.DS ---
Discharge Summary Date of Admission: 12/11/21 05:16 Admitting Physician: RIGOBERTO GRAYSON Consults: Consults on Case 12/11/21 05:00 Notify Anesthesia Provider PRN Notify Anesthesia Provider ROUTINE Notify Physician OF ADMISSION 12/11/21 12:00 Navigation ONCE Primary Care Provider: RIGOBERTO GRAYSON Allergies Allergies Penicillins Allergy (Mild, Verified 09/12/21 11:42) Rash THROAT SWELLS Sulfa (Sulfonamide Antibiotics) Allergy (Mild, Verified 09/12/21 11:42) Rash Hospital Summary - Hospital Course Hospital Course: patient had repeat on 12/11 with no complications. bottle feeding, pain is well controlled. mild lochia, no complications - Vitals & Intake/Output Vital Signs: Vital Signs Temperature 98.5 F 12/13/21 04:00 Pulse Rate 84 12/13/21 04:00 Respiratory Rate 16 12/13/21 04:00 Blood Pressure 112/72 12/13/21 04:00 O2 Sat by Pulse Oximetry 96 12/13/21 04:00 Intake & Output: Intake & Output 12/10/21 12/11/21 12/12/21 12/13/21 11:59 11:59 11:59 11:59 Intake Total 400 350 Output Total 1950 Balance -1550 350 Weight 82.1 kg - Lab Result Diagrams: 12/12/21 05:00 Lab Results-Last 24 Hrs: Lab Results-Last 24 Hours 12/11/21 Range/Units 05:55 Hep Bs Antigen Negative (Negative) Micro Results-Entire Visit: Microbiology 12/11/21 08:58 Urine Culture - Preliminary Urine, Catheterized NO GROWTH TO DATE Discharge Exam General Appearance: no apparent distress, alert Neurologic Exam: alert, oriented x 3 Respiratory Exam: normal breath sounds, lungs clear, No respiratory distress Cardiovascular Exam: regular rate/rhythm, normal heart sounds Gastrointestinal/Abdomen Exam: soft, other (incision clean, dry, intact and well approximated. bruising to right lateral aspect and left middle of incision. no redness, no drainage) Final Diagnosis/Problem List - Final Discharge Diagnosis/Problem (1) delivery delivered Current Visit: Yes Status: Acute Code(s): O82 - ENCOUNTER FOR DELIVERY WITHOUT INDICATION - Discharge Disposition: Home, Self-Care Condition: Stable Prescriptions: New Hydrocodone/Acetaminophen [Hydrocodone-Acetamin 5-325 mg] 1 tab PO Q6HPRN PRN #28 tablet MDD 4 PRN Reason: Pain Discontinued Pnv No.95/Ferrous Fum/Folic AC [ Vitamins Tablet] 1 tab PO DAILY Follow up with: RIGOBERTO GRAYSON MD [Primary Care Provider] - 1 Week
[2021-12-13] MEDS: Docusate Sodium 100 MG PO SCH (08:45)
[2021-12-13] MEDS: FERREX 150 PO SCH (08:45)
[2021-12-13 10:30] VITALS: BP 127/72; PULSE 88
== END 2021-12-13 13:10 | disposition home or self-care (01) | DRG 788 ==
LOC: OB 05:16
PROVIDERS: ADMIT Family Medicine; ATTEND Family Medicine
PROC: 10D00Z1 Extraction of Products of Conception, Low, Open Approach (ICD-10-PCS; principal; 2021-12-11)
DX: O82 Encounter for cesarean delivery without indication (principal); Z3A.39 39 weeks gestation of pregnancy; Z37.0 Single live birth; Z20.828 Contact with and (suspected) exposure to other viral communicable diseases
CPT/HCPCS: 36415; 62322; 64488; 76937; 76942; 80307; 81001; 81015; 85025; 85027; 85610; 85730; 86850; 86900; 86901; 87086; 87340; 90715; 96372; J1200; J1885; J2274; J2300; J2590; A9270-GY

== ENCOUNTER 2022-01-29 14:28 | Emergency (ER) | payer OTHER ==
[2022-01-29] MEDS ORDERED: Sodium Chloride 0.9% 1000 ML 1,000 ML IV STA (15:09)
[2022-01-29] MEDS ORDERED: TORAdol 30 mg Injection IV ONE (15:09)
[2022-01-29] MEDS ORDERED: Zofran 4 MG/2 ML VIAL IV ONE (15:09)
--- NOTE | 2022-01-29 15:19 | ERPHSYRPT ---
- History of Present Illness Time Seen by Provider: 01/29/22 14:49 Historian: patient Exam Limitations: no limitations Patient Subjective Stated Complaint: C/O right sided abdominal pain Triage Nursing Assessment: Patient ambulated back to ED without difficulties. No SOB. She is alert and oriented. Abdomen is soft, non-distended. Physician History: Right upper quadrant, right periumbilical pain. Has been going on since her delivery. Delivery was approximately 1.5 months ago. No other falls or trauma. Patient is bottlefeeding not breast-feeding. She had a section. No fever or chills. Patient here with complaints. Called her PCP and was sent into the emergency department. Timing/Duration: day(s) (3 days ) Activities at Onset: activity Quality: aching, sharpness Abdominal Pain Onset Location: RUQ, periumbilical Pain Radiation: no radiation Severity of Pain-Max: mild Severity of Pain-Current: mild Modifying Factors: Improves With: analgesics Associated Symptoms: denies symptoms Allergies/Adverse Reactions: Penicillins Allergy (Mild, Verified 01/29/22 14:42) Rash THROAT SWELLS Sulfa (Sulfonamide Antibiotics) Allergy (Mild, Verified 01/29/22 14:42) Rash Home Medications: norgestimate-ethinyl estradioL [Norg-Ee 0.18-0.215-0.25/0.025] 1 tab PO DAILY 01/29/22 [History] Hx Tetanus, Diphtheria Vaccination/Date Given: Yes Hx Influenza Vaccination/Date Given: No Hx Pneumococcal Vaccination/Date Given: No Immunizations Up to Date: Yes Travel Risk - International Travel Have you traveled outside of the country in past 3 weeks: No - Coronavirus Screening Are you exhibiting any of the following symptoms?: No Close contact with a COVID-19 positive Pt in past 14-21 Days: No - Vaccine Status Have you recieved a Covid-19 vaccination: No - Review of Systems Constitutional: No Fever, No Chills Eyes: No Symptoms Ears, Nose, & Throat: No Symptoms Respiratory: No Cough, No Dyspnea Cardiac: No Chest Pain, No Edema, No Syncope Abdominal/Gastrointestinal: Abdominal Pain, No Nausea, No Vomiting, No Diarrhea Genitourinary Symptoms: No Dysuria Musculoskeletal: No Back Pain, No Neck Pain Skin: No Rash Neurological: No Dizziness, No Focal Weakness, No Sensory Changes Psychological: No Symptoms Endocrine: No Symptoms All Other Systems: Reviewed and Negative - Past Medical History Pertinent Past Medical History: Yes Neurological History: Epilepsy ENT History: No Pertinent History Cardiac History: No Pertinent History Respiratory History: No Pertinent History Endocrine Medical History: No Pertinent History Musculoskeletal History: No Pertinent History GI Medical History: No Pertinent History History: No Pertinent History Psycho-Social History: No Pertinent History Female Reproductive Disorders: No Pertinent History Other Medical History: PATIENT REPORTS HX OF SCOLIOSIS - Past Surgical History Past Surgical History: Yes Neuro Surgical History: No Pertinent History Cardiac: No Pertinent History Respiratory: No Pertinent History Gastrointestinal: Cholecystectomy Genitourinary: No Pertinent History Female Surgical History: Dilation & Curettage, Section Other Surgical History: eardrum sugery. 3 sets of ear tubes. right ear tube hole did not close had surgery to close the hole. - Social History Smoking Status: Never smoker Exposure to second hand smoke: No Alcohol Use: Socially Drug Use: none Patient Lives Alone: No Significant Family History: no pertinent family hx - Female History Hx Now: No - Nursing Vital Signs Nursing Vital Signs: Initial Vital Signs Temperature 98 F 01/29/22 14:44 Pulse Rate 87 01/29/22 14:44 Respiratory Rate 17 01/29/22 14:44 Blood Pressure 125/75 01/29/22 14:44 O2 Sat by Pulse Oximetry 98 01/29/22 14:44 Pain Scale Pain Intensity 8 - Physical Exam General Appearance: no apparent distress, alert Eye Exam: PERRL/EOMI, eyes nml inspection Ears, Nose, Throat Exam: normal ENT inspection, pharynx normal, moist mucous membranes Neck Exam: normal inspection, non-tender, supple, full range of motion Respiratory Exam: normal breath sounds, lungs clear, No respiratory distress Cardiovascular Exam: regular rate/rhythm, normal heart sounds Gastrointestinal/Abdomen Exam: soft, tenderness, other (Minimal periumbilical, right upper quadrant tenderness. No rebound or guarding), No mass Back Exam: normal inspection, normal range of motion, No CVA tenderness, No vertebral tenderness Extremity Exam: normal inspection, normal range of motion, pelvis stable Neurologic Exam: alert, oriented x 3, cooperative, normal mood/affect, nml cerebellar function, sensation nml, No motor deficits Skin Exam: normal color, warm, dry SpO2: 98 - Course Nursing assessment & vital signs reviewed: Yes EKG Interpreted by Me: Sinus Rhythm Ordered Tests: Active Orders 24 hr Category Date Time Status IV Insertion STAT Care 01/29/22 15:09 Active ABDOMEN AND PELVIS W CONTRAST [CT] Stat Exams 01/29/22 16:22 Completed CHEST 1 VIEW (PORTABLE) Stat Exams 01/29/22 15:10 Completed GALLBLADDER [US] Stat Exams 01/29/22 15:36 Completed CBC W DIFF Stat Lab 01/29/22 15:25 Completed CMP Stat Lab 01/29/22 15:25 Completed HCG,QUALITATIVE URINE Stat Lab 01/29/22 15:24 Completed LIPASE Stat Lab 01/29/22 15:25 Completed UA W/RFX CULTURE Stat Lab 01/29/22 15:24 Completed Medication Summary Discontinued Medications Generic Name Dose Route Start Last Admin Trade Name Freq PRN Reason Stop Dose Admin Sodium Chloride 1,000 mls @ 999 mls/hr 01/29/22 15:09 01/29/22 16:00 Sodium Chloride 0.9% 1000 Ml IV 01/29/22 16:09 999 mls/hr .Q1H1M STA Administration Sodium Chloride Confirm 01/29/22 15:29 Sodium Chloride 0.9% 1000 Ml Administered 01/29/22 15:30 Dose 1,000 mls @ ud .ROUTE .STK-MED ONE Ketorolac Tromethamine 30 mg 01/29/22 15:09 01/29/22 15:58 Ketorolac Tromethamine 30 Mg/Ml Inj IV 01/29/22 15:10 30 mg STAT ONE Administration Ketorolac Tromethamine Confirm 01/29/22 15:29 Ketorolac Tromethamine 30 Mg/Ml Inj Administered 01/29/22 15:30 Dose 30 mg .ROUTE .STK-MED ONE Ondansetron HCl 4 mg 01/29/22 15:09 01/29/22 15:58 Ondansetron Hcl 4 Mg/2 Ml Vial IV 01/29/22 15:10 4 mg STAT ONE Administration Ondansetron HCl Confirm 01/29/22 15:29 Ondansetron Hcl 4 Mg/2 Ml Vial Administered 01/29/22 15:30 Dose 4 mg .ROUTE .STK-MED ONE Lab/Rad Data: Laboratory Result Diagrams 01/29/22 15:25 01/29/22 15:25 Laboratory Results 01/29/22 01/29/22 01/29/22 Range/Units 15:25 15:25 15:24 WBC 6.1 (4.0-10.5) x10^3/uL RBC 4.39 (4.1-5.4) x10^6/uL Hgb 13.6 (12.0-16.0) g/dL Hct 41.2 (35-47) % MCV 93.8 (78-100) fL MCH 31.0 (26-32) pg MCHC 33.0 (32-36) g/dL RDW 11.5 (11.5-14.0) % Plt Count 220 (150-450) x10^3/uL MPV 9.7 (7.5-11.0) fL Gran % 51.3 (36.0-66.0) % Immature Gran % (Auto) 0.2 (0.00-0.4) % Nucleat RBC Rel Count 0.0 (0.00-0.1) % Eos # (Auto) 0.04 (0-0.5) x10^3/uL Immature Gran # (Auto) 0.01 (0.00-0.03) x10^3u/L Absolute Lymphs (auto) 2.57 (1.0-4.6) x10^3/uL Absolute Monos (auto) 0.31 (0.0-1.3) x10^3/uL Absolute Nucleated RBC 0.00 (0.00-0.01) x10^3u/L Lymphocytes % 42.4 (24.0-44.0) % Monocytes % 5.1 (0.0-12.0) % Eosinophils % 0.7 (0.00-5.0) % Basophils % 0.3 (0.0-0.4) % Absolute Granulocytes 3.11 (1.4-6.9) x10^3/uL Basophils # 0.02 (0-0.4) x10^3/uL Sodium 139 (137-145) mmol/L Potassium 3.8 (3.5-5.1) mmol/L Chloride 103 (98-107) mmol/L Carbon Dioxide 27 (22-30) mmol/L Anion Gap 12.3 (5-15) MEQ/L BUN 13 (7-17) mg/dL Creatinine 0.78 (0.52-1.04) mg/dL Estimated GFR > 60.0 ML/MIN Glucose 85 (74-106) mg/dL Calcium 9.0 (8.4-10.2) mg/dL Total Bilirubin 0.80 (0.2-1.3) mg/dL AST 30 (14-36) U/L ALT 19 (0-35) U/L Alkaline Phosphatase 99 (38-126) U/L Serum Total Protein 7.1 (6.3-8.2) g/dL Albumin 4.3 (3.5-5.0) g/dL Lipase 72 (23-300) U/L Urinalys Dipstick Clnc MAIN LAB Urine Color YELLOW (YELLOW) Urine Appearance CLEAR (CLEAR) Urine pH 6.0 (5-6) Ur Specific [place] 1.025 (1.005-1.025) POC Urine Protein Conf NEGATIVE (Negative) Urine Ketones NEGATIVE (NEGATIVE) Urine Nitrite NEGATIVE (NEGATIVE) Urine Bilirubin NEGATIVE (NEGATIVE) Urine Urobilinogen 0.2 (0-1) mg/dL Urine Leukocytes NEGATIVE (NEGATIVE) Urine WBC (Auto) NONE (0-5) /HPF Urine RBC (Auto) NONE (0-2) /HPF U Epithel Cells (Auto) RARE (FEW) /HPF Urine Bacteria (Auto) NONE (NEGATIVE) /HPF Urine RBC NEGATIVE (0-5) Jacob/ul Urine Mucus (Auto) SLIGHT (NEGATIVE) /HPF Ur Culture Indicated? NO Urine Glucose NEGATIVE (NEGATIVE) mg/dL Urine HCG, Qual (Negative) 01/29/22 Range/Units 15:24 WBC (4.0-10.5) x10^3/uL RBC (4.1-5.4) x10^6/uL Hgb (12.0-16.0) g/dL Hct (35-47) % MCV (78-100) fL MCH (26-32) pg MCHC (32-36) g/dL RDW (11.5-14.0) % Plt Count (150-450) x10^3/uL MPV (7.5-11.0) fL Gran % (36.0-66.0) % Immature Gran % (Auto) (0.00-0.4) % Nucleat RBC Rel Count (0.00-0.1) % Eos # (Auto) (0-0.5) x10^3/uL Immature Gran # (Auto) (0.00-0.03) x10^3u/L Absolute Lymphs (auto) (1.0-4.6) x10^3/uL Absolute Monos (auto) (0.0-1.3) x10^3/uL Absolute Nucleated RBC (0.00-0.01) x10^3u/L Lymphocytes % (24.0-44.0) % Monocytes % (0.0-12.0) % Eosinophils % (0.00-5.0) % Basophils % (0.0-0.4) % Absolute Granulocytes (1.4-6.9) x10^3/uL Basophils # (0-0.4) x10^3/uL Sodium (137-145) mmol/L Potassium (3.5-5.1) mmol/L Chloride (98-107) mmol/L Carbon Dioxide (22-30) mmol/L Anion Gap (5-15) MEQ/L BUN (7-17) mg/dL Creatinine (0.52-1.04) mg/dL Estimated GFR ML/MIN Glucose (74-106) mg/dL Calcium (8.4-10.2) mg/dL Total Bilirubin (0.2-1.3) mg/dL AST (14-36) U/L ALT (0-35) U/L Alkaline Phosphatase (38-126) U/L Serum Total Protein (6.3-8.2) g/dL Albumin (3.5-5.0) g/dL Lipase (23-300) U/L Urinalys Dipstick Clnc Urine Color (YELLOW) Urine Appearance (CLEAR) Urine pH (5-6) Ur Specific [place] (1.005-1.025) POC Urine Protein Conf (Negative) Urine Ketones (NEGATIVE) Urine Nitrite (NEGATIVE) Urine Bilirubin (NEGATIVE) Urine Urobilinogen (0-1) mg/dL Urine Leukocytes (NEGATIVE) Urine WBC (Auto) (0-5) /HPF Urine RBC (Auto) (0-2) /HPF U Epithel Cells (Auto) (FEW) /HPF Urine Bacteria (Auto) (NEGATIVE) /HPF Urine RBC (0-5) Jacob/ul Urine Mucus (Auto) (NEGATIVE) /HPF Ur Culture Indicated? Urine Glucose (NEGATIVE) mg/dL Urine HCG, Qual NEGATIVE (Negative) - Progress Progress: improved Progress Note: 01/29/22 15:18 differential diagnosis includes kidney stone, compression fracture, infection, UTI, triple AAA, acute cholecystitis - basic labs including: CBC, lipase, CMP, UA, urine test - insert IV for fluids, pain meds, nausea control - consider imaging: CT ab/pelvis, ultrasound 01/29/22 16:55 Patient found to have a hiatal hernia with possibly some gastric reflux disease. Given this we will place patient on omeprazole going home. We did obtain an ultrasound of the right upper quadrant. This only demonstrated a right renal cyst. No other obvious abnormalities. Patient feeling improved here in the emergency department. No other lab abnormalities. Patient may return here for any new or changing symptoms. Counseled pt/family regarding: lab results, diagnosis, need for follow-up, rad results - Departure Departure Disposition: Home Clinical Impression: Hiatal hernia, GERD (gastroesophageal reflux disease), Abdominal pain Condition: Stable Critical Care Time: No Referrals: RIGOBERTO GRAYSON MD [Primary Care Provider] - Follow up/PCP as directed Instructions: Severe Abdominal Pain, Adult (DC) Prescriptions: Omeprazole 20 mg PO DAILY #60 cap
[2022-01-29 15:27] LABS: Absolute Neutrophil Ct (ANC) 3.11 x10^3/uL (1.4-6.9); Basophil (Absolute #) 0.02 x10^3/uL (0-0.4); Eosinophil % 0.7 % (0.00-5.0); Eosinophil (Absolute #) 0.04 x10^3/uL (0-0.5); Hematocrit 41.2 % (35-47); Hemoglobin 13.6 g/dL (12.0-16.0); Lymphocyte (Absolute #) 2.57 x10^3/uL (1.0-4.6); Lymphocytes % 42.4 % (24.0-44.0); Mean Cell Volume 93.8 fL (78-100); Mean Platelet Volume 9.7 fL (7.5-11.0); Monocyte (Absolute #) 0.31 x10^3/uL (0.0-1.3); Monocytes % 5.1 % (0.0-12.0); Neutrophil % 51.3 % (36.0-66.0); Platelet Count 220 x10^3/uL (150-450); Red Blood Count 4.39 x10^6/uL (4.1-5.4); Red Cell Distribution Width 11.5 % (11.5-14.0); White Blood Count 6.1 x10^3/uL (4.0-10.5)
[2022-01-29] MEDS ORDERED: Zofran 4 MG/2 ML VIAL ONE (15:29)
[2022-01-29] MEDS ORDERED: TORAdol 30 mg Injection ONE (15:29)
[2022-01-29] MEDS ORDERED: Sodium Chloride 0.9% 1000 ML 1,000 ML ONE (15:29)
[2022-01-29 15:47] LABS: ALBUMIN 4.3 g/dL (3.5-5.0); ALKALINE PHOSPHATASE 99 U/L (38-126); ANION GAP 12.3 MEQ/L (5-15); BLOOD UREA NITROGEN 13 mg/dL (7-17); CHLORIDE 103 mmol/L (98-107); Carbon Dioxide 27 mmol/L (22-30); Creatinine 1 0.78 mg/dL (0.52-1.04); EST GLOMERULAR FILTRATION RATE > 60.0 ML/MIN; Glucose 85 mg/dL (74-106); LIPASE 72 U/L (23-300); Potassium 3.8 mmol/L (3.5-5.1); SGOT/AST 30 U/L (14-36); SGPT/ALT 19 U/L (0-35); SODIUM 139 mmol/L (137-145); Total Protein 7.1 g/dL (6.3-8.2)
[2022-01-29 16:03] LABS: Appearance CLEAR (CLEAR); Bilirubin NEGATIVE (NEGATIVE); Glucose NEGATIVE (NEGATIVE); Ketones NEGATIVE (NEGATIVE); Protein,Urine Dip NEGATIVE (Negative); RBC NEGATIVE Ery/ul (0-5); Specific Gravity 1.025 (1.005-1.025); Urobilinogen 0.2 mg/dL (0-1)
[2022-01-29 16:04] LABS: Dipstick done @ ? MAIN LAB; Nitrite NEGATIVE (NEGATIVE)
[2022-01-29 16:05] LABS: Epithelial Cells RARE /HPF (FEW); Mucus SLIGHT /HPF (NEGATIVE)
[2022-01-29 16:08] LABS: Urine Cultured Indicated? NO
--- NOTE | 2022-01-29 16:28 | XRAY ---
Indication: Right upper quadrant pain. Cholecystectomy. . Two-dimensional gallbladder sonogram performed. Comparison: July 18, 2020 There has been interval cholecystectomy. Common bile duct measures 2.8 mm. No intrahepatic biliary distention. Remaining visualized liver and pancreas are sonographically unremarkable. No ascites. Right kidney measures 6.2 cm in length with new 3.7 cm exophytic cyst. Impression: Cholecystectomy and right renal cyst.
--- NOTE | 2022-01-29 16:41 | XRAY ---
Indication: Upper quadrant pain. Comparison: December 20, 2020 Portable chest now demonstrates normal heart and lungs. Bony thorax intact again with mild dextroscoliosis. No new/acute findings.
--- NOTE | 2022-01-29 16:45 | XRAY ---
Indication: Right upper quadrant/periumbilical pain. Status post section 1.5 months ago. Multiple contiguous axial images obtained through the abdomen and pelvis using 80 cc Isovue 370 contrast. Comparison: February 15, 2021 Lung bases grossly clear. Heart not enlarged. New small hiatal hernia with small fluid in distal esophagus presumed from GERD. Heart not enlarged. Noncontrasted stomach and bowel loops appear nonobstructed again with normal appendix. Mild prominent uterus consistent with recent . Tiny cul-de-sac fluid possibly physiologic from rupture/leaking cyst. No walled off fluid collection or free air. Again previous cholecystectomy. Remaining liver, pancreas, spleen, adrenal glands, kidneys, ureters, bladder, and aorta are normal in CTA appearance and attenuation. No pathologic retroperitoneal lymphadenopathy. Osseous structures intact with stable bilateral L5 spondylolysis with minimal grade 1 listhesis. Impression: 1. New small hiatal hernia with GERD. 2. Prominent uterus consistent with recent . 3. Tiny physiologic cul-de-sac fluid. 4. Stable L5 spondylolysis with grade 1 listhesis.
[2022-01-29 17:09] VITALS: BP 107/70; PULSE 89; O2SAT 99
== END 2022-01-29 17:09 | disposition home or self-care (01) ==
LOC: ED 14:28
DX: K21.9 Gastro-esophageal reflux disease without esophagitis (principal); K44.9 Diaphragmatic hernia without obstruction or gangrene; R10.11 Right upper quadrant pain; R10.33 Periumbilical pain; Z28.310 Unvaccinated for COVID-19
CPT/HCPCS: 36000; 36415; 71045; 74177; 76705; 80053; 81015; 81025; 83690; 85025; 96360; 96374; 96375; 99284; J1885; J2405

== ENCOUNTER 2022-02-25 21:35 | Emergency (ER) | payer OTHER ==
[2022-02-25] MEDS ORDERED: XYLOCAINE 1% HCL 20 ML MDV IJ ONE (21:36)
--- NOTE | 2022-02-25 21:52 | ERPHSYRPT ---
- History of Present Illness Time Seen by Provider: 02/25/22 21:55 Source: patient Exam Limitations: no limitations Physician History: 27-year-old female presents to the emergency department for change of medication. Patient states she went to a [facility] care 2 days ago. Patient was diagnosed with a UTI. Patient was started on Macrobid. Patient advised that Macrobid does not work for her. Patient requesting Keflex as improved to UTI in the past. Additionally patient states she is got mild right lower quadrant pain. Patient has had this lower quadrant pain for 3 weeks. Patient states that she had it checked out approximately 3 weeks ago and for started. Patient believes it is a little worse today. No fever. No diarrhea. No rash. No trauma. Symptoms are mild in intensity. No specific worsening improving factors. Patient voices no other complaints or concerns at this time. Portions of this note were created with voice recognition technology. There may be grammatical, spelling, punctuation or sound alike errors Timing/Duration: today Severity: mild Associated Symptoms: denies symptoms Allergies/Adverse Reactions: morphine Allergy (Mild, Verified 02/25/22 21:41) Difficulty Breathing Penicillins Allergy (Mild, Verified 01/29/22 14:42) Rash THROAT SWELLS Sulfa (Sulfonamide Antibiotics) Allergy (Mild, Verified 01/29/22 14:42) Rash Home Medications: Nitrofurantoin Macro 100 mg [Macrobid 100MG Capsule] 100 mg PO BID 02/25/22 [History] Hx Tetanus, Diphtheria Vaccination/Date Given: Yes Hx Influenza Vaccination/Date Given: No Hx Pneumococcal Vaccination/Date Given: No Travel Risk - Vaccine Status Have you recieved a Covid-19 vaccination: No - Review of Systems Constitutional: No Symptoms, No Fever, No Chills Eyes: No Symptoms Ears, Nose, & Throat: No Symptoms Respiratory: No Symptoms, No Cough, No Dyspnea Cardiac: No Symptoms, No Chest Pain, No Edema, No Syncope Abdominal/Gastrointestinal: No Symptoms, No Abdominal Pain, No Nausea, No Vomiting, No Diarrhea Genitourinary Symptoms: No Symptoms, No Dysuria Musculoskeletal: No Symptoms, No Back Pain, No Neck Pain Skin: No Symptoms, No Rash Neurological: No Symptoms, No Dizziness, No Focal Weakness, No Sensory Changes Psychological: No Symptoms Endocrine: No Symptoms Hematologic/Lymphatic: No Symptoms Immunological/Allergic: No Symptoms All Other Systems: Reviewed and Negative - Past Medical History Pertinent Past Medical History: Yes Neurological History: Epilepsy ENT History: No Pertinent History Cardiac History: No Pertinent History Respiratory History: No Pertinent History Endocrine Medical History: No Pertinent History Musculoskeletal History: No Pertinent History GI Medical History: No Pertinent History History: No Pertinent History Psycho-Social History: No Pertinent History Female Reproductive Disorders: No Pertinent History Other Medical History: PATIENT REPORTS HX OF SCOLIOSIS - Past Surgical History Past Surgical History: Yes Neuro Surgical History: No Pertinent History Cardiac: No Pertinent History Respiratory: No Pertinent History Gastrointestinal: Cholecystectomy Genitourinary: No Pertinent History Female Surgical History: Dilation & Curettage, Section Other Surgical History: eardrum sugery. 3 sets of ear tubes. right ear tube hole did not close had surgery to close the hole. - Social History Smoking Status: Never smoker Exposure to second hand smoke: No Alcohol Use: Socially Drug Use: none Patient Lives Alone: No Significant Family History: no pertinent family hx - Nursing Vital Signs Nursing Vital Signs: Initial Vital Signs Temperature 97.5 F 02/25/22 21:43 Pulse Rate 98 H 02/25/22 21:43 Respiratory Rate 18 02/25/22 21:43 Blood Pressure 134/72 02/25/22 21:43 O2 Sat by Pulse Oximetry 98 02/25/22 21:43 Pain Scale Pain Intensity 5 - Physical Exam General Appearance: no apparent distress, alert Eye Exam: PERRL/EOMI, eyes nml inspection Ears, Nose, Throat Exam: normal ENT inspection, TMs normal, pharynx normal, moist mucous membranes Neck Exam: normal inspection, non-tender, supple, full range of motion Respiratory Exam: normal breath sounds, lungs clear, airway intact, No respiratory distress Cardiovascular Exam: regular rate/rhythm, normal heart sounds, normal peripheral pulses Gastrointestinal/Abdomen Exam: soft, normal bowel sounds, other (Mild right lower quadrant tenderness. No pelvic pain. No pelvic tenderness.), No t enderness, No mass Back Exam: normal inspection, normal range of motion, No CVA tenderness, No vertebral tenderness Extremity Exam: normal inspection, normal range of motion, pelvis stable Neurologic Exam: alert, oriented x 3, cooperative, normal mood/affect, nml cerebellar function, nml station & gait, sensation nml, No motor deficits Skin Exam: normal color, warm, dry, No rash Lymphatic Exam: No adenopathy SpO2: 98 O2 Delivery: Room Air - Course Nursing assessment & vital signs reviewed: Yes - CT Exams Abdomen/Pelvis CT Interpretation: Tele-radiologist Report (Normal appendix. New moderate fecal stasis. Remaining abdomen pelvis negative) Ordered Tests: Active Orders 24 hr Category Date Time Status ABDOMEN AND PELVIS W/0 CONTRAS [CT] Stat Exams 02/25/22 21:53 Taken CULTURE,URINE Stat Lab 02/25/22 21:55 Received HCG,QUALITATIVE URINE Stat Lab 02/25/22 22:00 Completed UA W/RFX CULTURE Stat Lab 02/25/22 21:55 Completed Lab/Rad Data: Laboratory Results 02/25/22 02/25/22 Range/Units 22:00 21:55 Urinalys Dipstick Clnc MAIN LAB Urine Color ORANGE A (YELLOW) Urine Appearance CLEAR (CLEAR) Urine pH 5.0 (5-6) Ur Specific [place] 1.015 (1.005-1.025) POC Urine Protein Conf >=300 A (Negative) Urine Ketones SMALL-15 A (NEGATIVE) Urine Nitrite POSITIVE A (NEGATIVE) Urine Bilirubin MODERATE A (NEGATIVE) Urine Urobilinogen >=8.0 A (0-1) mg/dL Urine Leukocytes LARGE A (NEGATIVE) Urine WBC (Auto) 16-25 A (0-5) /HPF Urine RBC (Auto) 3-5 A (0-2) /HPF U Epithel Cells (Auto) MODERATE (FEW) /HPF Urine Bacteria (Auto) MODERATE A (NEGATIVE) /HPF Urine RBC NEGATIVE (0-5) Jacob/ul Urine Mucus (Auto) MANY A (NEGATIVE) /HPF Ur Culture Indicated? YES Urine Glucose 250 A (NEGATIVE) mg/dL Urine HCG, Qual NEGATIVE (Negative) - Progress Progress: improved Progress Note: Patient reassessed. Pain improved. CT abdomen pelvis negative for appendiciti s. We will change patient's UTI medication with reported. Patient will receive a prescription for Keflex. [facility] microbiology pending. Portions of this note were created with voice recognition technology. There may be grammatical, spelling, punctuation or sound alike errors 02/25/22 22:54 Patient agrees to follow-up with primary care doctor within 48 hours for evaluation. 02/25/22 22:55 Counseled pt/family regarding: lab results, diagnosis, need for follow-up, rad results - Departure Departure Disposition: Home Clinical Impression: UTI (urinary tract infection) Condition: Stable Critical Care Time: No Referrals: RIGOBERTO GRAYSON MD [Primary Care Provider] - Follow up/PCP as directed Instructions: Urinary Tract Infections in Adults Additional Instructions: Discharge/Care Plan EDGAR VANN was seen on 02/25/22 in the Emergency Room. The patient was counseled regarding Diagnosis,Lab results, Imaging studies, need for follow up and when to return to the Emergency Room. Prescriptions given: Discharge Note I have spoken with the patient and/or caregivers. I have explained the patient's condition, diagnosis and treatment plan based on the information available to me at this time. I have answered the patient's and/or caregiver's questions and addressed any concerns. The patient and/or caregivers have as good understanding of the patient's diagnosis, condition and treatment plan as can be expected at this point. The vital signs have been stable. The patient's condition is stable and appropriate for discharge from the emergency department. The patient will pursue further outpatient evaluation with the primary care physician or other designated or consulting physician as outlined in the discharge instructions. The patient and/or caregivers are agreeable to this plan of care and follow-up instructions have been explained in detail. The patient and/or caregivers have received these instruction. The patient/and or caregivers are aware that any significant change in condition or worsening of symptoms should prompt an immediate return to this or the closest emergency department or call 911. Prescriptions: Fluconazole [Diflucan ] 150 mg PO DAILY 1 Days #1 tablet Cephalexin Mh 500 mg [Keflex 500 mg] 500 mg PO QID 5 Days #20 cap
[2022-02-25 22:10] LABS: Appearance CLEAR (CLEAR); Bacteria MODERATE /HPF (NEGATIVE); Bilirubin MODERATE (NEGATIVE); Epithelial Cells MODERATE /HPF (FEW); Glucose 250 mg/dL (NEGATIVE); Mucus MANY /HPF (NEGATIVE)
[2022-02-25 22:11] LABS: Dipstick done @ ? MAIN LAB; Ketones SMALL-15 (NEGATIVE); Nitrite POSITIVE (NEGATIVE); Protein,Urine Dip >=300 (Negative); RBC NEGATIVE Ery/ul (0-5); Specific Gravity 1.015 (1.005-1.025); Urine Cultured Indicated? YES; Urobilinogen >=8.0 mg/dL (0-1)
[2022-02-25 22:59] VITALS: O2SAT 98
[2022-02-25] MEDS ORDERED: Rocephin 1000 MG INJ ONE (23:02)
[2022-02-25] MEDS: Rocephin 1000 MG INJ IM ONE (23:05)
[2022-02-25 23:12] VITALS: BP 118/58; PULSE 86
--- NOTE | 2022-02-26 09:05 | XRAY ---
Indication: Right lower quadrant pain. History UTI. Multiple contiguous axial images obtained through the abdomen and pelvis without contrast. Comparison: January 29, 2022 Lung bases clear. Heart not enlarged. Stomach is distended with food. Noncontrasted stomach and bowel loops appear nonobstructed with normal appendix. There is now moderate diffuse scattered colonic fecal debris throughout. Again cholecystectomy. No free fluid/air. Remaining liver, pancreas, spleen, adrenal glands, kidneys, ureters, bladder, uterus, and aorta are unremarkable for noncontrast exam. Osseous structures intact with stable L5 spondylolysis with minimal grade 1 listhesis. Impression: 1. New fecal stasis. 2. Stable L5 spondylolysis with grade [address] abdomen/pelvis without contrast exam is negative.
== END 2022-02-25 23:20 | disposition home or self-care (01) ==
LOC: ED 21:35
DX: N39.0 Urinary tract infection, site not specified (principal); R10.31 Right lower quadrant pain; Z28.310 Unvaccinated for COVID-19
CPT/HCPCS: 74176; 81015; 81025; 87086; 96372; 99283; J0696

== ENCOUNTER 2022-07-13 14:22 | Emergency (ER) | payer OTHER ==
[2022-07-13] MEDS ORDERED: TYLENOL 325 MG PO ONE (14:39)
[2022-07-13] MEDS ORDERED: Compazine 10 MG/2 ML IV ONE (14:39)
[2022-07-13] MEDS ORDERED: BENADRYL 50 MG/ML IV ONE (14:39)
[2022-07-13] MEDS ORDERED: Sodium Chloride 0.9% 1000 ML 1,000 ML IV STA (14:39)
--- NOTE | 2022-07-13 14:44 | ERPHSYRPT ---
- History of Present Illness Time Seen by Provider: 07/13/22 14:44 Source: patient Exam Limitations: no limitations Physician History: Migraines for the past 2 weeks Patient is at 13W 5D Interfering w/ daily activities. Interfering w/ sleep. No nausea, vomiting, fever, chills + diarrhea Tylenol not helping Decreased PO intake Timing/Duration: week(s) (2), intermittent Quality: pressure, sharpness, throbbing Head Pain Location: frontal, occipital Severity of Pain-Max: severe Severity of Pain-Current: moderate Recent Head Trauma: chronic headaches Modifying Factors: Improves With: cold therapy, medication. Worsens With: exposure to light, noise Associated Symptoms: sensitive to light, No fever/chills, No nausea/vomiting, No neck pain, No stiff neck, No vision changes, No visual disturbance, No weakness Previous symptoms: same symptoms as today Allergies/Adverse Reactions: morphine Allergy (Mild, Verified 07/13/22 14:37) Difficulty Breathing Penicillins Allergy (Mild, Verified 07/13/22 14:37) Rash THROAT SWELLS Sulfa (Sulfonamide Antibiotics) Allergy (Mild, Verified 07/13/22 14:37) Rash Home Medications: Pnv No.95/Ferrous Fum/Folic AC [ Vitamins Tablet] 1 tab PO DAILY 07/13/22 [History] Hx Tetanus, Diphtheria Vaccination/Date Given: Yes Hx Influenza Vaccination/Date Given: No Hx Pneumococcal Vaccination/Date Given: No Travel Risk - Vaccine Status Have you recieved a Covid-19 vaccination: No - Review of Systems Constitutional: No Symptoms Eyes: No Symptoms Ears, Nose, & Throat: No Symptoms Respiratory: No Symptoms Cardiac: No Symptoms Abdominal/Gastrointestinal: Diarrhea, No Abdominal Pain, No Nausea, No Vomiting Genitourinary Symptoms: No Dysuria, No Frequency, No Hematuria Musculoskeletal: No Symptoms Skin: No Symptoms Neurological: No Symptoms Psychological: No Symptoms Endocrine: No Symptoms Hematologic/Lymphatic: No Symptoms Immunological/Allergic: No Symptoms All Other Systems: Reviewed and Negative - Past Medical History Pertinent Past Medical History: Yes Neurological History: Epilepsy ENT History: No Pertinent History Cardiac History: No Pertinent History Respiratory History: No Pertinent History Endocrine Medical History: No Pertinent History Musculoskeletal History: No Pertinent History GI Medical History: No Pertinent History History: No Pertinent History Psycho-Social History: No Pertinent History Female Reproductive Disorders: No Pertinent History Other Medical History: PATIENT REPORTS HX OF SCOLIOSIS - Past Surgical History Past Surgical History: Yes Neuro Surgical History: No Pertinent History Cardiac: No Pertinent History Respiratory: No Pertinent History Gastrointestinal: Cholecystectomy Genitourinary: No Pertinent History Female Surgical History: Dilation & Curettage, Section Other Surgical History: eardrum sugery. 3 sets of ear tubes. right ear tube hole did not close had surgery to close the hole. - Social History Smoking Status: Never smoker Exposure to second hand smoke: No Alcohol Use: Socially Drug Use: none Patient Lives Alone: No Significant Family History: no pertinent family hx - Nursing Vital Signs Nursing Vital Signs: Initial Vital Signs Temperature 97.7 F 07/13/22 14:39 Pulse Rate 98 H 07/13/22 14:39 Respiratory Rate 18 07/13/22 14:39 Blood Pressure 133/89 07/13/22 14:39 O2 Sat by Pulse Oximetry 98 07/13/22 14:39 Pain Scale Pain Intensity 5 - Physical Exam General Appearance: no apparent distress Eye Exam: PERRL/EOMI, eyes nml inspection Ears, Nose, Throat Exam: normal ENT inspection Neck Exam: normal inspection, non-tender, supple, full range of motion Respiratory Exam: normal breath sounds Cardiovascular Exam: regular rate/rhythm, capillary refill <2 sec, No edema Gastrointestinal/Abdominal Exam: soft, No tenderness Mental Status Exam: alert, oriented x 3, 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 Exam: normal hearing, normal speech, PERRL, tongue midline Coordination/Gait Exam: normal finger to nose, normal cerebellar function Motor/Sensory Exam: no motor deficit, no sensory deficit, no pronator drift Skin Exam: normal color, warm, dry SpO2 Interpretation: normal O2 Delivery: Room Air - Course Nursing assessment & vital signs reviewed: Yes Ordered Tests: Active Orders 24 hr Category Date Time Status IV Insertion STAT Care 07/13/22 14:39 Active CBC W DIFF Stat Lab 07/13/22 14:39 Completed CMP Stat Lab 07/13/22 14:39 Completed CULTURE,URINE Stat Lab 07/13/22 14:52 Received UA W/RFX UR CULTURE Stat Lab 07/13/22 14:52 Completed Medication Summary Discontinued Medications Generic Name Dose Route Start Last Admin Trade Name Freq PRN Reason Stop Dose Admin Acetaminophen 975 mg 07/13/22 14:39 07/13/22 15:05 Acetaminophen 325 Mg Tablet PO 07/13/22 14:40 975 mg STAT ONE Administration Acetaminophen Confirm 07/13/22 15:04 Acetaminophen 325 Mg Tablet Administered 07/13/22 15:05 Dose 975 mg .ROUTE .STK-MED ONE Diphenhydramine HCl 50 mg 07/13/22 14:39 07/13/22 15:05 Diphenhydramine Hcl 50 Mg/Ml Vial IV 07/13/22 14:40 50 mg STAT ONE Administration Diphenhydramine HCl Confirm 07/13/22 15:03 Diphenhydramine Hcl 50 Mg/Ml Vial Administered 07/13/22 15:04 Dose 50 mg .ROUTE .STK-MED ONE Sodium Chloride 1,000 mls @ 999 mls/hr 07/13/22 14:39 07/13/22 16:08 Sodium Chloride 0.9% 1000 Ml IV 07/13/22 15:39 Infused .Q1H1M STA Infusion Sodium Chloride Confirm 07/13/22 15:04 Sodium Chloride 0.9% 1000 Ml Administered 07/13/22 15:05 Dose 1,000 mls @ ud .ROUTE .STK-MED ONE Nitrofurantoin Macrocrystals 100 mg 07/13/22 15:15 07/13/22 15:19 Nitrofurantoin Macro 100 Mg Capsule PO 07/13/22 15:16 100 mg STAT ONE Administration Nitrofurantoin Macrocrystals Confirm 07/13/22 15:17 Nitrofurantoin Macro 100 Mg Capsule Administered 07/13/22 15:18 Dose 100 mg .ROUTE .STK-MED ONE Potassium Chloride 40 meq 07/13/22 15:42 07/13/22 15:46 Potassium Chloride Tab 10 Meq Tab PO 07/13/22 15:43 40 meq STAT ONE Administration Potassium Chloride Confirm 07/13/22 15:45 Potassium Chloride Tab 10 Meq Tab Administered 07/13/22 15:46 Dose 40 meq PO .STK-MED ONE Prochlorperazine Edisylate 5 mg 07/13/22 14:39 07/13/22 15:05 Prochlorperazine Edisylate 10 Mg/2 Ml Vial IV 07/13/22 14:40 5 mg STAT ONE Administration Prochlorperazine Edisylate Confirm 07/13/22 15:04 Prochlorperazine Edisylate 10 Mg/2 Ml Vial Administered 07/13/22 15:05 Dose 10 mg .ROUTE .STK-MED ONE Lab/Rad Data: Laboratory Result Diagrams 07/13/22 14:39 07/13/22 14:39 Laboratory Results 07/13/22 07/13/22 07/13/22 Range/Units 14:52 14:39 14:39 WBC 9.2 (4.0-10.5) x10^3/uL RBC 4.28 (4.1-5.4) x10^6/uL Hgb 13.2 (12.0-16.0) g/dL Hct 39.1 (35-47) % MCV 91.4 (78-100) fL MCH 30.8 (26-32) pg MCHC 33.8 (32-36) g/dL RDW 12.3 (11.5-14.0) % Plt Count 232 (150-450) x10^3/uL MPV 10.0 (7.5-11.0) fL Gran % 71.5 H (36.0-66.0) % Immature Gran % (Auto) 0.3 (0.00-0.4) % Nucleat RBC Rel Count 0.0 (0.00-0.1) % Eos # (Auto) 0.09 (0-0.5) x10^3/uL Immature Gran # (Auto) 0.03 (0.00-0.03) x10^3u/L Absolute Lymphs (auto) 1.87 (1.0-4.6) x10^3/uL Absolute Monos (auto) 0.60 (0.0-1.3) x10^3/uL Absolute Nucleated RBC 0.00 (0.00-0.01) x10^3u/L Lymphocytes % 20.4 L (24.0-44.0) % Monocytes % 6.5 (0.0-12.0) % Eosinophils % 1.0 (0.00-5.0) % Basophils % 0.3 (0.0-0.4) % Absolute Granulocytes 6.56 (1.4-6.9) x10^3/uL Basophils # 0.03 (0-0.4) x10^3/uL Sodium 139 (137-145) mmol/L Potassium 3.5 (3.5-5.1) mmol/L Chloride 105 (98-107) mmol/L Carbon Dioxide 25 (22-30) mmol/L Anion Gap 12.0 (5-15) MEQ/L BUN 6 L (7-17) mg/dL Creatinine 0.53 (0.52-1.04) mg/dL Estimated GFR > 60.0 ML/MIN Glucose 104 (74-106) mg/dL Calcium 8.8 (8.4-10.2) mg/dL Total Bilirubin 0.20 (0.2-1.3) mg/dL AST 21 (14-36) U/L ALT 16 (0-35) U/L Alkaline Phosphatase 71 (38-126) U/L Serum Total Protein 6.2 L (6.3-8.2) g/dL Albumin 3.5 (3.5-5.0) g/dL Urine Color Yellow (Yellow) Urine Appearance Cloudy A (Clear) Urine pH 5.5 (4.6-8.0) Ur Specific [place] 1.020 (1.005-1.030) Urine Protein Negative (Negative) Urine Glucose (UA) Negative (Negative) mg/dL Urine Ketones Negative (Negative) Urine Blood Negative (Negative) Urine Nitrite Negative (Negative) Urine Bilirubin Negative (Negative) Urine Urobilinogen 0.2 (0.2) mg/dL Ur Leukocyte Esterase Small A (Negative) U Hyaline Cast (Auto) NONE SEEN (0-2) /LPF Urine Microscopic RBC 0-2 (0-5) /HPF Urine Microscopic WBC 11-20 A (0-5) /HPF Ur Epithelial Cells Moderate A (None Seen) /HPF Urine Bacteria Rare A (None Seen) /HPF Urine Culture Reflexed YES (NO) - Progress Progress: improved Air Movement: good Progress Note: 07/13/22 16:18 Patient responded well to IVF, Compazene and Benadryl. UA showed small LE, 11-20 WBC, but due to her being I will treat w/ Macrobid. Her K was 3.5 so 40meq Kcl was given. I encouraged patient to f/u w/ OB. Blood Culture(s) Obtained: No Antibiotics given: Yes Counseled pt/family regarding: lab results, diagnosis, need for follow-up Medical Desision Making - Diagnostic Testing Diagnostic test were ordered, analyzed, and reviewed by me: Yes - Risk of complications The pt has a mod risk of morbidity or mortality based on: Need for prescription drug management - Departure Departure Disposition: Home Clinical Impression: UTI (urinary tract infection), Migraine Condition: Good Critical Care Time: No Referrals: RIGOBERTO GRAYSON MD [Primary Care Provider] - Follow up/PCP as directed Instructions: Headache, Adult (DC), Urinary Tract Infections in Prescriptions: Nitrofurantoin Monohyd/M-Cryst [Macrobid 100 mg Capsule] 100 mg PO BID 5 Days #9 cap
[2022-07-13 14:54] VITALS: O2SAT 98
[2022-07-13 15:03] LABS: Absolute Neutrophil Ct (ANC) 6.56 x10^3/uL (1.4-6.9); BASOPHIL % 0.3 % (0.0-0.4); Basophil (Absolute #) 0.03 x10^3/uL (0-0.4); Eosinophil (Absolute #) 0.09 x10^3/uL (0-0.5); Hematocrit 39.1 % (35-47); Hemoglobin 13.2 g/dL (12.0-16.0); IMMATURE GRAN # 0.03 x10^3u/L (0.00-0.03); IMMATURE GRAN % 0.3 % (0.00-0.4); Lymphocyte (Absolute #) 1.87 x10^3/uL (1.0-4.6); Lymphocytes % 20.4 % (24.0-44.0); Mean Cell Volume 91.4 fL (78-100); Mean Corpuscular Hemoglobin 30.8 pg (26-32); Mean Corpuscular Hgb Concent. 33.8 g/dL (32-36); Monocytes % 6.5 % (0.0-12.0); Neutrophil % 71.5 % (36.0-66.0); Platelet Count 232 x10^3/uL (150-450); Red Blood Count 4.28 x10^6/uL (4.1-5.4); Red Cell Distribution Width 12.3 % (11.5-14.0); White Blood Count 9.2 x10^3/uL (4.0-10.5)
[2022-07-13 15:03] LABS: Appearance Cloudy (Clear); Bacteria Rare /HPF (None Seen); Bilirubin Negative (Negative); Blood Negative (Negative); Epithelial Cells Moderate /HPF (None Seen); Glucose, Urine Negative (Negative); Hyaline Casts NONE SEEN /LPF (0-2); Ketones Negative (Negative); Leukocyte Esterase Small (Negative); Nitrite Negative (Negative); Ph 5.5 (4.6-8.0); Protein,Urine Dip Negative (Negative); RBC 0-2 /HPF (0-5); Urobilinogen 0.2 mg/dL (0.2)
[2022-07-13] MEDS ORDERED: BENADRYL 50 MG/ML ONE (15:03)
[2022-07-13] MEDS ORDERED: Compazine 10 MG/2 ML ONE (15:04)
[2022-07-13] MEDS ORDERED: TYLENOL 325 MG ONE (15:04)
[2022-07-13] MEDS ORDERED: Sodium Chloride 0.9% 1000 ML 1,000 ML ONE (15:04)
[2022-07-13 15:08] LABS: ADD URINE CULTURE? YES (NO)
[2022-07-13] MEDS ORDERED: Macrobid 100MG Capsule PO ONE (15:15)
[2022-07-13] MEDS ORDERED: Macrobid 100MG Capsule ONE (15:17)
[2022-07-13 15:23] LABS: ALBUMIN 3.5 g/dL (3.5-5.0); ALKALINE PHOSPHATASE 71 U/L (38-126); BLOOD UREA NITROGEN 6 mg/dL (7-17); CHLORIDE 105 mmol/L (98-107); Calcium 8.8 mg/dL (8.4-10.2); Carbon Dioxide 25 mmol/L (22-30); Creatinine 1 0.53 mg/dL (0.52-1.04); EST GLOMERULAR FILTRATION RATE > 60.0 ML/MIN; Glucose 104 mg/dL (74-106); Potassium 3.5 mmol/L (3.5-5.1); SGOT/AST 21 U/L (14-36); SGPT/ALT 16 U/L (0-35); SODIUM 139 mmol/L (137-145); Total Protein 6.2 g/dL (6.3-8.2)
[2022-07-13] MEDS ORDERED: Klor Con PO ONE ×2 (15:42→15:45)
[2022-07-13 16:19] VITALS: BP 107/62; PULSE 78
== END 2022-07-13 16:21 | disposition home or self-care (01) ==
LOC: ED 14:22
DX: O23.41 Unspecified infection of urinary tract in pregnancy, first trimester (principal); N39.0 Urinary tract infection, site not specified; Z3A.13 13 weeks gestation of pregnancy; G43.909 Migraine, unspecified, not intractable, without status migrainosus; Z28.310 Unvaccinated for COVID-19
CPT/HCPCS: 36415; 80053; 81001; 85025; 87086; 96360; 96374; 96375; 99284; J1200; A9270-GY

== ENCOUNTER 2022-08-10 16:58 | Emergency (ER) | payer OTHER ==
[2022-08-10 17:21] VITALS: PULSE 95; O2SAT 97
[2022-08-10] MEDS ORDERED: Compazine 10 MG/2 ML IV ONE (17:32)
[2022-08-10] MEDS ORDERED: BENADRYL 50 MG/ML IV ONE (17:32)
[2022-08-10] MEDS ORDERED: Sodium Chloride 0.9% 1000 ML 1,000 ML IV STA (17:32)
[2022-08-10] MEDS ORDERED: TYLENOL EXTRA STRENGTH 500 MG PO STA (17:34)
--- NOTE | 2022-08-10 17:39 | ERPHSYRPT ---
- History of Present Illness Time Seen by Provider: 08/10/22 17:07 Source: patient Exam Limitations: no limitations Patient Subjective Stated Complaint: Tachycardia Triage Nursing Assessment: Patient ambulated back to ED and transferred self to bed. Patient A+O X3. Patient's skin pink, warm and dry. Patient states she feels like her heart has been pounding out of her chest all day and has had blurred vision today. Patient currently 18 weeks and has been complains of lower abdominal pain 10/27. Physician History: Patient is 18 weeks . States that she has been having some palpitations. Headache, vision changes. Known history of migraines. Patient has been seen for similar symptoms during this . No falls no trauma. Perhaps some slight abdominal cramping. However no vaginal bleeding, severe abdominal pain, active vomiting or bowel changes. Patient describes this as her typical migraine presentation. Reviewing old charts, patient was able to take Compazine and Benadryl with fluids last time and improved her symptoms. Twelve- lead EKG was performed with sinus rhythm, rate of 102. Patient appears nontoxic, speaking in complete sentences, able to give me an entire history. S he states that her friend drove her here today. Timing/Duration: today Severity: mild Modifying Factors: Improves With: medication Associated Symptoms: denies symptoms Allergies/Adverse Reactions: morphine Allergy (Mild, Verified 08/10/22 17:07) Difficulty Breathing Penicillins Allergy (Mild, Verified 08/10/22 17:07) Rash THROAT SWELLS Sulfa (Sulfonamide Antibiotics) Allergy (Mild, Verified 08/10/22 17:07) Rash Home Medications: Pnv No.95/Ferrous Fum/Folic AC [ Vitamins Tablet] 1 tab PO DAILY 07/13/22 [History] Hx Tetanus, Diphtheria Vaccination/Date Given: Yes Hx Influenza Vaccination/Date Given: No Hx Pneumococcal Vaccination/Date Given: No Immunizations Up to Date: Yes Travel Risk - International Travel Have you traveled outside of the country in past 3 weeks: No - Coronavirus Screening Are you exhibiting any of the following symptoms?: No Close contact with a COVID-19 positive Pt in past 14-21 Days: No - Vaccine Status Have you recieved a Covid-19 vaccination: No - Review of Systems Constitutional: No Fever, No Chills Eyes: No Symptoms Ears, Nose, & Throat: No Symptoms Respiratory: No Cough, No Dyspnea Cardiac: Palpitations, No Chest Pain, No Edema, No Syncope Abdominal/Gastrointestinal: No Abdominal Pain, No Nausea, No Vomiting, No Diarrhea Genitourinary Symptoms: No Dysuria Musculoskeletal: No Back Pain, No Neck Pain Skin: No Rash Neurological: Headache, No Dizziness, No Focal Weakness, No Sensory Changes Psychological: No Symptoms Endocrine: No Symptoms All Other Systems: Reviewed and Negative - Past Medical History Pertinent Past Medical History: Yes Neurological History: Epilepsy ENT History: No Pertinent History Cardiac History: No Pertinent History Respiratory History: No Pertinent History Endocrine Medical History: No Pertinent History Musculoskeletal History: No Pertinent History GI Medical History: No Pertinent History History: No Pertinent History Psycho-Social History: No Pertinent History Female Reproductive Disorders: No Pertinent History Other Medical History: PATIENT REPORTS HX OF SCOLIOSIS - Past Surgical History Past Surgical History: Yes Neuro Surgical History: No Pertinent History Cardiac: No Pertinent History Respiratory: No Pertinent History Gastrointestinal: Cholecystectomy Genitourinary: No Pertinent History Female Surgical History: Dilation & Curettage, Section Other Surgical History: eardrum sugery. 3 sets of ear tubes. right ear tube hole did not close had surgery to close the hole. - Social History Smoking Status: Never smoker Exposure to second hand smoke: No Alcohol Use: Socially Drug Use: none Patient Lives Alone: No Significant Family History: no pertinent family hx - Female History Hx Last Menstrual Period: unknown Hx Now: Yes Gestational Age: 18 weeks - Nursing Vital Signs Nursing Vital Signs: Initial Vital Signs Temperature 98.0 F 08/10/22 17:09 Pulse Rate 95 H 08/10/22 17:09 Respiratory Rate 18 08/10/22 17:09 Blood Pressure 121/79 08/10/22 17:09 O2 Sat by Pulse Oximetry 97 08/10/22 17:09 Pain Scale Pain Intensity 7 - Physical Exam General Appearance: no apparent distress, alert Eye Exam: PERRL/EOMI, eyes nml inspection Ears, Nose, Throat Exam: normal ENT inspection, TMs normal, pharynx normal, m oist mucous membranes Neck Exam: normal inspection, non-tender, supple, full range of motion Respiratory Exam: normal breath sounds, lungs clear, No respiratory distress Cardiovascular Exam: regular rate/rhythm, normal heart sounds, normal peripheral pulses Gastrointestinal/Abdomen Exam: soft, normal bowel sounds, No tenderness, No mass Back Exam: normal inspection, normal range of motion, No CVA tenderness, No vertebral tenderness Extremity Exam: normal inspection, normal range of motion, pelvis stable Neurologic Exam: alert, oriented x 3, cooperative, normal mood/affect, nml cerebellar function, nml station & gait, sensation nml, No motor deficits Skin Exam: normal color, warm, dry, No rash Lymphatic Exam: No adenopathy SpO2 Interpretation: normal SpO2: 97 Comments: 08/10/22 17:37 No trismus, able to fully extend neck, normal range of motion of neck without pain. Uvula is midline, no swelling of the mouth, noraml oropharynx. No exudate, no signs of meningitis, no floor of mouth swelling, no hot potato voice on exam. No buccal swelling, no gum bleeding, no signs of tooth abscess/infection. No obvious deformity, sensation intact, 2+ capillary refill, 2 point tactile discrimination intact. 5 out of 5 strength. Full range of motion without pain. Compartments are soft, nontender. Overlying skin shows no tenting, bruising, ecchymosis. 08/10/22 17:38 Motor: There is no pronator drift of out-stretched arms. Muscle bulk and tone are normal. Strength is full bilaterally. Reflexes: Reflexes are 2+ and symmetric at the biceps, triceps, knees, and ankles. Plantar responses are flexor. Sensory: Light touch sense are intact in bilateral upper and lower extremities. There is no sign of neglect. Coordination: Rapid alternating movements are intact. There is no dysmetria on [id number] and [id number]. There are no abnormal or extraneous movements. Romberg is absent. Gait/Stance: Posture is normal. Gait is steady with normal steps, base, arm swing, and turning. Heel and toe walking are normal. Tandem gait is normal. - Course Nursing assessment & vital signs reviewed: Yes EKG Interpreted by Me: Sinus Rhythm (Sinus rhythm, no EKG changes) Ordered Tests: Active Orders 24 hr Category Date Time Status EKG-ER Only STAT Care 08/10/22 17:32 Active IV Insertion STAT Care 08/10/22 17:32 Active CBC W DIFF Stat Lab 08/10/22 17:40 Completed CMP Stat Lab 08/10/22 17:40 Completed Medication Summary Generic Name Dose Route Start Last Admin Trade Name Freq PRN Reason Stop Dose Admin Sodium Chloride 1,000 mls @ 999 mls/hr 08/10/22 17:32 08/10/22 17:56 Sodium Chloride 0.9% 1000 Ml IV 08/10/22 18:32 999 mls/hr .Q1H1M STA Administration Discontinued Medications Generic Name Dose Route Start Last Admin Trade Name Garrett PRN Reason Stop Dose Admin Acetaminophen 1,000 mg 08/10/22 17:34 08/10/22 17:55 Acetaminophen 500 Mg Tablet PO 08/10/22 17:35 1,000 mg STAT STA Administration Acetaminophen Confirm 08/10/22 17:53 Acetaminophen 500 Mg Tablet Administered 08/10/22 17:54 Dose 1,000 mg .ROUTE .STK-MED ONE Diphenhydramine HCl 25 mg 08/10/22 17:32 08/10/22 17:59 Diphenhydramine Hcl 50 Mg/Ml Vial IV 08/10/22 17:33 25 mg STAT ONE Administration Diphenhydramine HCl Confirm 08/10/22 17:53 Diphenhydramine Hcl 50 Mg/Ml Vial Administered 08/10/22 17:54 Dose 50 mg .ROUTE .STK-MED ONE Sodium Chloride Confirm 08/10/22 17:53 Sodium Chloride 0.9% 1000 Ml Administered 08/10/22 17:54 Dose 1,000 mls @ ud .ROUTE .STK-MED ONE Prochlorperazine Edisylate 5 mg 08/10/22 17:32 08/10/22 17:59 Prochlorperazine Edisylate 10 Mg/2 Ml Vial IV 08/10/22 17:33 5 mg STAT ONE Administration Prochlorperazine Edisylate Confirm 08/10/22 17:53 Prochlorperazine Edisylate 10 Mg/2 Ml Vial Administered 08/10/22 17:54 Dose 10 mg .ROUTE .STK-MED ONE Lab/Rad Data: Laboratory Result Diagrams 08/10/22 17:40 08/10/22 17:40 Laboratory Results 08/10/22 08/10/22 Range/Units 17:40 17:40 WBC 7.7 (4.0-10.5) x10^3/uL RBC 4.51 (4.1-5.4) x10^6/uL Hgb 14.0 (12.0-16.0) g/dL Hct 41.8 (35-47) % MCV 92.7 (78-100) fL MCH 31.0 (26-32) pg MCHC 33.5 (32-36) g/dL RDW 11.9 (11.5-14.0) % Plt Count 253 (150-450) x10^3/uL MPV 9.8 (7.5-11.0) fL Gran % 69.1 H (36.0-66.0) % Immature Gran % (Auto) 0.5 H (0.00-0.4) % Nucleat RBC Rel Count 0.0 (0.00-0.1) % Eos # (Auto) 0.02 (0-0.5) x10^3/uL Immature Gran # (Auto) 0.04 H (0.00-0.03) x10^3u/L Absolute Lymphs (auto) 1.94 (1.0-4.6) x10^3/uL Absolute Monos (auto) 0.37 (0.0-1.3) x10^3/uL Absolute Nucleated RBC 0.00 (0.00-0.01) x10^3u/L Lymphocytes % 25.2 (24.0-44.0) % Monocytes % 4.8 (0.0-12.0) % Eosinophils % 0.3 (0.00-5.0) % Basophils % 0.1 (0.0-0.4) % Absolute Granulocytes 5.33 (1.4-6.9) x10^3/uL Basophils # 0.01 (0-0.4) x10^3/uL Sodium 136 L (137-145) mmol/L Potassium 4.0 (3.5-5.1) mmol/L Chloride 104 (98-107) mmol/L Carbon Dioxide 23 (22-30) mmol/L Anion Gap 13.9 (5-15) MEQ/L BUN 10 (7-17) mg/dL Creatinine 0.54 (0.52-1.04) mg/dL Estimated GFR > 60.0 ML/MIN Glucose 96 (74-106) mg/dL Calcium 8.5 (8.4-10.2) mg/dL Total Bilirubin 0.90 (0.2-1.3) mg/dL AST 49 H (14-36) U/L ALT 24 (0-35) U/L Alkaline Phosphatase 87 (38-126) U/L Serum Total Protein 7.2 (6.3-8.2) g/dL Albumin 3.9 (3.5-5.0) g/dL - Progress Progress: improved Progress Note: 08/10/22 17:38 Differential diagnosis includes electrolyte abnormality, palpitations in , migraine, low hemoglobin. Plan for migraine cocktail, similar to previous time. We will do Compazine, Be nadryl, fluids. Insert IV, basic labs, Tylenol. 08/10/22 18:24 Labs stable, patient improved. repeat neuro exam normal. plan for discharge home. see obgyn tomorrow. Counseled pt/family regarding: lab results, diagnosis, need for follow-up - Departure Departure Disposition: Home Clinical Impression: Headache, Tachycardia Condition: Stable Critical Care Time: No Referrals: RIGOBERTO GRAYSON MD [Primary Care Provider] - Follow up/PCP as directed Instructions: Tachycardia (DC)
[2022-08-10 17:44] LABS: Absolute Neutrophil Ct (ANC) 5.33 x10^3/uL (1.4-6.9); BASOPHIL % 0.1 % (0.0-0.4); Basophil (Absolute #) 0.01 x10^3/uL (0-0.4); Eosinophil % 0.3 % (0.00-5.0); Eosinophil (Absolute #) 0.02 x10^3/uL (0-0.5); Hematocrit 41.8 % (35-47); IMMATURE GRAN # 0.04 x10^3u/L (0.00-0.03); IMMATURE GRAN % 0.5 % (0.00-0.4); Lymphocyte (Absolute #) 1.94 x10^3/uL (1.0-4.6); Lymphocytes % 25.2 % (24.0-44.0); Mean Cell Volume 92.7 fL (78-100); Mean Corpuscular Hgb Concent. 33.5 g/dL (32-36); Mean Platelet Volume 9.8 fL (7.5-11.0); Monocyte (Absolute #) 0.37 x10^3/uL (0.0-1.3); Monocytes % 4.8 % (0.0-12.0); Neutrophil % 69.1 % (36.0-66.0); Platelet Count 253 x10^3/uL (150-450); Red Blood Count 4.51 x10^6/uL (4.1-5.4); Red Cell Distribution Width 11.9 % (11.5-14.0); White Blood Count 7.7 x10^3/uL (4.0-10.5)
[2022-08-10] MEDS ORDERED: TYLENOL EXTRA STRENGTH 500 MG ONE (17:53)
[2022-08-10] MEDS ORDERED: Sodium Chloride 0.9% 1000 ML 1,000 ML ONE (17:53)
[2022-08-10] MEDS ORDERED: BENADRYL 50 MG/ML ONE (17:53)
[2022-08-10] MEDS ORDERED: Compazine 10 MG/2 ML ONE (17:53)
[2022-08-10 18:00] LABS: ALBUMIN 3.9 g/dL (3.5-5.0); ALKALINE PHOSPHATASE 87 U/L (38-126); ANION GAP 13.9 MEQ/L (5-15); BLOOD UREA NITROGEN 10 mg/dL (7-17); CHLORIDE 104 mmol/L (98-107); Calcium 8.5 mg/dL (8.4-10.2); Carbon Dioxide 23 mmol/L (22-30); Creatinine 1 0.54 mg/dL (0.52-1.04); EST GLOMERULAR FILTRATION RATE > 60.0 ML/MIN; Glucose 96 mg/dL (74-106); SGOT/AST 49 U/L (14-36); SGPT/ALT 24 U/L (0-35); SODIUM 136 mmol/L (137-145); Total Protein 7.2 g/dL (6.3-8.2)
[2022-08-10 18:40] VITALS: BP 118/76
== END 2022-08-10 18:40 | disposition home or self-care (01) ==
LOC: ED 16:58
DX: R51.9 Headache, unspecified (principal); R00.0 Tachycardia, unspecified; Z33.1 Pregnant state, incidental; H53.8 Other visual disturbances; Z28.310 Unvaccinated for COVID-19
CPT/HCPCS: 36000; 36415; 80053; 85025; 93005; 96374; 96375; 99284; J1200; A9270-GY

== ENCOUNTER 2022-10-02 18:14 | Observation (INO) | payer OTHER ==
[2022-10-02 18:55] VITALS: O2SAT 97
[2022-10-02 19:15] LABS: Appearance Cloudy (Clear); Bacteria Rare /HPF (None Seen); Bilirubin Negative (Negative); Blood Negative (Negative); Epithelial Cells Few /HPF (None Seen); Glucose, Urine Negative (Negative); Hyaline Casts NONE SEEN /LPF (0-2); Ketones Negative (Negative); Leukocyte Esterase Negative (Negative); Nitrite Negative (Negative); Protein,Urine Dip Negative (Negative); RBC 0-2 /HPF (0-5); Urobilinogen 0.2 mg/dL (0.2)
[2022-10-02 19:27] LABS: Amphetamine,Urine NEGATIVE (NEGATIVE); Barbiturate,Urine NEGATIVE (NEGATIVE); Benzodiazepine,Urine NEGATIVE (NEGATIVE); Cocaine,Urine NEGATIVE (NEGATIVE); Methadone,Urine NEGATIVE (NEGATIVE); Opiate,Urine NEGATIVE (NEGATIVE); PCP,Urine NEGATIVE (NEGATIVE); THC,Urine NEGATIVE (NEGATIVE)
[2022-10-02 19:31] LABS: ADD URINE CULTURE? NO (NO)
[2022-10-02 20:06] VITALS: BP 143/65; PULSE 90
== END 2022-10-02 21:00 | disposition home or self-care (01) ==
LOC: MED SURG 18:14 → UNDOADMOB 18:14 → UNDODISOB 21:00
PROVIDERS: ADMIT Family Medicine; ATTEND Family Medicine
DX: Z34.82 Encounter for supervision of other normal pregnancy, second trimester (principal); Z3A.27 27 weeks gestation of pregnancy
CPT/HCPCS: 80307; 81001; G0378; G0379

== ENCOUNTER 2022-11-05 15:21 | Observation (INO) | payer OTHER ==
--- NOTE | 2022-11-05 17:10 | XRAY ---
Indication: Status post fall. Two-dimensional OB ultrasound performed. Comparison: October 29, 2022 Again single intrauterine in cephalic presentation. heart rate 141 BPM. Visualized stomach and bladder are unremarkable. Again posterior placenta without abruption/previa. BPD measures 7.31 cm corresponding to 29 weeks 2 days. HC measures 27.48 cm corresponding to 30 weeks 0 days. AC measures 25.49 cm corresponding to 29 weeks 5 days. FL measures 5.79 cm corresponding to 30 weeks 2 days. SCOTT is 11.5 cm. Impression: Again single viable intrauterine with mean gestational age 29 weeks 6 days. Normal progression of . No new/acute findings.
[2022-11-05 17:52] VITALS: BP 104/51; PULSE 85
== END 2022-11-05 19:35 | disposition home or self-care (01) ==
LOC: OB 15:21
PROVIDERS: ADMIT Family Medicine; ATTEND Obstetrics & Gynecology
DX: Z34.83 Encounter for supervision of other normal pregnancy, third trimester (principal); Z3A.30 30 weeks gestation of pregnancy
CPT/HCPCS: 76816

== ENCOUNTER 2022-12-04 00:15 | Emergency (ER) | payer OTHER ==
[2022-12-04 00:37] VITALS: RESP 16; TEMP 98.1
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
[2022-12-04 00:57] VITALS: BP 132/85; PULSE 88; O2SAT 96
== END 2022-12-04 00:43 | disposition home or self-care (01) ==
LOC: ED 00:15
DX: Z04.1 Encounter for examination and observation following transport accident (principal); Z3A.32 32 weeks gestation of pregnancy
CPT/HCPCS: 99285

== ENCOUNTER 2022-12-04 00:50 | Observation (INO) | payer OTHER ==
[2022-12-04] MEDS ORDERED: Rhogam Plus 300 MCG IM ONE (01:42)
[2022-12-04 06:19] VITALS: O2SAT 97
[2022-12-04 08:20] LABS: Absolute Neutrophil Ct (ANC) 4.65 x10^3/uL (1.4-6.9); BASOPHIL % 0.3 % (0.0-0.4); Basophil (Absolute #) 0.02 x10^3/uL (0-0.4); Eosinophil % 0.8 % (0.00-5.0); Eosinophil (Absolute #) 0.06 x10^3/uL (0-0.5); Hematocrit 38.1 % (35-47); IMMATURE GRAN # 0.04 x10^3u/L (0.00-0.03); IMMATURE GRAN % 0.5 % (0.00-0.4); Lymphocyte (Absolute #) 2.51 x10^3/uL (1.0-4.6); Lymphocytes % 32.3 % (24.0-44.0); Mean Cell Volume 92.5 fL (78-100); Mean Corpuscular Hemoglobin 31.6 pg (26-32); Mean Corpuscular Hgb Concent. 34.1 g/dL (32-36); Mean Platelet Volume 9.7 fL (7.5-11.0); Monocyte (Absolute #) 0.49 x10^3/uL (0.0-1.3); Monocytes % 6.3 % (0.0-12.0); Neutrophil % 59.8 % (36.0-66.0); Platelet Count 188 x10^3/uL (150-450); Red Blood Count 4.12 x10^6/uL (4.1-5.4); Red Cell Distribution Width 12.5 % (11.5-14.0); White Blood Count 7.8 x10^3/uL (4.0-10.5)
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
[2022-12-04 09:55] VITALS: BP 106/70; PULSE 94; RESP 20; TEMP 98.2
== END 2022-12-04 10:30 | disposition home or self-care (01) ==
LOC: OB 00:50 → UNDOADMOB 00:50 → UNDODISOB 10:30
PROVIDERS: ADMIT Family Medicine; ATTEND Family Medicine
DX: Z34.83 Encounter for supervision of other normal pregnancy, third trimester (principal); Z3A.34 34 weeks gestation of pregnancy
CPT/HCPCS: 36415; 76816; 85025; 85461; J2790

== ENCOUNTER 2022-12-22 16:20 | Observation (INO) | payer OTHER ==
[2022-12-22 17:17] LABS: Appearance Clear (Clear); Bilirubin Negative (Negative); Blood Negative (Negative); Epithelial Cells Few /HPF (None Seen); Glucose, Urine Negative (Negative); Hyaline Casts NONE SEEN /LPF (0-2); Ketones Negative (Negative); Leukocyte Esterase Small (Negative); Nitrite Negative (Negative); Protein,Urine Dip Trace (Negative); RBC 0-2 /HPF (0-5)
[2022-12-22 17:27] LABS: ADD URINE CULTURE? NO (NO); Bacteria Few /HPF (None Seen)
[2022-12-22] MEDS ORDERED: Lactated Ringers 1,000 ML IV ONE ×2 (18:16→22:16)
[2022-12-22] MEDS ORDERED: Nubain 10 MG/ML IV ONE (21:24)
[2022-12-22 22:14] VITALS: O2SAT 99
[2022-12-22] MEDS: Lactated Ringers 1,000 ML IV SCH (22:46)
[2022-12-23 06:25] VITALS: PULSE 76
[2022-12-23 07:54] VITALS: BP 121/81; RESP 20; TEMP 97.8
[2022-12-23] MEDS ORDERED: BRETHINE 1 MG/ML SQ ONE (08:19)
[2022-12-23] MEDS: Lactated Ringers 1,000 ML IV SCH (08:41)
== END 2022-12-23 10:10 | disposition home or self-care (01) ==
LOC: OB 16:20
PROVIDERS: ADMIT Family Medicine; ATTEND Family Medicine
DX: Z34.83 Encounter for supervision of other normal pregnancy, third trimester (principal); Z3A.37 37 weeks gestation of pregnancy
CPT/HCPCS: 81001; G0378; G0379; J2300

== ENCOUNTER 2022-12-27 18:23 | Observation (INO) | payer OTHER ==
[2022-12-27 19:07] VITALS: BP 123/87; PULSE 116; RESP 20; TEMP 97.7; O2SAT 97
== END 2022-12-27 19:43 | disposition home or self-care (01) ==
LOC: OB 18:23
PROVIDERS: ADMIT Obstetrics & Gynecology; ATTEND Obstetrics & Gynecology
DX: Z34.83 Encounter for supervision of other normal pregnancy, third trimester (principal); Z3A.38 38 weeks gestation of pregnancy
CPT/HCPCS: G0378; G0379

== ENCOUNTER 2022-12-31 16:58 | Observation (INO) | payer OTHER ==
[2022-12-31 20:07] VITALS: BP 119/78; PULSE 97; RESP 18
== END 2022-12-31 19:00 | disposition home or self-care (01) ==
LOC: OB 16:58
PROVIDERS: ADMIT Family Medicine; ATTEND Family Medicine
DX: Z34.83 Encounter for supervision of other normal pregnancy, third trimester (principal); Z3A.38 38 weeks gestation of pregnancy
CPT/HCPCS: G0378; G0379

== ENCOUNTER 2023-01-07 04:58 | Inpatient (IN) | payer OTHER ==
[~2023-01-07 04:58] MED LIST changes: +BENADRYL 50 MG/ML IV PRN; +CLARITIN 10 MG PO PRN; -CLINDAMYCIN-D5W 900 MG/50 ML*** 900 MG/50 ML BAG IV ONE; +DEMEROL 50 MG IV PRN; +Dextrose 5%-Lr IV Solution 1000 ML 1,000 ML IV SCH; +HOLD NARCOTIC ANALGESICS AND SEDATIVES X24 HR MC PRN; +Lactated Ringers 1,000 ML IV SCH; +Narcan 0.4 MG/ML IV PRN; +Nubain 10 MG/ML IV PRN; -Pepcid 20 MG VIAL IV ONE; -Reglan 10 MG/2 ML ONE; -SOD CITRATE-CITRIC ACID SOLN ONE; +Zofran 4 MG/2 ML VIAL IV PRN
[2023-01-07] MEDS ORDERED: EXPAREL 133 MG/10 ML VIAL IJ ONE (04:59)
[2023-01-07 05:26] LABS: Absolute Neutrophil Ct (ANC) 5.43 x10^3/uL (1.4-6.9); BASOPHIL % 0.5 % (0.0-0.4); Basophil (Absolute #) 0.04 x10^3/uL (0-0.4); Eosinophil % 0.7 % (0.00-5.0); Eosinophil (Absolute #) 0.06 x10^3/uL (0-0.5); Hematocrit 41.5 % (35-47); Hemoglobin 14.3 g/dL (12.0-16.0); IMMATURE GRAN # 0.06 x10^3u/L (0.00-0.03); IMMATURE GRAN % 0.7 % (0.00-0.4); Lymphocyte (Absolute #) 2.43 x10^3/uL (1.0-4.6); Lymphocytes % 28.6 % (24.0-44.0); Mean Cell Volume 91.2 fL (78-100); Mean Corpuscular Hemoglobin 31.4 pg (26-32); Mean Corpuscular Hgb Concent. 34.5 g/dL (32-36); Mean Platelet Volume 10.6 fL (7.5-11.0); Monocyte (Absolute #) 0.47 x10^3/uL (0.0-1.3); Monocytes % 5.5 % (0.0-12.0); Platelet Count 219 x10^3/uL (150-450); Red Blood Count 4.55 x10^6/uL (4.1-5.4); Red Cell Distribution Width 12.1 % (11.5-14.0); White Blood Count 8.5 x10^3/uL (4.0-10.5)
[2023-01-07 05:43] LABS: INR 0.84 (0.8-3.0); PROTIME 9.3 SECONDS (9.4-12.5); PTT 25.1 SECONDS (25.1-36.5)
[2023-01-07] MEDS ORDERED: Lactated Ringers 1,000 ML IV ONE (06:06)
[2023-01-07] MEDS ORDERED: OFIRMEV 100 ML IV ONE (06:07)
[2023-01-07] MEDS ORDERED: Pitocin 10 UNITS/ML ONE ×2 (06:12→06:30)
[2023-01-07 06:14] LABS: ABO TYPING O; RH TYPING NEGATIVE
[2023-01-07 06:15] LABS: Antibody Screen POSITIVE (NEGATIVE)
[2023-01-07] MEDS ORDERED: Sensorcaine 0.25% 10 ML ONE (06:32)
[2023-01-07] MEDS ORDERED: TYLENOL EXTRA STRENGTH 500 MG PO PRN (07:00)
[2023-01-07 07:01] LABS: Appearance Clear (Clear)
[2023-01-07 07:02] LABS: Bilirubin Negative (Negative); Blood Negative (Negative); Glucose, Urine Negative (Negative); Ketones Negative (Negative); Leukocyte Esterase Negative (Negative); Nitrite Negative (Negative); Protein,Urine Dip 30 (Negative); RBC 0-2 /HPF (0-5); Specific Gravity 1.025 (1.005-1.030); WBC 0-2 /HPF (0-5)
[2023-01-07 07:03] LABS: ADD URINE CULTURE? NO (NO); Bacteria None Seen /HPF (None Seen); Epithelial Cells Rare /HPF (None Seen)
[2023-01-07 07:10] LABS: Amphetamine,Urine NEGATIVE (NEGATIVE); Barbiturate,Urine NEGATIVE (NEGATIVE); Benzodiazepine,Urine NEGATIVE (NEGATIVE); Cocaine,Urine NEGATIVE (NEGATIVE); Methadone,Urine NEGATIVE (NEGATIVE); Opiate,Urine NEGATIVE (NEGATIVE); PCP,Urine NEGATIVE (NEGATIVE); THC,Urine NEGATIVE (NEGATIVE)
[2023-01-07] MEDS ORDERED: SUBLIMAZE 100 MCG/2 ML ONE (07:38)
[2023-01-07] MEDS ORDERED: Ephedrine Sulfate 50 MG/ML ONE (08:09)
[2023-01-07] MEDS ORDERED: BENADRYL 50 MG/ML ONE (09:43)
[2023-01-07] MEDS ORDERED: Ambien 10 MG PO PRN (10:00)
[2023-01-07] MEDS ORDERED: LANSINOH 40 GM TOP PRN (10:00)
[2023-01-07] MEDS ORDERED: Anucort-HC SUPPOSITORY PR PRN (10:00)
[2023-01-07] MEDS ORDERED: CORTISONE 1% CREAM TP PRN (10:00)
--- NOTE | 2023-01-07 12:51 | OP ---
SURGERY DATE/TIME: 01/07/2023 0811 PREOPERATIVE DIAGNOSES: 1) Term intrauterine . 2) History of prior section. 3) Desires permanent sterilization. POSTOPERATIVE DIAGNOSES: 1) Term intrauterine . 2) History of prior section. 3) Desires permanent sterilization. PROCEDURES: 1) Repeat low transverse section. 2) Bilateral tubal ligation. SURGEON: Zac Will M.D. QUANTITATIVE BLOOD LOSS: 466 ml. URINE OUTPUT: 300 ml of clear straw-colored urine. IV FLUIDS: 1200 ml of crystalloid. ANESTHESIA: Spinal by Eric House CRNA. SPECIMEN: Bilateral fallopian tube segments. DESCRIPTION OF PROCEDURE: After informed written consent was obtained, the patient was taken to the operating room where she underwent spinal anesthesia. She was prepped and draped in the usual sterile fashion. After adequate level of anesthesia was assessed, a low transverse skin incision was made by knife and carried down through the subcutaneous fat to the level of the fascia. The fascia was nicked on both sides of the midline and extended horizontal using curved Horta scissors. The superior free edge of the fascia was grasped with Ting clamps and the underlying rectus muscles were dissected free. The same was repeated inferiorly. Next, a bladder flap was created and reflected over the lower uterine segment. Horizontal uterine incision was made by knife and was carried down to the level of the amniotic membranes which were carefully artificially ruptured. A viable male infant was delivered from the vertex presentation with nuchal x1 reduced at delivery. He had a strong cry immediately upon delivery. Oropharynx and nares were bulb suctioned free. His cord was clamped and cut and he was handed off to the awaiting nursery team. The placenta was manually extracted and the uterus was exteriorized. The uterine incision was closed with #1 chromic in a running locked fashion with good closure and good hemostasis achieved. Two layers were used to close the uterine incision. Next, the left fallopian tube was identified and followed down to the fimbrial edge and grasped with a Sergo and electrocautery was used to make a window in the mesoappendix. 0 chromic tie was then used to ligate the proximal and distal tube segments and the interceding tube segment was dissected free with Metzenbaum scissors and then the free edge of the tube was cauterized with electrocautery. The tube segment was sent for pathology. The same procedure was repeated on the right side with no complications. The posterior cul-de-sac was wiped free of blood and clot and then the uterus was returned to the peritoneal cavity. Lateral gutters were wiped free of blood and clot with moist lap sponge. The uterine incision was inspected and noted to have good hemostasis and good closure. Next, the fascia was closed with 0 Vicryl in running fashion with good closure and good hemostasis were achieved at this level as well. Subcutaneous fat was irrigated with warm, sterile saline and any areas of bleeding were cauterized with electrocautery. Finally, the skin layer was closed with 4-0 undyed Vicryl in a running subcuticular fashion. Steri-Strips and occlusive dressing were placed over the incision. The patient was transferred to the recovery room in good condition.
[2023-01-07] MEDS: PERCOCET TABLET 5/325MG PO PRN ×2 (13:49→15:29)
[2023-01-07] MEDS: Mylicon 80MG PO PRN ×2 (13:51→17:57)
[2023-01-07] MEDS: MOTRIN 400 MG PO PRN (17:38)
[2023-01-07] MEDS: DEMEROL 50 MG IV PRN (20:00)
[2023-01-07] MEDS ORDERED: DEMEROL 50 MG ONE (20:00)
[2023-01-08] MEDS: MOTRIN 400 MG PO PRN ×3 (00:20→21:29)
[2023-01-08] MEDS ORDERED: DEMEROL 50 MG ONE ×2 (01:36→06:14)
[2023-01-08] MEDS: DEMEROL 50 MG IV PRN ×2 (01:39→06:15)
[2023-01-08 09:04] LABS: Absolute Neutrophil Ct (ANC) 9.77 x10^3/uL (1.4-6.9); BASOPHIL % 0.2 % (0.0-0.4); Basophil (Absolute #) 0.03 x10^3/uL (0-0.4); Eosinophil (Absolute #) 0.13 x10^3/uL (0-0.5); Hematocrit 35.1 % (35-47); Hemoglobin 11.8 g/dL (12.0-16.0); IMMATURE GRAN # 0.09 x10^3u/L (0.00-0.03); IMMATURE GRAN % 0.7 % (0.00-0.4); Lymphocyte (Absolute #) 2.35 x10^3/uL (1.0-4.6); Lymphocytes % 17.9 % (24.0-44.0); Mean Cell Volume 94.6 fL (78-100); Mean Corpuscular Hemoglobin 31.8 pg (26-32); Mean Corpuscular Hgb Concent. 33.6 g/dL (32-36); Mean Platelet Volume 11.1 fL (7.5-11.0); Monocyte (Absolute #) 0.74 x10^3/uL (0.0-1.3); Monocytes % 5.6 % (0.0-12.0); Neutrophil % 74.6 % (36.0-66.0); Platelet Count 163 x10^3/uL (150-450); Red Blood Count 3.71 x10^6/uL (4.1-5.4); Red Cell Distribution Width 12.5 % (11.5-14.0); White Blood Count 13.1 x10^3/uL (4.0-10.5)
[2023-01-08] MEDS: Docusate Sodium 100 MG PO SCH ×2 (09:27→21:29)
[2023-01-08] MEDS ORDERED: Dulcolax 10 MG SUPP PR PRN (10:00)
[2023-01-08] MEDS ORDERED: FERREX 150 PO SCH (10:00)
[2023-01-08] MEDS: NORCO 5/325 MG PO PRN ×3 (12:33→23:05)
[2023-01-08] MEDS ORDERED: Rhogam Plus 300 MCG IM ONE (18:00)
[2023-01-08] MEDS ORDERED: Adacel Vial IM ONE (20:00)
[2023-01-09 04:08] VITALS: RESP 18; O2SAT 98
[2023-01-09] MEDS: NORCO 5/325 MG PO PRN ×2 (06:22→11:59)
--- NOTE | 2023-01-09 08:58 | PCM.DS ---
Discharge Summary Date of Admission: 01/07/23 04:58 Admitting Physician: RIGOBERTO GRAYSON Consults: Consults on Case 01/07/23 04:00 Notify Anesthesia Provider PRN Notify Anesthesia Provider ROUTINE Notify Physician ROUTINE Primary Care Provider: RIGOBERTO GRAYSON Allergies Allergies morphine Allergy (Mild, Verified 12/26/22 13:53) Difficulty Breathing Penicillins Allergy (Mild, Verified 12/26/22 13:53) Rash THROAT SWELLS Sulfa (Sulfonamide Antibiotics) Allergy (Mild, Verified 12/26/22 13:53) Rash Hospital Summary - Hospital Course Hospital Course: patient had repeat with bilateral tubal ligation at 39wks. no problems postop, doing well at this time. normal postop care - Vitals & Intake/Output Vital Signs: Vital Signs Temperature 98.3 F 01/09/23 08:00 Pulse Rate 83 01/09/23 08:00 Respiratory Rate 18 01/09/23 08:00 Blood Pressure 115/66 01/09/23 08:00 O2 Sat by Pulse Oximetry 98 01/09/23 03:00 Intake & Output: Intake & Output 01/06/23 01/07/23 01/08/23 01/09/23 11:59 11:59 11:59 11:59 Intake Total 2900 1650 Output Total 466 4700 Balance -466 -1800 1650 Weight 81.193 kg - Lab Result Diagrams: 01/08/23 06:27 Lab Results-Last 24 Hrs: Lab Results-Last 24 Hours 01/08/23 Range/Units 06:27 WBC 13.1 H (4.0-10.5) x10^3/uL RBC 3.71 L (4.1-5.4) x10^6/uL Hgb 11.8 L (12.0-16.0) g/dL Hct 35.1 (35-47) % MCV 94.6 (78-100) fL MCH 31.8 (26-32) pg MCHC 33.6 (32-36) g/dL RDW 12.5 (11.5-14.0) % Plt Count 163 (150-450) x10^3/uL MPV 11.1 H (7.5-11.0) fL Gran % 74.6 H (36.0-66.0) % Immature Gran % (Auto) 0.7 H (0.00-0.4) % Nucleat RBC Rel Count 0.0 (0.00-0.1) % Eos # (Auto) 0.13 (0-0.5) x10^3/uL Immature Gran # (Auto) 0.09 H (0.00-0.03) x10^3u/L Absolute Lymphs (auto) 2.35 (1.0-4.6) x10^3/uL Absolute Monos (auto) 0.74 (0.0-1.3) x10^3/uL Absolute Nucleated RBC 0.00 (0.00-0.01) x10^3u/L Lymphocytes % 17.9 L (24.0-44.0) % Monocytes % 5.6 (0.0-12.0) % Eosinophils % 1.0 (0.00-5.0) % Basophils % 0.2 (0.0-0.4) % Absolute Granulocytes 9.77 H (1.4-6.9) x10^3/uL Basophils # 0.03 (0-0.4) x10^3/uL Micro Results-Entire Visit: Microbiology 01/07/23 08:42 Urine Culture - Final Catherized NO GROWTH - Procedures and Test Procedures and Tests throughout Hospitalization: Therapy Orders & Screens 01/07/23 08:47 Standby STAT Comment: Diagnosis: IUP Discharge Exam General Appearance: no apparent distress Neurologic Exam: alert, oriented x 3 Respiratory Exam: normal breath sounds, lungs clear, No respiratory distress Cardiovascular Exam: regular rate/rhythm, normal heart sounds Gastrointestinal/Abdomen Exam: soft (incision clean, dry, intact and well approximated) Extremity Exam: normal inspection, normal range of motion Skin Exam: normal color, warm, dry Final Diagnosis/Problem List - Final Discharge Diagnosis/Problem (1) delivery delivered Current Visit: Yes Status: Acute Assessment & Plan: routine post-op care Code(s): O82 - ENCOUNTER FOR DELIVERY WITHOUT INDICATION (2) Tubal ligation status Current Visit: Yes Status: Acute Code(s): Z98.51 - TUBAL LIGATION STATUS - Discharge Disposition: Home, Self-Care Condition: Stable Prescriptions: New Hydrocodone/Acetaminophen [Hydrocodone-Acetamin 7.5-325] 1 each PO Q6H PRN PRN #28 tablet MDD 4 PRN Reason: Pain Continue Pnv No.95/Ferrous Fum/Folic AC [ Vitamins Tablet] 1 tab PO DAILY Famotidine 20 mg [Pepcid 20 MG] 20 mg PO BID Follow up with: RIGOBERTO GRAYSON MD [Primary Care Provider] - 1 Week
[2023-01-09 15:04] VITALS: BP 112/83; PULSE 54; TEMP 98.4
== END 2023-01-09 16:20 | disposition home or self-care (01) | DRG 785 ==
LOC: OB 04:58 → OBSVTOIN 04:58
PROVIDERS: ADMIT Family Medicine; ATTEND Family Medicine
PROC: 10D00Z1 Extraction of Products of Conception, Low, Open Approach (ICD-10-PCS; principal; 2023-01-07)
PROC: 0UT70ZZ Resection of Bilateral Fallopian Tubes, Open Approach (ICD-10-PCS; 2023-01-07)
DX: O34.211 Maternal care for low transverse scar from previous cesarean delivery (principal); Z3A.39 39 weeks gestation of pregnancy; Z37.0 Single live birth; Z30.2 Encounter for sterilization; Z20.828 Contact with and (suspected) exposure to other viral communicable diseases
CPT/HCPCS: 36415; 64488; 76937; 76942; 80307; 81001; 85025; 85610; 85730; 86850; 86870; 86900; 86901; 87086; 90471; 90715; 94799; J1200; J2175; J2590; J3010; L0625; A9270-GY

== ENCOUNTER 2023-01-25 16:42 | Emergency (ER) | payer OTHER ==
--- NOTE | 2023-01-25 16:47 | ERPHSYRPT ---
- History of Present Illness Time Seen by Provider: 01/25/23 16:47 Historian: patient, family Exam Limitations: no limitations Physician History: pt lifted infant yesterday and sore abd today. She called dr. Bustamante and he told her to come in for eval here. Liane diet and no vomiting. wound intact and no defect palpable, but pt advised she could later still develope a hernia as a result from this injury. No Hx of direct trauma. No urinary symptoms. abd nontender without peritoneal signs or masses. No new vag discharge; is having old brown blood intermit after delivery. Discussed CT risks and benefits with pt and family and that radiation risk and since not life threatening she could wait and have MRI later as outpt if indicated charla as long as liane diet. Discussed risks/benefits of CBC/CMP, UA Lactate and pt and family wish to proceed. THese are ordered. Later results discussed. Family interviewed as independent source for Hx. Timing/Duration: today, yesterday, intermittent Activities at Onset: activity Quality: dullness, tightness Abdominal Pain Onset Location: suprapubic Pain Radiation: no radiation Severity of Pain-Max: mild Severity of Pain-Current: mild Modifying Factors: Improves With: movement Associated Symptoms: denies symptoms Previous symptoms: no prior history Allergies/Adverse Reactions: morphine Allergy (Mild, Verified 01/25/23 16:57) Difficulty Breathing Penicillins Allergy (Mild, Verified 01/25/23 16:57) Rash THROAT SWELLS Sulfa (Sulfonamide Antibiotics) Allergy (Mild, Verified 01/25/23 16:57) Rash Home Medications: Pnv No.95/Ferrous Fum/Folic AC [ Vitamins Tablet] 1 tab PO DAILY 07/13/22 [History] Hx Tetanus, Diphtheria Vaccination/Date Given: Yes Hx Influenza Vaccination/Date Given: No Hx Pneumococcal Vaccination/Date Given: No Travel Risk - Vaccine Status Have you recieved a Covid-19 vaccination: No - Review of Systems Constitutional: No Fever, No Chills Eyes: No Symptoms Ears, Nose, & Throat: No Symptoms Respiratory: No Cough, No Dyspnea Cardiac: No Chest Pain, No Edema, No Syncope Abdominal/Gastrointestinal: Other (abd muscle pain), No Abdominal Pain, No Nausea, No Vomiting, No Diarrhea Genitourinary Symptoms: No Dysuria Musculoskeletal: No Symptoms, No Back Pain, No Neck Pain Skin: No Symptoms, No Rash Neurological: No Symptoms, No Dizziness, No Focal Weakness, No Sensory Changes Psychological: No Symptoms Endocrine: No Symptoms Hematologic/Lymphatic: No Symptoms Immunological/Allergic: No Symptoms All Other Systems: Reviewed and Negative - Past Medical History Pertinent Past Medical History: Yes Neurological History: Epilepsy ENT History: No Pertinent History Cardiac History: No Pertinent History Respiratory History: No Pertinent History Endocrine Medical History: No Pertinent History Musculoskeletal History: No Pertinent History GI Medical History: No Pertinent History History: No Pertinent History Psycho-Social History: No Pertinent History Female Reproductive Disorders: No Pertinent History Other Medical History: PATIENT REPORTS HX OF SCOLIOSIS - Past Surgical History Past Surgical History: Yes Neuro Surgical History: No Pertinent History Cardiac: No Pertinent History Respiratory: No Pertinent History Gastrointestinal: Cholecystectomy Genitourinary: No Pertinent History Female Surgical History: Dilation & Curettage, Section Other Surgical History: eardrum sugery. 3 sets of ear tubes. right ear tube hole did not close had surgery to close the hole. - Social History Smoking Status: Never smoker Exposure to second hand smoke: No Alcohol Use: Socially Drug Use: none Patient Lives Alone: No Significant Family History: no pertinent family hx - Nursing Vital Signs Nursing Vital Signs: Initial Vital Signs Pulse Rate 82 01/25/23 16:58 Respiratory Rate 18 01/25/23 16:58 Blood Pressure 130/75 01/25/23 16:58 O2 Sat by Pulse Oximetry 99 01/25/23 16:58 Pain Scale Pain Intensity 7 - Physical Exam General Appearance: no apparent distress, alert Eye Exam: PERRL/EOMI, eyes nml inspection Ears, Nose, Throat Exam: normal ENT inspection, pharynx normal, moist mucous membranes Neck Exam: normal inspection, non-tender, supple, full range of motion Respiratory Exam: normal breath sounds, lungs clear, No respiratory distress Cardiovascular Exam: regular rate/rhythm, normal heart sounds Gastrointestinal/Abdomen Exam: soft, other (nontender without peritoneal signs or masses - mild muscle wall tenderness without defect), No tenderness, No mass Pelvic Exam: deferred Rectal Exam: deferred Back Exam: normal inspection, normal range of motion, No CVA tenderness, No vertebral tenderness Extremity Exam: normal inspection, normal range of motion, pelvis stable Neurologic Exam: alert, oriented x 3, cooperative, normal mood/affect, nml cerebellar function, sensation nml, No motor deficits Skin Exam: normal color, warm, dry SpO2 Interpretation: normal SpO2: 96 O2 Delivery: Room Air - Course Nursing assessment & vital signs reviewed: Yes Ordered Tests: Active Orders 24 hr Category Date Time Status CBC W DIFF Stat Lab 01/25/23 17:40 Completed CMP Stat Lab 01/25/23 17:40 Completed CULTURE,URINE Stat Lab 01/25/23 17:18 Received Lactic Acid Stat Lab 01/25/23 17:43 Completed UA W/RFX UR CULTURE Stat Lab 01/25/23 17:18 Completed Lab/Rad Data: Laboratory Result Diagrams 01/25/23 17:40 01/25/23 17:40 Laboratory Results 01/25/23 01/25/23 01/25/23 Range/Units 17:43 17:40 17:40 WBC 8.3 (4.0-10.5) x10^3/uL RBC 3.96 L (4.1-5.4) x10^6/uL Hgb 12.1 (12.0-16.0) g/dL Hct 37.7 (35-47) % MCV 95.2 (78-100) fL MCH 30.6 (26-32) pg MCHC 32.1 (32-36) g/dL RDW 11.6 (11.5-14.0) % Plt Count 313 (150-450) x10^3/uL MPV 9.5 (7.5-11.0) fL Gran % 55.7 (36.0-66.0) % Immature Gran % (Auto) 0.5 H (0.00-0.4) % Nucleat RBC Rel Count 0.0 (0.00-0.1) % Eos # (Auto) 0.26 (0-0.5) x10^3/uL Immature Gran # (Auto) 0.04 H (0.00-0.03) x10^3u/L Absolute Lymphs (auto) 2.82 (1.0-4.6) x10^3/uL Absolute Monos (auto) 0.48 (0.0-1.3) x10^3/uL Absolute Nucleated RBC 0.00 (0.00-0.01) x10^3u/L Lymphocytes % 33.9 (24.0-44.0) % Monocytes % 5.8 (0.0-12.0) % Eosinophils % 3.1 (0.00-5.0) % Basophils % 1.0 (0.0-0.4) % Absolute Granulocytes 4.63 (1.4-6.9) x10^3/uL Basophils # 0.08 (0-0.4) x10^3/uL Sodium 141 (137-145) mmol/L Potassium 3.9 (3.5-5.1) mmol/L Chloride 105 (98-107) mmol/L Carbon Dioxide 29 (22-30) mmol/L Anion Gap 10.5 (5-15) MEQ/L BUN 15 (7-17) mg/dL Creatinine 0.75 (0.52-1.04) mg/dL Estimated GFR > 60.0 ML/MIN Glucose 104 (74-106) mg/dL Lactic Acid 0.9 (0.4-2.0) Calcium 8.9 (8.4-10.2) mg/dL Total Bilirubin 0.30 (0.2-1.3) mg/dL AST 29 (14-36) U/L ALT 17 (0-35) U/L Alkaline Phosphatase 95 (38-126) U/L Serum Total Protein 6.4 (6.3-8.2) g/dL Albumin 3.8 (3.5-5.0) g/dL Urine Color (Yellow) Urine Appearance (Clear) Urine pH (4.6-8.0) Ur Specific Enochs (1.005-1.030) Urine Protein (Negative) Urine Glucose (UA) (Negative) mg/dL Urine Ketones (Negative) Urine Blood (Negative) Urine Nitrite (Negative) Urine Bilirubin (Negative) Urine Urobilinogen (0.2) mg/dL Ur Leukocyte Esterase (Negative) U Hyaline Cast (Auto) (0-2) /LPF Urine Microscopic RBC (0-5) /HPF Urine Microscopic WBC (0-5) /HPF Ur Epithelial Cells (None Seen) /HPF Urine Bacteria (None Seen) /HPF Urine Culture Reflexed (NO) 01/25/23 Range/Units 17:18 WBC (4.0-10.5) x10^3/uL RBC (4.1-5.4) x10^6/uL Hgb (12.0-16.0) g/dL Hct (35-47) % MCV (78-100) fL MCH (26-32) pg MCHC (32-36) g/dL RDW (11.5-14.0) % Plt Count (150-450) x10^3/uL MPV (7.5-11.0) fL Gran % (36.0-66.0) % Immature Gran % (Auto) (0.00-0.4) % Nucleat RBC Rel Count (0.00-0.1) % Eos # (Auto) (0-0.5) x10^3/uL Immature Gran # (Auto) (0.00-0.03) x10^3u/L Absolute Lymphs (auto) (1.0-4.6) x10^3/uL Absolute Monos (auto) (0.0-1.3) x10^3/uL Absolute Nucleated RBC (0.00-0.01) x10^3u/L Lymphocytes % (24.0-44.0) % Monocytes % (0.0-12.0) % Eosinophils % (0.00-5.0) % Basophils % (0.0-0.4) % Absolute Granulocytes (1.4-6.9) x10^3/uL Basophils # (0-0.4) x10^3/uL Sodium (137-145) mmol/L Potassium (3.5-5.1) mmol/L Chloride (98-107) mmol/L Carbon Dioxide (22-30) mmol/L Anion Gap (5-15) MEQ/L BUN (7-17) mg/dL Creatinine (0.52-1.04) mg/dL Estimated GFR ML/MIN Glucose (74-106) mg/dL Lactic Acid (0.4-2.0) Calcium (8.4-10.2) mg/dL Total Bilirubin (0.2-1.3) mg/dL AST (14-36) U/L ALT (0-35) U/L Alkaline Phosphatase (38-126) U/L Serum Total Protein (6.3-8.2) g/dL Albumin (3.5-5.0) g/dL Urine Color Yellow (Yellow) Urine Appearance Clear (Clear) Urine pH 5.5 (4.6-8.0) Ur Specific Enochs 1.015 (1.005-1.030) Urine Protein Negative (Negative) Urine Glucose (UA) Negative (Negative) mg/dL Urine Ketones Negative (Negative) Urine Blood Large A (Negative) Urine Nitrite Negative (Negative) Urine Bilirubin Negative (Negative) Urine Urobilinogen 0.2 (0.2) mg/dL Ur Leukocyte Esterase Large A (Negative) U Hyaline Cast (Auto) NONE SEEN (0-2) /LPF Urine Microscopic RBC 6-10 A (0-5) /HPF Urine Microscopic WBC 6-10 A (0-5) /HPF Ur Epithelial Cells Rare (None Seen) /HPF Urine Bacteria None Seen (None Seen) /HPF Urine Culture Reflexed YES (NO) - Progress Progress: improved, re-examined Progress Note: 01/25/23 20:38 re exam and still non tender no peritoneal signs 01/25/23 20:[address] Bustamante who is covering OB and he agrees that discharge described is normal expectation and that she can f/u with PMD to recheck abd so we will give home pain med 2 doses and tx UTI and f/u PMD. 01/25/23 20:56 liane keflex in past without problems - had discussion of risks/benefits with pt a nd she efren like this for Tx UTI. 01/25/23 20:58 I advised pt that undetected pathology could still be evolving so furhter w/u could be indicated - she prefers DC with outpt f/u rather than further w/u in ER at this time. she has the capacity to make this choice. Discussed with : Nahum Will see patient in: other (she will f/u with her OB in office) Counseled pt/family regarding: lab results, diagnosis, need for follow-up Medical Desision Making - Independent Historian Additional History obtained from: Family - Discussion of managment Reviewed:: Test results, Need for additional workup Agreed on:: Treatment plan, need for follow-up - Diagnostic Testing Diagnostic test were ordered, analyzed, and reviewed by me: Yes - Risk of complications Low Risk: Low risk of morbidity from additional dx testing or treatment - Departure Departure Disposition: Home Clinical Impression: abdominal strain post op, UTI Condition: Good Critical Care Time: No Referrals: RIGOBERTO GRAYSON MD [Primary Care Provider] - Follow up/PCP as directed Instructions: Urinary Tract Infection, Adult (DC), Abdominal Muscle Strain (DC) Additional Instructions: although we found urinary infection and the symptoms fit a muscle strain, there still could be additional tings developing undetected so following up with your DrAime this week is important and return meantime if not improving, vomiting, fever, dizziness or any other concerns. In addition followup is indicated in case the strain requires more workup or a hernia develops . Prescriptions: Cephalexin Mh 500 mg [Keflex 500 mg] 500 mg PO TID 7 Days #21 cap
[2023-01-25 17:46] LABS: Absolute Neutrophil Ct (ANC) 4.63 x10^3/uL (1.4-6.9); Basophil (Absolute #) 0.08 x10^3/uL (0-0.4); Eosinophil % 3.1 % (0.00-5.0); Eosinophil (Absolute #) 0.26 x10^3/uL (0-0.5); Hematocrit 37.7 % (35-47); Hemoglobin 12.1 g/dL (12.0-16.0); IMMATURE GRAN # 0.04 x10^3u/L (0.00-0.03); IMMATURE GRAN % 0.5 % (0.00-0.4); Lymphocyte (Absolute #) 2.82 x10^3/uL (1.0-4.6); Lymphocytes % 33.9 % (24.0-44.0); Mean Cell Volume 95.2 fL (78-100); Mean Corpuscular Hemoglobin 30.6 pg (26-32); Mean Corpuscular Hgb Concent. 32.1 g/dL (32-36); Mean Platelet Volume 9.5 fL (7.5-11.0); Monocyte (Absolute #) 0.48 x10^3/uL (0.0-1.3); Monocytes % 5.8 % (0.0-12.0); Neutrophil % 55.7 % (36.0-66.0); Platelet Count 313 x10^3/uL (150-450); Red Blood Count 3.96 x10^6/uL (4.1-5.4); Red Cell Distribution Width 11.6 % (11.5-14.0); White Blood Count 8.3 x10^3/uL (4.0-10.5)
[2023-01-25 17:52] LABS: Appearance Clear (Clear); Bacteria None Seen /HPF (None Seen); Bilirubin Negative (Negative); Blood Large (Negative); Epithelial Cells Rare /HPF (None Seen); Glucose, Urine Negative (Negative); Hyaline Casts NONE SEEN /LPF (0-2); Ketones Negative (Negative); Leukocyte Esterase Large (Negative); Nitrite Negative (Negative); Ph 5.5 (4.6-8.0); Protein,Urine Dip Negative (Negative); Specific Gravity 1.015 (1.005-1.030); Urobilinogen 0.2 mg/dL (0.2)
[2023-01-25 17:53] LABS: ADD URINE CULTURE? YES (NO)
[2023-01-25 17:59] LABS: ALBUMIN 3.8 g/dL (3.5-5.0); ALKALINE PHOSPHATASE 95 U/L (38-126); ANION GAP 10.5 MEQ/L (5-15); BLOOD UREA NITROGEN 15 mg/dL (7-17); CHLORIDE 105 mmol/L (98-107); Calcium 8.9 mg/dL (8.4-10.2); Carbon Dioxide 29 mmol/L (22-30); Creatinine 1 0.75 mg/dL (0.52-1.04); EST GLOMERULAR FILTRATION RATE > 60.0 ML/MIN; Glucose 104 mg/dL (74-106); Potassium 3.9 mmol/L (3.5-5.1); SGOT/AST 29 U/L (14-36); SGPT/ALT 17 U/L (0-35); SODIUM 141 mmol/L (137-145); Total Protein 6.4 g/dL (6.3-8.2)
[2023-01-25 20:08] VITALS: BP 111/73; PULSE 74; RESP 16
[2023-01-25 20:41] VITALS: O2SAT 96
[2023-01-25] MEDS ORDERED: KEFLEX 500 MG PO ONE (20:55)
[2023-01-25] MEDS ORDERED: NORCO 5/325 MG PO ONE (20:56)
[2023-01-25] MEDS ORDERED: KEFLEX 500 MG ONE (21:03)
[2023-01-25] MEDS ORDERED: NORCO 5/325 MG ONE (21:03)
== END 2023-01-25 21:22 | disposition home or self-care (01) ==
LOC: ED 16:42
DX: S39.011A Strain of muscle, fascia and tendon of abdomen, initial encounter (principal); G89.18 Other acute postprocedural pain; N39.0 Urinary tract infection, site not specified; R10.2 Pelvic and perineal pain; Z28.310 Unvaccinated for COVID-19
CPT/HCPCS: 36415; 80053; 81001; 83605; 85025; 87086; 99283; A9270-GY

== ENCOUNTER 2023-05-18 10:54 | Day surgery (SDC) | payer OTHER ==
--- NOTE | 2023-05-18 07:58 | HP ---
DATE OF SURGERY: 05/18/2023 HISTORY OF PRESENT ILLNESS: The patient is a 28-year-old female had some abdominal pain. She had cholecystectomy and section. Mass above her kidney taken out in the past. On CT scan has a ventral hernia. It is felt that she would benefit from repair. PAST MEDICAL HISTORY: Epilepsy. PAST SURGICAL HISTORY: Cholecystectomy. section. Tubal in the past. Renal mass removed in the past. D&C. Ear tubes in the past. MEDICATIONS: None on a regular basis. ALLERGIES: MORPHINE (DIFFICULTY BREATHING. PENICILLIN, SULFA (RASH). FAMILY HISTORY: Aunt had breast cancer. SOCIAL HISTORY: No smoking or alcohol abuse. REVIEW OF SYSTEMS: Twelve systems reviewed. No chest pain or palpitations. Other systems negative or noncontributory as above and per preadmission questionnaire. PHYSICAL EXAMINATION: Height 5 feet 3 inches. BMI 29. GENERAL: No acute distress. HEENT: Sclerae nonicteric. EOMI. Oral mucous membranes moist. NECK: No JVD. CHEST: Equal excursion, nonlabored breathing. CVS: Regular rate and rhythm. ABDOMEN: Soft. No peritoneal signs. Slight bulge infraumbilical area consistent with hernia. EXTREMITIES: No cyanosis or edema. NEURO: Alert, oriented, moving extremities symmetrically. PSYCH: Appropriate mood and affect. SKIN: Dry. IMPRESSION: Incarcerated ventral hernia. I recommend repair. Options of open versus laparoscopic repair discussed at length. Plan for laparoscopic-assisted repair of incarcerated ventral hernia with mesh possible open as an outpatient. Risk sheet was shown and explained in detail including but not limited to bleeding or infection, risk of trocar injury, bowel, bladder or blood vessel injury. Risk of subsequent intraabdominal scar formation or obstruction. Perioperative risk of aches, pains, bloating, ileus, constipation or obstruction. Risk of mesh infection possibly requiring removal. Remote risk of mesh fracture or failure possibly creating issues with viscera or other structures possibly requiring other procedures. Risk of hernia recurrence. Risk of hematoma or seroma formation. Risk of anesthesia, deep venous thrombosis, pulmonary embolism, pneumonia. General risk of aches, pains, burning or numbness possibly chronic in nature. She understands and agrees to the planned procedure, will proceed with laparoscopic-assisted repair incarcerated ventral hernia with mesh possible open.
[~2023-05-18 10:54] MED LIST changes: -BENADRYL 50 MG/ML IV PRN; -CLARITIN 10 MG PO PRN; -CLINDAMYCIN-D5W 900 MG/50 ML*** 900 MG/50 ML BAG IV SCH; -DEMEROL 50 MG IV PRN; -Dextrose 5%-Lr IV Solution 1000 ML 1,000 ML IV SCH; -HOLD NARCOTIC ANALGESICS AND SEDATIVES X24 HR MC PRN; -Lactated Ringers 1,000 ML IV ONE; -Lactated Ringers 1,000 ML IV SCH; -Narcan 0.4 MG/ML IV PRN; -Nubain 10 MG/ML IV PRN; -Pepcid 20 MG VIAL IV SCH; -Reglan 10 MG/2 ML IV SCH; -SOD CITRATE-CITRIC ACID SOLN PO SCH; +Sensorcaine 0.25% 10 ML ONE; -Zofran 4 MG/2 ML VIAL IV PRN
[2023-05-18] MEDS ORDERED: CLINDAMYCIN-D5W 900 MG/50 ML*** 900 MG/50 ML BAG IV ONE ×2 (11:04→11:09)
[2023-05-18 11:08] LABS: HCG URINE TEST NEGATIVE (NEGATIVE)
[2023-05-18] MEDS ORDERED: Lactated Ringers 1,000 ML IV ONE ×2 (11:09→14:00)
[2023-05-18] MEDS ORDERED: Lactated Ringers 1,000 ML IV SCH (11:30)
[2023-05-18] MEDS ORDERED: DIPRIVAN 200 MG/20 ML IV ONE (12:25)
[2023-05-18] MEDS ORDERED: Zemuron 100 MG/10 ML ONE (12:25)
[2023-05-18] MEDS ORDERED: SUBLIMAZE 100 MCG/2 ML ONE ×2 (12:26→15:25)
[2023-05-18] MEDS ORDERED: Versed 2 MG/2 ML Injection ONE (12:26)
[2023-05-18] MEDS ORDERED: Naropin 0.5% 30 ML VIAL ONE (13:31)
[2023-05-18] MEDS ORDERED: Epinephrine Preservative Free 1 MG/ML ONE (13:31)
[2023-05-18] MEDS ORDERED: TORAdol 30 mg Injection ONE (14:29)
[2023-05-18] MEDS ORDERED: BRIDION 200MG/2ML IV ONE (14:50)
--- NOTE | 2023-05-18 15:32 | OP ---
SURGERY DATE/TIME: 05/18/2023 1254 PREOPERATIVE DIAGNOSIS: Incarcerated ventral incisional hernia. POSTOPERATIVE DIAGNOSIS: Incarcerated ventral incisional hernia. PROCEDURE: Laparoscopic-assisted repair of incarcerated ventral incisional hernia with mesh (span approximately 5.5 to 6 cm). SURGEON: Dr. Tru Miller. RECREATION THERAPY AIDES TEACHER: Lux Gregorio, Medical Student III. ANESTHESIA: General. ESTIMATED BLOOD LOSS: Minimal. INDICATIONS: As noted above. Risks and benefits explained in detail and not limited to and consent obtained. DESCRIPTION OF PROCEDURE AND FINDINGS: The patient is taken to the operating room. General anesthesia induced. The abdomen is prepped in the usual sterile fashion. After official time out and no disagreement with planned procedure, a transverse incision made along the left costal margin. Fascia grasped and pulled upwards. Veress needle inserted and tested with saline. Pneumoperitoneum accomplished opening pressure 0 to 15. A 5 mm bladeless port and camera inserted without difficulty followed by a left mid-abdomen 5 mm port, left lateral quadrant 5 mm port, right mid abdomen 5 mm port all under direct vision of the camera. There is no evidence of any intraabdominal injury secondary to trocar or Veress needle placement. At this point the patient had incarcerated omentum up in the hernia this is carefully reduced with aid of LigaSure device. The preperitoneal space dissected back to allow for adequate space for the mesh and this was extended inferiorly where she had several prior sections in the past as was not available here. It was elected to just do another transverse incision. Small transverse incision directly overlying the area dissection carried down and the hernia sac discarded. The fascia brought back to the midline with running looped 0 PDS this is after having measured the defect. It was followed 11.[address] Ventralex Mesh most appropriate sized mesh to use and carefully inserted. At four quadrants 0 Ethibond placed along the periphery. The mesh was placed in the abdomen. The fascia is then brought back to the midline with running looped 0 PDS. Subcu irrigated out. Good hemostasis noted. The port is re-inflated in the 8 to 10 range. The mesh is then pulled up with a balloon inflated and the four quadrant 0 Ethibond pulled up through the four stab wounds and tied transfascially with good overlap in all directions. The periphery mesh is intact with Capture Tacker about 1 cm around the periphery. SorbaFix Tacker was used more centrally to reduce any space, reducing the risk of seroma formation. The mesh was lying nice and flat with good overlap in all directions technically excellent. There was no issue of any visceral issues at this point. At this point pneumoperitoneum was decompressed. The deep subcu closed with 3-0 Vicryl, superficial subcu closed with 3-0 Vicryl over the small incision where the mesh had been dropped in. Superficial subcu closed with 3-0 Vicryl. Skin incision closed with 4-0 Vicryl. It should be noted that there were multiple 4-0 Vicryl sutures but the wedge did not stay on the needle, requiring opening multiple different sutures. I was able to close this small incision. The skin was closed with 4-0 Vicryl. Steri-Strips and sterile dressing applied. The patient tolerated the procedure well. There were no immediate complications. Findings were discussed with the family out in the waiting area. Anesthesia applied tap blocks. She went to the recovery room in stable condition. She will be given an abdominal binder and sterile dressing. There were no immediate complications.
[2023-05-18] MEDS ORDERED: Hydromorphone 1 mg/ml Injection ONE ×2 (15:46→16:15)
[2023-05-18 17:05] VITALS: TEMP 99.3
[2023-05-18 17:20] VITALS: BP 113/74; PULSE 110; RESP 16; O2SAT 98
== END 2023-05-18 17:25 | disposition home or self-care (01) ==
LOC: SDC 10:54
PROVIDERS: ATTEND Surgery
DX: K43.0 Incisional hernia with obstruction, without gangrene (principal); Z80.3 Family history of malignant neoplasm of breast
CPT/HCPCS: 81025; J0171; J1170; J1885; J2250; J2704; J2795; J3010; L0625

== ENCOUNTER 2023-06-30 11:54 | Emergency (ER) | payer OTHER ==
[2023-06-30 12:25] VITALS: RESP 16; TEMP 98.5
[2023-06-30] MEDS ORDERED: TORAdol 30 mg Injection ONE (12:52)
[2023-06-30] MEDS: TORAdol 30 mg Injection IM ONE (12:53)
[2023-06-30] MEDS ORDERED: XYLOCAINE 1% HCL 20 ML MDV ONE (13:07)
[2023-06-30] MEDS: XYLOCAINE 1% HCL 20 ML MDV IJ ONE (13:10)
--- NOTE | 2023-06-30 13:13 | XRAY ---
Indication: Pain. Comparison: None 3 view right hand demonstrates normal bones, articulation, and soft tissues.
--- NOTE | 2023-06-30 13:34 | ERPHSYRPT ---
- History of Present Illness Time Seen by Provider: 06/30/23 12:20 Source: patient Exam Limitations: no limitations Patient Subjective Stated Complaint: pt states she smashed her finger in the door Triage Nursing Assessment: pt ambulated into the er; pt is axo x4; c/o rt index finger injury; pt states 5/10 pain to rt index finger; bleeding present to rt index finger; skin flap present to rt index finger; finger was cleaned; skin PDW; no respiratory distress present; vitals wnl Physician History: Patient is a 28-year-old female presents emergency department for evaluation of injury to her right index finger. Patient states a door closed onto her finger. Patient's pain is 5 out of 10. Pain described as an ache that is localized. No other injuries. Injury occurred just prior to arrival. Symptoms are moderate in intensity. Movement palpation reproduces pain. Pain improved with rest. Patient otherwise healthy. Tetanus up-to-date. She voices no other complaints or concerns at this time. Portions of this note were created with voice recognition technology. There may be grammatical, spelling, punctuation or sound alike errors Timing/Duration: today Severity: moderate Modifying Factors: Improves With: movement Associated Symptoms: denies symptoms Allergies/Adverse Reactions: morphine Allergy (Mild, Verified 06/30/23 12:14) Difficulty Breathing Penicillins Allergy (Mild, Verified 06/30/23 12:14) Rash THROAT SWELLS Sulfa (Sulfonamide Antibiotics) Allergy (Mild, Verified 06/30/23 12:14) Rash Home Medications: Phentermine HCl 37.5 mg PO DAILY 06/30/23 [History] Hx Tetanus, Diphtheria Vaccination/Date Given: No (unknown) Hx Influenza Vaccination/Date Given: No Hx Pneumococcal Vaccination/Date Given: No Travel Risk - International Travel Have you traveled outside of the country in past 3 weeks: No - Coronavirus Screening Are you exhibiting any of the following symptoms?: No Close contact with a COVID-19 positive Pt in past 14-21 Days: No - Vaccine Status Have you recieved a Covid-19 vaccination: No - Review of Systems Constitutional: No Symptoms, No Fever, No Chills Eyes: No Symptoms Ears, Nose, & Throat: No Symptoms Respiratory: No Symptoms, No Cough, No Dyspnea Cardiac: No Symptoms, No Chest Pain, No Edema, No Syncope Abdominal/Gastrointestinal: No Symptoms, No Abdominal Pain, No Nausea, No Vomiting, No Diarrhea Genitourinary Symptoms: No Symptoms, No Dysuria Musculoskeletal: No Symptoms, No Back Pain, No Neck Pain Skin: No Symptoms, No Rash Neurological: No Symptoms, No Dizziness, No Focal Weakness, No Sensory Changes Psychological: No Symptoms Endocrine: No Symptoms Hematologic/Lymphatic: No Symptoms Immunological/Allergic: No Symptoms All Other Systems: Reviewed and Negative - Past Medical History Pertinent Past Medical History: Yes Neurological History: Epilepsy ENT History: No Pertinent History Cardiac History: No Pertinent History Respiratory History: No Pertinent History Endocrine Medical History: No Pertinent History Musculoskeletal History: Other GI Medical History: No Pertinent History History: No Pertinent History Psycho-Social History: No Pertinent History Female Reproductive Disorders: No Pertinent History Other Medical History: SCOLIOSIS. UMBILICAL HERNIA - SUPPOSED TO HAVE SURGERY NEXT YEAR. NOT ON SEIZURE MEDS - HAS NOT HAD A SEIZURE IN 6 YEARS - Past Surgical History Past Surgical History: Yes Neuro Surgical History: No Pertinent History Cardiac: No Pertinent History Respiratory: No Pertinent History Gastrointestinal: Cholecystectomy Genitourinary: No Pertinent History Musculoskeletal: Orthopedic Surgery Female Surgical History: Dilation & Curettage, Section, Tubal Ligation Other Surgical History: eardrum sugery. 3 sets of ear tubes. right ear tube hole did not close had surgery to close the hole. right knee. x4 - Social History Smoking Status: Never smoker Exposure to second hand smoke: No Alcohol Use: Socially Drug Use: none Patient Lives Alone: No Significant Family History: no pertinent family hx - Female History Hx Now: No - Nursing Vital Signs Nursing Vital Signs: Initial Vital Signs Temperature 98.5 F 06/30/23 12:16 Pulse Rate 94 H 06/30/23 12:16 Respiratory Rate 16 06/30/23 12:16 Blood Pressure 123/83 06/30/23 12:16 O2 Sat by Pulse Oximetry 98 06/30/23 12:16 Pain Scale Pain Intensity 5 - Physical Exam General Appearance: no apparent distress, alert Eye Exam: PERRL/EOMI, eyes nml inspection Ears, Nose, Throat Exam: normal ENT inspection Neck Exam: normal inspection, non-tender, supple, full range of motion Respiratory Exam: normal breath sounds, lungs clear, airway intact, No respiratory distress Cardiovascular Exam: regular rate/rhythm, normal heart sounds, normal peripheral pulses Gastrointestinal/Abdomen Exam: soft, normal bowel sounds, No tenderness, No mass Back Exam: normal inspection, normal range of motion, No CVA tenderness, No vertebral tenderness Extremity Exam: normal inspection, normal range of motion, pelvis stable, other (There is a semilunar laceration creating a flap just superficial to the right index finger PIP joint. The extensor mechanism is intact. There does not appear to be a tendon injury. The digits neurovascular intact distally compartments are soft cap refill less than 2 seconds.) Neurologic Exam: alert, oriented x 3, cooperative, normal mood/affect, sensation nml, No motor deficits Skin Exam: normal color, warm, dry, No rash Lymphatic Exam: No adenopathy SpO2 Interpretation: normal SpO2: 98 O2 Delivery: Room Air Procedures - Laceration/Wound Repair Right Finger Time of Procedure: 13:20 Wound Location: Right (Right index finger) Wound Length (cm): 1 Wound's Depth, Shape: superficial Wound Explored: clean Irrigated: Yes Hibiclens Prep: Yes Anesthesia: 1% Lidocaine Volume Anesthetic (ccs): 3 Wound Debrided: No debridement indicated Wound Repaired With: sutures Suture Size/Type: 5-0, ethilon Number of Sutures: 4 Layer Closure?: No Sterile Dressing Applied?: Yes Splint Applied?: Yes Type of Splint Applied: AlumaFoam splint applied Sling Applied?: No - Course Nursing assessment & vital signs reviewed: Yes - Radiology Exams Hand X-ray Interpretation: Teleradiologist Report (No fracture or dislocation.) Ordered Tests: Active Orders 24 hr Category Date Time Status HAND (MINIMUM 3 VIEWS) Stat Exams 06/30/23 12:49 Completed Medication Summary Discontinued Medications Generic Name Dose Route Start Last Admin Trade Name Frankq PRN Reason Stop Dose Admin Ketorolac Tromethamine 30 mg 06/30/23 12:50 06/30/23 12:53 Ketorolac Tromethamine 30 Mg/Ml Inj IM 06/30/23 12:51 30 mg STAT ONE Administration Ketorolac Tromethamine Confirm 06/30/23 12:52 Ketorolac Tromethamine 30 Mg/Ml Inj Administered 06/30/23 12:53 Dose 30 mg .ROUTE .STK-MED ONE Lidocaine HCl Confirm 06/30/23 13:07 Lidocaine Hcl 1% 20 Ml Mdv 20 Ml Ml Administered 06/30/23 13:08 Dose 5 ml .ROUTE .STK-MED ONE Lidocaine HCl 5 ml 06/30/23 13:09 06/30/23 13:10 Lidocaine Hcl 1% 20 Ml Mdv 20 Ml Ml IJ 06/30/23 13:10 5 ml STAT ONE Administration - Progress Progress: improved Progress Note: Patient is 28-year-old female presents to emergency department for evaluation of injury to her right index finger. Patient closed a door onto her finger. Patient has a semilunar laceration creating a flap. Extensor mechanism intact. Digits neurovascular tact distally compartments are soft cap refill less than 2 seconds both pre and post procedure. Patient received 4 simple interrupted 5-0 Ethilon sutures. Patient tolerated procedure well. No intra or postprocedural complications. AlumaFoam splint applied to immobilize the involved joint. No antibiotics indicated at this time. Patient agrees to follow-up with primary care doctor within 48 hours for reevaluation. Portions of this note were created with voice recognition technology. There may be grammatical, spelling, punctuation or sound alike errors Complexity problem addressed is moderate acute complicated No critical care time Complexity of data reviewed and analyzed is moderate. Dr. Renee independently reviewed the x-ray of the involved hand. No fracture dislocation observed. Confirmation as per formal radiology read just prior to departure. Risk of complication and or risk of morbidity/mortality of patient management is moderate. Patient had a minor surgical procedure to repair a laceration Patient discharged home. Vital stable. Time spent to discharge patient is approximately 20 minutes. Plan of care established for shared decision making. No social determinants of health present impede follow-up. Portions of this note were created with voice recognition technology. There may be grammatical, spelling, punctuation or sound alike errors 06/30/23 13:39 Counseled pt/family regarding: diagnosis, need for follow-up, rad results Medical Desision Making - Diagnostic Testing Diagnostic test were ordered, analyzed, and reviewed by me: Yes Radiological Interpretation: Interpreted by me, Teleradiologist Report - Departure Departure Disposition: Home Clinical Impression: Laceration, Finger contusion Condition: Stable Critical Care Time: No Referrals: RIGOBERTO GRAYSON MD [Primary Care Provider] - Follow up/PCP as directed Additional Instructions: Discharge/Care Plan SOOEDGAR SWENSONN was seen on 03/12/24 in the Emergency Room. The patient was counseled regarding Diagnosis,Lab results, Imaging studies, need for follow up and when to return to the Emergency Room. Prescriptions given: Discharge Note I have spoken with the patient and/or caregivers. I have explained the patient's condition, diagnosis and treatment plan based on the information available to me at this time. I have answered the patient's and/or caregiver's questions and addressed any concerns. The patient and/or caregivers have as good understanding of the patient's diagnosis, condition and treatment plan as can be expected at this point. The vital signs have been stable. The patient's condition is stable and appropriate for discharge from the emergency department. The patient will pursue further outpatient evaluation with the primary care physician or other designated or consulting physician as outlined in the discharge instructions. The patient and/or caregivers are agreeable to this plan of care and follow-up instructions have been explained in detail. The patient and/or caregivers have received these instruction. The patient/and or caregivers are aware that any significant change in condition or worsening of symptoms should prompt an immediate return to this or the closest emergency department or call 911.
[2023-06-30 13:42] VITALS: BP 118/79; PULSE 92
[2023-06-30 13:44] VITALS: O2SAT 98
== END 2023-06-30 13:42 | disposition home or self-care (01) ==
LOC: ED 11:54
DX: S61.210A Laceration without foreign body of right index finger without damage to nail, initial encounter (principal); S60.021A Contusion of right index finger without damage to nail, initial encounter; W23.0XXA Caught, crushed, jammed, or pinched between moving objects, initial encounter
CPT/HCPCS: 12001; 73130; 96372; 99283; J1885

== ENCOUNTER 2023-11-22 19:32 | Emergency (ER) | payer OTHER ==
[2023-11-22 19:46] VITALS: TEMP 99.1
[2023-11-22] MEDS ORDERED: TORAdol 30 mg Injection ONE (20:03)
[2023-11-22] MEDS: TORAdol 30 mg Injection IM ONE (20:04)
--- NOTE | 2023-11-22 20:04 | ERPHSYRPT ---
- History of Present Illness Time Seen by Provider: 11/22/23 19:53 Source: patient Exam Limitations: no limitations Patient Subjective Stated Complaint: pt reports back pain that is chronic in nature with a recent flare up. states that she was seen at [facility] 11/17 ago and received a steroid shot but it is no longer helping. pt reports lower back pain as a dull ache that increases with movemment and intermittent muscle spasms in the same area. pt denies injury or accident. Triage Nursing Assessment: pt is aox3, pupils perrl, afebrile, resps easy and non labored, cap reill < 3 seconds, pt radial pulses strong and equal, pt ROM and sensation intact, pt with a normal steady gait to the treatment area with no difficulty. no injury or deformity appreciated. Physician History: Pt states she has had dysuria this morning and low back pain later in the day; denies fever, chest pain, shortness of air, abdominal pain, nausea, vomiting, diarrhea, trauma. Pt admits to scoliosis and chronic low back pain for years with an MRI about 2 years ago; has an appointment with Dr. Teran(Orthopedic surgeon) tomorrow. Allergies/Adverse Reactions: morphine Allergy (Mild, Verified 11/22/23 19:46) Difficulty Breathing Penicillins Allergy (Mild, Verified 11/22/23 19:46) Rash THROAT SWELLS Sulfa (Sulfonamide Antibiotics) Allergy (Mild, Verified 11/22/23 19:46) Rash Home Medications: Cyclobenzaprine HCl 10 mg [Cyclobenzaprine 10 MG] 5 mg PO HS 11/22/23 [History] Phentermine HCl 37.5 mg PO DAILY 11/22/23 [History] Hx Tetanus, Diphtheria Vaccination/Date Given: Yes Hx Influenza Vaccination/Date Given: No Hx Pneumococcal Vaccination/Date Given: No Immunizations Up to Date: Yes Travel Risk - International Travel Have you traveled outside of the country in past 3 weeks: No - Emerging Infectious Disease Are you exhibiting symptoms associated with any current EIDs: No - Review of Systems Constitutional: No Fever Respiratory: No Dyspnea Cardiac: No Chest Pain Abdominal/Gastrointestinal: No Abdominal Pain, No Nausea, No Vomiting, No Sarahi rrhea Genitourinary Symptoms: Dysuria Musculoskeletal: Back Pain (low) Skin: No Rash Neurological: No Headache - Past Medical History Pertinent Past Medical History: Yes Neurological History: Epilepsy ENT History: No Pertinent History Cardiac History: No Pertinent History Respiratory History: No Pertinent History Endocrine Medical History: No Pertinent History Musculoskeletal History: Other GI Medical History: No Pertinent History History: No Pertinent History Psycho-Social History: No Pertinent History Female Reproductive Disorders: No Pertinent History Other Medical History: SCOLIOSIS. NOT ON SEIZURE MEDS - HAS NOT HAD A SEIZURE IN 6 YEARS - Past Surgical History Past Surgical History: Yes Neuro Surgical History: No Pertinent History Cardiac: No Pertinent History Respiratory: No Pertinent History Gastrointestinal: Cholecystectomy, Hernia Repair Genitourinary: No Pertinent History Musculoskeletal: Orthopedic Surgery Female Surgical History: Dilation & Curettage, Section, Tubal Ligation Other Surgical History: eardrum sugery. 3 sets of ear tubes. right ear tube hole did not close had surgery to close the hole. right knee. x4 Significant Family History: no pertinent family hx - Female History Hx Last Menstrual Period: 10/22/2023, tubal Hx Now: No - Social History Smoking Status: Never smoker Exposure to second hand smoke: No Alcohol Use: Socially Drug Use: none Patient Lives Alone: No - Social Determinants of Health Will the patient participate in the screening: Yes Do you worry about a steady place to live?: No Do you have any problems with any of the following?: No known problems In the past 12 months,have you had to go without utilities?: No Transportation Issues: No Has anyone in your support network made you feel unsafe?: No Have you or anyone in your house had to go without enough: No - Nursing Vital Signs Nursing Vital Signs: Initial Vital Signs Temperature 99.1 F 11/22/23 19:38 Pulse Rate 106 H 11/22/23 19:38 Respiratory Rate 20 11/22/23 19:38 Blood Pressure 125/88 11/22/23 19:38 O2 Sat by Pulse Oximetry 100 11/22/23 19:38 Pain Scale Pain Intensity 8 - Physical Exam General Appearance: alert Eye Exam: PERRL/EOMI Ears, Nose, Throat Exam: pharynx normal Neck Exam: normal inspection Respiratory Exam: lungs clear, airway intact Cardiovascular Exam: normal heart sounds Gastrointestinal Exam: normal bowel sounds Back Exam: No point tenderness Extremity Exam: No pedal edema Neurologic Exam: alert, cooperative, sensation nml, No motor deficits Skin Exam: warm, dry SpO2 Interpretation: normal SpO2: 100 O2 Delivery: Room Air - Course Nursing assessment & vital signs reviewed: Yes Ordered Tests: Active Orders 24 hr Category Date Time Status CULTURE,URINE Stat Lab 11/22/23 20:04 Received UA W/RFX UR CULTURE Stat Lab 11/22/23 20:04 Completed Medication Summary Discontinued Medications Generic Name Dose Route Start Last Admin Trade Name Garrett PRN Reason Stop Dose Admin Ketorolac Tromethamine 60 mg 11/22/23 20:00 11/22/23 20:04 Ketorolac Tromethamine 30 Mg/Ml Inj IM 11/22/23 20:01 60 mg STAT ONE Administration Ketorolac Tromethamine Confirm 11/22/23 20:03 Ketorolac Tromethamine 30 Mg/Ml Inj Administered 11/22/23 20:04 Dose 60 mg .ROUTE .STK-MED ONE Lab/Rad Data: Laboratory Results 11/22/23 Range/Units 20:04 Urine Color Dark Yellow A (Yellow) Urine Appearance Cloudy A (Clear) Urine pH 5.0 (4.6-8.0) Ur Specific [place] 1.025 (1.005-1.030) Urine Protein Negative (Negative) Urine Glucose (UA) Negative (Negative) mg/dL Urine Ketones Negative (Negative) Urine Blood Negative (Negative) Urine Nitrite Positive A (Negative) Urine Bilirubin Small A (Negative) Urine Urobilinogen 1.0 A (0.2) mg/dL Ur Leukocyte Esterase Trace A (Negative) U Hyaline Cast (Auto) NONE SEEN (0-2) /LPF Urine Microscopic RBC 0-2 (0-5) /HPF Urine Microscopic WBC 3-5 (0-5) /HPF Ur Epithelial Cells Few (None Seen) /HPF Urine Bacteria Few A (None Seen) /HPF Urine Culture Reflexed YES (NO) - Progress Progress: improved Counseled pt/family regarding: lab results, diagnosis, need for follow-up Medical Desision Making - Diagnostic Testing Diagnostic test were ordered, analyzed, and reviewed by me: Yes Radiological Interpretation: Interpreted by me - Departure Departure Disposition: Home Clinical Impression: Chronic low back pain, UTI (urinary tract infection) Condition: Stable Critical Care Time: No Referrals: RIGOBERTO GRAYSON MD [Primary Care Provider] - Follow up/PCP as directed Instructions: Low Back Pain (DC) Additional Instructions: Follow up with Dr. Teran tomorrow as scheduled. Prescriptions: Nitrofurantoin Macro 100 mg [Macrobid 100MG Capsule] 100 mg PO BID #14 cap Phenazopyridine HCl 200 mg [Pyridium 200 mg] 200 mg PO TID PRN #6 tablet
[2023-11-22 20:30] LABS: Appearance Cloudy (Clear); Bacteria Few /HPF (None Seen); Bilirubin Small (Negative); Blood Negative (Negative); Glucose, Urine Negative (Negative); Hyaline Casts NONE SEEN /LPF (0-2); Ketones Negative (Negative); Leukocyte Esterase Trace (Negative); Nitrite Positive (Negative); Protein,Urine Dip Negative (Negative); RBC 0-2 /HPF (0-5); Specific Gravity 1.025 (1.005-1.030)
[2023-11-22 20:31] LABS: ADD URINE CULTURE? YES (NO); Epithelial Cells Few /HPF (None Seen)
[2023-11-22] MEDS ORDERED: Macrobid 100MG Capsule ONE (20:39)
[2023-11-22] MEDS: Macrobid 100MG Capsule PO ONE (20:41)
[2023-11-22 20:49] VITALS: RESP 18
[2023-11-22 21:08] VITALS: BP 125/80; PULSE 96; O2SAT 99
== END 2023-11-22 20:46 | disposition home or self-care (01) ==
LOC: ED 19:32
DX: N39.0 Urinary tract infection, site not specified (principal); G89.29 Other chronic pain; M54.50 Low back pain, unspecified; R30.0 Dysuria; Z79.899 Other long term (current) drug therapy
CPT/HCPCS: 81001; 87086; 96372; 99283; J1885; A9270-GY

== ENCOUNTER 2024-04-16 19:17 | Emergency (ER) | payer OTHER ==
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
[2024-04-16 19:45] VITALS: TEMP 98.3; O2SAT 98
[2024-04-16 19:58] LABS: Absolute Neutrophil Ct (ANC) 9.07 x10^3/uL (1.56-6.13); BASOPHIL % 0.5 % (0.1-1.2); Basophil (Absolute #) 0.06 x10^3/uL (0.01-0.08); Eosinophil % 0.4 % (0.7-5.8); Eosinophil (Absolute #) 0.04 x10^3/uL (0.04-0.36); Hemoglobin 12.8 g/dL (11.2-15.7); IMMATURE GRAN # 0.04 x10^3u/L (0.001-0.031); IMMATURE GRAN % 0.4 % (0.001-0.429); Lymphocyte (Absolute #) 1.69 x10^3/uL (1.18-3.74); Lymphocytes % 14.9 % (19.3-51.7); Mean Cell Volume 91.8 fL (79.4-94.8); Mean Corpuscular Hemoglobin 30.9 pg (25.6-32.2); Mean Corpuscular Hgb Concent. 33.7 g/dL (32.2-35.5); Mean Platelet Volume 9.5 fL (9.4-12.3); Monocyte (Absolute #) 0.48 x10^3/uL (0.24-0.86); Monocytes % 4.2 % (4.7-12.5); Neutrophil % 79.6 % (34.0-71.1); Platelet Count 279 x10^3/uL (182-369); Red Blood Count 4.14 x10^6/uL (3.93-5.22); Red Cell Distribution Width 12.4 % (11.7-14.4); White Blood Count 11.4 x10^3/uL (3.98-10.04)
[2024-04-16 20:10] LABS: ANION GAP 12.4 MEQ/L (5-15); Calcium 8.9 mg/dL (8.4-10.2); Creatinine 1 0.79 mg/dL (0.52-1.04); EST GLOMERULAR FILTRATION RATE 103.8 ML/MIN; Potassium 3.7 mmol/L (3.5-5.1)
[2024-04-16 20:48] VITALS: BP 119/70; PULSE 102; RESP 16
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
[2024-04-16] MEDS ORDERED: Vibramycin 100 MG ONE (21:38)
[2024-04-16] MEDS: Vibramycin 100 MG PO ONE (21:40)
== END 2024-04-16 21:49 | disposition home or self-care (01) ==
LOC: ED 19:17
DX: S00.83XA Contusion of other part of head, initial encounter (principal); R51.9 Headache, unspecified; M54.2 Cervicalgia; J34.89 Other specified disorders of nose and nasal sinuses; Y04.8XXA Assault by other bodily force, initial encounter; J32.0 Chronic maxillary sinusitis
CPT/HCPCS: 36415; 70450; 70486; 72125; 80048; 85025; 93005; 99284; 99285; A9270-GY

== ENCOUNTER 2025-03-01 18:47 | Emergency (ER) | payer OTHER ==
[2025-03-01 20:20] VITALS: TEMP 99
[2025-03-01 21:31] LABS: Glucose, Urine Negative (Negative); Protein,Urine Dip Negative (Negative); RBC 0-2 /HPF (0-5)
--- NOTE | 2025-03-01 22:09 | ERPHSYRPT ---
- History of Present Illness Time Seen by Provider: 03/01/25 22:04 Historian: patient Exam Limitations: no limitations Patient Subjective Stated Complaint: pt reports abdominal pain for 2 days, states her pain is worse when she bends over and after eating. Triage Nursing Assessment: pt is aox3, pupils perrl, afebrile, resps easy and non labored, cap refill < 3 seconds, radial pulses strong and equal, abd soft, tender diffusely, bowel sounds present, pt skin pink warm dry. Physician History: 30-year-old female history of epilepsy presents to our ED with complaints of abdominal pain. Pain described as an ache that is periumbilical. No trauma no fever no nausea vomiting or diarrhea. No chest pain or shortness of breath. Symptoms are constant. Symptoms are moderate in intensity. Pain somewhat worse with palpation. Patient otherwise feels well. She voices no other complaints or concerns at this time. Portions of this note were created with voice recognition technology. There may be grammatical, spelling, punctuation or sound alike errors Timing/Duration: today Activities at Onset: none Quality: aching Abdominal Pain Onset Location: periumbilical Pain Radiation: no radiation Severity of Pain-Max: moderate Severity of Pain-Current: mild Modifying Factors: Improves With: palpation Associated Symptoms: denies symptoms Previous symptoms: no prior history Allergies/Adverse Reactions: morphine Allergy (Mild, Verified 03/01/25 20:19) Difficulty Breathing Penicillins Allergy (Mild, Verified 03/01/25 20:19) Rash THROAT SWELLS Sulfa (Sulfonamide Antibiotics) Allergy (Mild, Verified 03/01/25 20:19) Rash Home Medications: Cyclobenzaprine HCl 10 mg [Cyclobenzaprine 10 MG] 5 mg PO TID PRN 11/22/23 [History] Hx Tetanus, Diphtheria Vaccination/Date Given: Yes Hx Influenza Vaccination/Date Given: No Hx Pneumococcal Vaccination/Date Given: No Immunizations Up to Date: Yes Travel Risk - International Travel Have you traveled outside of the country in past 3 weeks: No - Emerging Infectious Disease Are you exhibiting symptoms associated with any current EIDs: No - Review of Systems All Other Systems: Reviewed and Negative - Past Medical History Pertinent Past Medical History: Yes Neurological History: Epilepsy ENT History: No Pertinent History Cardiac History: No Pertinent History Respiratory History: No Pertinent History Endocrine Medical History: No Pertinent History Musculoskeletal History: Other GI Medical History: No Pertinent History History: No Pertinent History Psycho-Social History: No Pertinent History Female Reproductive Disorders: No Pertinent History Other Medical History: SCOLIOSIS. NOT ON SEIZURE MEDS - HAS NOT HAD A SEIZURE IN 6 YEARS - Past Surgical History Past Surgical History: Yes Neuro Surgical History: No Pertinent History Cardiac: No Pertinent History Respiratory: No Pertinent History Gastrointestinal: Cholecystectomy, Hernia Repair Genitourinary: No Pertinent History Musculoskeletal: Orthopedic Surgery Female Surgical History: Dilation & Curettage, Section, Tubal Ligation Other Surgical History: eardrum sugery. 3 sets of ear tubes. right ear tube hole did not close had surgery to close the hole. right knee. x4 Significant Family History: no pertinent family hx - Female History Hx Last Menstrual Period: 02/17/25 Hx Now: No (tubal) - Social History Smoking Status: Never smoker Exposure to second hand smoke: No Drug Use: none - Social Determinants of Health Will the patient participate in the screening: Yes Do you worry about a steady place to live?: No Do you have any problems with any of the following?: No known problems In the past 12 months,have you had to go without utilities?: No Transportation Issues: No Has anyone in your support network made you feel unsafe?: No Have you or anyone in your house had to go w/o enough food: No - Nursing Vital Signs Nursing Vital Signs: Initial Vital Signs Temperature 99.0 F 03/01/25 20:12 Pulse Rate 103 H 03/01/25 20:12 Respiratory Rate 18 03/01/25 20:12 Blood Pressure 135/84 03/01/25 20:12 O2 Sat by Pulse Oximetry 99 03/01/25 20:12 Pain Scale Pain Intensity 4 - Physical Exam General Appearance: no apparent distress, alert Eye Exam: PERRL/EOMI, eyes nml inspection Ears, Nose, Throat Exam: normal ENT inspection, pharynx normal, moist mucous membranes Neck Exam: normal inspection, full range of motion Respiratory Exam: normal breath sounds, lungs clear, airway intact, No respiratory distress Cardiovascular Exam: regular rate/rhythm, normal heart sounds Gastrointestinal/Abdomen Exam: soft, No tenderness, No mass Back Exam: normal inspection, normal range of motion, No CVA tenderness, No vertebral tenderness Extremity Exam: normal inspection, normal range of motion, pelvis stable Neurologic Exam: alert, oriented x 3, cooperative, normal mood/affect, nml cerebellar function, sensation nml, No motor deficits Skin Exam: normal color, warm, dry Lymphatic Exam: No adenopathy SpO2 Interpretation: normal SpO2: 99 O2 Delivery: Room Air - Course Nursing assessment & vital signs reviewed: Yes - CT Exams Abdomen/Pelvis CT Interpretation: Tele-radiologist Report (. Fecally loaded colon.) Ordered Tests: Active Orders 24 hr Category Date Time Status IV Insertion STAT Care 03/01/25 22:02 Active ABDOMEN AND PELVIS W/0 CONTRAS [CT] Stat Exams 03/01/25 22:03 Completed CBC W DIFF Stat Lab 03/01/25 23:10 Completed CMP Stat Lab 03/01/25 23:10 Completed CULTURE,URINE Stat Lab 03/01/25 21:11 Received TROPONIN Q4H Lab 03/01/25 23:10 Completed TROPONIN Q4H Lab 03/02/25 02:15 Ordered TROPONIN Q4H Lab 03/02/25 06:15 Ordered UA W/RFX UR CULTURE Stat Lab 03/01/25 21:11 Completed Medication Summary Discontinued Medications Generic Name Dose Route Start Last Admin Trade Name Freq PRN Reason Stop Dose Admin Sodium Chloride 1,000 mls @ 999 mls/hr 03/01/25 22:02 03/01/25 23:28 Sodium Chloride 0.9% 1000 Ml IV 03/01/25 23:02 Infused .Q1H1M STA Infusion Sodium Chloride Confirm 03/01/25 22:26 Sodium Chloride 0.9% 1000 Ml Administered 03/01/25 22:27 Dose 1,000 mls @ ud .ROUTE .STK-MED ONE Ketorolac Tromethamine 30 mg 03/01/25 23:02 03/01/25 23:11 Ketorolac Tromethamine 30 Mg/Ml Inj IV 03/01/25 23:03 30 mg STAT ONE Administration Ketorolac Tromethamine Confirm 03/01/25 23:09 Ketorolac Tromethamine 30 Mg/Ml Inj Administered 03/01/25 23:10 Dose 30 mg .ROUTE .STK-MED ONE Nitrofurantoin Macrocrystals 100 mg 03/02/25 00:36 Nitrofurantoin Macro 100 Mg Capsule PO 03/02/25 00:37 STAT ONE Lab/Rad Data: Laboratory Result Diagrams 03/01/25 23:10 03/01/25 23:10 Laboratory Results 03/01/25 03/01/25 03/01/25 Range/Units 23:10 23:10 23:10 WBC 9.3 (3.98-10.04) x10^3/uL RBC 4.24 (3.93-5.22) x10^6/uL Hgb 12.9 (11.2-15.7) g/dL Hct 39.2 (34.1-44.9) % MCV 92.5 (79.4-94.8) fL MCH 30.4 (25.6-32.2) pg MCHC 32.9 (32.2-35.5) g/dL RDW 12.2 (11.7-14.4) % Plt Count 253 (182-369) x10^3/uL MPV 9.4 (9.4-12.3) fL Gran % 61.2 (34.0-71.1) % Immature Gran % (Auto) 1.7 H (0.001-0.429) % Nucleat RBC Rel Count 0.0 (0.00-0.2) % Eos # (Auto) 0.03 L (0.04-0.36) x10^3/uL Immature Gran # (Auto) 0.16 H (0.001-0.031) x10^3u/L Absolute Lymphs (auto) 2.69 (1.18-3.74) x10^3/uL Absolute Monos (auto) 0.70 (0.24-0.86) x10^3/uL Absolute Nucleated RBC 0.00 (0.00-0.012) x10^3u/L Lymphocytes % 29.0 (19.3-51.7) % Monocytes % 7.6 (4.7-12.5) % Eosinophils % 0.3 L (0.7-5.8) % Basophils % 0.2 (0.1-1.2) % Absolute Granulocytes 5.67 (1.56-6.13) x10^3/uL Basophils # 0.02 (0.01-0.08) x10^3/uL Sodium 136 (135-145) mmol/L Potassium 3.9 (3.5-5.1) mmol/L Chloride 106 (98-107) mmol/L Carbon Dioxide 24 (22-30) mmol/L Anion Gap 10.1 (5-15) MEQ/L BUN 16 (7-17) mg/dL Creatinine 0.79 (0.52-1.04) mg/dL Estimated GFR 103.1 ML/MIN Glucose 126 H (74-106) mg/dL Calcium 8.5 (8.4-10.2) mg/dL Total Bilirubin 0.20 (0.2-1.3) mg/dL AST 21 (14-36) U/L ALT 16 (0-35) U/L Alkaline Phosphatase 88 (38-126) U/L Troponin I < 0.012 (0.000-0.033) ng/mL Serum Total Protein 6.3 (6.3-8.2) g/dL Albumin 3.6 (3.5-5.0) g/dL Urine Color (Yellow) Urine Appearance (Clear) Urine pH (4.6-8.0) Ur Specific [place] (1.005-1.030) Urine Protein (Negative) Urine Glucose (UA) (Negative) mg/dL Urine Ketones (Negative) Urine Blood (Negative) Urine Nitrite (Negative) Urine Bilirubin (Negative) Urine Urobilinogen (0.2) mg/dL Ur Leukocyte Esterase (Negative) U Hyaline Cast (Auto) (0-2) /LPF Urine Microscopic RBC (0-5) /HPF Urine Microscopic WBC (0-5) /HPF Ur Epithelial Cells (None Seen) /HPF Urine Bacteria (None Seen) /HPF Urine Culture Reflexed (NO) 03/01/25 Range/Units 21:11 WBC (3.98-10.04) x10^3/uL RBC (3.93-5.22) x10^6/uL Hgb (11.2-15.7) g/dL Hct (34.1-44.9) % MCV (79.4-94.8) fL MCH (25.6-32.2) pg MCHC (32.2-35.5) g/dL RDW (11.7-14.4) % Plt Count (182-369) x10^3/uL MPV (9.4-12.3) fL Gran % (34.0-71.1) % Immature Gran % (Auto) (0.001-0.429) % Nucleat RBC Rel Count (0.00-0.2) % Eos # (Auto) (0.04-0.36) x10^3/uL Immature Gran # (Auto) (0.001-0.031) x10^3u/L Absolute Lymphs (auto) (1.18-3.74) x10^3/uL Absolute Monos (auto) (0.24-0.86) x10^3/uL Absolute Nucleated RBC (0.00-0.012) x10^3u/L Lymphocytes % (19.3-51.7) % Monocytes % (4.7-12.5) % Eosinophils % (0.7-5.8) % Basophils % (0.1-1.2) % Absolute Granulocytes (1.56-6.13) x10^3/uL Basophils # (0.01-0.08) x10^3/uL Sodium (135-145) mmol/L Potassium (3.5-5.1) mmol/L Chloride (98-107) mmol/L Carbon Dioxide (22-30) mmol/L Anion Gap (5-15) MEQ/L BUN (7-17) mg/dL Creatinine (0.52-1.04) mg/dL Estimated GFR ML/MIN Glucose (74-106) mg/dL Calcium (8.4-10.2) mg/dL Total Bilirubin (0.2-1.3) mg/dL AST (14-36) U/L ALT (0-35) U/L Alkaline Phosphatase (38-126) U/L Troponin I (0.000-0.033) ng/mL Serum Total Protein (6.3-8.2) g/dL Albumin (3.5-5.0) g/dL Urine Color Yellow (Yellow) Urine Appearance Clear (Clear) Urine pH 5.0 (4.6-8.0) Ur Specific [place] 1.015 (1.005-1.030) Urine Protein Negative (Negative) Urine Glucose (UA) Negative (Negative) mg/dL Urine Ketones Negative (Negative) Urine Blood Negative (Negative) Urine Nitrite Negative (Negative) Urine Bilirubin Negative (Negative) Urine Urobilinogen 0.2 (0.2) mg/dL Ur Leukocyte Esterase Small A (Negative) U Hyaline Cast (Auto) NONE SEEN (0-2) /LPF Urine Microscopic RBC 0-2 (0-5) /HPF Urine Microscopic WBC 11-20 A (0-5) /HPF Ur Epithelial Cells Few (None Seen) /HPF Urine Bacteria Few A (None Seen) /HPF Urine Culture Reflexed YES (NO) - Progress Progress: improved Progress Note: 30-year-old female history of epilepsy presents to our ED with complaints of abdominal pain. Pain described as an ache that is periumbilical. No trauma no fever no nausea vomiting or diarrhea. No chest pain or shortness of breath. Physical exam reveals mild tenderness. Laboratory workup nonremarkable. UA significant for UTI. Patient received an oral dose of Macrobid. A prescription for the same forwarded to patient's pharmacy. CT abdomen pelvis reveals significant fecal loading. Patient advised [id number] laxative. Patient agrees that she will try it. Patient agrees to follow-up with a primary care doctor within 48 hours for reevaluation. Patient currently asymptomatic. She voices no other complaints or concerns at this time. Patient received Toradol for pain control. History obtained from patient Differential diagnosis includes constipation, colitis, diverticulitis, trauma Portions of this note were created with voice recognition technology. There may be grammatical, spelling, punctuation or sound alike errors Complexity of problems addressed is moderate acute complicated. No critical care time. Complexity of data reviewed and analyzed is moderate. Test ordered chest reviewed results analyzed and correlated clinically with history and physical exam. Risk of complication and or risk of morbidity/mortality of patient management is moderate. A prescription for Macrobid forwarded to patient's pharmacy. Vital stable. Time spent to discharge patient is approximately 15 minutes. Plan of care established for shared decision making. No social determinants of health present to impede follow-up. Portions of this note were created with voice recognition technology. There may be grammatical, spelling, punctuation or sound alike errors 03/02/25 00:45 03/02/25 00:47 Counseled pt/family regarding: lab results, diagnosis, need for follow-up, rad results - Departure Departure Disposition: Home Clinical Impression: L5-S1 anterolisthesis, Constipation, Abdominal pain, Urinary tract infection Condition: Stable Critical Care Time: No Referrals: RIGOBERTO GRAYSON MD [Primary Care Provider, [facility]] - Follow up/PCP as directed Additional Instructions: Discharge/Care Plan EDGAR VANN was seen on 03/02/25 in the Emergency Room. The patient was counseled regarding Diagnosis,Lab results, Imaging studies, need for follow up and when to return to the Emergency Room. Prescriptions given: Discharge Note I have spoken with the patient and/or caregivers. I have explained the patient's condition, diagnosis and treatment plan based on the information available to me at this time. I have answered the patient's and/or caregiver's questions and addressed any concerns. The patient and/or caregivers have as good understanding of the patient's diagnosis, condition and treatment plan as can be expected at this point. The vital signs have been stable. The patient's condition is stable and appropriate for discharge from the emergency department. The patient will pursue further outpatient evaluation with the primary care physician or other designated or consulting physician as outlined in the discharge instructions. The patient and/or caregivers are agreeable to this plan of care and follow-up instructions have been explained in detail. The patient and/or caregivers have received these instruction. The patient/and or caregivers are aware that any significant change in condition or worsening of symptoms should prompt an immediate return to this or the closest emergency department or call 911. Prescriptions: Nitrofurantoin Macro 100 mg [Macrobid 100MG Capsule] 100 mg PO BID 7 Days #14 cap
--- NOTE | 2025-03-01 23:02 | XRAY ---
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 Coronal and sagittal reconstructions were also performed and indicated to increase the sensitivity for detecting clinically relevant pathology. The CT scan was performed according to ALARA (as low as reasonably achievable) principles. FINDINGS: The visualized lung bases are clear. Evaluation of the abdominal and pelvic visceral organs is limited without intravenous contrast. The unenhanced liver, spleen, pancreas, and adrenal glands are grossly unremarkable. The gallbladder is not visualized. The kidneys are normal in size and attenuation without obvious calcification. There is no hydronephrosis or perinephric stranding. The ureters are normal in caliber. No adenopathy or fluid collections are seen. Fecally loaded colon. No evidence of focal or diffuse bowel wall thickening or evidence of bowel obstruction is seen. The appendix is visualized in the right lower quadrant and appears within normal limits. The aorta is normal in caliber. The urinary bladder is normal in contour. Pelvic viscera are grossly unremarkable. Mild anterolisthesis of L5 over S1 by 0.3 cm due to bilateral spondylolysis. IMPRESSION: 1. Fecally loaded colon. 2. Mild chronic anterolisthesis of L5 over S1 due to bilateral spondylolysis. Stable. Electronically Signed by: Troy Gill MD. (03/01/2025 23:00:25 EST)
[2025-03-01 23:08] VITALS: RESP 17
[2025-03-01] MEDS ORDERED: TORAdol 30 mg Injection ONE (23:09)
[2025-03-01] MEDS: TORAdol 30 mg Injection IV ONE (23:11)
[2025-03-01 23:12] LABS: BASOPHIL % 0.2 % (0.1-1.2); Basophil (Absolute #) 0.02 x10^3/uL (0.01-0.08); Eosinophil (Absolute #) 0.03 x10^3/uL (0.04-0.36); Hematocrit 39.2 % (34.1-44.9); Hemoglobin 12.9 g/dL (11.2-15.7); IMMATURE GRAN # 0.16 x10^3u/L (0.001-0.031); IMMATURE GRAN % 1.7 % (0.001-0.429); Lymphocyte (Absolute #) 2.69 x10^3/uL (1.18-3.74); Mean Corpuscular Hemoglobin 30.4 pg (25.6-32.2); Mean Corpuscular Hgb Concent. 32.9 g/dL (32.2-35.5); Monocyte (Absolute #) 0.70 x10^3/uL (0.24-0.86); NUCLEATED RBC # 0.00 x10^3u/L (0.00-0.012); NUCLEATED RBC % 0.0 % (0.00-0.2); Platelet Count 253 x10^3/uL (182-369); Red Blood Count 4.24 x10^6/uL (3.93-5.22); White Blood Count 9.3 x10^3/uL (3.98-10.04)
[2025-03-01 23:27] LABS: Calcium 8.5 mg/dL (8.4-10.2); Carbon Dioxide 24.0 mmol/L (22-30); Creatinine 1 0.79 mg/dL (0.52-1.04); EST GLOMERULAR FILTRATION RATE 103.1 ML/MIN; Glucose 126.0 mg/dL (74-106); Potassium 3.9 mmol/L (3.5-5.1); SGOT/AST 21.0 U/L (14-36); SGPT/ALT 16.0 U/L (0-35); Total Protein 6.3 g/dL (6.3-8.2)
[2025-03-02 00:09] VITALS: BP 97/66; PULSE 89
[2025-03-02 00:18] VITALS: O2SAT 99
[2025-03-02] MEDS ORDERED: Macrobid 100MG Capsule ONE (00:43)
[2025-03-02] MEDS: Macrobid 100MG Capsule PO ONE (00:44)
== END 2025-03-02 00:55 | disposition home or self-care (01) ==
LOC: ED 18:47
DX: N39.0 Urinary tract infection, site not specified (principal); K59.00 Constipation, unspecified; R10.33 Periumbilical pain; M43.17 Spondylolisthesis, lumbosacral region; Z79.899 Other long term (current) drug therapy